=== PATIENT | male | born 1950 | race Caucasian/White ===

== ENCOUNTER 2020-07-06 12:55 | Inpatient (IN) | payer OTHER, MEDICARE, SELFPAY ==
[2020-07-06 14:41] VITALS: BP 112/80; PULSE 87; RESP 16; TEMP 36.7; O2SAT 99; BMI 25.4
--- NOTE | 2020-07-06 15:20 | ECG_ITS ---
Test Reason : RECHECK Blood Pressure : / mmHG Vent. Rate : 077 BPM Atrial Rate : 077 BPM P-R Int : 226 ms QRS Dur : 080 ms QT Int : 396 ms P-R-T Axes : 051 -35 031 degrees QTc Int : 448 ms Sinus rhythm with 1st degree A-V block Left axis deviation Low voltage QRS Abnormal ECG No previous ECGs available Referred By: Reena Azul Electronically Signed By:LEANDRO GUTHRIE
--- NOTE | 2020-07-06 15:20 | ED.RECABL ---
HPI - Recheck/Abnormal Lab/Rx General Chief Complaint: Recheck/Abnormal Lab/Rx Stated Complaint: abnormal labs Time Seen by Provider: 07/06/20 14:38 Source: patient History of Present Illness HPI narrative: 70-year-old male with a past medical history of CKD, hyperlipidemia, hypertension sent in by PCP for abnormal renal function noted on outpatient routine labs today. Per outpatient labs BUN creatinine was 120/4.06 today, last checked on February 02, 2020 BUN 54 / creatinine 2.22. Patient reports mild nausea and nonbloody diarrhea the past couple days. Denies fever, chills, vomiting, dysuria/hematuria, flank pain Related Data Allergies Allergy/AdvReac Type Severity Reaction Status Date / Time cat dander Allergy Watery Eye Verified 07/06/20 14:48 house dust Allergy Watery Eye Verified 07/06/20 14:48 Review of Systems Review of Systems: Constitutional: No Weight loss, No Fever, No Chills Cardiovascular: No Chest Pain, No SOB, No Palpitations Respiratory: No Cough, No Sputum, No Dyspnea Gastrointestinal: + Nausea, No Vomiting, + Diarrhea, No Constipation, No Abdominal pain, No Hematochezia, No Melena Genitourinary: No irregular bleeding, No Dysuria, No Urinary Frequency, No Hematuria, No Flank Pain, No Urinary Flow Changes Musculoskeletal: No joint pain, No Myalgias, No Joint Swelling Skin: No Skin Lesions, No rash Neuro: No Weakness, No Headache Yes all other systems are reviewed and are negative [facility] Past Medical History Attestation statement: The following information was validated with the patient. Medical History (Updated 07/06/20 @ 17:08 by GERARDO Gtz) H/O chronic kidney disease Hypercholesteremia Hypertension Social History Social History Advance Directives: No Advance Directives Information Provided: Yes Physical Exam Vital Signs: Vital Signs: Last Vital Signs Temp 98.7 F 07/06/20 16:00 Pulse 77 07/06/20 16:00 Resp 16 07/06/20 16:00 BP 101/64 07/06/20 16:00 Pulse Ox 99 07/06/20 16:00 Body Mass Index 25.4 Const: General: cooperative, healthy appearing and comfortable Orientation/consciousness: patient oriented x3 Limitations: no limitations HENMT: Head: Yes normal to inspection Ears: hearing grossly normal bilaterally General nose exam: Normal external nose present Face and sinus: Yes normal facial exam Eyes: General: appearance normal, both eyes and all related structures EOM: EOMs intact bilaterally Neck: Neck: Yes normal visual inspection Resp: Effort & Inspection: normal respiratory effort Auscultation: clear to auscultation bilaterally, no rales, no rhonchi and no wheezes Cardio: Rate: regular rate Heart sounds: S1 normal heart sound present and S2 normal heart sound present GI: Inspection: Yes normal to inspection Palpation (GI): Soft to palpation, nontender, no guarding and not rigid : General: Yes no CVA tenderness Back/Spine/Pelvis: Back: no CVA tenderness Skin: Rashes: no rashes Wounds: no wounds Neuro: General: patient oriented x3 Gait exam (Neuro): Normal gait present Extrem: General: Yes normal to inspection and Yes no pedal edema Course Course Course Narrative: -1700-- labs notable for elevated potassium to 6.8 > no EKG changes, sodium, insulin, and D50 ordered expected from renal dysfunction. Low concern for severe sepsis. Renal function BUN 131/creatinine 4.13. -lipase also noted to be elevated at 311 > will obtain dry CT AP to rule out acute pancreatitis MDM - Recheck/Abnormal Lab/Rx MDM Narrative Medical decision making narrative: 70-year-old male with a past medical history of CKD, hyperlipidemia, hypertension sent in by PCP for abnormal renal function noted on outpatient routine labs today. On exam VSS, NAD/well-appearing, physical exam as above. Concern for acute on chronic worsening CKD due to dehydration vs ?obstruction. Lower concern for infectious etiology. Plan: Labs, UA, re-evaluate Medical Records Attestation: I reviewed the patient's medical records. Lab Data Attestation: I reviewed the patient's lab results. Result diagrams: 07/06/20 15:27 07/06/20 15:27 Labs: Lab Results 07/06/20 07/06/20 07/06/20 Range/Units 15:27 15:27 15:27 WBC 9.2 (4.8-10.8) X10*3/uL RBC 3.77 L (4.60-5.80) X10*6/uL Hgb 13.1 L (14.0-18.0) g/dl Hct 37.6 L (42-52) % MCV 99.7 H (80-98) fL MCH 34.7 H (27.0-33.0) pg MCHC 34.8 (31.0-36.0) g/dl RDW 12.8 (11.0-16.0) % Plt Count 173 (160-400) X10*3/uL MPV 10.8 (9.4-12.4) fL Immature Gran % (Auto) 0.3 (0.0-0.4) % Neut % (Auto) 64.3 (45-73) % Lymph % (Auto) 20.1 (20-40) % [place] % (Auto) 13.7 H (2-11) % Eos % (Auto) 1.1 (0-4) % Baso % (Auto) 0.5 (0-2) % Lymph # (Auto) 1.8 (1.2-4.9) X10*3/uL [place] # (Auto) 1.3 H (0.1-1.2) X10*3/uL Eos # (Auto) 0.1 (0.0-0.4) X10*3/uL Baso # (Auto) 0.1 (0.0-0.2) X10*3/uL Abs Immat Gran (auto) 0.03 (0.00-0.03) X10*3/uL Absolute Neuts (auto) 5.9 (2.0-8.3) X10*3/uL Absolute Nucleated RBC 0.000 (0.0-0.012) X10*3/uL Nucleated RBC % (auto) 0.0 (0.0-0.2) /100WBC Hold Blue Top SEE NOTE Sodium 133 L (135-145) mmol/L Potassium 6.8 H* (3.3-5.1) mmol/L Chloride 105 (96-108) mmol/L Carbon Dioxide 11 L (22-29) mmol/L Anion Gap 24 H (12-20) BUN 131 H* (9-16) mg/dL Creatinine 4.13 H* (0.5-1.4) mg/dL Estim Creat Clear Calc 16.4 Estimated GFR 14 Random Glucose 93 (60-115) mg/dL Calcium 9.6 (8.4-10.2) mg/dL Magnesium 1.9 (1.6-2.6) mg/dL Total Bilirubin 0.8 (0.0-1.0) mg/dL Direct Bilirubin 0.4 (0.0-0.5) mg/dL AST 28 (5-37) U/L ALT 18 (0-40) U/L Alkaline Phosphatase 64 (39-117) U/L Total Protein 7.4 (6.5-8.0) g/dL Albumin 4.4 (3.5-5.0) g/dL Lipase 311 H (8-78) U/L Discharge Plan Discharge Clinical Impression: Acute kidney injury superimposed on chronic kidney disease, Acute hyperkalemia Patient Disposition: Admitted As Inpatient
[2020-07-06 15:35] LABS: MANUAL DIFF FLAG NO
[2020-07-06] MEDS: 0.9 % Sodium Chloride 1,000 ML 999 ML IVCONT ×2 (15:35→17:33)
[2020-07-06 15:37] LABS: Basophils Absolute Auto 0.1 X10*3/uL (0.0-0.2); Basophils Percent Auto 0.5 % (0-2); Eosinophils Absolute Auto 0.1 X10*3/uL (0.0-0.4); Eosinophils Percent Auto 1.1 % (0-4); Hematocrit 37.6 % (42-52); Hemoglobin 13.1 g/dl (14.0-18.0); Imm Gran Abs Auto 0.03 X10*3/uL (0.00-0.03); Imm Gran Pct Auto 0.3 % (0.0-0.4); Lymphocytes Absolute Auto 1.8 X10*3/uL (1.2-4.9); Lymphocytes Percent Auto 20.1 % (20-40); Mean Corpuscular HGB Conc 34.8 g/dl (31.0-36.0); Mean Corpuscular Hemoglobin 34.7 pg (27.0-33.0); Mean Corpuscular Volume 99.7 fL (80-98); Mean Platelet Volume 10.8 fL (9.4-12.4); Monocytes Absolute Auto 1.3 X10*3/uL (0.1-1.2); Monocytes Percent Auto 13.7 % (2-11); Neutrophils Absolute Auto 5.9 X10*3/uL (2.0-8.3); Neutrophils Percent Auto 64.3 % (45-73); Platelet Count 173 X10*3/uL (160-400); Red Blood Count 3.77 X10*6/uL (4.60-5.80); Red Cell Distribution Width 12.8 % (11.0-16.0); White Blood Count 9.2 X10*3/uL (4.8-10.8)
[2020-07-06 16:00] VITALS: BP 101/64; PULSE 77; RESP 16; TEMP 37.1; O2SAT 99
[2020-07-06 16:42] LABS: Alanine Aminotransferase 18 U/L (0-40); Albumin Level 4.4 g/dL (3.5-5.0); Alkaline Phosphatase 64 U/L (39-117); Anion Gap 24 (12-20); Aspartate Amino Transferase 28 U/L (5-37); Bilirubin Direct 0.4 mg/dL (0.0-0.5); Bilirubin Total 0.8 mg/dL (0.0-1.0); Blood Urea Nitrogen 131 mg/dL (9-16); Calcium 9.6 mg/dL (8.4-10.2); Carbon Dioxide 11 mmol/L (22-29); Chloride 105 mmol/L (96-108); Creatinine Clr Calc Pharmacy 16.4; Estimated Glomerular Filt Rate 14; Glucose Random 93 mg/dL (60-115); Lipase 311 U/L (8-78); Magnesium 1.9 mg/dL (1.6-2.6); Potassium 6.8 mmol/L (3.3-5.1); Sodium 133 mmol/L (135-145); Total Protein 7.4 g/dL (6.5-8.0)
--- NOTE | 2020-07-06 17:06 | CT_ITS ---
EXAMINATION: CT ABDOMEN AND PELVIS WITHOUT CONTRAST CLINICAL INFORMATION: Acute on chronic kidney disease. Elevated lipase COMPARISON: None TECHNIQUE: Multidetector volumetric imaging was performed from the superior aspect of the liver through the pubic symphysis. Sagittal and coronal reformatted images were obtained on the technologist's workstation. This CT examination was performed using dose optimization techniques as appropriate, variously including the following: *Automated exposure control *Adjustment of mA and/or kV according to patient size (this includes techniques or standardized protocols for targeted exams where dose is matched to indication/reason for exam; i.e. extremities or head) *Use of iterative reconstruction technique DLP: 501 mGy-cm FINDINGS: The lack of intravenous contrast limits evaluation of the solid visceral organs including the liver, spleen, pancreas, and kidneys. LUNG BASES: The visualized lung bases are unremarkable. LIVER, GALLBLADDER, AND BILIARY TREE: Limited non-contrast evaluation is normal. No gross focal hepatic lesion. Normal liver size and contour. No gross biliary ductal dilation. The gallbladder is unremarkable with no evidence of radiopaque gallstones, gallbladder wall thickening, or obvious pericholecystic inflammatory changes. PANCREAS: Limited non-contrast evaluation is normal. No gail-pancreatic fluid. SPLEEN: Limited non-contrast evaluation is normal. ADRENAL GLANDS: Normal; no adrenal mass. KIDNEYS AND URETERS: Likely cyst of the anterior cortex of lower pole the right kidney. No calculi or hydronephrosis. GASTROINTESTINAL TRACT: Small hiatal hernia. Stomach collapsed. Small bowel nondilated. The appendix is not seen but there are no right lower quadrant inflammatory changes to suggest appendicitis. ABDOMINAL WALL: There is fat in the left inguinal canal. LYMPH NODES: No lymphadenopathy. VASCULAR: Circumferential calcified atherosclerotic disease. Tortuous aorta. No aneurysm or dissection. BLADDER: Unremarkable. PELVIC VISCERA: Mild prostatomegaly. Seminal vesicles symmetric. OSSEOUS STRUCTURES: Multilevel degenerative changes of the thoracolumbar spine. There is severe loss of disc height with endplate sclerosis and anterior as well as posterior osteophytosis L1-L2, L4-L5, and L5-S1. CT/CT abdomen pelvis wo con IMPRESSION: Normal appearance of the pancreas. Note that the pancreas can have a normal CT appearance in cases of mild pancreatitis by serum enzymes.
[2020-07-06] MEDS: Insulin Regular, Human 100 UNIT/ML 3 ML VIAL IVPUSH (17:33)
[2020-07-06] MEDS: Sodium Polystyrene Sulfon/Sorb 15 GM/60 ML ORAL.SUSP 30 GM PO (17:33)
[2020-07-06] MEDS: Sodium Bicarbonate 8.4% 50 MEQ/50 ML VIAL IVPUSH (17:55)
[2020-07-06 18:00] VITALS: BP 137/99; PULSE 94; RESP 21; TEMP 37.1; O2SAT 100
[2020-07-06 19:35] LABS: COVID-19 Test Negative (Negative)
--- NOTE | 2020-07-06 19:58 | P.HPHOSP_ITS ---
History of Present Illness Date of Service: 07/06/20 Chief Complaint: Diarrhea 70 year old man presenting with diarrhea for 2 days. He reported loose watery stool several times in one day with no blood. He denied recent travel, improperly cooked foods, new medications or antibiotics. he has had no fever, chills, cough. He had some mild abdominal cramping. Abd CT showed no acute abnormality. His creatinine was noted to be elevated at 4.13, potassium 6.8, sodium 133. Lipase is elevated at [address] is not definitive for pancreatitis. In the ED, he received sodium bicarb, insulin and D50, kayexalate and IV fluids. Review of Systems Review of Systems: Denies any recent fever chills or decrease in appetite respiratory denies any shortness of breath coverage production cardiovascular is adjustment of any PND or edema gastrointestinal See HPI genitourinary denies any dysuria frequency or hematuria musculoskeletal denies any joint pain or swelling neuropsych denies any weakness or seizures all other systems reviewed are negative [facility] Medical History (Updated 07/06/20 @ 17:08 by GERARDO Gtz) H/O chronic kidney disease Hypercholesteremia Hypertension Pertinent family history: No cardiac disease Social History (Updated 07/06/20 @ 20:03 by Megan Rosales NP) Alcohol intake: never Smoking Status: Never smoker Advance Directives: No Advance Directives Information Provided: Yes Meds Allergies Allergy/AdvReac Type Severity Reaction Status Date / Time cat dander Allergy Watery Eye Verified 07/06/20 14:48 house dust Allergy Watery Eye Verified 07/06/20 14:48 Home Medications Medication Instructions Recorded Confirmed Type allopurinol 300 mg PO DAILY 07/06/20 07/06/20 History carvedilol 25 mg PO BID 07/06/20 07/06/20 History cetirizine 10 mg PO DAILY 07/06/20 07/06/20 History cyclobenzaprine [Flexeril] 5 mg PO TID PRN 07/06/20 07/06/20 History lidocaine 1 patch TOPICAL DAILY 07/06/20 07/06/20 History lisinopril-hydrochlorothiazide 1 tab PO DAILY 07/06/20 07/06/20 History psyllium husk 1 tbsp PO DAILY 07/06/20 07/06/20 History simvastatin 40 mg PO BEDTIME 07/06/20 07/06/20 History Physical Exam Vital Signs and Narrative: Vital Signs: Last Vital Signs Temp 98.8 F 07/06/20 18:00 Pulse 94 07/06/20 18:00 Resp 21 H 07/06/20 18:00 BP 137/99 H 07/06/20 18:00 Pulse Ox 100 07/06/20 18:00 Body Mass Index 25.4 Appearing in no acute distress head is normocephalic atraumatic eyes pupils are PERRLA sclera is anicteric mouth throat mucous membranes are intact and moist neck is supple no lymphadenopathy, no JVD noted lung sounds are clear to auscultation heart regular rate rhythm, clear S1, S2 positive bowel sounds, abdomen is soft, nontender neuro patient is alert x3, no focal deficits Results Labs CBC and Chem 7: 07/06/20 15:27 07/06/20 15:27 Labs: Laboratory Results - last 24 hr 07/06/20 07/06/20 07/06/20 15:27 15:27 15:27 MCV 99.7 H MCH 34.7 H MCHC 34.8 RDW 12.8 Plt Count 173 MPV 10.8 Immature Gran % (Auto) 0.3 Neut % (Auto) 64.3 Lymph % (Auto) 20.1 [place] % (Auto) 13.7 H Eos % (Auto) 1.1 Baso % (Auto) 0.5 Lymph # (Auto) 1.8 [place] # (Auto) 1.3 H Eos # (Auto) 0.1 Baso # (Auto) 0.1 Abs Immat Gran (auto) 0.03 Absolute Neuts (auto) 5.9 Absolute Nucleated RBC 0.000 Nucleated RBC % (auto) 0.0 Hold Blue Top SEE NOTE Anion Gap 24 H Estim Creat Clear Calc 16.4 Estimated GFR 14 Random Glucose 93 Calcium 9.6 Magnesium 1.9 Total Bilirubin 0.8 Direct Bilirubin 0.4 AST 28 ALT 18 Alkaline Phosphatase 64 Total Protein 7.4 Albumin 4.4 Lipase 311 H COVID-19 ([facility]) COVID-19 Clin Com 07/06/20 18:47 MCV MCH MCHC RDW Plt Count MPV Immature Gran % (Auto) Neut % (Auto) Lymph % (Auto) [place] % (Auto) Eos % (Auto) Baso % (Auto) Lymph # (Auto) [place] # (Auto) Eos # (Auto) Baso # (Auto) Abs Immat Gran (auto) Absolute Neuts (auto) Absolute Nucleated RBC Nucleated RBC % (auto) Hold Blue Top Anion Gap Estim Creat Clear Calc Estimated GFR Random Glucose Calcium Magnesium Total Bilirubin Direct Bilirubin AST ALT Alkaline Phosphatase Total Protein Albumin Lipase COVID-19 ([facility]) Negative COVID-19 Clin Com See Note Imaging Radiologist's Impressions: Impressions Abdomen/Pelvis CT 07/06/20 17:06 IMPRESSION: Normal appearance of the pancreas. Note that the pancreas can have a normal CT appearance in cases of mild pancreatitis by serum enzymes. Assessment and Plan (1) Acute kidney injury superimposed on chronic kidney disease: Status: Acute 70 year old man admitted with LOWELL and hyperkalemia likely related to diarrhea LOWELL, hyperkalemia. Likely from dehydration/volume loss secondary to diarrea. IV fluids, Nephrology consult, BMP this evening. Kayexalate if needed. Diarrhea. Check Stool studies and cdiff HTN. Stable blood pressure. Hold Lisinopril/HCTZ due to LOWELL. Continue BB. HLD. Statin. DVT prophylaxis with Heparin Dioscussed with Dr. De La Rosa Full code
[2020-07-06] MEDS: 0.9 % Sodium Chloride 1,000 ML 100 ML IVCONT (21:56)
[2020-07-06] MEDS: Heparin Sodium,Porcine 5,000 UNIT/ML VIAL 5000 UNIT SUBCUT (21:58)
--- NOTE | 2020-07-06 22:01 | PC.NURSE ---
pt medicated as per emar. Pt denies any complaints at this time. Pt alert, respirations easy, n/l. skin w/d/p. Will continue to monitor pt.
--- NOTE | 2020-07-06 22:25 | PC.NURSE ---
NS UP AND RUNNING ON PUMP AT 100ML/HR. WILL CONTINUE TO MONITOR PT.
--- NOTE | 2020-07-06 23:10 | MHC.CM.PN ---
CM met with pt. A&Ox3. Very pleasant and talkative. IMM completed per protocol. Copy to pt and in chart. States HCP is and copy is at home. Pt is an [employer] vet and is [facility]. D/C plan is home. to provide transportation home. CM to follow for d/c needs
[2020-07-07] VITALS (8 sets, daily range): BP systolic 120–146; BP diastolic 76–91; PULSE 72–80; RESP 16–18; TEMP 36.2–36.7; O2SAT 99–100
[2020-07-07] MEDS: 0.9 % Sodium Chloride Flush 3 ML SYRINGE IVFLUSH ×2 (01:18→08:33)
--- NOTE | 2020-07-07 02:00 | PC.NURSE ---
PT AWAKE AND STATES I HAVEN'T SLEPT ALL NIGHT. PT DENIES ANY COMPLAINTS. 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 PT IN NAD AND WILL CONTINUE TO MONITOR PT.
[2020-07-07 04:17] LABS: Appearance Urine CLEAR; Color Urine YELLOW; Glucose Urine UA NEG (NEG); Leukocyte Esterase Urine NEG (NEG); Nitrite Urine NEG (NEG); Specific Gravity - Urine 1.015 (1.005-1.025); UACC Culture Trigger NO; Urine Blood NEG (NEG); Urine Ketones NEG (NEG); Urine Protein NEG (NEG-TRACE)
--- NOTE | 2020-07-07 05:33 | PC.NURSE ---
PT RESTING IN STRETCHER, WAKES TO VERBAL STIMULI AND FALLS BACK TO SLEEP. VS OBTAINED WNL. PT IN NAD. AWAITING FOR DISPO.
[2020-07-07 06:46] LABS: Basophils Percent Auto 0.5 % (0-2); Eosinophils Absolute Auto 0.1 X10*3/uL (0.0-0.4); Eosinophils Percent Auto 1.4 % (0-4); Hematocrit 34.3 % (42-52); Hemoglobin 11.8 g/dl (14.0-18.0); Imm Gran Abs Auto 0.02 X10*3/uL (0.00-0.03); Imm Gran Pct Auto 0.3 % (0.0-0.4); Lymphocytes Absolute Auto 1.5 X10*3/uL (1.2-4.9); Lymphocytes Percent Auto 22.6 % (20-40); MANUAL DIFF FLAG NO; Mean Corpuscular HGB Conc 34.4 g/dl (31.0-36.0); Mean Corpuscular Hemoglobin 34.9 pg (27.0-33.0); Mean Corpuscular Volume 101.5 fL (80-98); Mean Platelet Volume 10.9 fL (9.4-12.4); Monocytes Absolute Auto 0.8 X10*3/uL (0.1-1.2); Monocytes Percent Auto 12.8 % (2-11); Neutrophils Absolute Auto 4.1 X10*3/uL (2.0-8.3); Neutrophils Percent Auto 62.4 % (45-73); Platelet Count 148 X10*3/uL (160-400); Red Blood Count 3.38 X10*6/uL (4.60-5.80); Red Cell Distribution Width 12.9 % (11.0-16.0); White Blood Count 6.6 X10*3/uL (4.8-10.8)
[2020-07-07 07:31] LABS: Anion Gap 19 (12-20); Blood Urea Nitrogen 119 mg/dL (9-16); Carbon Dioxide 15 mmol/L (22-29); Chloride 111 mmol/L (96-108); Creatinine Clr Calc Pharmacy 23.5; Estimated Glomerular Filt Rate 22; Glucose Random 105 mg/dL (60-115); Potassium 5.5 mmol/L (3.3-5.1); Sodium 139 mmol/L (135-145)
[2020-07-07] MEDS: 0.9 % Sodium Chloride 1,000 ML 100 ML IVCONT ×2 (08:32→18:33)
[2020-07-07] MEDS: Heparin Sodium,Porcine 5,000 UNIT/ML VIAL 5000 UNIT SUBCUT ×2 (08:40→20:54)
--- NOTE | 2020-07-07 11:42 | PC.NURSE ---
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
--- NOTE | 2020-07-07 12:47 | HO.PM.IMPN ---
Subjective Subjective Date of Service: 07/07/20 Interval History: Patient feeling better had 4 bowel movement yesterday and only 1 today it is more formed complaining of mild lower abdominal discomfort otherwise no fever no chills no lightheadedness or dizziness no other acute issues since admit. ROS General no headache, no dizziness, no fever chills. CVS no chest pain, no palpitation. Respiratory no cough, no sputum production ,no respiratory distress. Gastrointestinal no nausea,no vomiting, mild abdominal pain,diarrhea. Physical Exam Vital Signs: Vital Signs: Last Vital Signs Temp 98.0 F 07/07/20 11:41 Pulse 75 07/07/20 11:41 Resp 18 07/07/20 11:41 BP 121/81 07/07/20 11:41 Pulse Ox 100 07/07/20 11:41 Body Mass Index 25.4 General patient resting comfortably in no acute distress. Neck is supple no JVD. CVS regular rate rhythm, Respiratory lungs clear to auscultation, no respiratory distress Gastrointestinal abdomen soft, nontender, bowel sounds audible, no guarding , no rigidity. Extremities no edema. Neuro nonfocal , speech clear. Skin no rash Objective Data Current Medications Generic Name Dose Route Start Last Admin Trade Name Freq PRN Reason Stop Dose Admin Acetaminophen 650 mg 07/06/20 19:52 Acetaminophen 325 Mg Tablet PO Q6H PRN Pain, Mild (Pain Scale 1-3) Heparin Sodium (Porcine) 5,000 unit 07/06/20 20:15 07/07/20 08:40 Heparin Sodium,Porcine 5,000 Unit/Ml Vial SUBCUT 5,000 unit Q12H PATIENCE Administration Sodium Chloride 1,000 mls @ 100 mls/hr 07/06/20 20:00 07/07/20 08:32 Ns IVCONT 100 mls/hr .Q10H PATIENCE Administration Ondansetron HCl 4 mg 07/06/20 19:52 Ondansetron Hcl 4 Mg/2 Ml Vial IVPUSH Q8H PRN Nausea and Vomiting Pharmacy Consult 1 each 07/06/20 18:02 Consult Rx Perform Med Rec MISCELLANE ONCE PRN Consult order Sodium Chloride 3 ml 07/07/20 00:00 07/07/20 08:33 0.9 % Sodium Chloride Flush 3 Ml Syringe IVFLUSH 3 ml QSHIFT PATIENCE Administration Labs CBC & Chem 7: 07/07/20 06:22 02/04/21 06:22 Assessment and Plan (1) Acute kidney injury superimposed on chronic kidney disease: Status: Acute (2) Acute hyperkalemia: Status: Acute (3) Diarrhea: Status: Acute Assessment and Plan: 70 year old man admitted with LOWELL and hyperkalemia likely related to diarrhea LOWELL on chronic kidney disease, no prior creatinine available likely due to dehydration related to diarrhea and decreased by mouth intake, creatinine is trending down from 4.1 to 2.8 Continue IV hydration hold diuretics, follow BMP diarrhea is improving, no hydronephrosis patient is voiding with no issues is close to 3 L positive. Follow Nephro input. Hyperkalemia. Due to worsening renal failure potassium improved from 6.8-5.5, will repeat Kayexalate continue IV hydration follow BMP EKG showed no abnormality Diarrhea. Stool culture pending, diarrhea slowing down , normal WBC no history of recent antibiotic use Elevated lipase no abdominal pain, drinks alcohol 2-3 beers 3 times per week, normal LFTs will follow lipase, likely related to gastroenteritis. HTN. Stable blood pressure. Continue to Hold Lisinopril/HCTZ due to LOWELL. Continue BB. HLD. Continue Statin, give Lipitor 20 mg takes Zocor 40 at bedtime. DVT prophylaxis with Heparin Full code
[2020-07-07] MEDS: Sodium Polystyrene Sulfon/Sorb 15 GM/60 ML ORAL.SUSP PO (13:12)
--- NOTE | 2020-07-07 13:13 | PC.NURSE ---
patient medicated per order
--- NOTE | 2020-07-07 13:57 | PC.NURSE ---
called floor, office secretary stated they will have rn call us back as she is discharging a patient and getting another admit as well.
--- NOTE | 2020-07-07 17:44 | PM.CNNEP ---
History of Present Illness Reason for Consult Consult date: 07/07/20 Chief Complaint Chief complaint: LOWELL, HYPERKALEMIA History of Present Illness Narrative: 70 year old man presenting with loose watery stool several times in one day with no blood. He denied recent travel, improperly cooked foods, new medications or antibiotics. he has had no fever, chills, cough. He had some mild abdominal cramping. Abd CT showed no acute abnormality. His creatinine was noted to be elevated at 4.13, potassium 6.8, Nephrology was consulted to assist in his clinical care during his current hospital stay Review of Systems Review of Systems Yes all other systems are reviewed and are negative [facility] Past Medical History Medical History (Updated 07/07/20 @ 17:50 by John Wright MD) H/O chronic kidney disease Hypercholesteremia Hypertension Social History Social History (Updated 07/06/20 @ 20:03 by Megan Rosales NP) Alcohol intake: never Smoking Status: Never smoker Use of substances other than those prescribed or required for medical reasons: No Advance Directives: No Advance Directives Information Provided: Yes service: Yes Current occupational status: retired [employer] Allergies Allergy/AdvReac Type Severity Reaction Status Date / Time cat dander Allergy Watery Eye Verified 07/06/20 14:48 house dust Allergy Watery Eye Verified 07/06/20 14:48 Home Medications Medication Instructions Recorded Confirmed Type allopurinol 300 mg PO DAILY 07/06/20 07/06/20 History carvedilol 25 mg PO BID 07/06/20 07/06/20 History cetirizine 10 mg PO DAILY 07/06/20 07/06/20 History cyclobenzaprine [Flexeril] 5 mg PO TID PRN 07/06/20 07/06/20 History lidocaine 1 patch TOPICAL DAILY 07/06/20 07/06/20 History lisinopril-hydrochlorothiazide 1 tab PO DAILY 07/06/20 07/06/20 History psyllium husk 1 tbsp PO DAILY 07/06/20 07/06/20 History simvastatin 40 mg PO BEDTIME 07/06/20 07/06/20 History Physical Exam Vital Signs: Last Vital Signs Temp 97.1 F 07/07/20 15:30 Pulse 74 07/07/20 15:30 Resp 18 07/07/20 15:30 BP 133/80 07/07/20 15:30 Pulse Ox 100 07/07/20 15:30 Body Mass Index 25.4 Const General: cooperative Neck Neck: Yes supple Resp Auscultation: diminished lung sounds Cardio Rate: regular rate GI Palpation (GI): Soft to palpation Neuro General: moves all extremities Results Lab Results Result Diagrams: 07/07/20 06:22 07/07/20 06:22 Lab results: Chemistry 07/06/20 07/07/20 15:27 06:22 Sodium 133 L 139 Potassium 6.8 H* 5.5 H Carbon Dioxide 11 L 15 L BUN 131 H* 119 H* Creatinine 4.13 H* 2.88 H Calcium 9.6 9.0 D Hematology 07/06/20 07/07/20 15:27 06:22 WBC 9.2 6.6 Hgb 13.1 L 11.8 L Plt Count 173 148 L Urinalysis 07/07/20 04:11 Urine Color YELLOW Urine Appearance CLEAR Urine pH 5.0 Ur Specific [place] 1.015 Urine Protein NEG Urine Glucose (UA) NEG Urine Ketones NEG Urine Blood NEG Urine Nitrite NEG Ur Leukocyte Esterase NEG Assessment and Plan (1) Acute kidney injury superimposed on chronic kidney disease: Problem details: Acute Kidney Injury due to compromised renal perfusion Has been taking ACEI which is currently on hold Hyperkalemia resolved but remains metabolically acidotic Needs to switch NaCl to Ringer lactate or Start IV NaHCO3 instead of NaCl No obstruction by imaging. Renal functions improving Shall repeat labs AM. Further management is pending evolving data Status: Acute
[2020-07-07] MEDS: Atorvastatin Calcium 20 MG TABLET PO (20:54)
[2020-07-08] MEDS: 0.9 % Sodium Chloride 1,000 ML 100 ML IVCONT (03:47)
[2020-07-08 03:53] VITALS: BP 160/94; PULSE 74; RESP 16; TEMP 36.3; O2SAT 100
[2020-07-08 06:53] LABS: Anion Gap 13 (12-20); Blood Urea Nitrogen 82 mg/dL (9-16); Calcium 8.9 mg/dL (8.4-10.2); Carbon Dioxide 18 mmol/L (22-29); Chloride 113 mmol/L (96-108); Creatinine Clr Calc Pharmacy 38.4; Estimated Glomerular Filt Rate 38; Glucose Random 99 mg/dL (60-115); Lipase 214 U/L (8-78); Potassium 4.9 mmol/L (3.3-5.1); Sodium 139 mmol/L (135-145)
[2020-07-08 07:33] VITALS: BP 145/90; PULSE 84; RESP 17; TEMP 36.4; O2SAT 100
[2020-07-08 09:16] LABS: Folate 8.2 ng/mL (> or = 4.0); Vitamin B12 384 pg/mL (200-900)
[2020-07-08] MEDS: Heparin Sodium,Porcine 5,000 UNIT/ML VIAL 5000 UNIT SUBCUT ×2 (09:31→23:11)
--- NOTE | 2020-07-08 11:07 | PM.PNNEP ---
Subjective Subjective Date of Service: 07/08/20 Interval history: Seen AM. Feels better. Renal functions improved Physical Exam Vital Signs: Vital Signs: Last Vital Signs Temp 97.6 F 07/08/20 07:33 Pulse 84 07/08/20 07:33 Resp 17 07/08/20 07:33 BP 145/90 H 07/08/20 07:33 Pulse Ox 100 07/08/20 07:33 Body Mass Index 25.4 Const: General: comfortable Orientation/consciousness: patient oriented x3 Neck: Neck: Yes supple Resp: Auscultation: diminished lung sounds Cardio: Rate: regular rate GI: Palpation (GI): Soft to palpation Neuro: General: patient oriented x3 and moves all extremities Objective Data Labs CBC & Chem 7: 07/07/20 06:22 07/08/20 05:48 Labs: Laboratory Results - last 24 hr 07/08/20 07/08/20 05:48 05:48 Sodium 139 Potassium 4.9 Chloride 113 H Carbon Dioxide 18 L Anion Gap 13 BUN 82 H* D Creatinine 1.76 H Estim Creat Clear Calc 38.4 Estimated GFR 38 Random Glucose 99 Calcium 8.9 Lipase 214 H Vitamin B12 384 Folate 8.2 Assessment & Plan Assessment and plan (1) Acute kidney injury superimposed on chronic kidney disease: Problem details: Acute Kidney Injury due to compromised renal perfusion Has been taking ACEI which is currently on hold Hyperkalemia resolved but remains metabolically acidotic Needs to switch NaCl to Ringer lactate today @ 100mls/hr No obstruction by imaging. Renal functions improving Shall repeat labs AM. Further management is pending evolving data Status: Acute Time Spent With Patient Time: Total time spent is greater than 50% in coordination of care (as documented) at patient's floor/unit and/or counseling patient:
[2020-07-08] MEDS: Lactated Ringers 1,000 ML 100 ML IVCONT ×2 (12:56→23:16)
--- NOTE | 2020-07-08 15:03 | P.PNIM_ITS ---
Subjective Subjective Date of Service: 07/08/20 Interval History: Patient sitting comfortably offers no acute complaints denies nausea vomiting no diarrhea had a regular bowel movement this morning. General no headache no dizziness no fever chills. CVS no chest pain, no palpitation. Respiratory no cough, no shortness of breath Gastrointestinal no nausea, no vomiting, no abdominal pain, no diarrhea Physical Exam Vital Signs: Vital Signs: Last Vital Signs Temp 97.6 F 07/08/20 07:33 Pulse 84 07/08/20 07:33 Resp 17 07/08/20 07:33 BP 145/90 H 07/08/20 07:33 Pulse Ox 100 07/08/20 07:33 Body Mass Index 25.4 General patient resting comfortably in no acute distress. Neck is supple no JVD. CVS regular rate rhythm, Respiratory lungs clear to auscultation, no respiratory distress Gastrointestinal abdomen soft, nontender, bowel sounds audible, no guarding , no rigidity. Extremities no edema. Neuro nonfocal , speech clear. Skin no rash Objective Data Current Medications Generic Name Dose Route Start Last Admin Trade Name Freq PRN Reason Stop Dose Admin Acetaminophen 650 mg 07/06/20 19:52 Acetaminophen 325 Mg Tablet PO Q6H PRN Pain, Mild (Pain Scale 1-3) Atorvastatin Calcium 20 mg 07/07/20 21:00 07/07/20 20:54 Atorvastatin Calcium 20 Mg Tablet PO 20 mg BEDTIME PATIENCE Administration Heparin Sodium (Porcine) 5,000 unit 07/06/20 20:15 07/08/20 09:31 Heparin Sodium,Porcine 5,000 Unit/Ml Vial SUBCUT 5,000 unit Q12H PATIENCE Administration Lactated Ringer's 1,000 mls @ 100 mls/hr 07/08/20 12:45 07/08/20 12:56 Lr IVCONT 100 mls/hr .Q10H PATIENCE Administration Ondansetron HCl 4 mg 07/06/20 19:52 Ondansetron Hcl 4 Mg/2 Ml Vial IVPUSH Q8H PRN Nausea and Vomiting Pharmacy Consult 1 each 07/06/20 18:02 Consult Rx Perform Med Rec MISCELLANE ONCE PRN Consult order Sodium Chloride 3 ml 07/07/20 00:00 07/08/20 09:32 0.9 % Sodium Chloride Flush 3 Ml Syringe IVFLUSH Not Given QSHIFT FOR[facility]LY [facility], 1928–1983 Labs CBC & Chem 7: 07/07/20 06:22 07/08/20 05:48 Assessment and Plan (1) Diarrhea: Status: Acute (2) Acute kidney injury superimposed on chronic kidney disease: Problem details: Acute Kidney Injury due to compromised renal perfusion Has been taking ACEI which is currently on hold Hyperkalemia resolved but remains metabolically acidotic Needs to switch NaCl to Ringer lactate today @ 100mls/hr No obstruction by imaging. Renal functions improving Shall repeat labs AM. Further management is pending evolving data Status: Acute (3) Acute hyperkalemia: Status: Acute Assessment and Plan: 70 year old man admitted with LOWELL and hyperkalemia likely related to diarrhea LOWELL on chronic kidney disease, no baseline available, likely due to dehydration related to diarrhea and decreased by mouth intake, creatinine is trending down from 4.1 to 1.76 Case discussed with Nephrology he recommend to change IV fluids to Ringer lactate 100 mL per hour, hold diuretics, follow BMP diarrhea resolved, no hydronephrosis patient is voiding with no issues Hyperkalemia. Due to worsening renal failure potassium improved from 6.8-4.9, status post Kayexalate continue IV hydration follow BMP EKG showed no abnormality Diarrhea. diarrhea resolved , normal WBC no history of recent antibiotic use Elevated lipase no abdominal pain, drinks alcohol 2-3 beers 3 times per week, normal LFTs,lipase improved, was likely related to gastroenteritis. HTN. Elevated blood pressure since Lisinopril/HCTZ were held due to LOWELL. Continue BB. HLD. Continue Statin, give Lipitor 20 mg takes Zocor 40 at bedtime. DVT prophylaxis with Heparin Full code
[2020-07-08 15:46] VITALS: BP 140/90; PULSE 78; RESP 14; TEMP 36.2; O2SAT 100
[2020-07-08 19:52] VITALS: BP 139/93; PULSE 81; RESP 14; TEMP 36.6; O2SAT 100
[2020-07-08 23:09] VITALS: BP 147/89; PULSE 84; RESP 18; TEMP 37.1; O2SAT 95
[2020-07-08 23:11] VITALS: BP 147/89; PULSE 84
[2020-07-08] MEDS: Atorvastatin Calcium 20 MG TABLET PO (23:11)
[2020-07-08] MEDS: carvediloL 12.5 MG TABLET PO (23:11)
[2020-07-08] MEDS: 0.9 % Sodium Chloride Flush 3 ML SYRINGE IVFLUSH (23:18)
[2020-07-09 04:00] VITALS: BP 144/86; PULSE 78; RESP 18; TEMP 36.5; O2SAT 98
[2020-07-09 06:52] LABS: Anion Gap 12 (12-20); Blood Urea Nitrogen 52 mg/dL (9-16); Calcium 8.4 mg/dL (8.4-10.2); Carbon Dioxide 18 mmol/L (22-29); Chloride 111 mmol/L (96-108); Estimated Glomerular Filt Rate 51; Glucose Random 92 mg/dL (60-115); Potassium 5.1 mmol/L (3.3-5.1); Sodium 136 mmol/L (135-145)
[2020-07-09 07:47] VITALS: BP 142/88; PULSE 75; RESP 18; TEMP 37.6; O2SAT 98
[2020-07-09] MEDS: 0.9 % Sodium Chloride Flush 3 ML SYRINGE IVFLUSH (09:08)
[2020-07-09] MEDS: Heparin Sodium,Porcine 5,000 UNIT/ML VIAL 5000 UNIT SUBCUT (09:09)
[2020-07-09] MEDS: Lactated Ringers 1,000 ML 100 ML IVCONT (09:09)
[2020-07-09 09:10] VITALS: BP 142/88; PULSE 75
[2020-07-09] MEDS: carvediloL 12.5 MG TABLET PO (09:10)
--- NOTE | 2020-07-09 09:13 | P.PNNP_ITS ---
Subjective Subjective Date of Service: 07/09/20 Interval history: Events noted Feeling better Physical Exam Vital Signs: Vital Signs: Last Vital Signs Temp 99.7 F 07/09/20 07:47 Pulse 75 07/09/20 07:47 Resp 18 07/09/20 07:47 BP 142/88 H 07/09/20 07:47 Pulse Ox 98 07/09/20 07:47 Body Mass Index 25.4 Const: General: comfortable Neck: Neck: Yes supple Resp: Auscultation: clear to auscultation bilaterally GI: Palpation (GI): Soft to palpation Auscultation: normal bowel sounds Neuro: Motor exam (neuro): no asterixis Objective Data Labs CBC & Chem 7: 07/07/20 06:22 07/09/20 06:07 Labs: Laboratory Results - last 24 hr 07/08/20 07/09/20 05:48 06:07 Sodium 136 Potassium 5.1 Chloride 111 H Carbon Dioxide 18 L Anion Gap 12 BUN 52 H Creatinine 1.38 Estim Creat Clear Calc 49.0 Estimated GFR 51 Random Glucose 92 Calcium 8.4 Vitamin B12 384 Folate 8.2 Assessment & Plan Assessment and plan (1) Acute kidney injury superimposed on chronic kidney disease: Problem details: Acute Kidney Injury due to compromised renal perfusion Has been taking ACEI which is currently on hold Hyperkalemia resolved but remains metabolically acidotic Can taper and DC IVF No obstruction by imaging. Renal functions improving . Further management is pending evolving data Status: Acute (2) Acute hyperkalemia: Status: Acute Time Spent With Patient Time: Total time spent is greater than 50% in coordination of care (as alysia vargas) at patient's floor/unit and/or counseling patient:
--- NOTE | 2020-07-09 12:00 | PM.DS ---
DS: Providers Provider Date of Service: 07/09/20 Date of admission: 07/06/20 19:52 Primary care physician: Jagjit Lord MD Consults: 07/06/20 19:52 Consult to Nephrology Routine Consulting Provider: John Wright Reason for consultation: maya Has provider been notified: No DS: Diagnosis Discharge Diagnosis (1) Acute kidney injury superimposed on chronic kidney disease: Status: Acute Problem details: Acute Kidney Injury due to compromised renal perfusion Has been taking ACEI which is currently on hold Hyperkalemia resolved but remains metabolically acidotic Can taper and DC IVF No obstruction by imaging. Renal functions improving . Further management is pending evolving data (2) Acute hyperkalemia: Status: Acute DS: Medications Discharge Medications Home Medications: Home Medications Medication Instructions Recorded Confirmed allopurinol 300 mg PO DAILY 07/06/20 07/06/20 carvedilol 25 mg PO BID 07/06/20 07/06/20 cetirizine 10 mg PO DAILY 07/06/20 07/06/20 cyclobenzaprine 5 mg PO TID PRN 07/06/20 07/06/20 lidocaine 1 patch TOPICAL DAILY 07/06/20 07/06/20 psyllium husk 1 tbsp PO DAILY 07/06/20 07/06/20 simvastatin 40 mg PO BEDTIME 07/06/20 07/06/20 DS: Summary Hospital Course Hospital Course: History of presenting illness Chief Complaint: Diarrhea 70 year old man presenting with diarrhea for 2 days. He reported loose watery stool several times in one day with no blood. He denied recent travel, improperly cooked foods, new medications or antibiotics. he has had no fever, chills, cough. He had some mild abdominal cramping. Abd CT showed no acute abnormality. His creatinine was noted to be elevated at 4.13, potassium 6.8, sodium 133. Lipase is elevated at [address] is not definitive for pancreatitis. In the ED, he received sodium bicarb, insulin and D50, kayexalate and IV fluids. Past medical history H/O chronic kidney disease unknown baseline creatinine Hypercholesteremia Hypertension Hospital course Acute on chronic Kidney disease no baseline creatinine was available it was felt that patient renal failure is prerenal due to poor by mouth intake and diarrhea patient was treated with IV fluid her creatinine improved to 1.3 patient was followed closely by Nephrology they agreed with IV hydration, CT abdomen showed no hydronephrosis, patient diarrhea resolved currently he is tolerating a regular diet he is asymptomatic therefore being discharged home his lisinopril and hydrochlorothiazide has been discontinued and he has been recommended to follow-up with Nephrology and PCP as outpatient. Hyperkalemia related to acute kidney injury and use of lisinopril has resolved with the use of Kayexalate his potassium is within normal range Hypertension patient has been continued on Coreg his BP stable , lisinopril and hydrochlorothiazide have been discontinued Hyperlipidemia recommended to continue Zocor Elevated lipase has trended down, it was likely due to gastroenteritis. CT abdomen showed no evidence of pancreatitis. Time Spent with Patient Time attestation: Total time spent providing and/or coordinating discharge services: Discharge coordination time: Greater than 30 minutes Physical Exam Vital Signs: Vital Signs: Last Vital Signs Temp 99.7 F 07/09/20 07:47 Pulse 75 07/09/20 09:10 Resp 18 07/09/20 07:47 BP 142/88 H 07/09/20 09:10 Pulse Ox 98 07/09/20 07:47 Body Mass Index 25.4 General no acute distress. Neck is supple no JVD. CVS regular rate rhythm, Respiratory lungs clear to auscultation, no respiratory distress Gastrointestinal abdomen soft, nontender, bowel sounds audible, no guarding , no rigidity. Extremities no edema. Neuro nonfocal , speech clear. Skin no rash DS: Data Data Completed and Pending Labs on day of discharge: Laboratory Tests 07/06/20 07/06/20 07/06/20 15:27 15:27 15:27 WBC 9.2 RBC 3.77 L Hgb 13.1 L Hct 37.6 L MCV 99.7 H MCH 34.7 H MCHC 34.8 RDW 12.8 Plt Count 173 MPV 10.8 Immature Gran % (Auto) 0.3 Neut % (Auto) 64.3 Lymph % (Auto) 20.1 Nelson % (Auto) 13.7 H Eos % (Auto) 1.1 Baso % (Auto) 0.5 Lymph # (Auto) 1.8 Nelson # (Auto) 1.3 H Eos # (Auto) 0.1 Baso # (Auto) 0.1 Abs Immat Gran (auto) 0.03 Absolute Neuts (auto) 5.9 Absolute Nucleated RBC 0.000 Nucleated RBC % (auto) 0.0 Hold Blue Top SEE NOTE Sodium 133 L Potassium 6.8 H* Chloride 105 Carbon Dioxide 11 L Anion Gap 24 H BUN 131 H* Creatinine 4.13 H* Estim Creat Clear Calc 16.4 Estimated GFR 14 Random Glucose 93 Calcium 9.6 Magnesium 1.9 Total Bilirubin 0.8 Direct Bilirubin 0.4 AST 28 ALT 18 Alkaline Phosphatase 64 Total Protein 7.4 Albumin 4.4 Lipase 311 H Vitamin B12 Folate Urine Color Urine Appearance Urine pH Ur Specific [place] Urine Protein Urine Glucose (UA) Urine Ketones Urine Blood Urine Nitrite Ur Leukocyte Esterase COVID-19 (MARY) COVID-Choister 07/06/20 07/07/20 07/07/20 18:47 04:11 06:22 WBC 6.6 RBC 3.38 L Hgb 11.8 L Hct 34.3 L MCV 101.5 H MCH 34.9 H MCHC 34.4 RDW 12.9 Plt Count 148 L MPV 10.9 Immature Gran % (Auto) 0.3 Neut % (Auto) 62.4 Lymph % (Auto) 22.6 Nelson % (Auto) 12.8 H Eos % (Auto) 1.4 Baso % (Auto) 0.5 Lymph # (Auto) 1.5 Nelson # (Auto) 0.8 Eos # (Auto) 0.1 Baso # (Auto) 0.0 Abs Immat Gran (auto) 0.02 Absolute Neuts (auto) 4.1 Absolute Nucleated RBC 0.000 Nucleated RBC % (auto) 0.0 Hold Blue Top Sodium Potassium Chloride Carbon Dioxide Anion Gap BUN Creatinine Estim Creat Clear Calc Estimated GFR Random Glucose Calcium Magnesium Total Bilirubin Direct Bilirubin AST ALT Alkaline Phosphatase Total Protein Albumin Lipase Vitamin B12 Folate Urine Color YELLOW Urine Appearance CLEAR Urine pH 5.0 Ur Specific [place] 1.015 Urine Protein NEG Urine Glucose (UA) NEG Urine Ketones NEG Urine Blood NEG Urine Nitrite NEG Ur Leukocyte Esterase NEG COVID-19 (MARY) Negative COVID-19 [facility] See Note 07/07/20 07/08/20 07/08/20 06:22 05:48 05:48 WBC RBC Hgb Hct MCV MCH MCHC RDW Plt Count MPV Immature Gran % (Auto) Neut % (Auto) Lymph % (Auto) Nelson % (Auto) Eos % (Auto) Baso % (Auto) Lymph # (Auto) Nelson # (Auto) Eos # (Auto) Baso # (Auto) Abs Immat Gran (auto) Absolute Neuts (auto) Absolute Nucleated RBC Nucleated RBC % (auto) Hold Blue Top Sodium 139 139 Potassium 5.5 H 4.9 Chloride 111 H 113 H Carbon Dioxide 15 L 18 L Anion Gap 19 13 BUN 119 H* 82 H* D Creatinine 2.88 H 1.76 H Estim Creat Clear Calc 23.5 38.4 Estimated GFR 22 38 Random Glucose 105 99 Calcium 9.0 D 8.9 Magnesium Total Bilirubin Direct Bilirubin AST ALT Alkaline Phosphatase Total Protein Albumin Lipase 214 H Vitamin B12 384 Folate 8.2 Urine Color Urine Appearance Urine pH Ur Specific [place] Urine Protein Urine Glucose (UA) Urine Ketones Urine Blood Urine Nitrite Ur Leukocyte Esterase COVID-19 (MARY) COVID-Choister 07/09/20 06:07 WBC RBC Hgb Hct MCV MCH MCHC RDW Plt Count MPV Immature Gran % (Auto) Neut % (Auto) Lymph % (Auto) Nelson % (Auto) Eos % (Auto) Baso % (Auto) Lymph # (Auto) Nelson # (Auto) Eos # (Auto) Baso # (Auto) Abs Immat Gran (auto) Absolute Neuts (auto) Absolute Nucleated RBC Nucleated RBC % (auto) Hold Blue Top Sodium 136 Potassium 5.1 Chloride 111 H Carbon Dioxide 18 L Anion Gap 12 BUN 52 H Creatinine 1.38 Estim Creat Clear Calc 49.0 Estimated GFR 51 Random Glucose 92 Calcium 8.4 Magnesium Total Bilirubin Direct Bilirubin AST ALT Alkaline Phosphatase Total Protein Albumin Lipase Vitamin B12 Folate Urine Color Urine Appearance Urine pH Ur Specific [place] Urine Protein Urine Glucose (UA) Urine Ketones Urine Blood Urine Nitrite Ur Leukocyte Esterase COVID-19 (MARY) COVID-19 [facility] Discharge Plan Discharge Patient Disposition: Home, Self-Care Referrals: Jagjit Lord MD [Primary Care Provider] - Discharge Medications: Continued carvedilol 25 mg Tablet 25 mg PO BID RF: 0 cetirizine 10 mg Tablet 10 mg PO DAILY RF: 0 simvastatin 40 mg Tablet 40 mg PO BEDTIME RF: 0 lidocaine 5 % Adhesive Patch,Medicated 1 patch TOPICAL DAILY RF: 0 cyclobenzaprine 5 mg Tablet 5 mg PO TID PRN (Reason: Muscle Pain) RF: 0 psyllium husk 3.4 gram/5.4 gram Powder 1 tbsp PO DAILY RF: 0 allopurinol 300 mg Tablet 300 mg PO DAILY RF: 0 Discontinued lisinopril-hydrochlorothiazide 20-12.5 mg Tablet 1 tab PO DAILY RF: 0 Discharge Orders: Discharge Order (Routine); Ordered 07/09/20 Ordered By: Deborah Hayes Diet: low fat, low cholesterol Activity on Discharge: As tolerated Stand Alone Forms: Patient Portal Discharge page Visit Report Forms: Patient Portal Discharge page Care Plan Goals: stop lisinopril/hydrochlorothiazide, follow blood pressure Take all other medications as prescribed, drink 6-8 glasses of water daily Health Concerns: Acute on chronic kidney disease Plan of Treatment: Follow-up with kidney doctor and primary care physician.
--- NOTE | 2020-07-09 13:16 | MHC.CM.PN ---
ELECTRON IC MEDICAL RECORD REVIEWED ALONG WITH CASE DISCUSSED WITH STAFF NURSE WILL BE DISCHARGED HOME O SERVICES DISCHARGE PLAN HOME NO SERVICES TRANSPORTATION FAMILY PCP DR NGUYỄN CAGE PATIENT INSTRUCTED TO CALL FOR [facility] DISCHARGE FOLLOW UP SECOND IMM EXPLAINED
== END 2020-07-09 13:13 | disposition home or self-care (01) | DRG 684 ==
LOC: HO.ED 19:59 → HO.EDOVER 20:02 → HO.S3 07-07 13:52
PROVIDERS: Nurse Practitioner Acute Care; Physician Assistant; Admitting Provider Hospitalist; Emergency Provider Emergency Medicine Emergency Medical Services; PCP Internal Medicine; Visit Provider Hospitalist
DX: N17.9 Acute kidney failure, unspecified (principal); I12.9 Hypertensive chronic kidney disease with stage 1 through stage 4 chronic kidney disease, or unspecified chronic kidney disease; N18.9 Chronic kidney disease, unspecified; E78.5 Hyperlipidemia, unspecified; E86.0 Dehydration; E87.5 Hyperkalemia; Z20.822 Contact with and (suspected) exposure to COVID-19; Z79.899 Other long term (current) drug therapy
CPT/HCPCS: 36415; 74176; 80048; 80076; 81003; 82607; 82746; 83690; 83735; 85025; 87635; 93005; 96361; 96374; 96375; 96376; 99285

== ENCOUNTER 2021-10-19 17:02 | Inpatient (IN) | payer OTHER, MEDICARE, SELFPAY ==
--- NOTE | ~2021-10-19 | CT_ITS ---
EXAMINATION: CT ABDOMEN AND PELVIS WITHOUT CONTRAST CLINICAL INFORMATION: acute renal failure, diarrhea . COMPARISON: 07/06/2020. TECHNIQUE: Multidetector volumetric imaging was performed from the superior aspect of the liver through the pubic symphysis without contrast per request. Sagittal and coronal reformatted images were obtained on the technologist workstation. This CT examination was performed using dose optimization techniques as appropriate, variously including the following: *Automated exposure control *Adjustment of mA and/or kV according to patient size (this includes techniques or standardized protocols for targeted exams where dose is matched to indication/reason for exam; i.e. extremities or head) *Use of iterative reconstruction technique DLP: 604 mGy-cm. FINDINGS: LUNG BASES: Minimal dependent atelectatic change. Prominent coronary artery calcification. LIVER, GALLBLADDER, BILIARY TREE: The non-contrast liver is normal in size, shape, and attenuation. No focal hepatic lesion or biliary ductal dilatation is present. The gallbladder is contracted but otherwise unremarkable with no evidence of radiopaque gallstones, gallbladder wall thickening, or obvious pericholecystic inflammatory changes. PANCREAS: Unremarkable. SPLEEN: Unremarkable. ADRENAL GLANDS: Unremarkable. KIDNEYS AND URETERS: The kidneys are normal in size, shape, and attenuation. No hydronephrosis, hydroureter, or calculi seen. No perinephric stranding. BLADDER: Decompressed by Mcelroy catheter GASTROINTESTINAL TRACT: Scattered colonic diverticulosis but no evidence for diverticulitis. No obstructive changes seen. Visualized small bowel grossly unremarkable ABDOMINAL WALL: No significant hernia is appreciated. LYMPHOVASCULAR STRUCTURES: Vascular calcification within the aorta iliac system. No bulky adenopathy. PELVIC VISCERA: Unremarkable. OSSEUS STRUCTURES: Multilevel degenerative changes in the spine CT/CT abdomen pelvis wo con IMPRESSION: Scattered diverticulosis but no evidence for diverticulitis. Mcelroy catheter balloon in bladder. No acute process otherwise.
--- NOTE | ~2021-10-19 | US_ITS ---
EXAMINATION: US RETROPERITONEAL LIMITED (RENAL ONLY) CLINICAL INFORMATION: Renal failure. COMPARISON: CT abdomen and pelvis 10/19/2021. TECHNIQUE: Real-time imaging of the kidneys. FINDINGS: RIGHT KIDNEY: 10.9 x 3.7 x 4.4 cm (SAG x AP x TRV). The kidney is normal in size. There is renal cortical thinning and increased echogenicity. There is a 1.2 x 1 x 1.1 cm cyst in the lower pole. No renal calculi or hydronephrosis. LEFT KIDNEY: 10.0 x 4.5 x 3.8 cm (SAG x AP x TRV). The kidney is normal in size. There is renal cortical thinning and increased echogenicity.. No calculi or focal parenchymal lesions. No hydronephrosis. US/US renal BI IMPRESSION: Bilateral renal cortical thinning and increased echogenicity suggestive of medical renal disease. Small right renal cyst..
[2021-10-19 18:02] VITALS: BP 128/75; PULSE 66; RESP 16; TEMP 36.6; O2SAT 99; BMI 27.6
[2021-10-19 18:16] LABS: MANUAL DIFF FLAG NO
[2021-10-19 18:25] LABS: Basophils Percent Auto 0.6 % (0-2); Eosinophils Absolute Auto 0.1 X10*3/uL (0.0-0.4); Eosinophils Percent Auto 1.3 % (0-4); Hematocrit 41.1 % (42.0-52.0); Hemoglobin 14.3 g/dl (14.0-18.0); Imm Gran Abs Auto 0.02 X10*3/uL (0.00-0.03); Imm Gran Pct Auto 0.3 % (0.0-0.4); Lymphocytes Absolute Auto 1.6 X10*3/uL (1.2-4.9); Lymphocytes Percent Auto 22.1 % (20-40); Mean Corpuscular HGB Conc 34.8 g/dl (31.0-36.0); Mean Corpuscular Hemoglobin 34.3 pg (27.0-33.0); Mean Corpuscular Volume 98.6 fL (80.0-98.0); Mean Platelet Volume 10.5 fL (9.4-12.4); Monocytes Absolute Auto 0.9 X10*3/uL (0.1-1.2); Monocytes Percent Auto 12.4 % (2-11); Neutrophils Absolute Auto 4.5 x10*3/uL (2.0-8.3); Neutrophils Percent Auto 63.3 % (45-73); Platelet Count 211 X10*3/uL (160-400); Red Blood Count 4.17 X10*6/uL (4.60-5.80); Red Cell Distribution Width 12.5 % (11.0-16.0); White Blood Count 7.1 X10*3/uL (4.8-10.8)
--- NOTE | 2021-10-19 18:37 | ECG_ITS ---
Test Reason : HYPERKALEMIA Blood Pressure : / mmHG Vent. Rate : 063 BPM Atrial Rate : 063 BPM P-R Int : 236 ms QRS Dur : 080 ms QT Int : 446 ms P-R-T Axes : 063 -29 027 degrees QTc Int : 456 ms Sinus rhythm with marked sinus arrhythmia with 1st degree A-V block Premature atrial complexes Low voltage QRS Borderline ECG When compared with ECG of 06-JUL-2020 15:57, No significant changes seen Referred By: Carla Diaz Electronically Signed By:LEANDRO GUTHRIE
[2021-10-19 18:38] LABS: Anion Gap 21 (12-20); Calcium 9.9 mg/dL (8.4-10.2); Carbon Dioxide 15 mmol/L (22-29); Chloride 104 mmol/L (96-108); Creatinine Clr Calc Pharmacy 10.1; Estimated Glomerular Filt Rate 8; Glucose Random 112 mg/dL (60-115); Magnesium 2.3 mg/dL (1.6-2.6); Potassium 7.5 mmol/L (3.3-5.1); Sodium 132 mmol/L (135-145)
[2021-10-19 18:47] LABS: Blood Urea Nitrogen 123 mg/dL (9-16)
--- NOTE | 2021-10-19 19:01 | ED.NAVMDI ---
HPI - Nausea/Vomiting/Diarrhea General Chief complaint: Nausea/Vomiting/Diarrhea Stated complaint: diarrhea x 3 days Time Seen by Provider: 10/19/21 18:37 Source: patient Mode of arrival: ambulatory Limitations: no limitations History of Present Illness HPI Narrative: 71 y/o male with history of CKD, HLD, HTN who presents to the ER with diarrhea for the last 3 days. He reports he was having loose stools about 3 times per day for the last 2 days. Today he started having watery BM's, nonbloody. Last BM around noon. No abdominal pain but no appetite with significant decrease in his PO intake. He denies fever, chills or vomiting. No urinary symptoms. No known sick contacts. No chest pain or SOB. He denies any blood in his stool. He has not been on antibiotics recently. He had a similar presentation in Jul 2020 - SCr 4 and K 6.8 at the time. He was on lisinopril that has been stopped. He was discharged with a creatinine 1.38. MD elicited complaint: diarrhea Onset (ago): day(s) (3) Description of diarrhea: watery Associated nausea: No Associated abdominal pain: No Location of pain: none Severity: moderate Exacerbating factors: none Relieving factors: none Associated symptoms: loss of appetite, malaise and weakness Related Data Home Medications Medication Instructions Recorded Confirmed cetirizine 10 mg tablet 10 mg PO DAILY 07/06/20 10/19/21 lidocaine 5 % topical patch 1 patch TOPICAL DAILY 07/06/20 10/19/21 psyllium husk 3.4 gram/5.4 gram 1 tbsp PO DAILY 07/06/20 10/19/21 oral powder allopurinol 100 mg tablet 1 tab PO DAILY 10/19/21 10/19/21 aspirin 81 mg tablet,delayed 81 mg PO DAILY 10/19/21 10/19/21 release carvedilol 12.5 mg tablet 37.5 mg PO BID 10/19/21 10/19/21 lisinopril 20 1 tab PO DAILY 10/19/21 10/19/21 mg-hydrochlorothiazide 12.5 mg tablet simvastatin 40 mg tablet 1 tab PO DAILY 10/19/21 10/19/21 Allergies Allergy/AdvReac Type Severity Reaction Status Date / Time cat dander Allergy Watery Eye Verified 07/06/20 14:48 house dust Allergy Watery Eye Verified 07/06/20 14:48 Review of Systems Review of Systems: Constitutional: No Fever, No Chills ENT/Mouth: No sore throat, No Rhinorrhea, No Swallowing Difficulty Cardiovascular: No Chest Pain, No SOB, No Orthopnea, No Edema Respiratory: No Cough, No Sputum, No Wheezing, No dyspnea Gastrointestinal: No Nausea, No Vomiting, + Diarrhea, No abdominal Pain, No Hematochezia, No Melena Genitourinary: No Dysuria, No Urinary Frequency, No Hematuria Musculoskeletal: No joint pain, No Myalgias Skin: No Skin Lesions, No rash Neuro: + Weakness, No Numbness, No Dizziness, No Headache Psych: No Anxiety/Panic, No Depression Heme/Lymph: No Bruising, No Lymphadenopathy Endocrine: No Polyuria, No Polydipsia Gastrointestinal: Gastrointestinal: Denies nausea PMFSH Past Medical History Medical History (Updated 10/19/21 @ 20:20 by GERARDO Taylor) H/O chronic kidney disease Hypercholesteremia Hypertension Social History Social History (Updated 07/06/20 @ 20:03 by Megan Rosales NP) Household Members: Spouse Housing: House Do you presently have visiting nurse or other home services: No Alcohol intake: current Alcohol intake frequency: 3 or more drinks per day Alcohol type: beer Patient Tobacco Use Status: Never used Tobacco Smoked in Last 30 Days: No Use of substances other than those prescribed or required for medical reasons: No Advance Directives: No Advance Directives Information Provided: No service: Yes Current occupational status: retired Physical Exam Vital Signs: Vital Signs: Last Vital Signs Temp 98.5 F 10/19/21 20:32 Pulse 79 10/19/21 20:32 Resp 16 10/19/21 20:32 BP 124/93 H 10/19/21 20:32 Pulse Ox 100 10/19/21 20:32 BMI result Body Mass Index 27.6 Appearance: Alert elderly male laying in bed, Oriented X3. No acute distress. Eyes: Pupils equal, round and reactive to light. ENT: Pharynx normal. Neck: Normal inspection. Neck supple. CVS: Normal heart rate and rhythm. Pulses normal. Respiratory: No respiratory distress. Breath sounds normal. Abdomen: Soft and nontender. +BS x4 Skin: Skin warm and dry. Normal skin color. Poor skin turgor. No rashes. Extremities: No lower extremity edema. Neuro: Oriented X 3. No motor deficit. No sensory deficit. Course Course Course Narrative: 71-year-old male with history of CKD, baseline creatinine appears to be around 1.38 from 1 year ago, history of hypertension, hyperlipidemia, gout who presents to the ER with diarrhea for the last 3 days. He has had significant decreased p.o. intake. No known sick contacts, vomiting or abdominal pain. On arrival to the ED his vital signs are normal. He is afebrile. His physical exam is unremarkable. His lab work done in the waiting room is significant for acute renal failure, BUN/SCr 123/6.65. His potassium is 7.5 without hemolysis. EKG without peaked T waves. His renal failure is presumably due to hypovolemia and prerenal etiology. Will get urinalysis, urine sodium, urine osmolality, serum osmolality. Will get CT scan to rule out obstructive causes. Mcelroy catheter has been place with clear yellow urine draining. Med rec is pending, he denies being on lisinopril any longer and this was discontinued. He has a similar presentation last July of 2020. 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 Clara solomon who is in agreement with treatment plan - insulin, D50, IV fluid resuscitation, calcium, Lokelma. Will check VBG and urine electrolytes. Repeat chem in 4 hours. Patient will be seen by Nephrology in house tomorrow. Time: 19:40 Reevaluation #2: FeNa 1.78, ?ATN vs prerenal state. Reevaluation #3: Critical result a venous pH of 7.18. Will give 1 amp bicarb & start on sodium bicarb at 150cc/hr. He is AAO x3. Will recheck chemistry and VBG - his acidosis may have improved with NaCl administration. Will plan to admit after his repeat labs are performed, improved will be stable for [facility] admission, if no improvement may need ICU level of care. Signed out to night provider who will determine disposition. Consultations Consultation #1: Nephrology - Dr. Elizabeth MDM - Nausea/Vomiting/Diarrhea Medical Records Attestation: I reviewed the patient's medical records. Lab Data Attestation: I reviewed the patient's lab results. Result diagrams: 10/19/21 18:08 10/19/21 18:08 Labs: Lab Results 10/19/21 10/19/21 10/19/21 Range/Units 18:08 18:08 18:08 WBC 7.1 (4.8-10.8) X10*3/uL RBC 4.17 L (4.60-5.80) X10*6/uL Hgb 14.3 (14.0-18.0) g/dl Hct 41.1 L (42.0-52.0) % MCV 98.6 H (80.0-98.0) fL MCH 34.3 H (27.0-33.0) pg MCHC 34.8 (31.0-36.0) g/dl RDW 12.5 (11.0-16.0) % Plt Count 211 (160-400) X10*3/uL MPV 10.5 (9.4-12.4) fL Immature Gran % (Auto) 0.3 (0.0-0.4) % Neut % (Auto) 63.3 (45-73) % Lymph % (Auto) 22.1 (20-40) % [place] % (Auto) 12.4 H (2-11) % Eos % (Auto) 1.3 (0-4) % Baso % (Auto) 0.6 (0-2) % Lymph # (Auto) 1.6 (1.2-4.9) X10*3/uL [place] # (Auto) 0.9 (0.1-1.2) X10*3/uL Eos # (Auto) 0.1 (0.0-0.4) X10*3/uL Baso # (Auto) 0.0 (0.0-0.2) X10*3/uL Abs Immat Gran (auto) 0.02 (0.00-0.03) X10*3/uL Absolute Neuts (auto) 4.5 (2.0-8.3) x10*3/uL Absolute Nucleated RBC 0.000 (0.0-0.012) X10*3/uL Nucleated RBC % (auto) 0.0 (0.0-0.2) /100WBC VBG pH (7.32-7.43) VBG pCO2 mmHg VBG pO2 mmHg VBG HCO3 (22-26) mmol/L VBG O2 Saturation % VBG Base Excess mmol/L Sodium 132 L (135-145) mmol/L Potassium 7.5 H* D (3.3-5.1) mmol/L Chloride 104 (96-108) mmol/L Carbon Dioxide 15 L (22-29) mmol/L Anion Gap 21 H (12-20) BUN 123 H (9-16) mg/dL Creatinine 6.65 H* (0.5-1.4) mg/dL Estim Creat Clear Calc 10.1 Estimated GFR 8 POC Glucose (60-115) mg/dL Random Glucose 112 (60-115) mg/dL Osmolality 335 H (281-305) mosm/kg Lactic Acid (0.5-2.0) mmol/L Calcium 9.9 D (8.4-10.2) mg/dL Magnesium 2.3 (1.6-2.6) mg/dL Urine Osmolality (373-1093) mosm/kg Ur Random Sodium mmol/L Urine Creatinine mg/dL COVID-19 (MARY) (Negative) COVID-19 Clin Com 10/19/21 10/19/21 10/19/21 Range/Units 19:20 19:20 19:41 WBC (4.8-10.8) X10*3/uL RBC (4.60-5.80) X10*6/uL Hgb (14.0-18.0) g/dl Hct (42.0-52.0) % MCV (80.0-98.0) fL MCH (27.0-33.0) pg MCHC (31.0-36.0) g/dl RDW (11.0-16.0) % Plt Count (160-400) X10*3/uL MPV (9.4-12.4) fL Immature Gran % (Auto) (0.0-0.4) % Neut % (Auto) (45-73) % Lymph % (Auto) (20-40) % [place] % (Auto) (2-11) % Eos % (Auto) (0-4) % Baso % (Auto) (0-2) % Lymph # (Auto) (1.2-4.9) X10*3/uL [place] # (Auto) (0.1-1.2) X10*3/uL Eos # (Auto) (0.0-0.4) X10*3/uL Baso # (Auto) (0.0-0.2) X10*3/uL Abs Immat Gran (auto) (0.00-0.03) X10*3/uL Absolute Neuts (auto) (2.0-8.3) x10*3/uL Absolute Nucleated RBC (0.0-0.012) X10*3/uL Nucleated RBC % (auto) (0.0-0.2) /100WBC VBG pH (7.32-7.43) VBG pCO2 mmHg VBG pO2 mmHg VBG HCO3 (22-26) mmol/L VBG O2 Saturation % VBG Base Excess mmol/L Sodium (135-145) mmol/L Potassium (3.3-5.1) mmol/L Chloride (96-108) mmol/L Carbon Dioxide (22-29) mmol/L Anion Gap (12-20) BUN (9-16) mg/dL Creatinine (0.5-1.4) mg/dL Estim Creat Clear Calc Estimated GFR POC Glucose 101 (60-115) mg/dL Random Glucose (60-115) mg/dL Osmolality (281-305) mosm/kg Lactic Acid (0.5-2.0) mmol/L Calcium (8.4-10.2) mg/dL Magnesium (1.6-2.6) mg/dL Urine Osmolality (373-1093) mosm/kg Ur Random Sodium 58.0 mmol/L Urine Creatinine 164.10 mg/dL COVID-19 (MARY) Negative (Negative) COVID-19 Clin Com See Note 10/19/21 10/19/21 10/19/21 Range/Units 19:41 19:56 20:10 WBC (4.8-10.8) X10*3/uL RBC (4.60-5.80) X10*6/uL Hgb (14.0-18.0) g/dl Hct (42.0-52.0) % MCV (80.0-98.0) fL MCH (27.0-33.0) pg MCHC (31.0-36.0) g/dl RDW (11.0-16.0) % Plt Count (160-400) X10*3/uL MPV (9.4-12.4) fL Immature Gran % (Auto) (0.0-0.4) % Neut % (Auto) (45-73) % Lymph % (Auto) (20-40) % [place] % (Auto) (2-11) % Eos % (Auto) (0-4) % Baso % (Auto) (0-2) % Lymph # (Auto) (1.2-4.9) X10*3/uL [place] # (Auto) (0.1-1.2) X10*3/uL Eos # (Auto) (0.0-0.4) X10*3/uL Baso # (Auto) (0.0-0.2) X10*3/uL Abs Immat Gran (auto) (0.00-0.03) X10*3/uL Absolute Neuts (auto) (2.0-8.3) x10*3/uL Absolute Nucleated RBC (0.0-0.012) X10*3/uL Nucleated RBC % (auto) (0.0-0.2) /100WBC VBG pH (7.32-7.43) VBG pCO2 mmHg VBG pO2 mmHg VBG HCO3 (22-26) mmol/L VBG O2 Saturation % VBG Base Excess mmol/L Sodium (135-145) mmol/L Potassium (3.3-5.1) mmol/L Chloride (96-108) mmol/L Carbon Dioxide (22-29) mmol/L Anion Gap (12-20) BUN (9-16) mg/dL Creatinine (0.5-1.4) mg/dL Estim Creat Clear Calc Estimated GFR POC Glucose 167 H (60-115) mg/dL Random Glucose (60-115) mg/dL Osmolality (281-305) mosm/kg Lactic Acid 2.1 H* (0.5-2.0) mmol/L Calcium (8.4-10.2) mg/dL Magnesium (1.6-2.6) mg/dL Urine Osmolality 460 (373-1093) mosm/kg Ur Random Sodium mmol/L Urine Creatinine mg/dL COVID-19 (MARY) (Negative) COVID-19 Clin Com 10/19/21 10/19/21 Range/Units 20:14 21:00 WBC (4.8-10.8) X10*3/uL RBC (4.60-5.80) X10*6/uL Hgb (14.0-18.0) g/dl Hct (42.0-52.0) % MCV (80.0-98.0) fL MCH (27.0-33.0) pg MCHC (31.0-36.0) g/dl RDW (11.0-16.0) % Plt Count (160-400) X10*3/uL MPV (9.4-12.4) fL Immature Gran % (Auto) (0.0-0.4) % Neut % (Auto) (45-73) % Lymph % (Auto) (20-40) % [place] % (Auto) (2-11) % Eos % (Auto) (0-4) % Baso % (Auto) (0-2) % Lymph # (Auto) (1.2-4.9) X10*3/uL [place] # (Auto) (0.1-1.2) X10*3/uL Eos # (Auto) (0.0-0.4) X10*3/uL Baso # (Auto) (0.0-0.2) X10*3/uL Abs Immat Gran (auto) (0.00-0.03) X10*3/uL Absolute Neuts (auto) (2.0-8.3) x10*3/uL Absolute Nucleated RBC (0.0-0.012) X10*3/uL Nucleated RBC % (auto) (0.0-0.2) /100WBC VBG pH 7.18 L* (7.32-7.43) VBG pCO2 39 mmHg VBG pO2 37 mmHg VBG HCO3 15 L (22-26) mmol/L VBG O2 Saturation 48.0 % VBG Base Excess -12.3 mmol/L Sodium (135-145) mmol/L Potassium (3.3-5.1) mmol/L Chloride (96-108) mmol/L Carbon Dioxide (22-29) mmol/L Anion Gap (12-20) BUN (9-16) mg/dL Creatinine (0.5-1.4) mg/dL Estim Creat Clear Calc Estimated GFR POC Glucose 120 H (60-115) mg/dL Random Glucose (60-115) mg/dL Osmolality (281-305) mosm/kg Lactic Acid (0.5-2.0) mmol/L Calcium (8.4-10.2) mg/dL Magnesium (1.6-2.6) mg/dL Urine Osmolality (373-1093) mosm/kg Ur Random Sodium mmol/L Urine Creatinine mg/dL COVID-19 (MARY) (Negative) COVID-19 Clin Com ECG Data Attestation: I personally reviewed and interpreted this ECG as follows: ECG interpretation date: 10/19/21 ECG interpretation time: 20:02 Prior ECG tracings: available for review Interpretation: Sinus rhythm with sinus arrhythmia, first-degree AV block, OK interval 236, normal QTC, no ST segment elevations or depressions, no peaked T-waves. Critical Care Time Critical Care Time Critical Care Time: Yes Total Critical Care Time: 48 Attestation: I have personally provided critical care time exclusive of time spent on separately billable procedures. Time includes review of lab data, radiology results, discussion with consultants, and monitoring for potential decompensation. Intervention performed as documented. Discharge Plan Discharge Clinical Impression: Acute kidney injury superimposed on chronic kidney disease, Diarrhea, Acute hyperkalemia, Metabolic acidosis Patient Disposition: Admitted As Inpatient
[2021-10-19 19:04] LABS: Osmolality, Serum 335 mosm/kg (281-305)
[2021-10-19] MEDS: 0.9 % Sodium Chloride 1,000 ML 999 ML IVCONT ×2 (19:04→19:05)
[2021-10-19] MEDS: Calcium Gluconate/NaCl,Iso-Osm 1 GM/50 ML PLAST..BAG IV (19:29)
[2021-10-19] MEDS: Insulin Regular, Human 100 UNIT/ML 3 ML VIAL IVPUSH (19:32)
[2021-10-19] MEDS: Dextrose 50 % 25 GM/50 ML SYRINGE IVPUSH (19:34)
[2021-10-19 19:45] LABS: COVID-19 Test Negative (Negative)
--- NOTE | 2021-10-19 19:48 | PC.NURSE ---
baltazar Jackson from pharmacy, [place] to administer for potassium shift.
[2021-10-19] MEDS: Sodium Zirconium Cyclosilicate 10 GM POWD.PACK PO (19:53)
[2021-10-19 19:59] LABS: Glucose, Whole Blood 167 mg/dL (60-115)
[2021-10-19 19:59] LABS: Glucose, Whole Blood 101 mg/dL (60-115)
[2021-10-19 20:00] VITALS: BP 114/62; PULSE 79; RESP 18; O2SAT 100
[2021-10-19 20:06] LABS: Osmolality Urine 460 mosm/kg (373-1093)
[2021-10-19 20:20] LABS: Venous Blood Gas Refer to POC result
[2021-10-19 20:23] LABS: VBG Base Excess -12.3 mmol/L; VBG HCO3 15 mmol/L (22-26); VBG pCO2 39 mmHg; VBG pH 7.18 (7.32-7.43); VBG pO2 37 mmHg
--- NOTE | 2021-10-19 20:26 | PC.NURSE ---
Contact made to pharmacy for Bicarb gtt
[2021-10-19 20:32] VITALS: BP 124/93; PULSE 79; RESP 16; TEMP 36.9; O2SAT 100
[2021-10-19 20:32] LABS: Lactic Acid 2.1 mmol/L (0.5-2.0)
[2021-10-19] MEDS: Sodium Bicarbonate 8.4% 50 MEQ/50 ML SYRINGE IVPUSH (20:35)
--- NOTE | 2021-10-19 20:35 | PHA.MEDREC ---
Pharmacy Consult ? Medication Reconciliation Pharmacy has completed the medication reconciliation.Spoke with patient in the ED. Patient took all meds today. [facility]. Carvedilol was increased from 25 mg bid to 37.5 bid.
[2021-10-19 21:02] LABS: Glucose, Whole Blood 120 mg/dL (60-115)
--- NOTE | 2021-10-19 21:07 | PM.IMHP ---
History of Present Illness Date of Service: 10/19/21 Chief Complaint: Diarrhea 71 year old male with history of CKD 2, HLD, HTN manageed with HCTZ and Lisinopril, prior history of [place] with peaked Creatine of 4.06 Jul 2020 but at discharged at time was 1.3. He presents with diarrhea since Saturday (4 days ago) . He reports nonbloody, losse stool of about 4 episodes a day with no no assocated abdomial pain, no fever, no mucus, no recent sick contact, no recent travel, no recent use of antibiotics. As result he feels weak and apetite has been singificantly decreased. Lab work show Bun/Creatine 123/6.6, potassium of 7.5, no ECG changes. Given inslin, calcium gluconate and Lokelma and lab being repeated. Review of Systems Review of Systems: Gen: no fever Resp: no sob, no cough CV: no chest, no CONNOR, no leg edema GI: No n/v, no abd pain, +diarrhea Neuro: No confusion [facility] Medical History (Updated 10/19/21 @ 20:20 by GERARDO Taylor) H/O chronic kidney disease Hypercholesteremia Hypertension Social History (Updated 07/06/20 @ 20:03 by Megan Rosales NP) Household Members: Spouse Housing: House Do you presently have visiting nurse or other home services: No Alcohol intake: current Alcohol intake frequency: 3 or more drinks per day Alcohol type: beer Patient Tobacco Use Status: Never used Tobacco Smoked in Last 30 Days: No Use of substances other than those prescribed or required for medical reasons: No Advance Directives: No Advance Directives Information Provided: No service: Yes Current occupational status: retired Meds Allergies Allergy/AdvReac Type Severity Reaction Status Date / Time cat dander Allergy Watery Eye Verified 07/06/20 14:48 house dust Allergy Watery Eye Verified 07/06/20 14:48 Active Medications: Current Medications Sodium Bicarbonate 150 meq/ (Dextrose) 1,000 mls @ 50 mls/hr IV .Q20H COUNTS INCLUDE 234 BEDS AT THE [facility] Pharmacy Consult (Consult Rx Perform Med Rec) 1 each MISCELLANE ONCE PRN PRN Reason: Consult order Home Medications Medication Instructions Recorded Confirmed Last Taken Type cetirizine 10 mg tablet 10 mg PO DAILY 07/06/20 10/19/21 10/19/21 History lidocaine 5 % topical patch 1 patch TOPICAL DAILY 07/06/20 10/19/21 10/19/21 History psyllium husk 3.4 gram/5.4 gram 1 tbsp PO DAILY 07/06/20 10/19/21 10/19/21 History oral powder allopurinol 100 mg tablet 1 tab PO DAILY 10/19/21 10/19/21 10/19/21 History aspirin 81 mg tablet,delayed 81 mg PO DAILY 10/19/21 10/19/21 10/19/21 History release carvedilol 12.5 mg tablet 37.5 mg PO BID 10/19/21 10/19/21 10/19/21 History lisinopril 20 1 tab PO DAILY 10/19/21 10/19/21 10/19/21 History mg-hydrochlorothiazide 12.5 mg tablet simvastatin 40 mg tablet 1 tab PO DAILY 10/19/21 10/19/21 10/19/21 History Physical Exam Vital Signs and Narrative: Vital Signs: Last Vital Signs Temp 98.5 F 10/19/21 20:32 Pulse 79 10/19/21 20:32 Resp 16 10/19/21 20:32 BP 124/93 H 10/19/21 20:32 Pulse Ox 100 10/19/21 20:32 BMI result Body Mass Index 27.6 Const: Other: Constitutional: Alert, in no distress, Mental Status: Oriented to person, place and time. Eyes: Pupils are equal, round and reactive to light. Ear, Nose and Throat: Oropharynx clear, mucous membranes moist. Ears and nose without eformities. Respiratory: Clear to auscultation. No wheezing, rales or rhonchi. Cardiovascular: S1 S2 regular. No murmurs, rubs or gallops. Gastrointestinal: Abdomen soft, non-tender, non-distended. Normal bowel sounds.? Neurologic: Cranial nerves II-XII grossly intact. No focal neurological deficits. Moves all extremities spontaneously.? Skin: No rashes or lesions.? Musculoskeletal: No cyanosis or clubbing. Psychiatric: Normal mood and affect? Results Labs CBC and Chem 7: 10/19/21 18:08 10/19/21 18:08 Labs: Laboratory Results - last 24 hr 10/19/21 10/19/21 10/19/21 18:08 18:08 18:08 MCV 98.6 H MCH 34.3 H MCHC 34.8 RDW 12.5 Plt Count 211 MPV 10.5 Immature Gran % (Auto) 0.3 Neut % (Auto) 63.3 Lymph % (Auto) 22.1 [place] % (Auto) 12.4 H Eos % (Auto) 1.3 Baso % (Auto) 0.6 Lymph # (Auto) 1.6 [place] # (Auto) 0.9 Eos # (Auto) 0.1 Baso # (Auto) 0.0 Abs Immat Gran (auto) 0.02 Absolute Neuts (auto) 4.5 Absolute Nucleated RBC 0.000 Nucleated RBC % (auto) 0.0 VBG pH VBG pCO2 VBG pO2 VBG HCO3 VBG O2 Saturation VBG Base Excess Potassium 7.5 H* D Anion Gap 21 H Creatinine 6.65 H* Estim Creat Clear Calc 10.1 Estimated GFR 8 POC Glucose Random Glucose 112 Osmolality 335 H Lactic Acid Calcium 9.9 D Magnesium 2.3 Urine Osmolality Ur Random Sodium Urine Creatinine COVID-19 (MARY) COVID-DemystData 10/19/21 10/19/21 10/19/21 19:20 19:20 19:41 MCV MCH MCHC RDW Plt Count MPV Immature Gran % (Auto) Neut % (Auto) Lymph % (Auto) [place] % (Auto) Eos % (Auto) Baso % (Auto) Lymph # (Auto) [place] # (Auto) Eos # (Auto) Baso # (Auto) Abs Immat Gran (auto) Absolute Neuts (auto) Absolute Nucleated RBC Nucleated RBC % (auto) VBG pH VBG pCO2 VBG pO2 VBG HCO3 VBG O2 Saturation VBG Base Excess Potassium Anion Gap Creatinine Estim Creat Clear Calc Estimated GFR POC Glucose 101 Random Glucose Osmolality Lactic Acid Calcium Magnesium Urine Osmolality Ur Random Sodium 58.0 Urine Creatinine 164.10 COVID-19 (MARY) Negative COVID-DemystData See Note 10/19/21 10/19/21 10/19/21 19:41 19:56 20:10 MCV MCH MCHC RDW Plt Count MPV Immature Gran % (Auto) Neut % (Auto) Lymph % (Auto) [place] % (Auto) Eos % (Auto) Baso % (Auto) Lymph # (Auto) [place] # (Auto) Eos # (Auto) Baso # (Auto) Abs Immat Gran (auto) Absolute Neuts (auto) Absolute Nucleated RBC Nucleated RBC % (auto) VBG pH VBG pCO2 VBG pO2 VBG HCO3 VBG O2 Saturation VBG Base Excess Potassium Anion Gap Creatinine Estim Creat Clear Calc Estimated GFR POC Glucose 167 H Random Glucose Osmolality Lactic Acid 2.1 H* Calcium Magnesium Urine Osmolality 460 Ur Random Sodium Urine Creatinine COVID-19 (MARY) COVID-19 Beat.no Com 10/19/21 10/19/21 20:14 21:00 MCV MCH MCHC RDW Plt Count MPV Immature Gran % (Auto) Neut % (Auto) Lymph % (Auto) [place] % (Auto) Eos % (Auto) Baso % (Auto) Lymph # (Auto) [place] # (Auto) Eos # (Auto) Baso # (Auto) Abs Immat Gran (auto) Absolute Neuts (auto) Absolute Nucleated RBC Nucleated RBC % (auto) VBG pH 7.18 L* VBG pCO2 39 VBG pO2 37 VBG HCO3 15 L VBG O2 Saturation 48.0 VBG Base Excess -12.3 Potassium Anion Gap Creatinine Estim Creat Clear Calc Estimated GFR POC Glucose 120 H Random Glucose Osmolality Lactic Acid Calcium Magnesium Urine Osmolality Ur Random Sodium Urine Creatinine COVID-19 (MARY) COVID-19 Clin Com Imaging Radiologist's Impressions: Impressions Abdomen/Pelvis CT 10/19/21 19:55 IMPRESSION: Scattered diverticulosis but no evidence for diverticulitis. Mcelroy catheter balloon in bladder. No acute process otherwise. Assessment and Plan (1) Acute hyperkalemia: Status: Acute (2) Metabolic acidosis: Status: Acute (3) Diarrhea: Status: Acute (4) Acute kidney injury superimposed on chronic kidney disease: Status: Acute Plan 71 year old male with with CDK 2-3, HTN on EJ/HCTZ here with diarrhea and found to have profound [place] (B/Cr 123/6.60, Base Cr about 1.3 as of a year ago #LOWELL on CKD--CT showing no obstruction, likely pre renal azotemia worsening by HCTZ and Lisinpril -Mcelroy -IV fluid -repeat labs -Hold Lisinopril and HCTZ -Nephrology consult -repeat BMP in the morning - #Hyperkalemia--d/t renal failure given insulin, Lokelma, Calcium gluconate--frequent level check, cardiac monitoring #Mild HypOnatremia--d/t volume depeletion and should resolve with hydration #Diarrhea--check C dif, Stool WBC and if negative give immodium, hydrate #Metablic acidosis/Lactic acidosis--d/t renal failure and should resolved with treatment of undelying renal failure, bicab #HTN--Hold lisinopril and HCTZ in ligngt of renal failure and high K if needed add Norvasc for BP control #HLD--Statin #h/o gout--hold Alopurinol d/t renal failure Admission will span at lest 2 midnight for treatmenth for Acute, severe renal failure with life threatening hyperkalemia that needs cardiac monitoring and frequent level check Full code DVTP: Heparin Quality Stroke Does the patient have a stroke diagnosis?: No VTE Prior VTE?: No VTE Risk Level:: Medical - moderate - high VTE Device Contraindication: Treatment Not Indicated VTE Drug Contraindication: N/A - Med Ordered
[2021-10-19 21:23] LABS: Venous Blood Gas Refer to POC result
[2021-10-19] MEDS: Sodium Bicarbonate 8.4% 150 MEQ in Dextrose 5 % 850 ML 50 MEQ IV (21:30)
[2021-10-19 21:37] LABS: Anion Gap 15 (12-20); Calcium 9.1 mg/dL (8.4-10.2); Carbon Dioxide 18 mmol/L (22-29); Chloride 107 mmol/L (96-108); Creatinine Clr Calc Pharmacy 11.8; Estimated Glomerular Filt Rate 10; Glucose Random 126 mg/dL (60-115); Potassium 5.4 mmol/L (3.3-5.1); Sodium 135 mmol/L (135-145)
[2021-10-19 21:39] LABS: VBG Base Excess -8.7 mmol/L; VBG HCO3 15 mmol/L (22-26); VBG pCO2 29 mmHg; VBG pH 7.33 (7.32-7.43); VBG pO2 55 mmHg
[2021-10-19 21:43] VITALS: BP 122/80; PULSE 86; RESP 16; TEMP 36.6; O2SAT 100
[2021-10-19 21:51] LABS: Blood Urea Nitrogen 114 mg/dL (9-16)
[2021-10-19] MEDS: Heparin Sodium,Porcine 5,000 UNIT/ML VIAL 5000 UNIT SUBCUT (22:03)
[2021-10-19 22:14] LABS: Reflex Lactate? Lactic Acid Added
[2021-10-19 22:17] VITALS: BP 124/84; PULSE 86; RESP 14; TEMP 37.1; O2SAT 100
--- NOTE | 2021-10-19 22:18 | PC.NURSE ---
Per dr. pulido: hold NS gtt until am.
[2021-10-19 22:56] LABS: ~Lactic Acid-LAB USE ONLY 0.8 mmol/L (0.5-2.0)
--- NOTE | 2021-10-19 23:00 | PC.NURSE ---
Took report from Julee to assume care of PT, Pt resting, at bedside, call light in reach.
[2021-10-20] VITALS (10 sets, daily range): BP systolic 96–136; BP diastolic 59–77; PULSE 61–69; RESP 10–20; TEMP 36.4–36.9; O2SAT 98–100
[2021-10-20 06:23] LABS: Anion Gap 17 (12-20); Blood Urea Nitrogen 121 mg/dL (9-16); Carbon Dioxide 19 mmol/L (22-29); Chloride 106 mmol/L (96-108); Creatinine Clr Calc Pharmacy 13.2; Estimated Glomerular Filt Rate 11; Glucose Random 94 mg/dL (60-115); Potassium 5.5 mmol/L (3.3-5.1); Sodium 136 mmol/L (135-145)
--- NOTE | 2021-10-20 09:23 | MHC.CM.PN ---
PT REPORTS HE LIVES WITH HIS AND IS INDEPENDENT WITH CARE PT REPORTS HE USES A CANE AND NO OTHER DME PT DENIES HAVING HOME OR COMMUNITY SERVICES PT REPORTS HE HAS A HCP AT HOME, COPY REQUESTED PCP: NGUYỄN CAGE PT IS COVID-19 VACCINATED WITH PFIZER X 3 IMM AND [facility] RIGHTS DELIVERED, COPY SENT TO [facility] CURRENT DC PLAN IS HOME WITH NO SERVICES TO TRANSPORT
[2021-10-20] MEDS: Heparin Sodium,Porcine 5,000 UNIT/ML VIAL 5000 UNIT SUBCUT ×2 (09:38→20:11)
[2021-10-20] MEDS: carvediloL 12.5 MG TABLET 37.5 MG PO ×2 (09:38→20:11)
[2021-10-20] MEDS: Sodium Zirconium Cyclosilicate 10 GM POWD.PACK PO (09:38)
[2021-10-20] MEDS: Lidocaine 4 % Patch ADH..PATCH 1 PATCH TRANSDERMA (09:38)
[2021-10-20] MEDS: Loratadine 10 MG TABLET PO (09:39)
[2021-10-20] MEDS: Aspirin Enteric Coated 81 MG TABLET.DR PO (09:39)
[2021-10-20] MEDS: Atorvastatin Calcium 20 MG TABLET PO (09:39)
--- NOTE | 2021-10-20 11:35 | P.PNIM_ITS ---
Subjective Subjective Date of Service: 10/20/21 Interval History: seen and examined this morning follow up for LOWELL, hyperkalemia presented with diarrhea, no further diarrhea since admission no abdominal pain, nausea or vomiting Review of Systems Review of Systems: Yes all other systems are reviewed and are negative Constitutional Constitutional: Denies chills and Denies fever(s) Cardiovascular Cardiovascular: Denies chest pain, Denies palpitations and Denies dyspnea Respiratory Respiratory: Denies cough and Denies dyspnea Gastrointestinal Gastrointestinal: Denies abdominal pain, Denies diarrhea, Denies nausea and Denies vomiting Endocrine Endocrine: Denies palpitations Physical Exam Vital Signs: Vital Signs: Last Vital Signs Temp 98.0 F 10/20/21 10:14 Pulse 69 10/20/21 10:14 Resp 10 L 10/20/21 10:14 BP 96/59 L 10/20/21 10:14 Pulse Ox 100 10/20/21 10:14 BMI result Body Mass Index 27.6 Const: General: cooperative, comfortable and alert Nutritional Appearance: well nourished Orientation/consciousness: patient oriented x3 Eyes: Pupils: Equal, round and reactive pupils present EOM: EOMs intact bilaterally Resp: Effort & Inspection: normal respiratory effort and able to speak in complete sentences Auscultation: clear to auscultation bilaterally Cardio: Rate: regular rate Heart sounds: S1 normal heart sound present and S2 normal heart sound present Neuro: General: patient oriented x3 Cranial nerves: Yes Equal, round and reactive pupils present Objective Data Active Medications Acetaminophen (Acetaminophen 325 Mg Tablet) 650 mg PO Q6H PRN PRN Reason: Pain, Mild (Pain Scale 1-3) Aspirin (Aspirin Enteric Coated 81 Mg Tablet.) 81 mg PO DAILY [facility] Last Admin: 10/20/21 09:39 Dose: 81 mg Documented by: JOSE Atorvastatin Calcium (Atorvastatin Calcium 20 Mg Tablet) 20 mg PO DAILY [facility] Last Admin: 10/20/21 09:39 Dose: 20 mg Documented by: JOSE Carvedilol (Carvedilol 12.5 Mg Tablet) 37.5 mg PO BID [facility]; Protocol Last Admin: 10/20/21 09:38 Dose: 37.5 mg Documented by: JOSE Heparin Sodium (Porcine) (Heparin Sodium,Porcine 5,000 Unit/Ml Vial) 5,000 unit SUBCUT Q12H [facility] Last Admin: 10/20/21 09:38 Dose: 5,000 unit Documented by: JOSE Sodium Chloride (Ns) 1,000 mls @ 100 mls/hr IVCONT .Q10H [facility] Last Admin: 10/19/21 22:19 Dose: Not Given Documented by: KILEY Non-Admin Reason: Physician Held Med Lidocaine (Lidocaine 4 % Patch Adh..Patch) 1 patch TRANSDERMA DAILY [facility] Last Admin: 10/20/21 09:38 Dose: 1 patch Documented by: JOSE Loratadine (Loratadine 10 Mg Tablet) 10 mg PO DAILY [facility] Last Admin: 10/20/21 09:39 Dose: 10 mg Documented by: JOSE Melatonin (Melatonin 3 Mg Tablet) 6 mg PO BEDTIME PRN PRN Reason: Insomnia Ondansetron HCl (Ondansetron Hcl 4 Mg/2 Ml Vial) 4 mg IVPUSH Q8H PRN PRN Reason: Nausea and Vomiting Pharmacy Consult (Consult Rx Perform Med Rec) 1 each MISCELLANE ONCE PRN PRN Reason: Consult order Psyllium Hydrophilic Mucilloid (Psyllium Seed 3.4 Gm Powd.Pack) 3.4 gm PO DAILY [facility] Sodium Chloride (0.9 % Sodium Chloride Flush 3 Ml Syringe) 3 ml IVFLUSH QSHIFT [facility] Last Admin: 10/20/21 10:16 Dose: Not Given Documented by: JOSE Non-Admin Reason: IV Running Labs CBC & Chem 7: 10/19/21 18:08 10/20/21 05:52 Labs: Laboratory Results - last 24 hr 10/19/21 10/19/21 10/19/21 18:08 18:08 18:08 MCV 98.6 H MCH 34.3 H MCHC 34.8 RDW 12.5 Plt Count 211 MPV 10.5 Immature Gran % (Auto) 0.3 Neut % (Auto) 63.3 Lymph % (Auto) 22.1 [place] % (Auto) 12.4 H Eos % (Auto) 1.3 Baso % (Auto) 0.6 Lymph # (Auto) 1.6 [place] # (Auto) 0.9 Eos # (Auto) 0.1 Baso # (Auto) 0.0 Abs Immat Gran (auto) 0.02 Absolute Neuts (auto) 4.5 Absolute Nucleated RBC 0.000 Nucleated RBC % (auto) 0.0 VBG pH VBG pCO2 VBG pO2 VBG HCO3 VBG O2 Saturation VBG Base Excess Anion Gap 21 H Estim Creat Clear Calc 10.1 Estimated GFR 8 POC Glucose Random Glucose 112 Osmolality 335 H Lactic Acid Lactic Acid F/U @ 2Hr Calcium 9.9 D Magnesium 2.3 Urine Osmolality Ur Random Sodium Urine Creatinine COVID-19 (MARY) COVID-19 AorTx 10/19/21 10/19/21 10/19/21 19:20 19:20 19:41 MCV MCH MCHC RDW Plt Count MPV Immature Gran % (Auto) Neut % (Auto) Lymph % (Auto) [place] % (Auto) Eos % (Auto) Baso % (Auto) Lymph # (Auto) [place] # (Auto) Eos # (Auto) Baso # (Auto) Abs Immat Gran (auto) Absolute Neuts (auto) Absolute Nucleated RBC Nucleated RBC % (auto) VBG pH VBG pCO2 VBG pO2 VBG HCO3 VBG O2 Saturation VBG Base Excess Anion Gap Estim Creat Clear Calc Estimated GFR POC Glucose 101 Random Glucose Osmolality Lactic Acid Lactic Acid F/U @ 2Hr Calcium Magnesium Urine Osmolality Ur Random Sodium 58.0 Urine Creatinine 164.10 COVID-19 (MARY) Negative COVID-19 AorTx See Note 10/19/21 10/19/21 10/19/21 19:41 19:56 20:10 MCV MCH MCHC RDW Plt Count MPV Immature Gran % (Auto) Neut % (Auto) Lymph % (Auto) [place] % (Auto) Eos % (Auto) Baso % (Auto) Lymph # (Auto) [place] # (Auto) Eos # (Auto) Baso # (Auto) Abs Immat Gran (auto) Absolute Neuts (auto) Absolute Nucleated RBC Nucleated RBC % (auto) VBG pH VBG pCO2 VBG pO2 VBG HCO3 VBG O2 Saturation VBG Base Excess Anion Gap Estim Creat Clear Calc Estimated GFR POC Glucose 167 H Random Glucose Osmolality Lactic Acid 2.1 H* Lactic Acid F/U @ 2Hr Calcium Magnesium Urine Osmolality 460 Ur Random Sodium Urine Creatinine COVID-19 (MARY) COVID-19 AorTx 10/19/21 10/19/21 10/19/21 20:14 21:00 21:14 MCV MCH MCHC RDW Plt Count MPV Immature Gran % (Auto) Neut % (Auto) Lymph % (Auto) [place] % (Auto) Eos % (Auto) Baso % (Auto) Lymph # (Auto) [place] # (Auto) Eos # (Auto) Baso # (Auto) Abs Immat Gran (auto) Absolute Neuts (auto) Absolute Nucleated RBC Nucleated RBC % (auto) VBG pH 7.18 L* VBG pCO2 39 VBG pO2 37 VBG HCO3 15 L VBG O2 Saturation 48.0 VBG Base Excess -12.3 Anion Gap 15 Estim Creat Clear Calc 11.8 Estimated GFR 10 POC Glucose 120 H Random Glucose 126 H Osmolality Lactic Acid Lactic Acid F/U @ 2Hr Calcium 9.1 D Magnesium Urine Osmolality Ur Random Sodium Urine Creatinine COVID-19 ([facility]) [facility] 10/19/21 10/19/21 10/20/21 21:18 22:27 05:52 MCV MCH MCHC RDW Plt Count MPV Immature Gran % (Auto) Neut % (Auto) Lymph % (Auto) [place] % (Auto) Eos % (Auto) Baso % (Auto) Lymph # (Auto) [place] # (Auto) Eos # (Auto) Baso # (Auto) Abs Immat Gran (auto) Absolute Neuts (auto) Absolute Nucleated RBC Nucleated RBC % (auto) VBG pH 7.33 VBG pCO2 29 VBG pO2 55 VBG HCO3 15 L VBG O2 Saturation 82.0 VBG Base Excess -8.7 Anion Gap 17 Estim Creat Clear Calc 13.2 Estimated GFR 11 POC Glucose Random Glucose 94 Osmolality Lactic Acid Lactic Acid F/U @ 2Hr 0.8 Calcium 9.0 Magnesium Urine Osmolality Ur Random Sodium Urine Creatinine COVID-19 ([facility]) COVID-[facility] Assessment and Plan (1) Acute hyperkalemia: Status: Acute (2) Metabolic acidosis: Status: Acute (3) Diarrhea: Status: Acute (4) Acute kidney injury superimposed on chronic kidney disease: Status: Acute Plan 71 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 no hydronephrosis or obstruction likely pre renal azotemia worsened by HCTZ and Lisinpril Mcelroy placed for fluid management -continue IV fluid -repeat labs this afternoon -Hold Lisinopril and HCTZ -Nephrology consult pending -repeat BMP daily Hyperkalemia d/t renal failure given insulin, Lokelma, Calcium gluconate k down to 5.5 from 7.5 Will give additional dose of lokelma frequent level check, cardiac monitoring Diarrhea check C dif, Stool WBC and if negative give immodium, hydrate Metablic acidosis/Lactic acidosis d/t renal failure and should resolved with treatment of underlying renal failure, bicarb Mild HypOnatremia d/t volume depletion resolved HTN Hold lisinopril and HCTZ due to renal failure and high K if needed add Norvasc for BP control continue coreg HLD Statin h/o gout hold Allopurinol d/t renal failure Admission will span at lest 2 midnight for treatment for Acute, severe renal failure with life threatening hyperkalemia that needs cardiac monitoring and frequent level check Full code DVTP: Heparin Attending: dr. canela Quality Stroke Does the patient have a stroke diagnosis?: No VTE Prior VTE?: No VTE Risk Level:: Medical - moderate - high VTE Device Contraindication: Treatment Not Indicated VTE Drug Contraindication: N/A - Med Ordered
--- NOTE | 2021-10-20 14:02 | PC.NURSE ---
patient updated on bed status upstairs. patient in no distress at this time, alert and oriented. denies any needs
--- NOTE | 2021-10-20 15:27 | PM.EVENT ---
Event Note Date of Service: 10/20/21 Event Note: Pt seen and examined D/w Medical team Continue IVF Low K diet Lokelma as needed
[2021-10-20] MEDS: 0.9 % Sodium Chloride Flush 3 ML SYRINGE IVFLUSH ×2 (16:26→20:11)
[2021-10-20] MEDS: 0.9 % Sodium Chloride 1,000 ML 125 ML IVCONT (16:27)
[2021-10-20 16:37] LABS: Anion Gap 15 (12-20); Blood Urea Nitrogen 114 mg/dL (9-16); Calcium 8.9 mg/dL (8.4-10.2); Carbon Dioxide 23 mmol/L (22-29); Chloride 103 mmol/L (96-108); Creatinine Clr Calc Pharmacy 16.2; Estimated Glomerular Filt Rate 14; Glucose Random 115 mg/dL (60-115); Potassium 4.8 mmol/L (3.3-5.1); Sodium 136 mmol/L (135-145)
[2021-10-21] MEDS: 0.9 % Sodium Chloride 1,000 ML 125 ML IVCONT (00:35)
[2021-10-21 03:18] VITALS: BP 149/85; PULSE 74; RESP 16; TEMP 36.8; O2SAT 100
[2021-10-21 06:57] LABS: Anion Gap 12 (12-20); Blood Urea Nitrogen 93 mg/dL (9-16); Calcium 8.5 mg/dL (8.4-10.2); Carbon Dioxide 21 mmol/L (22-29); Chloride 106 mmol/L (96-108); Creatinine Clr Calc Pharmacy 21.1; Estimated Glomerular Filt Rate 19; Glucose Random 92 mg/dL (60-115); Sodium 134 mmol/L (135-145)
[2021-10-21 08:00] VITALS: BP 149/73; PULSE 69; RESP 20; TEMP 36.6; O2SAT 100
[2021-10-21] MEDS: Heparin Sodium,Porcine 5,000 UNIT/ML VIAL 5000 UNIT SUBCUT ×2 (10:06→21:07)
[2021-10-21] MEDS: carvediloL 12.5 MG TABLET 37.5 MG PO ×2 (10:06→21:07)
[2021-10-21] MEDS: Loratadine 10 MG TABLET PO (10:06)
[2021-10-21] MEDS: 0.9 % Sodium Chloride Flush 3 ML SYRINGE IVFLUSH ×2 (10:07→16:48)
[2021-10-21] MEDS: Atorvastatin Calcium 20 MG TABLET PO (10:07)
[2021-10-21] MEDS: Aspirin Enteric Coated 81 MG TABLET.DR PO (10:07)
[2021-10-21] MEDS: 0.9 % Sodium Chloride 1,000 ML 100 ML IVCONT ×2 (10:24→19:57)
[2021-10-21 12:00] VITALS: BP 138/75; PULSE 70; RESP 20; TEMP 36.7; O2SAT 98
--- NOTE | 2021-10-21 12:15 | P.PNIM_ITS ---
Subjective Subjective Date of Service: 10/21/21 Interval History: seen and examined this morning follow up for LOWELL no further diarrhea since admission no abdominal pain no overnight events Review of Systems Review of Systems: Yes all other systems are reviewed and are negative Constitutional Constitutional: Denies chills and Denies fever(s) Cardiovascular Cardiovascular: Denies chest pain, Denies palpitations and Denies dyspnea Respiratory Respiratory: Denies cough and Denies dyspnea Gastrointestinal Gastrointestinal: Denies abdominal pain, Denies diarrhea, Denies nausea and Denies vomiting Endocrine Endocrine: Denies palpitations Physical Exam Vital Signs: Vital Signs: Last Vital Signs Temp 97.9 F 10/21/21 08:00 Pulse 69 10/21/21 08:00 Resp 20 10/21/21 08:00 BP 149/73 H 10/21/21 08:00 Pulse Ox 100 10/21/21 08:00 BMI result Body Mass Index 27.6 Const: General: cooperative, comfortable and alert Nutritional Appearance: well nourished Orientation/consciousness: patient oriented x3 Eyes: Pupils: Equal, round and reactive pupils present EOM: EOMs intact bilaterally Resp: Effort & Inspection: normal respiratory effort and able to speak in complete sentences Auscultation: clear to auscultation bilaterally Cardio: Rate: regular rate Heart sounds: S1 normal heart sound present and S2 normal heart sound present Neuro: General: patient oriented x3 Cranial nerves: Yes Equal, round and reactive pupils present Objective Data Active Medications Acetaminophen (Acetaminophen 325 Mg Tablet) 650 mg PO Q6H PRN PRN Reason: Pain, Mild (Pain Scale 1-3) Aspirin (Aspirin Enteric Coated 81 Mg Tablet.) 81 mg PO DAILY [facility] Last Admin: 10/21/21 10:07 Dose: 81 mg Documented by: NAHUN Atorvastatin Calcium (Atorvastatin Calcium 20 Mg Tablet) 20 mg PO DAILY [facility] Last Admin: 10/21/21 10:07 Dose: 20 mg Documented by: NAHUN Carvedilol (Carvedilol 12.5 Mg Tablet) 37.5 mg PO BID [facility]; Protocol Last Admin: 10/21/21 10:06 Dose: 37.5 mg Documented by: NAHUN Heparin Sodium (Porcine) (Heparin Sodium,Porcine 5,000 Unit/Ml Vial) 5,000 unit SUBCUT Q12H [facility] Last Admin: 10/21/21 10:06 Dose: 5,000 unit Documented by: NAHUN Sodium Chloride (Ns) 1,000 mls @ 100 mls/hr IVCONT .Q10H [facility] Last Admin: 10/21/21 10:24 Dose: 100 mls/hr Documented by: NAHUN Lidocaine (Lidocaine 4 % Patch Adh..Patch) 1 patch TRANSDERMA DAILY [facility] Last Admin: 10/21/21 10:22 Dose: Not Given Documented by: NAHUN Non-Admin Reason: Patient Refused Loratadine (Loratadine 10 Mg Tablet) 10 mg PO DAILY [facility] Last Admin: 10/21/21 10:06 Dose: 10 mg Documented by: NAHUN Melatonin (Melatonin 3 Mg Tablet) 6 mg PO BEDTIME PRN PRN Reason: Insomnia Ondansetron HCl (Ondansetron Hcl 4 Mg/2 Ml Vial) 4 mg IVPUSH Q8H PRN PRN Reason: Nausea and Vomiting Pharmacy Consult (Consult Rx Perform Med Rec) 1 each MISCELLANE ONCE PRN PRN Reason: Consult order Psyllium Hydrophilic Mucilloid (Psyllium Seed 3.4 Gm Powd.Pack) 3.4 gm PO DAILY [facility] Last Admin: 10/21/21 10:22 Dose: Not Given Documented by: NAHUN Non-Admin Reason: Patient Refused Sodium Chloride (0.9 % Sodium Chloride Flush 3 Ml Syringe) 3 ml IVFLUSH QSHIFT [facility] Last Admin: 10/21/21 10:07 Dose: 3 ml Documented by: NAHUN Labs CBC & Chem 7: 10/19/21 18:08 10/21/21 06:15 Labs: Laboratory Results - last 24 hr 10/20/21 10/21/21 16:11 06:15 Anion Gap 15 12 Estim Creat Clear Calc 16.2 21.1 Estimated GFR 14 19 Random Glucose 115 92 Calcium 8.9 8.5 Microbiology Microbiology Results: Microbiology 10/19/21 20:10 Blood Culture - Preliminary Blood - Venous No growth after 24 hours. 10/19/21 20:10 Blood Culture - Preliminary Blood - Venous No growth after 24 hours. 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 Creatinine down from 6.[address] showing no obstruction US showing renal cortical thinning and increased echogenicity suggestive of medical renal disease. no hydronephrosis or obstruction likely r/t pre renal azotemia worsened by HCTZ and Lisinpril Mcelroy placed for fluid management -continue IV fluid -Hold Lisinopril and HCTZ -Nephrology following -repeat BMP daily Hyperkalemia d/t renal failure given insulin, Lokelma, Calcium gluconate k 7.5 on presentation, now within normal range Diarrhea check C dif, Stool WBC not obtained since diarrhea has resolved. Metablic acidosis/Lactic acidosis improving d/t renal failure and should resolved with treatment of underlying renal failu re, bicarb Mild HypOnatremia d/t volume depletion resolved HTN Hold lisinopril and HCTZ due to renal failure and high K if needed add Norvasc for BP control continue coreg HLD Statin h/o gout hold Allopurinol d/t renal failure Full code DVTP: Heparin Attending: dr. abarca Requires ongoing hospitalization for close monitoring of kidney function and electrolytes Quality Stroke Does the patient have a stroke diagnosis?: No VTE Prior VTE?: No VTE Risk Level:: Medical - moderate - high VTE Device Contraindication: Treatment Not Indicated VTE Drug Contraindication: N/A - Med Ordered
--- NOTE | 2021-10-21 13:24 | PM.PNNEP ---
Subjective Subjective Date of Service: 10/21/21 Interval history: seen and examined this morning follow up for LOWELL no further diarrhea since admission no abdominal pain no overnight events Physical Exam Vital Signs: Vital Signs: Last Vital Signs Temp 98.0 F 10/21/21 12:00 Pulse 70 10/21/21 12:00 Resp 20 10/21/21 12:00 BP 138/75 10/21/21 12:00 Pulse Ox 98 10/21/21 12:00 BMI result Body Mass Index 27.6 Const General:?cooperative, comfortable and alert Nutritional Appearance:?well nourished Orientation/consciousness:?patient oriented x3 Eyes Pupils:?Equal, round and reactive pupils present EOM:?EOMs intact bilaterally Resp Effort & Inspection:?normal respiratory effort and able to speak in complete sentences Auscultation:?clear to auscultation bilaterally Cardio Rate:?regular rate Heart sounds:?S1 normal heart sound present and S2 normal heart sound present Neuro General:?patient oriented x3 Cranial nerves:?Yes Equal, round and reactive pupils present Objective Data Labs CBC & Chem 7: 10/19/21 18:08 10/21/21 06:15 Labs: Laboratory Results - last 24 hr 10/20/21 10/21/21 16:11 06:15 Sodium 136 134 L Potassium 4.8 5.0 Chloride 103 106 Carbon Dioxide 23 21 L Anion Gap 15 12 BUN 114 H 93 H Creatinine 4.17 H* 3.19 H Estim Creat Clear Calc 16.2 21.1 Estimated GFR 14 19 Random Glucose 115 92 Calcium 8.9 8.5 Microbiology Microbiology Results: Microbiology 10/19/21 20:10 Blood - Venous Blood Culture - Preliminary No growth after 24 hours. 10/19/21 20:10 Blood - Venous Blood Culture - Preliminary No growth after 24 hours. 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 here with diarrhea and LOWELL LOWELL on CKD3 Improving. Creatinine down to 3.[address] _ No obstruction Continue to hold HCTZ and Lisinpril continue IV fluid Hold Lisinopril and HCTZ Suggest using Amlodipine 5 mg daily Hyperkalemia- Resolved Metablic acidosis/Lactic acidosis improving- should resolved with treatment of underlying renal failure, bicarb Mild Hyponatremia d/t volume depletion resolved Time Spent With Patient Time: Total time spent is greater than 50% in coordination of care (as documented) at patient's floor/unit and/or counseling patient: Progress Note: Quality Stroke Does the patient have a stroke diagnosis?: No
[2021-10-21 15:03] VITALS: BP 138/81; PULSE 71; RESP 18; TEMP 36.8; O2SAT 97
[2021-10-21 19:19] VITALS: BP 131/78; PULSE 73; RESP 20; TEMP 37.2; O2SAT 98
[2021-10-21 23:49] VITALS: BP 129/83; PULSE 68; RESP 18; TEMP 36.9; O2SAT 98
[2021-10-22 04:00] VITALS: BP 119/84; PULSE 68; RESP 20; TEMP 36.9; O2SAT 98
[2021-10-22] MEDS: 0.9 % Sodium Chloride 1,000 ML 100 ML IVCONT ×3 (04:43→23:11)
[2021-10-22 07:38] VITALS: BP 120/68; PULSE 67; RESP 19; TEMP 36.4; O2SAT 98
[2021-10-22] MEDS: Heparin Sodium,Porcine 5,000 UNIT/ML VIAL 5000 UNIT SUBCUT ×2 (09:08→21:27)
[2021-10-22] MEDS: carvediloL 12.5 MG TABLET 37.5 MG PO ×2 (09:08→21:27)
[2021-10-22] MEDS: Loratadine 10 MG TABLET PO (09:08)
[2021-10-22] MEDS: Atorvastatin Calcium 20 MG TABLET PO (09:08)
[2021-10-22] MEDS: Aspirin Enteric Coated 81 MG TABLET.DR PO (09:08)
[2021-10-22 09:29] LABS: Anion Gap 9 (12-20); Blood Urea Nitrogen 65 mg/dL (9-16); Calcium 8.5 mg/dL (8.4-10.2); Carbon Dioxide 23 mmol/L (22-29); Chloride 110 mmol/L (96-108); Creatinine Clr Calc Pharmacy 29.6; Estimated Glomerular Filt Rate 28; Glucose Random 93 mg/dL (60-115); Potassium 5.4 mmol/L (3.3-5.1); Sodium 137 mmol/L (135-145)
[2021-10-22] MEDS: Sodium Zirconium Cyclosilicate 10 GM POWD.PACK PO (10:18)
--- NOTE | 2021-10-22 10:49 | P.PNIM_ITS ---
Subjective Subjective Date of Service: 10/22/21 Interval History: seen and examined this morning follow up for LOWELL, diarrhea no overnight events no episodes of diarrhea since admission Review of Systems Review of Systems: Yes all other systems are reviewed and are negative Constitutional Constitutional: Denies chills and Denies fever(s) Cardiovascular Cardiovascular: Denies chest pain, Denies palpitations and Denies dyspnea Respiratory Respiratory: Denies cough and Denies dyspnea Gastrointestinal Gastrointestinal: Denies abdominal pain, Denies diarrhea, Denies nausea and Denies vomiting Endocrine Endocrine: Denies palpitations Physical Exam Vital Signs: Vital Signs: Last Vital Signs Temp 97.6 F 10/22/21 07:38 Pulse 67 10/22/21 07:38 Resp 19 10/22/21 07:38 BP 120/68 10/22/21 07:38 Pulse Ox 98 10/22/21 07:38 BMI result Body Mass Index 27.6 Const: General: cooperative, comfortable and alert Nutritional Appearance: well nourished Orientation/consciousness: patient oriented x3 Eyes: Pupils: Equal, round and reactive pupils present EOM: EOMs intact bi laterally Resp: Effort & Inspection: normal respiratory effort and able to speak in complete sentences Auscultation: clear to auscultation bilaterally Cardio: Rate: regular rate Heart sounds: S1 normal heart sound present and S2 normal heart sound present : Other: chan present draining yellow urine Neuro: General: patient oriented x3 Cranial nerves: Yes Equal, round and reactive pupils present Objective Data Active Medications Acetaminophen (Acetaminophen 325 Mg Tablet) 650 mg PO Q6H PRN PRN Reason: Pain, Mild (Pain Scale 1-3) Aspirin (Aspirin Enteric Coated 81 Mg Tablet.) 81 mg PO DAILY [facility] Last Admin: 10/22/21 09:08 Dose: 81 mg Documented by: TONJA Atorvastatin Calcium (Atorvastatin Calcium 20 Mg Tablet) 20 mg PO DAILY [facility] Last Admin: 10/22/21 09:08 Dose: 20 mg Documented by: TONJA Carvedilol (Carvedilol 12.5 Mg Tablet) 37.5 mg PO BID [facility]; Protocol Last Admin: 10/22/21 09:08 Dose: 37.5 mg Documented by: TONJA Heparin Sodium (Porcine) (Heparin Sodium,Porcine 5,000 Unit/Ml Vial) 5,000 unit SUBCUT Q12H [facility] Last Admin: 10/22/21 09:08 Dose: 5,000 unit Documented by: TONJA Sodium Chloride (Ns) 1,000 mls @ 100 mls/hr IVCONT .Q10H [facility] Last Admin: 10/22/21 04:43 Dose: 100 mls/hr Documented by: ALEXANDRE Lidocaine (Lidocaine 4 % Patch Adh..Patch) 1 patch TRANSDERMA DAILY [facility] Last Admin: 10/22/21 09:07 Dose: Not Given Documented by: TONJA Non-Admin Reason: Patient Refused Loratadine (Loratadine 10 Mg Tablet) 10 mg PO DAILY [facility] Last Admin: 10/22/21 09:08 Dose: 10 mg Documented by: TONJA Melatonin (Melatonin 3 Mg Tablet) 6 mg PO BEDTIME PRN PRN Reason: Insomnia Ondansetron HCl (Ondansetron Hcl 4 Mg/2 Ml Vial) 4 mg IVPUSH Q8H PRN PRN Reason: Nausea and Vomiting Pharmacy Consult (Consult Rx Perform Med Rec) 1 each MISCELLANE ONCE PRN PRN Reason: Consult order Psyllium Hydrophilic Mucilloid (Psyllium Seed 3.4 Gm Powd.Pack) 3.4 gm PO DAILY [facility] Last Admin: 10/22/21 09:08 Dose: Not Given Documented by: TONJA Non-Admin Reason: Patient Refused Sodium Chloride (0.9 % Sodium Chloride Flush 3 Ml Syringe) 3 ml IVFLUSH QSHIFT [facility] Last Admin: 10/22/21 09:08 Dose: Not Given Documented by: TONJA Non-Admin Reason: IV Running Labs CBC & Chem 7: 10/19/21 18:08 10/22/21 08:33 Labs: Laboratory Results - last 24 hr 10/22/21 08:33 Anion Gap 9 L Estim Creat Clear Calc 29.6 Estimated GFR 28 Random Glucose 93 Calcium 8.5 Microbiology Microbiology Results: Microbiology 10/19/21 20:10 Blood Culture - Preliminary Blood - Venous No growth after 48 hours. 10/19/21 20:10 Blood Culture - Preliminary Blood - Venous No growth after 48 hours. 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 Creatinine down from 6.65 to 2.28. Baseline 1.3 CT showing no obstruction US showing renal cortical thinning and increased echogenicity suggestive of medical renal disease. no hydronephrosis or obstruction likely r/t pre renal azotemia worsened by HCTZ and Lisinpril Chan placed for fluid management - will remove -continue IV fluid -Hold Lisinopril and HCTZ -Nephrology following -repeat BMP daily Hyperkalemia d/t renal failure given insulin, Lokelma, Calcium gluconate k 7.5 on presentation 5.4 today lokelma follow BMP daily Diarrhea check C dif, Stool WBC - not obtained since diarrhea has resolved. Metablic acidosis/Lactic acidosis resolved d/t renal failure and should resolved with treatment of underlying renal failure bicarb 23 Mild HypOnatremia d/t volume depletion resolved HTN BP controlled Hold lisinopril and HCTZ due to renal failure and high K if needed add Norvasc for BP control continue coreg HLD Statin h/o gout hold Allopurinol d/t renal failure Full code DVTP: Heparin Attending: dr. abarca Requires ongoing hospitalization for close monitoring of kidney function and electrolytes Quality Stroke Does the patient have a stroke diagnosis?: No VTE Prior VTE?: No VTE Risk Level:: Medical - moderate - high VTE Device Contraindication: Treatment Not Indicated VTE Drug Contraindication: N/A - Med Ordered
[2021-10-22 12:00] VITALS: BP 102/55; PULSE 80; RESP 14; TEMP 36.7; O2SAT 98
--- NOTE | 2021-10-22 13:14 | PM.PNNEP ---
Subjective Subjective Date of Service: 10/22/21 Interval history: seen and examined this morning follow up for LOWELL, diarrhea no overnight events no episodes of diarrhea since admission Physical Exam Vital Signs: Vital Signs: Last Vital Signs Temp 98.1 F 10/22/21 12:00 Pulse 80 10/22/21 12:00 Resp 14 10/22/21 12:00 BP 102/55 L 10/22/21 12:00 Pulse Ox 98 10/22/21 12:00 BMI result Body Mass Index 27.6 Const General:?cooperative, comfortable and alert Nutritional Appearance:?well nourished Orientation/consciousness:?patient oriented x3 Eyes Pupils:?Equal, round and reactive pupils present EOM:?EOMs intact bilaterally Resp Effort & Inspection:?normal respiratory effort and able to speak in complete sentences Auscultation:?clear to auscultation bilaterally Cardio Rate:?regular rate Heart sounds:?S1 normal heart sound present and S2 normal heart sound present Other: chan present draining yellow urine Neuro General:?patient oriented x3 Cranial nerves:?Yes Equal, round and reactive pupils present Objective Data Labs CBC & Chem 7: 10/19/21 18:08 10/22/21 08:33 Labs: Laboratory Results - last 24 hr 10/22/21 08:33 Sodium 137 Potassium 5.4 H Chloride 110 H Carbon Dioxide 23 Anion Gap 9 L BUN 65 H Creatinine 2.28 H Estim Creat Clear Calc 29.6 Estimated GFR 28 Random Glucose 93 Calcium 8.5 Microbiology Microbiology Results: Microbiology 10/19/21 20:10 Blood - Venous Blood Culture - Preliminary No growth after 48 hours. 10/19/21 20:10 Blood - Venous Blood Culture - Preliminary No growth after 48 hours. 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 here with diarrhea and LOWELL LOWELL on CKD3 Improving. Creatinine is better BAseline 1.3 CT _ No obstruction Continue to hold HCTZ and Lisinpril continue IV fluid Hold Lisinopril and HCTZ Suggest using Amlodipine low dose as needed Hyperkalemia- Resolved Metablic acidosis/Lactic acidosis improving- should resolved with treatment of underlying renal failure, bicarb Mild Hyponatremia d/t volume depletion resolved Time Spent With Patient Time: Total time spent is greater than 50% in coordination of care (as documented) at patient's floor/unit and/or counseling patient: Progress Note: Quality Stroke Does the patient have a stroke diagnosis?: No
--- NOTE | 2021-10-22 14:58 | PC.NURSE ---
1030 F/C removed at 1030
[2021-10-22 15:12] VITALS: BP 117/78; PULSE 65; RESP 18; TEMP 37.1; O2SAT 99
[2021-10-22 19:22] VITALS: BP 143/83; PULSE 68; RESP 19; TEMP 37.2; O2SAT 100
[2021-10-22 22:54] VITALS: BP 153/95; PULSE 69; RESP 18; TEMP 37.1; O2SAT 100
[2021-10-23 03:30] VITALS: BP 155/91; PULSE 66; RESP 20; TEMP 36.7; O2SAT 100
[2021-10-23 06:12] LABS: Anion Gap 10 (12-20); Blood Urea Nitrogen 51 mg/dL (9-16); Calcium 8.2 mg/dL (8.4-10.2); Carbon Dioxide 21 mmol/L (22-29); Chloride 110 mmol/L (96-108); Estimated Glomerular Filt Rate 34; Glucose Random 91 mg/dL (60-115); Potassium 5.2 mmol/L (3.3-5.1); Sodium 136 mmol/L (135-145)
[2021-10-23 08:00] VITALS: BP 167/92; PULSE 67; RESP 20; TEMP 36.8; O2SAT 98
[2021-10-23] MEDS: 0.9 % Sodium Chloride Flush 3 ML SYRINGE IVFLUSH ×2 (09:49→16:43)
[2021-10-23] MEDS: Heparin Sodium,Porcine 5,000 UNIT/ML VIAL 5000 UNIT SUBCUT (09:49)
[2021-10-23] MEDS: carvediloL 12.5 MG TABLET 37.5 MG PO ×2 (09:50→20:20)
[2021-10-23] MEDS: Loratadine 10 MG TABLET PO (09:50)
[2021-10-23] MEDS: Aspirin Enteric Coated 81 MG TABLET.DR PO (09:50)
[2021-10-23] MEDS: Atorvastatin Calcium 20 MG TABLET PO (09:50)
[2021-10-23 11:48] VITALS: BP 147/87; PULSE 69; RESP 20; TEMP 36.8; O2SAT 97
--- NOTE | 2021-10-23 13:00 | MHC.CM.PN ---
per rounds pt may be dcd today plan remains home no servceis
[2021-10-23 14:57] VITALS: BP 152/81; PULSE 67; RESP 18; TEMP 36.6; O2SAT 99
--- NOTE | 2021-10-23 15:05 | CONS_ITS ---
DATE OF SERVICE: 10/20/2021 REASON FOR CONSULTATION: Consult requested by the medical team to evaluate and help in management of patient with acute kidney injury. HISTORY OF PRESENT ILLNESS: Patient is a 71-year-old male with past medical history of hypertension, hyperlipidemia, CKD stage 2, who presented to the hospital with complaints of diarrhea for 4 days' duration. He was in the hospital in July 2020 with creatinine of 4.3 and discharged home with a creatinine of around 1.2 to 1.3. He did not have any blood in his stools. There was no abdominal pain, fever. There was no antibiotic use. He was feeling weak and his appetite was significantly low. Lab work showed his BUN and creatinine were elevated to 123/6.6 with a potassium of 7.5 without any EKG changes. He was given insulin, dextrose, calcium gluconate, Lokelma and labs were repeated. His renal function has improved with a creatinine down to 5.09 and his potassium level has improved to 5.5. He did have a renal ultrasound, which showed bilateral cortical thinning without any hydronephrosis. He also had abdominal and pelvis CAT scan without any contrast and again there was no hydronephrosis. He stated his p.o. intake was on the low side. He was on lisinopril/hydrochlorothiazide as an outpatient and denies using any NSAIDs. PAST MEDICAL HISTORY: History of CKD stage 2/3 at baseline, hypertension, hyperlipidemia, history of acute kidney injury recently. PERSONAL AND SOCIAL HISTORY: Patient is a current alcohol user, takes about 3 drinks per day. Does not smoke. Does not use any drugs. ALLERGIES: NO KNOWN DRUG ALLERGIES. MEDICATIONS: Include cetirizine, lidocaine, Psyllium, allopurinol, aspirin, carvedilol, lisinopril/hydrochlorothiazide, and simvastatin. REVIEW OF SYSTEMS: As noted above. Other systems are reviewed and negative. PHYSICAL EXAMINATION: GENERAL: Patient is resting in the bed. Awake, alert, oriented x3. VITAL SIGNS: Blood pressure was 96/59, pulse 69, afebrile. HEENT: Pupils equal bilaterally to light. No jugular venous distention is noted. There is no scleral icterus or conjunctival congestion. NECK: Supple. No thyromegaly is noted. Mucosa was dry. CARDIOVASCULAR SYSTEM: S1, S2 without rub or murmur. RESPIRATORY SYSTEM: Air entry decreased in the bases. ABDOMEN: Soft, nontender. No guarding. No rigidity. Bowel sounds normal. EXTREMITIES: No edema. There is no peripheral cyanosis or clubbing. NEURO: Essentially nonfocal. LABORATORY DATA: Labs done today; WBC is 9.3, hemoglobin 13.1, hematocrit 37.6, platelets were 173. Sodium 136, potassium 5.5, chloride 106, CO2 of 19, BUN 121, creatinine 5.09. Estimated GFR was 11. Glucose 94. Lactic acid 2.1, calcium 9.0. Urinalysis shows yellow urine clear, specific gravity 1.015. Urine sodium was 58, urine creatinine 164. IMPRESSION: 1. 71-year-old male with acute kidney injury. Acute kidney injury in this patient is likely secondary to severe prerenal azotemia. He has had diarrhea and is not taking adequate p.o. intake. He was on EJ inhibitor with hydrochlorothiazide, which could have worsened his renal insufficiency. Obstruction has been ruled out based on the CAT scan and ultrasound. I doubt patient has acute GN/interstitial disease based on a bland urinary sediment. 2. 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 3. Hyperkalemia due to acute kidney injury, chronic kidney disease and use of EJ inhibitor. 4. Diarrhea. Workup in process. 5. Metabolic acidosis in the setting of severe renal insufficiency and diarrhea, which has improved. Initially, it was non-anion gap type and presently is anion gap type and there is also mild lactic acidosis. 6. Mild hyponatremia, which has resolved. 7. Hypertension. RECOMMENDATIONS: At this juncture, patient's renal function is improving with hydration. I will continue with IV fluids and normal saline at 125 cc an hour. I would have recommend continuing Lokelma for hyperkalemia to keep the potassium level less than 5.0. Diarrhea has resolved. I suspect his renal function to further improve. I recommend holding off on lisinopril/hydrochlorothiazide for now. Long-term, I suggest using another antihypertensive agent as he has had multiple episodes of AKIs, like amlodipine. He needs to be on low-potassium diet. Thank you for allowing me to participate in medical management of the patient. MD TAYLER Garcia/KAELYN / [phone]
--- NOTE | 2021-10-23 15:15 | HO.PM.IMPN ---
Subjective Subjective Date of Service: 10/23/21 Review of Systems follow up for LOWELL, diarrhea no overnight events no episodes of diarrhea since admission Physical Exam Vital Signs: Vital Signs: Last Vital Signs Temp 98 F 10/23/21 14:57 Pulse 67 10/23/21 14:57 Resp 18 10/23/21 14:57 BP 152/81 H 10/23/21 14:57 Pulse Ox 99 10/23/21 14:57 BMI result Body Mass Index 27.6 Appearing in no acute distress lung sounds are clear to auscultation heart regular rate rhythm, clear S1, S2 positive bowel sounds, abdomen is soft, nontender neuro patient is alert x3, no focal deficits Objective Data Active Medications Acetaminophen (Acetaminophen 325 Mg Tablet) 650 mg PO Q6H PRN PRN Reason: Pain, Mild (Pain Scale 1-3) Aspirin (Aspirin Enteric Coated 81 Mg Tablet.Dr) 81 mg PO DAILY [facility] Last Admin: 10/23/21 09:50 Dose: 81 mg Documented by: ARGENTINA Atorvastatin Calcium (Atorvastatin Calcium 20 Mg Tablet) 20 mg PO DAILY [facility] Last Admin: 10/23/21 09:50 Dose: 20 mg Documented by: ARGENTINA Carvedilol (Carvedilol 12.5 Mg Tablet) 37.5 mg PO BID [facility]; Protocol Last Admin: 10/23/21 09:50 Dose: 37.5 mg Documented by: ARGENTINA Heparin Sodium (Porcine) (Heparin Sodium,Porcine 5,000 Unit/Ml Vial) 5,000 unit SUBCUT Q12H [facility] Last Admin: 10/23/21 09:49 Dose: 5,000 unit Documented by: ARGENTNIA Lidocaine (Lidocaine 4 % Patch Adh..Patch) 1 patch TRANSDERMA DAILY [facility] Last Admin: 10/23/21 09:50 Dose: Not Given Documented by: ARGENTINA Non-Admin Reason: Patient Refused Loratadine (Loratadine 10 Mg Tablet) 10 mg PO DAILY [facility] Last Admin: 10/23/21 09:50 Dose: 10 mg Documented by: ARGENTINA Melatonin (Melatonin 3 Mg Tablet) 6 mg PO BEDTIME PRN PRN Reason: Insomnia Ondansetron HCl (Ondansetron Hcl 4 Mg/2 Ml Vial) 4 mg IVPUSH Q8H PRN PRN Reason: Nausea and Vomiting Pharmacy Consult (Consult Rx Perform Med Rec) 1 each MISCELLANE ONCE PRN PRN Reason: Consult order Psyllium Hydrophilic Mucilloid (Psyllium Seed 3.4 Gm Powd.Pack) 3.4 gm PO DAILY [facility] Last Admin: 10/23/21 09:50 Dose: Not Given Documented by: ARGENTINA Non-Admin Reason: Patient Refused Sodium Chloride (0.9 % Sodium Chloride Flush 3 Ml Syringe) 3 ml IVFLUSH QSHIFT [facility] Last Admin: 10/23/21 09:49 Dose: 3 ml Documented by: ARGENTINA Labs CBC & Chem 7: 10/19/21 18:08 10/23/21 05:25 Labs: Laboratory Results - last 24 hr 10/23/21 05:25 Anion Gap 10 L Estim Creat Clear Calc 35.0 Estimated GFR 34 Random Glucose 91 Calcium 8.2 L Assessment and Plan (1) Acute kidney injury superimposed on chronic kidney disease: Status: Acute Plan 71 year old male with with 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 Improving, secondary to pre renal azotemia worsened by HCTZ and lisinopril diarrhea has stopped CT showing no obstruction Mcelroy placed for fluid management continue IV fluid ns @125 as per nephro Hyperkalemia secondary to renal failure given lokelma, keep K around 5 follow BMP daily Diarrhea resolved Metabolic acidosis/Lactic acidosis secondary to renal failure resolved Mild Hyponatremia d/t volume depletion resolved HTN BP controlled Hold lisinopril and HCTZ due to renal failure and high K if needed add Norvasc for BP control continue coreg HLD Statin h/o gout hold Allopurinol d/t renal failure Full code DVTP: Heparin Attending Dr. Connell Requires ongoing hospitalization for close monitoring of kidney function and electrolytes, continues to need IV fluids Quality Stroke Does the patient have a stroke diagnosis?: No VTE Prior VTE?: No VTE Risk Level:: Medical - moderate - high VTE Device Contraindication: Treatment Not Indicated VTE Drug Contraindication: N/A - Med Ordered
--- NOTE | 2021-10-23 15:31 | PM.PNNEP ---
Subjective Subjective Date of Service: 10/24/21 Interval history: Chart Reviewed. Events noted. Physical Exam Vital Signs: Vital Signs: Last Vital Signs Temp 98 F 10/23/21 14:57 Pulse 67 10/23/21 14:57 Resp 18 10/23/21 14:57 BP 152/81 H 10/23/21 14:57 Pulse Ox 99 10/23/21 14:57 BMI result Body Mass Index 27.6 Const: General: no acute distress Orientation/consciousness: patient oriented x3 HEENT: Head: Yes normocephalic and Yes atraumatic Neck: Neck: Yes no JVD Resp: Auscultation: clear to auscultation bilaterally Cardio: Jugular venous distension: no JVD Rate: regular rate Rhythm: regular rhythm Heart sounds: S1 normal heart sound present and S2 normal heart sound present GI: Auscultation: normal bowel sounds Skin: Rashes: no rashes Neuro: General: patient oriented x3 Extrem: General: Yes no clubbing, cyanosis or edema Objective Data Labs CBC & Chem 7: 10/19/21 18:08 10/24/21 07:05 Labs: Laboratory Results - last 24 hr 10/23/21 05:25 Sodium 136 Potassium 5.2 H Chloride 110 H Carbon Dioxide 21 L Anion Gap 10 L BUN 51 H Creatinine 1.93 H Estim Creat Clear Calc 35.0 Estimated GFR 34 Random Glucose 91 Calcium 8.2 L Microbiology Microbiology Results: Microbiology 10/19/21 20:10 Blood - Venous Blood Culture - Preliminary No growth after 48 hours. 10/19/21 20:10 Blood - Venous Blood Culture - Preliminary No growth after 48 hours. 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 Creatinine is better BL S-Cr =1.3 mg/dL Continue to hold HCTZ and Lisinpril continue IV fluid Amlodipine for htn. #Hyperkalemia- Resolved Lokelma 10 G prn K> 5.0 #Metabolic acidosis/Lactic acidosis improving- should resolved with treatment of underlying renal failure, bicarb #Mild Hyponatremia d/t volume depletion resolved Time Spent With Patient Time: Total time spent is greater than 50% in coordination of care (as documented) at patient's floor/unit and/or counseling patient: Progress Note: Quality Stroke Does the patient have a stroke diagnosis?: No
[2021-10-23] MEDS: 0.9 % Sodium Chloride 1,000 ML 125 ML IVCONT (16:50)
[2021-10-23] MEDS: Sodium Zirconium Cyclosilicate 10 GM POWD.PACK PO (17:12)
[2021-10-23 20:00] VITALS: BP 171/87; PULSE 65; RESP 18; TEMP 36.7; O2SAT 99
[2021-10-23 23:12] VITALS: BP 170/80; PULSE 64; RESP 18; TEMP 36.5; O2SAT 100
[2021-10-24] MEDS: Heparin Sodium,Porcine 5,000 UNIT/ML VIAL 5000 UNIT SUBCUT ×2 (00:23→09:17)
[2021-10-24] MEDS: 0.9 % Sodium Chloride 1,000 ML 125 ML IVCONT ×2 (00:26→09:21)
[2021-10-24 03:08] VITALS: BP 167/97; PULSE 63; RESP 18; TEMP 36.7; O2SAT 99
[2021-10-24 07:48] LABS: Anion Gap 11 (12-20); Blood Urea Nitrogen 36 mg/dL (9-16); Calcium 8.3 mg/dL (8.4-10.2); Carbon Dioxide 20 mmol/L (22-29); Chloride 113 mmol/L (96-108); Creatinine Clr Calc Pharmacy 40.4; Estimated Glomerular Filt Rate 41; Glucose Random 86 mg/dL (60-115); Potassium 4.9 mmol/L (3.3-5.1); Sodium 139 mmol/L (135-145)
[2021-10-24 08:00] VITALS: BP 159/90; PULSE 61; RESP 20; TEMP 36.9; O2SAT 98
[2021-10-24] MEDS: Loratadine 10 MG TABLET PO (09:15)
[2021-10-24] MEDS: carvediloL 12.5 MG TABLET 37.5 MG PO (09:15)
[2021-10-24] MEDS: Atorvastatin Calcium 20 MG TABLET PO (09:15)
[2021-10-24] MEDS: Aspirin Enteric Coated 81 MG TABLET.DR PO (09:15)
--- NOTE | 2021-10-24 09:49 | PM.DS ---
DS: Providers Provider Date of Service: 10/24/21 Date of admission: 10/19/21 21:43 Primary care physician: Jagjit Lord MD Consults: 10/19/21 19:37 Consult to Nephrology Stat Consulting Provider: Kirill Elizabeth Reason for consultation: Acute renal failure with hyperkalemia Has provider been notified: Yes Attending physician on discharge: Raul [facility] Discharging clinician: Megan Rosales DS: Diagnosis Discharge Diagnosis (1) Acute kidney injury superimposed on chronic kidney disease: Status: Acute (2) Metabolic acidosis: Status: Acute (3) Acute hyperkalemia: Status: Acute DS: Summary Hospital Course Hospital Course: HP as per admitting provider 71 year old male with history of CKD 2, HLD, HTN manageed with HCTZ and Lisinopril, prior history of [place] with peaked Creatine of 4.06 Jul 2020 but at discharged at time was 1.3. He presents with diarrhea since Saturday (4 days ago) . He reports nonbloody, losse stool of about 4 episodes a day with no no assocated abdomial pain, no fever,? no mucus, no recent sick contact, no recent travel, no recent use of antibiotics. As result he feels weak and apetite has been singificantly decreased.? Lab work show Bun/Creatine 123/6.6, potassium of 7.5, no ECG changes. Given inslin, calcium gluconate and Lokelma and lab being repeated . LOWELL on CKD3. Improving, secondary to pre renal azotemia worsened by HCTZ and lisinopril? diarrhea has stopped CT showing no obstruction Mcelroy placed for fluid management Treated with IV fluids as per nephrology Check BMP in 2 days Hyperkalemia secondary to renal failure treated with lokelma and resolved Diarrhea resolved Metabolic acidosis/Lactic acidosis secondary to renal failure resolved Mild Hyponatremia d/t volume depletion resolved HTN BP controlled Held lisinopril and HCTZ due to renal failure and high K continue coreg Amlodipine started HLD Statin h/o gout Allopurinol on hold until renal failure resolved Time Spent with Patient Time attestation: Total time spent providing and/or coordinating discharge services: Discharge coordination time: Greater than 30 minutes Quality: Safe Use of Opioids Does Pt have an Active Cancer Diagnosis on the Problem List?: No Quality: Stroke Does the patient have a stroke diagnosis?: No Physical Exam Vital Signs: Vital Signs: Last Vital Signs Temp 98.5 F 10/24/21 08:00 Pulse 61 10/24/21 08:00 Resp 20 10/24/21 08:00 BP 159/90 H 10/24/21 08:00 Pulse Ox 98 10/24/21 08:00 BMI result Body Mass Index 27.6 Appearing in no acute distress head is normocephalic atraumatic eyes pupils are PERRLA sclera is anicteric mouth throat mucous membranes are intact and moist neck is supple no lymphadenopathy, no JVD noted lung sounds are clear to auscultation heart regular rate rhythm, clear S1, S2 positive bowel sounds, abdomen is soft, nontender neuro patient is alert x3, no focal deficits DS: Data Data Completed and Pending Labs on day of discharge: Laboratory Results - last 24 hr 10/24/21 07:05 Sodium 139 Potassium 4.9 Chloride 113 H Carbon Dioxide 20 L Anion Gap 11 L BUN 36 H Creatinine 1.67 H Estim Creat Clear Calc 40.4 Estimated GFR 41 Random Glucose 86 Calcium 8.3 L Preliminary micro results at discharge 10/19/21 20:10 Blood Culture - Preliminary Blood - Venous No growth after 48 hours. 10/19/21 20:10 Blood Culture - Preliminary Blood - Venous No growth after 48 hours. Discharge Plan Discharge Anticipated Discharge Date/Time: 10/24/21 09:35 Patient Disposition: Home, Self-Care Discharge Diagnosis: LOWELL Hyperkalemia Diarrhea Metabolic acidosis/Lactic acidosis secondary to renal failure Referrals: Jagjit Lord MD [Primary Care Provider] - 1 Week Discharge Medications: New amlodipine 5 mg tablet 5 mg PO DAILY Qty: 30 0RF Continued cetirizine 10 mg Tablet 10 mg PO DAILY 0RF lidocaine 5 % Adhesive Patch,Medicated 1 patch TOPICAL DAILY 0RF psyllium husk 3.4 gram/5.4 gram Powder 1 tbsp PO DAILY 0RF carvedilol 12.5 mg Tablet 37.5 mg PO BID 0RF Rx Instructions: must administer with a meal/food allopurinol 100 mg tablet 1 tab PO DAILY 0RF aspirin 81 mg Tablet,Delayed Release (Dr/Ec) 81 mg PO DAILY 0RF simvastatin 40 mg tablet 1 tab PO DAILY 0RF Discontinued lisinopril-hydrochlorothiazide 20-12.5 mg tablet 1 tab PO DAILY 0RF Discharge Orders: Discharge Order (Routine); Ordered 10/24/21 Ordered By: Megan Rosales Diet: advance to usual diet Activity on Discharge: As tolerated Stand Alone Forms: Patient Portal Discharge page Other Ambulatory Orders: Basic Metabolic Panel (Routine) Timeframe: 2 Days Facility: [facility] - Location: Laboratory Ordered By: Megan Rosales Care Plan Goals: Check labs in 2 days Health Concerns: LOWELL Hyperkalemia Diarrhea Metabolic acidosis/Lactic acidosis secondary to renal failure Plan of Treatment: Follow up with your primary care provider as needed you have been started on Amlodipine for your blood pressure and your lisinopril and Hydrochlorothiazide was stopped Assessment: See discharge summary
--- NOTE | 2021-10-24 09:52 | MHC.CM.PN ---
pt dcd home no skilled servceis ordered by
[2021-10-24 11:30] VITALS: BP 112/73; PULSE 67; RESP 20; TEMP 36.8; O2SAT 98
== END 2021-10-24 16:00 | disposition home or self-care (01) | DRG 683 ==
LOC: HO.ED 20:00 → HO.EDOVER 22:04 → HO.IMC 10-20 13:11
PROVIDERS: Physician Assistant; Physician Assistant Medical; Admitting Provider Internal Medicine; Emergency Provider Internal Medicine; PCP Internal Medicine; Visit Provider Nurse Practitioner Acute Care
DX: N17.9 Acute kidney failure, unspecified (principal); E87.1 Hypo-osmolality and hyponatremia; E87.2 Acidosis; E87.5 Hyperkalemia; M10.9 Gout, unspecified; N18.30 Chronic kidney disease, stage 3 unspecified; I12.9 Hypertensive chronic kidney disease with stage 1 through stage 4 chronic kidney disease, or unspecified chronic kidney disease; E78.5 Hyperlipidemia, unspecified; Z20.822 Contact with and (suspected) exposure to COVID-19; Z79.82 Long term (current) use of aspirin; Z79.899 Other long term (current) drug therapy
CPT/HCPCS: 36415; 74176; 76775; 80048; 82803; 82947; 83605; 83735; 83930; 83935; 84300; 85025; 87040; 87635; 93005; 96361; 96374; 96375; 99285; 99291; C1758; J0610

== ENCOUNTER 2022-04-05 14:40 | Outpatient (REF) | payer MEDICARE, SELFPAY ==
[2022-04-05 15:23] LABS: Hematocrit 35.1 % (42.0-52.0); Mean Corpuscular HGB Conc 34.2 g/dl (31.0-36.0); Mean Corpuscular Hemoglobin 34.3 pg (27.0-33.0); Mean Corpuscular Volume 100.3 fL (80.0-98.0); Platelet Count 217 X10*3/uL (160-400); Red Cell Distribution Width 12.9 % (11.0-16.0); White Blood Count 8.1 X10*3/uL (4.8-10.8)
[2022-04-05 16:18] LABS: Anion Gap 18 (12-20); Blood Urea Nitrogen 50 mg/dL (9-16); Calcium 9.8 mg/dL (8.4-10.2); Carbon Dioxide 24 mmol/L (22-29); Chloride 101 mmol/L (96-108); Estimated Glomerular Filt Rate 37; Glucose Random 124 mg/dL (60-115); Potassium 5.2 mmol/L (3.3-5.1); Sodium 138 mmol/L (135-145)
== END 2022-04-05 14:41 | disposition home or self-care (01) ==
LOC: HO.LAB 14:40
PROVIDERS: Absent Provider Nurse Practitioner Family; PCP Internal Medicine; Visit Provider Internal Medicine Hypertension Specialist
DX: I12.9 Hypertensive chronic kidney disease with stage 1 through stage 4 chronic kidney disease, or unspecified chronic kidney disease (principal); N18.31 Chronic kidney disease, stage 3a
CPT/HCPCS: 36415; 80048; 85027

== ENCOUNTER 2022-12-31 13:03 | Emergency (ER) | payer OTHER, SELFPAY ==
[2022-12-31 13:17] VITALS: BP 187/99; PULSE 76; RESP 16; TEMP 36.4; O2SAT 100; BMI 26.9
--- NOTE | 2022-12-31 13:20 | ED_ITS ---
HPI - General Adult General Chief complaint: Nausea/Vomiting/Diarrhea Stated complaint: vomiting Time Seen by Provider: 12/31/22 13:59 Source: patient Mode of arrival: ambulatory Limitations: no limitations History of Present Illness HPI narrative: 72 y/o M PMHx of HTN presents with one episode of vomiting that started 2 hours ago. He states that he was eating meat for lunch and started to vomit after taking one bite. He was not feeling ill or nauseous prior to eating today. He vomited continuously for one hour and his nausea has since resolved. He reports having his appendix removed years and years ago. No other surgeries. He reports no abdominal pain, fevers, chills, constipation, diarrhea, SOB or chest pain. MD complaint: N/V Onset (ago): hour(s) Relieving factors: none Exacerbating factors: none Associated symptoms: denies other symptoms Treatments prior to arrival: none Related Data Home Medications Medication Instructions Recorded Confirmed cetirizine 10 mg tablet 10 mg PO DAILY 07/06/20 10/19/21 lidocaine 5 % topical patch 1 patch topical DAILY 07/06/20 10/19/21 psyllium husk 3.4 gram/5.4 gram 1 tbsp PO DAILY 07/06/20 10/19/21 oral powder allopurinol 100 mg tablet 1 tab PO DAILY 10/19/21 10/19/21 aspirin 81 mg tablet,delayed 81 mg PO DAILY 10/19/21 10/19/21 release carvedilol 12.5 mg tablet 37.5 mg PO BID 10/19/21 10/19/21 simvastatin 40 mg tablet 1 tab PO DAILY 10/19/21 10/19/21 Previous Rx's Medication Instructions Recorded amlodipine 5 mg tablet 5 mg PO DAILY #30 tabs 10/24/21 Allergies Allergy/AdvReac Type Severity Reaction Status Date / Time cat dander Allergy Watery Eye Verified 07/06/20 14:48 house dust Allergy Watery Eye Verified 07/06/20 14:48 Review of Systems Review of Systems: Yes all other systems are reviewed and are negative [facility] Past Medical History Medical History (Updated 12/31/22 @ 15:01 by GERARDO Taylor) H/O chronic kidney disease Hypercholesteremia Hypertension Social History Social History (Updated 07/06/20 @ 20:03 by Megan Rosales NP) Household Members: Spouse Housing: House Do you presently have visiting nurse or other home services: No Alcohol intake: current Alcohol intake frequency: 3 or more drinks per day Alcohol type: beer Patient Tobacco Use Status: Never used Tobacco Advance Directives: Yes Advance Directives Information Provided: No Advance Directives on File: No service: Yes Current occupational status: retired Physical Exam ED Vital Signs: Vital Signs - 24 hr 12/31/22 13:17 Temperature 97.6 F Pulse Rate 76 Respiratory Rate 16 Blood Pressure 187/99 H Pulse Oximetry 100 Oxygen Delivery Method Room Air BMI result Body Mass Index 26.9 Appearance: Alert. Oriented X3. No acute distress. Head: normocephalic, atraumatic. Eyes: Pupils equal, round and reactive to light. ENT: Pharynx normal. No tonsillar swelling or exudate. Neck: Normal inspection. Neck supple. CVS: Irregularly irregular, rate in the 80s. Pulses normal. Respiratory: No respiratory distress. Breath sounds normal. Abdomen: Soft and nontender. No rebound or guarding. +BS x4 Skin: Skin warm and dry. Normal skin color. Normal skin turgor. No rashes. Extremities: No lower extremity edema. No joint swelling. Neuro/psych: Oriented X 3. No motor deficit. No sensory deficit. CN II-XII intact. Normal speech and cognition. Course Course Course Narrative: This is an RME: Additional HPI, ROS, PE not included below will be deferred to primary provider. 72-year-old male presents with nausea, vomiting that started this morning, patient reports he is vomiting for straight 30 minutes. Patient reports associated fatigue malaise. Today denies fevers, chills, hematemesis, diarrhea, hematochezia, abdominal pain. Plan labs, imaging, Zofran Medications Administered Discontinued Medications Generic Name Dose Route Start Last Admin Trade Name Freq PRN Reason Stop Dose Admin Ondansetron HCl 4 mg 12/31/22 13:18 12/31/22 14:07 Ondansetron Odt 4 Mg Tab.Nahid TRANSLINGU 12/31/22 13:19 4 mg ONCE ONE Administration Medical Decision Making Medical Decision Making MDM Narrative: 72 y/o M PMHx of HTN presents with one episode of vomiting that started 2 hours ago. Patient reports one episode of vomiting immediately after eating so adverse reaction to food is likely. He denies fevers, chills and abdominal pain making infectious gastritis unlikely. Patient is at risk for SBO from prior appendectomy, however he has no abdominal pain, constipation or diarrhea, in addition to a reassuring abd exam which is soft and with active bowel sounds. PO trial with gingerale and saltines. His labs show stable CKD. He feels well, tolerating PO. No chest pain or abdom inal pain. His EKG was reviewed showing afib. Upon further questioning patient has history of paroxysmal afib and follows w/ cards at the [facility]. He was previously on aspirin but took himself off. He would prefer to not be on anticoagulation. We discussed CHADVASC score and stroke risk. 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 Comfortable w/ d/c home. Differential Diagnosis Differential Diagnoses: The differential diagnosis associated with the presentation includes Most likely adverse reaction to food or start of viral gastritis. Less likely to be SBO. Admission/Observation Consideration of admission/observation: Escalation of care including admission/observation considered new onset afib in elderly male, considered observation Lab Data MDM Lab Attestation statement: I reviewed the patient's lab results. 12/31/22 14:11 12/31/22 14:11 Labs: Lab Results 12/31/22 12/31/22 12/31/22 Range/Units 14:11 14:11 14:11 WBC 4.5 L (4.8-10.8) X10*3/uL RBC 3.61 L (4.60-5.80) X10*6/uL Hgb 12.7 L (14.0-18.0) g/dl Hct 36.6 L (42.0-52.0) % MCV 101.4 H (80.0-98.0) fL MCH 35.2 H (27.0-33.0) pg MCHC 34.7 (31.0-36.0) g/dl RDW 12.8 (11.0-16.0) % Plt Count 139 L D (160-400) X10*3/uL MPV 9.3 L (9.4-12.4) fL Immature Gran % (Auto) 0.4 (0.0-0.4) % Neut % (Auto) 67.4 (45-73) % Lymph % (Auto) 17.4 L (20-40) % [place] % (Auto) 11.9 H (2-11) % Eos % (Auto) 2.2 (0-4) % Baso % (Auto) 0.7 (0-2) % Lymph # (Auto) 0.8 L (1.2-4.9) X10*3/uL [place] # (Auto) 0.5 (0.1-1.2) X10*3/uL Eos # (Auto) 0.1 (0.0-0.4) X10*3/uL Baso # (Auto) 0.0 (0.0-0.2) X10*3/uL Abs Immat Gran (auto) 0.02 (0.00-0.03) X10*3/uL Absolute Neuts (auto) 3.1 (2.0-8.3) x10*3/uL Absolute Nucleated RBC 0.000 (0.0-0.012) X10*3/uL Nucleated RBC % (auto) 0.0 (0.0-0.2) /100WBC Sodium 141 (135-145) mmol/L Potassium 4.7 (3.3-5.1) mmol/L Chloride 108 (96-108) mmol/L Carbon Dioxide 19 L (22-29) mmol/L Anion Gap 19 (12-20) BUN 38 H (9-16) mg/dL Creatinine 1.43 H (0.5-1.4) mg/dL Estim Creat Clear Calc 46.0 Estimated GFR 48 Random Glucose 105 (60-115) mg/dL Calcium 9.6 (8.4-10.2) mg/dL Magnesium 2.0 (1.6-2.6) mg/dL Total Bilirubin 0.5 (0.0-1.0) mg/dL AST 45 H (5-37) U/L ALT 25 (0-40) U/L Alkaline Phosphatase 53 (39-117) U/L Total Protein 7.2 (6.5-8.0) g/dL Albumin 4.0 (3.5-5.0) g/dL Lipase 94 H (8-78) U/L COVID-19 (MARY) Negative (Negative) COVID-19 Clin Com See Note Independent Interpretation I performed an independent interpretation of an: EKG Interpretation: atrial fibrillation, HR 79, no st segment elevations or depressions Independent Historian Clinical information obtained from an independent historian. History obtained from or confirmed by: Spouse External Record Review External record reviewed: Office record, Outpatient record, Prior outpatient labs and Prior outpatient radiology Prescription Management I considered prescription management with: Other (anticoagulation) Chronic Conditions Patient?s care impacted by: Hypertension Critical Care Time Critical Care Time Critical Care Time: No Discharge Plan Discharge Clinical Impression: Paroxysmal A-fib, Acute nausea with nonbilious vomiting Patient Disposition: Home, Self-Care Instructions: A-fib (Atrial Fibrillation) (DC), Acute Nausea and Vomiting (ED) Additional Instructions: your EKG today showed you are back in afib recommend you start your baby aspirin back up again recommend you follow up with your Optical Worker as soon as possible for re- evaluation and to re-discuss anticoagulation If you develop new or worsening symptoms call 911 or come back to the ER for further evaluation. Prescriptions: No Action cetirizine 10 mg Tablet 10 mg PO DAILY lidocaine 5 % Adhesive Patch,Medicated 1 patch TOPICAL DAILY psyllium husk 3.4 gram/5.4 gram Powder 1 tbsp PO DAILY carvedilol 12.5 mg Tablet 37.5 mg PO BID Rx Instructions: must administer with a meal/food allopurinol 100 mg tablet 1 tab PO DAILY Hold Instructions: Resume on 10/31/21. Held due to renal dysfunction. You may opt to discuss with your primary care provider prior to restarting aspirin 81 mg Tablet,Delayed Release (Dr/Ec) 81 mg PO DAILY simvastatin 40 mg tablet 1 tab PO DAILY amlodipine 5 mg tablet 5 mg PO DAILY Qty: 30 0RF
--- NOTE | 2022-12-31 13:23 | ECG_ITS ---
Test Reason : WEAKNESS Blood Pressure : / mmHG Vent. Rate : 079 BPM Atrial Rate : 000 BPM P-R Int : 000 ms QRS Dur : 082 ms QT Int : 402 ms P-R-T Axes : 000 -28 006 degrees QTc Int : 460 ms Atrial fibrillation Abnormal ECG When compared with ECG of 19-OCT-2021 19:09, Atrial fibrillation has replaced Sinus rhythm Referred By: Ananth Chester Electronically Signed By:LEANDRO GUTHRIE
[2022-12-31] MEDS: Ondansetron ODT 4 MG TAB.RAPDIS TRANSLINGU (14:07)
[2022-12-31 14:18] LABS: MANUAL DIFF FLAG NO
[2022-12-31 14:19] LABS: Basophils Percent Auto 0.7 % (0-2); Eosinophils Absolute Auto 0.1 X10*3/uL (0.0-0.4); Eosinophils Percent Auto 2.2 % (0-4); Hematocrit 36.6 % (42.0-52.0); Hemoglobin 12.7 g/dl (14.0-18.0); Imm Gran Abs Auto 0.02 X10*3/uL (0.00-0.03); Imm Gran Pct Auto 0.4 % (0.0-0.4); Lymphocytes Absolute Auto 0.8 X10*3/uL (1.2-4.9); Lymphocytes Percent Auto 17.4 % (20-40); Mean Corpuscular HGB Conc 34.7 g/dl (31.0-36.0); Mean Corpuscular Hemoglobin 35.2 pg (27.0-33.0); Mean Corpuscular Volume 101.4 fL (80.0-98.0); Mean Platelet Volume 9.3 fL (9.4-12.4); Monocytes Absolute Auto 0.5 X10*3/uL (0.1-1.2); Monocytes Percent Auto 11.9 % (2-11); Neutrophils Absolute Auto 3.1 x10*3/uL (2.0-8.3); Neutrophils Percent Auto 67.4 % (45-73); Platelet Count 139 X10*3/uL (160-400); Red Blood Count 3.61 X10*6/uL (4.60-5.80); Red Cell Distribution Width 12.8 % (11.0-16.0); White Blood Count 4.5 X10*3/uL (4.8-10.8)
[2022-12-31 14:40] LABS: COVID-19 Test Negative (Negative); IDNOW Serial# BCCEAD1C
[2022-12-31 14:41] LABS: Alanine Aminotransferase 25 U/L (0-40); Alkaline Phosphatase 53 U/L (39-117); Anion Gap 19 (12-20); Aspartate Amino Transferase 45 U/L (5-37); Bilirubin Total 0.5 mg/dL (0.0-1.0); Blood Urea Nitrogen 38 mg/dL (9-16); Calcium 9.6 mg/dL (8.4-10.2); Carbon Dioxide 19 mmol/L (22-29); Chloride 108 mmol/L (96-108); Estimated Glomerular Filt Rate 48; Glucose Random 105 mg/dL (60-115); Lipase 94 U/L (8-78); Potassium 4.7 mmol/L (3.3-5.1); Sodium 141 mmol/L (135-145); Total Protein 7.2 g/dL (6.5-8.0)
== END 2022-12-31 15:43 | disposition home or self-care (01) ==
PROVIDERS: Physician Assistant; Emergency Provider Emergency Medicine; PCP Internal Medicine
DX: I48.0 Paroxysmal atrial fibrillation (principal); R11.2 Nausea with vomiting, unspecified; Z20.822 Contact with and (suspected) exposure to COVID-19; I10 Essential (primary) hypertension; E78.00 Pure hypercholesterolemia, unspecified; Z79.82 Long term (current) use of aspirin; Z79.899 Other long term (current) drug therapy
CPT/HCPCS: 36415; 80053; 83690; 83735; 85025; 87635; 93005; 99283; 99284

== ENCOUNTER → 2022-12-31 13:23 | Outpatient (BNV) | payer MEDICARE, SELFPAY | PROVIDERS: Emergency Provider Emergency Medicine; PCP Internal Medicine; Visit Provider Internal Medicine | DX: I48.91 Unspecified atrial fibrillation (principal); R94.31 Abnormal electrocardiogram [ECG] [EKG] | CPT/HCPCS: 93010 ==

== ENCOUNTER 2023-01-09 16:41 | Emergency (ER) | payer OTHER, SELFPAY ==
--- NOTE | ~2023-01-09 | CT_ITS ---
EXAMINATION: CT ABDOMEN AND PELVIS WITHOUT CONTRAST CLINICAL INFORMATION: Persistent vomiting. COMPARISON: None available. TECHNIQUE: Multidetector volumetric imaging was performed from the superior aspect of the liver through the pubic symphysis. Sagittal and coronal reformatted images were obtained on the technologist's workstation. This CT examination was performed using dose optimization techniques as appropriate, variously including the following: *Automated exposure control *Adjustment of mA and/or kV according to patient size (this includes techniques or standardized protocols for targeted exams where dose is matched to indication/reason for exam; i.e. extremities or head) *Use of iterative reconstruction technique DLP: 609 mGy-cm FINDINGS: LUNG BASES: Minimal left basilar atelectasis. Coronary artery calcifications. LIVER, GALLBLADDER, AND BILIARY TREE: The liver is normal in size, shape, and attenuation. No focal hepatic lesion or biliary ductal dilatation is present. The gallbladder is unremarkable with no evidence of radiopaque gallstones, gallbladder wall thickening, or obvious pericholecystic inflammatory changes. PANCREAS: Unremarkable. SPLEEN: Unremarkable. ADRENAL GLANDS: Unremarkable. KIDNEYS AND URETERS: Mild atrophy. Normal shape and attenuation. No hydronephrosis, hydroureter, or calculi seen. No perinephric stranding. BLADDER: Unremarkable. GASTROINTESTINAL TRACT: Fluid-filled appearance of the lower esophagus. Normal appearance of the stomach. The small bowel is normal in caliber. No obstruction. Scattered colonic diverticulosis without diverticulitis. No colonic wall thickening or inflammation. No free air or free fluid. ABDOMINAL WALL: No significant hernia is appreciated. LYMPH NODES: Normal. VASCULAR: Normal caliber aorta with moderate atherosclerotic calcification. PELVIC VISCERA: The prostate and seminal vesicles are unremarkable. OSSEOUS STRUCTURES: No acute or suspicious osseous abnormality. Advanced degenerative change throughout the spine. Mild degenerative change in both hips. CT/CT abdomen pelvis wo IV con IMPRESSION: 1. No acute findings in the abdomen or pelvis. No inflammatory changes. 2. Fluid-filled appearance of the lower esophagus. Fleischner guidelines were followed.
[2023-01-09 17:15] VITALS: BP 214/113; PULSE 92; RESP 18; TEMP 37.2; O2SAT 97; BMI 25.8
--- NOTE | 2023-01-09 17:15 | ED.NAVMDI ---
HPI - Nausea/Vomiting/Diarrhea General Chief complaint: Nausea/Vomiting/Diarrhea Stated complaint: Vomiting/sent by Dr Time Seen by Provider: 01/09/23 18:49 Source: patient Mode of arrival: ambulatory Limitations: no limitations History of Present Illness HPI Narrative: Patient's history of CKD, hypertension, LOWELL , history of AFib, came here for increased vomiting whenever he eats anything since 12:30 unable to hold down any liquids or solids no fever no chills has not taken his evening medication patient did have history of paroxysmal atrial fibrillation , patient refused any anticoagulation and aspirin or any specific medication today when he arrived his blood pressure was 240/113 heart rate of 92 irregularly irregular patient denies any chest pain or syncope Related Data Home Medications Medication Instructions Recorded Confirmed cetirizine 10 mg tablet 10 mg PO BEDTIME 07/06/20 01/09/23 lidocaine 5 % topical patch 1 patch topical BEDTIME 07/06/20 01/09/23 psyllium husk 3.4 gram/5.4 gram 1 tbsp PO BEDTIME 07/06/20 01/09/23 oral powder allopurinol 100 mg tablet 1 tab PO BEDTIME 10/19/21 01/09/23 aspirin 81 mg tablet,delayed 81 mg PO BEDTIME 10/19/21 01/09/23 release carvedilol 12.5 mg tablet 12.5 mg PO BEDTIME 10/19/21 01/09/23 simvastatin 40 mg tablet 1 tab PO DAILY 10/19/21 01/09/23 acetaminophen 325 mg tablet 650 mg PO Q6H PRN Pain 01/09/23 01/09/23 amlodipine 5 mg tablet 5 mg PO BEDTIME 01/09/23 01/09/23 carvedilol 25 mg tablet 25 mg PO BEDTIME 01/09/23 01/09/23 Allergies Allergy/AdvReac Type Severity Reaction Status Date / Time cat dander Allergy Watery Eye Verified 07/06/20 14:48 house dust Allergy Watery Eye Verified 07/06/20 14:48 Review of Systems Review of Systems: Yes all other systems are reviewed and are negative [facility] Past Medical History Medical History H/O chronic kidney disease Hypercholesteremia Hypertension Social History Social History Household Members: Spouse Housing: House Do you presently have visiting nurse or other home services: No Alcohol intake: current Alcohol intake frequency: holidays/special occasions only Alcohol type: beer Patient Tobacco Use Status: Never used Tobacco Smoked in Last 30 Days: No Use of substances other than those prescribed or required for medical reasons: No Advance Directives: No Advance Directives Information Provided: No service: Yes Current occupational status: retired Physical Exam Vital Signs: Vital Signs: Last Vital Signs Temp 98.6 F 01/09/23 18:39 Pulse 83 01/09/23 22:15 Resp 16 01/09/23 22:15 BP 168/96 H 01/09/23 22:15 Pulse Ox 98 01/09/23 22:15 O2 Del Method Room Air 01/09/23 22:15 BMI result Body Mass Index 25.8 Appearance: Alert. Oriented X3. No acute distress. Eyes: PERRLA, ENT: Pharynx normal. Oral Mucosa dry Neck: Normal inspection. Neck supple. CVS: Irregularly irregular heart with ventricular rate 89 bpm. Pulses normal. Respiratory: No respiratory distress. Equal air entry bilateral, no wheezing/rales/rhonchi Abdomen: Soft and nontender. Bowel sounds are present, no mass palpable, no CVA tenderness Skin: Skin warm and dry. Normal skin color. Normal skin turgor. Extremities: No lower extremity edema. No calf tenderness Neuro: Oriented X 3. No motor deficit. No sensory deficit. Course Course Course Narrative: RME - 72 y/o male with history of HTN, paroxysmal afib on ASA who presents to the ER for evaluation of several episodes of vomiting that started 2 hours ago. He has had 5 episodes of watery, non-bilious vomit without associated abdominal pain, chest pain, SOB. Here for similar episode on 12/31 which was transient and resolved quickly. BP 214/113 - did not take BP meds yet today. No chest pain, headache or vision changes. Plan: EKG, labs, antiemetics Medications Administered Discontinued Medications Generic Name Dose Route Start Last Admin Trade Name Freq PRN Reason Stop Dose Admin Amlodipine Besylate 5 mg 01/09/23 22:02 01/09/23 22:29 Amlodipine Besylate 5 Mg Tablet PO 01/09/23 22:03 5 mg ONCE ONE Administration Protocol Famotidine 20 mg 01/09/23 19:05 01/09/23 19:11 Famotidine/Pf 20 Mg/2 Ml Vial IVPUSH 01/09/23 19:06 20 mg ONCE ONE Administration Sodium Chloride 1,000 mls @ 999 mls/hr 01/09/23 19:03 01/09/23 20:23 Ns IV 01/09/23 20:03 Infused .Q1H1M ONE Infusion Labetalol HCl 20 mg 01/09/23 19:04 01/09/23 19:12 Labetalol Hcl 100 Mg/20 Ml Vial IVPUSH 01/09/23 19:05 20 mg ONCE ONE Administration Ondansetron HCl 4 mg 01/09/23 17:18 01/09/23 17:21 Ondansetron Odt 4 Mg Tab.Rapdis TRANSLINGU 01/09/23 17:19 4 mg ONCE ONE Administration Medical Decision Making Medical Decision Making [facility] Narrative: Patient's history of paroxysmal flutter/fibrillation refused anticoagulation in the past comes here for nausea vomiting likely patient has Achlasia. In the ER patient is able to drink liquids blood pressure improved after medication CT scan negative for acute pathology except for fluid in the esophageal patient has not seen any exceptional needs teacher in the past able take p.o. fluids will discharge patient home Differential Diagnosis Differential Diagnoses: The differential diagnosis associated with the presentation includes Acute gastroenteritis/small bowel obstruction/accelerated hypertension/atrial fibrillation Lab Data [facility] Lab Attestation statement: I reviewed the patient's lab results. 01/09/23 17:35 01/09/23 17:35 Labs: Lab Results 01/09/23 01/09/23 Range/Units 17:35 17:35 WBC 7.2 (4.8-10.8) X10*3/uL RBC 3.93 L (4.60-5.80) X10*6/uL Hgb 13.9 L (14.0-18.0) g/dl Hct 40.3 L (42.0-52.0) % MCV 102.5 H (80.0-98.0) fL MCH 35.4 H (27.0-33.0) pg MCHC 34.5 (31.0-36.0) g/dl RDW 12.8 (11.0-16.0) % Plt Count 201 D (160-400) X10*3/uL MPV 9.3 L (9.4-12.4) fL Immature Gran % (Auto) 0.4 (0.0-0.4) % Neut % (Auto) 80.4 H (45-73) % Lymph % (Auto) 11.3 L (20-40) % [place] % (Auto) 6.8 (2-11) % Eos % (Auto) 0.4 (0-4) % Baso % (Auto) 0.7 (0-2) % Lymph # (Auto) 0.8 L (1.2-4.9) X10*3/uL [place] # (Auto) 0.5 (0.1-1.2) X10*3/uL Eos # (Auto) 0.0 (0.0-0.4) X10*3/uL Baso # (Auto) 0.1 (0.0-0.2) X10*3/uL Abs Immat Gran (auto) 0.03 (0.00-0.03) X10*3/uL Absolute Neuts (auto) 5.8 (2.0-8.3) x10*3/uL Absolute Nucleated RBC 0.000 (0.0-0.012) X10*3/uL Nucleated RBC % (auto) 0.0 (0.0-0.2) /100WBC Sodium 146 H (135-145) mmol/L Potassium 4.5 (3.3-5.1) mmol/L Chloride 110 H (96-108) mmol/L Carbon Dioxide 18 L (22-29) mmol/L Anion Gap 23 H (12-20) BUN 38 H (9-16) mg/dL Creatinine 1.58 H (0.5-1.4) mg/dL Estim Creat Clear Calc 41.6 Estimated GFR 43 Random Glucose 105 (60-115) mg/dL Calcium 10.2 D (8.4-10.2) mg/dL Magnesium 2.0 (1.6-2.6) mg/dL Total Bilirubin 0.8 (0.0-1.0) mg/dL Direct Bilirubin 0.3 (0.0-0.5) mg/dL AST 42 H (5-37) U/L ALT 24 (0-40) U/L Alkaline Phosphatase 61 (39-117) U/L Total Protein 8.0 (6.5-8.0) g/dL Albumin 4.5 (3.5-5.0) g/dL Discharge Plan Discharge Clinical Impression: Vomiting, Hypertensive emergency, Atrial fibrillation Patient Disposition: Home, Self-Care Instructions: A-fib (Atrial Fibrillation) (ED), Acute Nausea and Vomiting (ED), Hypertensive Crisis (ED) Additional Instructions: Take medication as prescribed Check blood pressure daily if it is higher than 140/90 increase the dose of amlodipine to 10 mg daily and follow-up with your PCP Follow with PCP/cardiology Prescriptions: No Action cetirizine 10 mg Tablet 10 mg PO BEDTIME lidocaine 5 % Adhesive Patch,Medicated 1 patch TOPICAL BEDTIME psyllium husk 3.4 gram/5.4 gram Powder 1 tbsp PO BEDTIME carvedilol 12.5 mg Tablet 12.5 mg PO BEDTIME Rx Instructions: must administer with a meal/food allopurinol 100 mg tablet 1 tab PO BEDTIME Hold Instructions: Resume on 10/31/21. Held due to renal dysfunction. You may opt to discuss with your primary care provider prior to restarting aspirin 81 mg Tablet,Delayed Release (Dr/Ec) 81 mg PO BEDTIME simvastatin 40 mg tablet 1 tab PO DAILY carvedilol 25 mg Tablet 25 mg PO BEDTIME Rx Instructions: must administer with a meal/food acetaminophen 325 mg Tablet 650 mg PO Q6H PRN (Reason: Pain) amlodipine 5 mg tablet 5 mg PO BEDTIME Interventions: ED Discharge Assessment Last Done: 01/09/23 22:51 Discharge Date/Time: 01/09/23 23:00
--- NOTE | 2023-01-09 17:18 | ECG_ITS ---
Test Reason : VOMITING Blood Pressure : / mmHG Vent. Rate : 089 BPM Atrial Rate : 394 BPM P-R Int : 000 ms QRS Dur : 082 ms QT Int : 378 ms P-R-T Axes : 000 -26 035 degrees QTc Int : 459 ms Atrial fibrillation Abnormal ECG When compared with ECG of 31-DEC-2022 13:26, No significant changes seen Referred By: Carla Diaz Electronically Signed By:Yonas Velez
[2023-01-09] MEDS: Ondansetron ODT 4 MG TAB.RAPDIS TRANSLINGU (17:21)
[2023-01-09 17:44] LABS: MANUAL DIFF FLAG NO
[2023-01-09 17:47] LABS: Basophils Absolute Auto 0.1 X10*3/uL (0.0-0.2); Basophils Percent Auto 0.7 % (0-2); Eosinophils Percent Auto 0.4 % (0-4); Hematocrit 40.3 % (42.0-52.0); Hemoglobin 13.9 g/dl (14.0-18.0); Imm Gran Abs Auto 0.03 X10*3/uL (0.00-0.03); Imm Gran Pct Auto 0.4 % (0.0-0.4); Lymphocytes Absolute Auto 0.8 X10*3/uL (1.2-4.9); Lymphocytes Percent Auto 11.3 % (20-40); Mean Corpuscular HGB Conc 34.5 g/dl (31.0-36.0); Mean Corpuscular Hemoglobin 35.4 pg (27.0-33.0); Mean Corpuscular Volume 102.5 fL (80.0-98.0); Mean Platelet Volume 9.3 fL (9.4-12.4); Monocytes Absolute Auto 0.5 X10*3/uL (0.1-1.2); Monocytes Percent Auto 6.8 % (2-11); Neutrophils Absolute Auto 5.8 x10*3/uL (2.0-8.3); Neutrophils Percent Auto 80.4 % (45-73); Platelet Count 201 X10*3/uL (160-400); Red Blood Count 3.93 X10*6/uL (4.60-5.80); Red Cell Distribution Width 12.8 % (11.0-16.0); White Blood Count 7.2 X10*3/uL (4.8-10.8)
[2023-01-09 18:07] LABS: Alanine Aminotransferase 24 U/L (0-40); Albumin Level 4.5 g/dL (3.5-5.0); Alkaline Phosphatase 61 U/L (39-117); Anion Gap 23 (12-20); Aspartate Amino Transferase 42 U/L (5-37); Bilirubin Direct 0.3 mg/dL (0.0-0.5); Bilirubin Total 0.8 mg/dL (0.0-1.0); Blood Urea Nitrogen 38 mg/dL (9-16); Calcium 10.2 mg/dL (8.4-10.2); Carbon Dioxide 18 mmol/L (22-29); Chloride 110 mmol/L (96-108); Creatinine Clr Calc Pharmacy 41.6; Estimated Glomerular Filt Rate 43; Glucose Random 105 mg/dL (60-115); Potassium 4.5 mmol/L (3.3-5.1); Sodium 146 mmol/L (135-145)
[2023-01-09 18:39] VITALS: BP 203/112; PULSE 93; RESP 18; TEMP 37; O2SAT 99
--- NOTE | 2023-01-09 18:53 | PC.NURSE ---
Patient in afib on monitor, provider notified of elevated BP and afib. Iv placed in right forearm. Patient stating has high BP and takes meds as tnight- did not takes meds today. bp 205/107
[2023-01-09] MEDS: Famotidine/PF 20 MG/2 ML VIAL IVPUSH (19:11)
[2023-01-09] MEDS: Labetalol HCL 100 MG/20 ML VIAL 20 MG IVPUSH (19:12)
[2023-01-09] MEDS: 0.9 % Sodium Chloride 1,000 ML 999 ML IV (19:16)
--- NOTE | 2023-01-09 19:20 | PC.NURSE ---
Pt a&ox4, no signs of distress. Pt medicated per mar. Fluids started. Pts at bedside. Plan of care ongoing.
--- NOTE | 2023-01-09 19:45 | PC.NURSE ---
B/P 196/133 after medication admin. Provider Elda poole. plan of care ongoing.
--- NOTE | 2023-01-09 21:37 | PHA.MEDREC ---
Pharmacy Consult ? Medication Reconciliation Pharmacy has completed the medication reconciliation. Patient's had list of medication of her phone. Libby Hutchinson, WojciechD
[2023-01-09 22:15] VITALS: BP 168/96; PULSE 83; RESP 16; O2SAT 98
[2023-01-09] MEDS: amLODIPine Besylate 5 MG TABLET PO (22:29)
== END 2023-01-09 23:00 | disposition home or self-care (01) ==
PROVIDERS: Physician Assistant; Emergency Provider Internal Medicine; PCP Internal Medicine
DX: R11.2 Nausea with vomiting, unspecified (principal); R19.7 Diarrhea, unspecified; I16.0 Hypertensive urgency; I48.91 Unspecified atrial fibrillation; R10.2 Pelvic and perineal pain; Z79.899 Other long term (current) drug therapy
CPT/HCPCS: 36415; 74176; 80048; 80076; 83735; 85025; 93005; 96361; 96374; 96375; 99284; 99285

== ENCOUNTER → 2023-01-09 17:18 | Outpatient (BNV) | payer OTHER, SELFPAY | PROVIDERS: Emergency Provider Internal Medicine; PCP Internal Medicine; Visit Provider Internal Medicine Cardiovascular Disease | DX: I48.91 Unspecified atrial fibrillation (principal); R94.31 Abnormal electrocardiogram [ECG] [EKG] | CPT/HCPCS: 93010 ==

== ENCOUNTER 2024-03-19 15:31 | Outpatient (REF) | payer MEDICARE, SELFPAY ==
[2024-03-19 17:18] LABS: Appearance Urine Clear; Color Urine Yellow; Glucose Urine UA Negative (Negative); Leukocyte Esterase Urine Negative (Negative); Nitrite Urine Negative (Negative); PH 5.5 (5.0-9.0); Specific Gravity - Urine 1.015 (1.005-1.025); UMIC TRIGGER UA YES; Urine Blood Negative (Negative); Urine Ketones Negative (Negative); Urine Protein 300 (3+) mg/dL (Neg-Trace)
[2024-03-19 17:28] LABS: Bacteria Urine None Seen (None Seen); Granular Casts Urine Present; RBC Urine 0-2 /HPF (0-2); Squamous Epithelial Cell Urine 0-2 /HPF (0-2); WBC Urine 0-5 /HPF (0-5)
[2024-03-19 17:43] LABS: Albumin Level 3.9 g/dL (3.5-5.0); Anion Gap 13 (12-20); Blood Urea Nitrogen 35 mg/dL (9-16); Calcium 9.8 mg/dL (8.4-10.2); Carbon Dioxide 23 mmol/L (22-29); Chloride 109 mmol/L (96-108); Estimated Glomerular Filt Rate 36; Magnesium 1.6 mg/dL (1.6-2.6); Phosphorus 3.4 mg/dL (2.7-4.5); Potassium 4.8 mmol/L (3.3-5.1); Sodium 140 mmol/L (135-145)
[2024-03-19 17:46] LABS: Parathyroid Hormone Intact 104.5 pg/mL (8.7-77.1)
[2024-03-19 18:00] LABS: Vitamin D 25-OH Total 16.5 ng/mL (>30)
[2024-03-19 18:16] LABS: Total Protein Urine Random 229 mg/dL (<12)
[2024-03-20 08:03] LABS: HBS Num1 0.36 mIU/mL (0-7.99); HBc Num1 0.08 S/CO (0.00-0.79); HBsAGNum1 0.34 S/CO (0.00-0.99); Hepatitis B Core Antibody Nonreactive (Nonreactive); Hepatitis B Surface Antigen Negative (Negative); ~HepC Num1 0.08 S/CO (0.00-0.79); ~Hepatitis B Surface Antibody NONREACTIVE (Nonreactive); ~Hepatitis C Antibody Nonreactive (Nonreactive)
[2024-03-20 10:38] LABS: Complement C3 141 mg/dL (82-185)
[2024-03-23 16:29] LABS: Kappa Light Chain, Free Serum 67.3 mg/L (3.3-19.4); Kappa/Lambda Lt Ch Free Ratio 1.29 (0.26-1.65); Lambda Light Chain, Free Serum 52.3 mg/L (5.7-26.3)
[2024-03-23 22:12] LABS: Prot Elec - Albumin 3.5 g/dL (3.8-4.8); Prot Elec - Alpha1 0.3 g/dL (0.2-0.3); Prot Elec - Alpha2 0.9 g/dL (0.5-0.9); Prot Elec - Beta 1 0.4 g/dL (0.4-0.6); Prot Elec - Beta 2 0.4 g/dL (0.2-0.5); Prot Elec - Gamma 1.1 g/dL (0.8-1.7); Prot Elec - Total Protein 6.7 g/dL (6.1-8.1)
[2024-03-24 12:13] LABS: Anti Nuclear Antibody Pattern Nuclear, Homogeneous; Anti Nuclear Antibody Screen POSITIVE (NEGATIVE)
== END 2024-03-19 15:32 | disposition home or self-care (01) ==
LOC: HO.LAB 15:31
PROVIDERS: Absent Provider Internal Medicine Cardiovascular Disease; PCP Internal Medicine; Visit Provider Internal Medicine Nephrology
DX: N18.32 Chronic kidney disease, stage 3b (principal)
CPT/HCPCS: 36415; 80051; 81001; 82040; 82043; 82306; 82310; 82565; 82570; 83521; 83735; 83970; 84100; 84156; 84165; 84520; 86038; 86039; 86160; 86704; 86706; 86803; 87340

== ENCOUNTER 2024-06-20 09:32 | Emergency (ER) | payer OTHER, SELFPAY ==
--- NOTE | ~2024-06-20 | XR_ITS ---
CLINICAL HISTORY: fall 9 days ago 3 view left hand Comparison: None Findings: Questionable subtle irregularity of the base of the left 4th metacarpal. Mild dorsal soft tissue edema. Moderate degenerative change of the base of the 1st metacarpal with postsurgical appearance. Degenerative changes of the distal interphalangeal joints. No erosions. No radiopaque foreign body. IMPRESSION: Questionable/subtle irregularity of the base of the left 4th metacarpal. This may be artifactual. Nondisplaced fracture not entirely excluded. This document has been electronically signed by: Surendra Trinidad MD on 06/20/2024 10:53:55
[2024-06-20 09:34] VITALS: BP 135/77; PULSE 69; RESP 19; TEMP 36.6; O2SAT 98; BMI 26.3
--- NOTE | 2024-06-20 10:46 | ED.EXTPRO ---
HPI - Extremity Problem General Chief complaint: Extremity Injury, Upper Stated complaint: l hand inj Time Seen by Provider: 06/20/24 10:10 Source: patient Mode of arrival: ambulatory Limitations: no limitations History of Present Illness ED Provider: Michelle Velazquez NP HPI Narrative: Patient is a 74-year-old male presents emergency department for evaluation. He reports mechanical trip and fall 9 days ago with impact to his left hand on the volar aspect. He reports that he presented to an [facility] urgent care yesterday as he sustained a skin tear to the top of the hand and it was becoming red and warm to touch. He was called back from the urgent care today and was advised that there was a dislocation of his thumb and advised to come to the emergency department for further evaluation and possible IV antibiotics. Denies numbness or tingling to the hand. He is able to move the thumb. He denies pain particularly at the base of the thumb. He does admit to pain just distal to the dorsal wrist with flexion or extension at the wrist. Denies associated fevers or chills Related Data Home Medications ?Medication ?Instructions ?Recorded ?Confirmed cetirizine 10 mg tablet 10 mg PO BEDTIME 07/06/20 01/09/23 lidocaine 5 % topical patch 1 patch topical BEDTIME 07/06/20 01/09/23 psyllium husk 3.4 gram/5.4 gram 1 tbsp PO BEDTIME 07/06/20 01/09/23 oral powder allopurinol 100 mg tablet 1 tab PO BEDTIME 10/19/21 01/09/23 aspirin 81 mg tablet,delayed 81 mg PO BEDTIME 10/19/21 01/09/23 release carvedilol 12.5 mg tablet 12.5 mg PO BEDTIME 10/19/21 01/09/23 simvastatin 40 mg tablet 1 tab PO DAILY 10/19/21 01/09/23 acetaminophen 325 mg tablet 650 mg PO Q6H PRN Pain 01/09/23 01/09/23 amlodipine 5 mg tablet 5 mg PO BEDTIME 01/09/23 01/09/23 carvedilol 25 mg tablet 25 mg PO BEDTIME 01/09/23 01/09/23 Previous Rx's ?Medication ?Instructions ?Recorded cephalexin 500 mg capsule 500 mg PO QID #28 caps 06/20/24 doxycycline hyclate 100 mg capsule 100 mg PO BID #14 caps 06/20/24 Allergies Allergy/AdvReac Type Severity Reaction Status Date / Time cat dander Allergy Watery Eye Verified 06/20/24 09:38 house dust Allergy Watery Eye Verified 06/20/24 09:38 Review of Systems Review of Systems: Yes all other systems are reviewed and are negative [facility] Past Medical History Attestation statement: The following information was validated with the patient. Source: old records reviewed Medical History Hypercholesteremia Hypertension H/O chronic kidney disease Social History Social History Household Members: Spouse Housing: House Do you presently have visiting nurse or other home services: No Alcohol intake: current Alcohol intake frequency: holidays/special occasions only Alcohol type: beer Patient Tobacco Use Status: Never used Tobacco Advance Directives: No Advance Directives Information Provided: No Do you have a plan to hurt others: No Plan service: Yes Current occupational status: retired Physical Exam Vital Signs: Vital Signs: Last Vital Signs Temp 98 F 06/20/24 09:34 Pulse 69 06/20/24 09:34 Resp 19 06/20/24 09:34 BP 135/77 06/20/24 09:34 Pulse Ox 98 06/20/24 09:34 O2 Del Method Room Air 06/20/24 09:34 BMI result Body Mass Index 26.3 Appearance: Alert.?Oriented to person, place and time. No acute distress.?Normal affect.? CVS: Heart sounds normal. Normal heart rate and rhythm.? Pulses normal.?? Respiratory: No respiratory distress.? Lung sounds clear to auscultation bilaterally?? Abdomen: Soft and non-tender. Normoactive bowel sounds. Skin: Skin warm and dry.? Normal skin color.? Here dorsal surface of left hand with skin tears, erythematous wound edges, granulation tissue at the wound base, surrounding swelling erythema and warmth to the hand extending up the distal forearm ?? Extremities: No lower extremity edema.? No calf ttp? Neuro: Moves all extremities spontaneously. Sensation intact bilaterally. CN II-XII intact. No focal neuro deficits. Ambulates with normal steady gait. Medications Administered Discontinued Medications Generic Name Dose Route Start Last Admin Trade Name Freq PRN Reason Stop Dose Admin Cefazolin Sodium/Dextrose 2 gm in 50 mls @ 100 mls/hr 06/20/24 11:03 06/20/24 11:35 Ancef IV 06/20/24 11:32 100 mls/hr ONCE ONE Administration Medical Decision Making Medical Decision Making [facility] Narrative: Patient is a 74-year-old male with past medical history of CKD, hypertension, atrial fibrillation, hyperlipidemia presents emergency department for evaluation of a wound to the dorsum of the left hand with surrounding erythema and warmth extending up the distal forearm. He had an outpatient x-ray obtained yesterday which he provides me a report indicating a radial and volar dislocation at the 1st carpometacarpal joint, without focal soft tissue swelling at this level indicating it may be a chronic finding due to degenerative changes, but states he was advised by the urgent Care to come to the emergency department for further evaluation and IV antibiotics. He does have range of motion to the left thumb and denies any pain to this area, I have a lower suspicion that this is an acute dislocation. Repeat XR imaging obtained in the emergency department for visualization, has radiologist impression of degenerative changes at the 1st MCP, and given the mechanism of the injury I have a lower suspicion that this is an acute dislocation. Furthermore given duration since the initial injury, would not attempt manual reduction at this time. I do have concern for the surrounding cellulitis particularly extending of the distal forearm, patient will be provided with cefazolin IV Will obtain serum labs including lactic acid and blood culture . CBC is without leukocytosis, has a mild microcytic anemia not meeting transfusion criteria. No significant electrolyte derangement. CKD but No LOWELL. No lactic acidosis. CRP 1.1. At this time he is yet to start course of oral antibiotics he does admit that 1 was prescribed from the urgent care yesterday but does not recall the name. Skin was outlined with skin marker for edges of erythema. We discussed strict return precautions, will trial outpatient oral antibiotics. Should his symptoms worsen he should present back to emergency department for re-evaluation. Differential Diagnosis Differential Diagnoses: The differential diagnosis associated with the presentation includes (See narrative above) Admission/Observation Consideration of admission/observation: Escalation of care including admission/observation considered (See narrative above) Lab Data [facility] Lab Attestation statement: I reviewed the patient's lab results. 06/20/24 11:24 06/20/24 11:23 Labs: Lab Results 06/20/24 06/20/24 Range/Units 11:23 11:24 WBC 7.4 (4.8-10.8) X10*3/uL RBC 3.49 L (4.60-5.80) X10*6/uL Hgb 12.0 L (14.0-18.0) g/dl Hct 33.1 L (42.0-52.0) % MCV 94.8 (80.0-98.0) fL MCH 34.4 H (27.0-33.0) pg MCHC 36.3 H (31.0-36.0) g/dl RDW 13.6 (11.0-16.0) % Plt Count 219 (160-400) X10*3/uL MPV 10.0 (9.4-12.4) fL Immature Gran % (Auto) 0.4 (0.0-0.4) % Neut % (Auto) 69.4 (45-73) % Lymph % (Auto) 17.0 L (20-40) % [place] % (Auto) 12.0 H (2-11) % Eos % (Auto) 0.9 (0-4) % Baso % (Auto) 0.3 (0-2) % Lymph # (Auto) 1.3 (1.2-4.9) X10*3/uL [place] # (Auto) 0.9 (0.1-1.2) X10*3/uL Eos # (Auto) 0.1 (0.0-0.4) X10*3/uL Baso # (Auto) 0.0 (0.0-0.2) X10*3/uL Abs Immat Gran (auto) 0.03 (0.00-0.03) X10*3/uL Absolute Neuts (auto) 5.2 (2.0-8.3) x10*3/uL Absolute Nucleated RBC 0.000 (0.0-0.012) X10*3/uL Nucleated RBC % (auto) 0.0 (0.0-0.2) /100WBC Sodium 136 (135-145) mmol/L Potassium 5.0 (3.3-5.1) mmol/L Chloride 110 H (96-108) mmol/L Carbon Dioxide 19 L (22-29) mmol/L Anion Gap 12 (12-20) BUN 39 H (9-16) mg/dL Creatinine 1.54 H (0.5-1.4) mg/dL Estim Creat Clear Calc 41.4 Estimated GFR 44 Random Glucose 96 (60-115) mg/dL Lactic Acid 0.8 (0.5-2.0) mmol/L Calcium 8.6 D (8.4-10.2) mg/dL Total Bilirubin 0.6 (0.0-1.0) mg/dL AST 26 (5-37) U/L ALT 8 (0-40) U/L Alkaline Phosphatase 57 (39-117) U/L C-Reactive Protein 1.16 H (< or = 0.50) mg/dL Total Protein 6.9 (6.5-8.0) g/dL Albumin 3.4 L (3.5-5.0) g/dL Radiology Impression Discussion of test interpretation with radiology: I have reviewed the radiologist's reading. Radiologist Impression: 3 view left hand Comparison: None Findings: Questionable subtle irregularity of the base of the left 4th metacarpal. Mild dorsal soft tissue edema. Moderate degenerative change of the base of the 1st metacarpal with postsurgical appearance. Degenerative changes of the distal interphalangeal joints. No erosions. No radiopaque foreign body. IMPRESSION: Questionable/subtle irregularity of the base of the left 4th metacarpal. This may be artifactual. Nondisplaced fracture not entirely excluded. Independent Historian Clinical information obtained from an independent historian. History obtained from or confirmed by: Spouse External Record Review External record reviewed: Outpatient record and Prior outpatient radiology (See narrative above) Chronic Conditions Patient?s care impacted by: Other (See narrative above) Discharge Plan Discharge Clinical Impression: Cellulitis of hand Patient Disposition: Home, Self-Care Instructions: Cellulitis (ED) Additional Instructions: As discussed, closely monitor the hand/arm for signs of progression/increase in redness and swelling. Complete the entire course of antibiotics as prescribed. If you notice worsening or redness extending past the lines that were marked on the skin over the course of treatment you should seek re-evaluation. Prescriptions: New doxycycline hyclate 100 mg capsule 100 mg PO BID Qty: 14 0RF cephalexin 500 mg capsule 500 mg PO QID Qty: 28 0RF No Action cetirizine 10 mg Tablet 10 mg PO BEDTIME lidocaine 5 % Adhesive Patch,Medicated 1 patch TOPICAL BEDTIME psyllium husk 3.4 gram/5.4 gram Powder 1 tbsp PO BEDTIME carvedilol 12.5 mg Tablet 12.5 mg PO BEDTIME Rx Instructions: must administer with a meal/food allopurinol 100 mg tablet 1 tab PO BEDTIME aspirin 81 mg Tablet,Delayed Release (Dr/Ec) 81 mg PO BEDTIME simvastatin 40 mg tablet 1 tab PO DAILY carvedilol 25 mg Tablet 25 mg PO BEDTIME Rx Instructions: must administer with a meal/food acetaminophen 325 mg Tablet 650 mg PO Q6H PRN (Reason: Pain) amlodipine 5 mg tablet 5 mg PO BEDTIME Referrals: Jagjit Lord MD [Primary Care Provider] - Print Language: Wolof
[2024-06-20 11:35] LABS: MANUAL DIFF FLAG NO
[2024-06-20] MEDS: ceFAZolin Sodium/Dextrose,Iso 2 GM/50 ML PIGGYBACK IV (11:35)
[2024-06-20 11:37] LABS: Basophils Percent Auto 0.3 % (0-2); Eosinophils Absolute Auto 0.1 X10*3/uL (0.0-0.4); Eosinophils Percent Auto 0.9 % (0-4); Hematocrit 33.1 % (42.0-52.0); Imm Gran Abs Auto 0.03 X10*3/uL (0.00-0.03); Imm Gran Pct Auto 0.4 % (0.0-0.4); Lymphocytes Absolute Auto 1.3 X10*3/uL (1.2-4.9); Mean Corpuscular HGB Conc 36.3 g/dl (31.0-36.0); Mean Corpuscular Hemoglobin 34.4 pg (27.0-33.0); Mean Corpuscular Volume 94.8 fL (80.0-98.0); Monocytes Absolute Auto 0.9 X10*3/uL (0.1-1.2); Neutrophils Absolute Auto 5.2 x10*3/uL (2.0-8.3); Neutrophils Percent Auto 69.4 % (45-73); Platelet Count 219 X10*3/uL (160-400); Red Blood Count 3.49 X10*6/uL (4.60-5.80); Red Cell Distribution Width 13.6 % (11.0-16.0); White Blood Count 7.4 X10*3/uL (4.8-10.8)
[2024-06-20 11:52] LABS: Alanine Aminotransferase 8 U/L (0-40); Albumin Level 3.4 g/dL (3.5-5.0); Alkaline Phosphatase 57 U/L (39-117); Anion Gap 12 (12-20); Aspartate Amino Transferase 26 U/L (5-37); Bilirubin Total 0.6 mg/dL (0.0-1.0); Blood Urea Nitrogen 39 mg/dL (9-16); C Reactive Protein 1.16 mg/dL (< or = 0.50); Calcium 8.6 mg/dL (8.4-10.2); Carbon Dioxide 19 mmol/L (22-29); Chloride 110 mmol/L (96-108); Creatinine Clr Calc Pharmacy 41.4; Estimated Glomerular Filt Rate 44; Glucose Random 96 mg/dL (60-115); Sodium 136 mmol/L (135-145); Total Protein 6.9 g/dL (6.5-8.0)
[2024-06-20 11:53] LABS: Lactic Acid 0.8 mmol/L (0.5-2.0)
[2024-06-20 12:29] LABS: Erythrocyte Sedimentation Rate 79 MM/HR (0-15)
[2024-06-20 12:33] VITALS: BP 137/81; PULSE 54; RESP 18; O2SAT 95
[2024-06-20 12:39] VITALS: BP 137/81; PULSE 54; RESP 18; TEMP 37.2; O2SAT 95
== END 2024-06-20 12:39 | disposition home or self-care (01) ==
PROVIDERS: Nurse Practitioner Family; Emergency Provider Emergency Medicine; PCP Internal Medicine
DX: A02.9 Salmonella infection, unspecified (principal); L03.114 Cellulitis of left upper limb; M79.642 Pain in left hand; Z91.81 History of falling; I10 Essential (primary) hypertension; E78.00 Pure hypercholesterolemia, unspecified; I48.91 Unspecified atrial fibrillation; Z79.02 Long term (current) use of antithrombotics/antiplatelets; Z79.82 Long term (current) use of aspirin; Z79.899 Other long term (current) drug therapy
CPT/HCPCS: 36415; 73130; 80053; 83605; 85025; 85652; 86140; 87040; 87077; 87186; 87205; 96365; 99283; 99284; J0690

== ENCOUNTER → 2024-06-20 09:55 | Outpatient (BNV) | payer MEDICARE, SELFPAY | PROVIDERS: Emergency Provider Emergency Medicine; PCP Internal Medicine; Visit Provider Radiology Vascular & Interventional Radiology | DX: S62.305A Unspecified fracture of fourth metacarpal bone, left hand, initial encounter for closed fracture (principal) | CPT/HCPCS: 73130 ==

== ENCOUNTER 2024-07-11 10:29 | Emergency (ER) | payer OTHER, SELFPAY ==
[2024-07-11 10:34] VITALS: BP 134/80; PULSE 63; RESP 16; TEMP 36.6; O2SAT 98; BMI 27.0
--- NOTE | 2024-07-11 11:08 | ED.GENADULT ---
HPI - General Adult General Chief complaint: Recheck/Abnormal Lab/Rx Stated complaint: retest Time Seen by Provider: 07/11/24 11:08 History of Present Illness ED Provider: Kvng GREGG narrative: The patient is a 74-year-old male who was in the emergency room 3 weeks ago on June 20 for an infection on the back of his left hand. He had injured the hand the week before when he was on vacation in [place]. He had fallen and scraped the back of his left hand on concrete. Wound subsequently got infected and he came here on June 20. In the emergency room he received an IV dose of cefazolin and was discharged on doxycycline and cephalexin. The patient's left hand wound has done well since he was in the emergency room. He is followed up with his primary care doctor's office. He finished the antibiotics that were prescribed. Blood cultures have been drawn at the time of his ER visit and 1 of these bottles came back positive for salmonella. Efforts were made at the time of the results to contact the patient by phone but these efforts were unsuccessful. A certified letter was sent to the patient. The the patient received the certified letter today with instructions to return to the emergency room and so he came back. He has not been sick recently. He has had no fevers, sweats, chills. He has had no cough or sputum. He has had no abdominal pain, nausea, vomiting, or diarrhea. Related Data Home Medications ?Medication ?Instructions ?Recorded ?Confirmed cetirizine 10 mg tablet 10 mg PO BEDTIME 07/06/20 01/09/23 lidocaine 5 % topical patch 1 patch topical BEDTIME 07/06/20 01/09/23 psyllium husk 3.4 gram/5.4 gram 1 tbsp PO BEDTIME 07/06/20 01/09/23 oral powder allopurinol 100 mg tablet 1 tab PO BEDTIME 10/19/21 01/09/23 aspirin 81 mg tablet,delayed 81 mg PO BEDTIME 10/19/21 01/09/23 release carvedilol 12.5 mg tablet 12.5 mg PO BEDTIME 10/19/21 01/09/23 simvastatin 40 mg tablet 1 tab PO DAILY 10/19/21 01/09/23 acetaminophen 325 mg tablet 650 mg PO Q6H PRN Pain 01/09/23 01/09/23 amlodipine 5 mg tablet 5 mg PO BEDTIME 01/09/23 01/09/23 carvedilol 25 mg tablet 25 mg PO BEDTIME 01/09/23 01/09/23 Previous Rx's ?Medication ?Instructions ?Recorded cephalexin 500 mg capsule 500 mg PO QID #28 caps 06/20/24 doxycycline hyclate 100 mg capsule 100 mg PO BID #14 caps 06/20/24 Allergies Allergy/AdvReac Type Severity Reaction Status Date / Time cat dander Allergy Watery Eye Verified 07/11/24 10:38 house dust Allergy Watery Eye Verified 07/11/24 10:38 Review of Systems Review of Systems: Yes all other systems are reviewed and are negative [facility] Past Medical History Medical History Hypercholesteremia Hypertension H/O chronic kidney disease Social History Social History Household Members: Spouse Housing: House Do you presently have visiting nurse or other home services: No Alcohol intake: current Alcohol intake frequency: holidays/special occasions only Alcohol type: beer Patient Tobacco Use Status: Never used Tobacco Smoked in Last 30 Days: No Use of substances other than those prescribed or required for medical reasons: No Advance Directives: No Advance Directives Information Provided: No service: Yes Current occupational status: retired Physical Exam ED Vital Signs: Vital Signs - 24 hr 07/11/24 10:34 07/11/24 11:33 07/11/24 12:00 Temperature 97.9 F 98.0 F 98.0 F Pulse Rate 63 48 L 48 L Respiratory Rate 16 11 L 11 L Blood Pressure 134/80 105/61 105/61 Pulse Oximetry 98 95 95 Oxygen Delivery Method Room Air Room Air Room Air BMI result Body Mass Index 27.0 Const Other: The patient is awake, alert, pleasant, cooperative. He does not appear in any distress HENMT Other: Face is symmetrical. Mucous membranes moist. Eyes General: appearance normal, both eyes and all related structures Neck Neck: Yes full ROM, Yes no lymphadenopathy and Yes no JVD Resp Effort & Inspection: normal respiratory effort Auscultation: clear to auscultation bilaterally Cardio Rate: regular rate Rhythm: regular rhythm Heart sounds: S1 normal heart sound present, S2 normal heart sound present and Murmur heart sound present (No murmur) GI Other: Abdomen is soft and nontender Skin General skin exam: no rashes or lesions noted Neuro Other: The patient is awake and alert with a normal mental status. Cranial nerves are intact. He moves his extremities normally and appropriately. He seems neurologically intact and nontoxic. Medical Decision Making Medical Decision Making [facility] Narrative: The patient is a 74-year-old male who comes to the emergency room after receiving a certified letter indicating that he had had a positive blood culture (1/2 bottles) for salmonella 3 weeks ago when he came to the emergency room because of a left hand infection. The patient was not hospitalized at that time. He was placed on doxycycline and cephalexin. He has finished the antibiotics. His left hand wound has been doing well. He has no symptoms to suggest any ongoing significant bacterial infection. He is here only because that letter instructed him to return to the emergency room. He has a normal white count and differential and an undetectable C-reactive protein. My suspicion for any ongoing bacteremia in his patient is extremely low and I think he may simply be discharged. Lab Data 07/11/24 11:51 07/11/24 11:51 Labs: Lab Results 07/11/24 Range/Units 11:51 WBC 6.6 (4.8-10.8) X10*3/uL RBC 3.65 L (4.60-5.80) X10*6/uL Hgb 12.3 L (14.0-18.0) g/dl Hct 35.0 L (42.0-52.0) % MCV 95.9 (80.0-98.0) fL MCH 33.7 H (27.0-33.0) pg MCHC 35.1 (31.0-36.0) g/dl RDW 13.0 (11.0-16.0) % Plt Count 185 (160-400) X10*3/uL MPV 10.5 (9.4-12.4) fL Immature Gran % (Auto) 0.2 (0.0-0.4) % Neut % (Auto) 53.8 (45-73) % Lymph % (Auto) 28.8 (20-40) % [place] % (Auto) 14.8 H (2-11) % Eos % (Auto) 1.8 (0-4) % Baso % (Auto) 0.6 (0-2) % Lymph # (Auto) 1.9 (1.2-4.9) X10*3/uL [place] # (Auto) 1.0 (0.1-1.2) X10*3/uL Eos # (Auto) 0.1 (0.0-0.4) X10*3/uL Baso # (Auto) 0.0 (0.0-0.2) X10*3/uL Abs Immat Gran (auto) 0.01 (0.00-0.03) X10*3/uL Absolute Neuts (auto) 3.6 (2.0-8.3) x10*3/uL Absolute Nucleated RBC 0.000 (0.0-0.012) X10*3/uL Nucleated RBC % (auto) 0.0 (0.0-0.2) /100WBC Sodium 140 (135-145) mmol/L Potassium 4.8 (3.3-5.1) mmol/L Chloride 112 H (96-108) mmol/L Carbon Dioxide 19 L (22-29) mmol/L Anion Gap 14 (12-20) BUN 35 H (9-16) mg/dL Creatinine 1.72 H (0.5-1.4) mg/dL Estim Creat Clear Calc 37.1 Estimated GFR 39 Random Glucose 99 (60-115) mg/dL Calcium 9.2 D (8.4-10.2) mg/dL Total Bilirubin 0.6 (0.0-1.0) mg/dL Direct Bilirubin 0.2 (0.0-0.5) mg/dL AST 24 (5-37) U/L ALT 9 (0-40) U/L C-Reactive Protein < 0.10 (< or = 0.50) mg/dL Total Protein 7.0 (6.5-8.0) g/dL Albumin 3.5 (3.5-5.0) g/dL Discharge Plan Discharge Clinical Impression: Positive blood culture Patient Disposition: Home, Self-Care Additional Instructions: At this point there is no suggestion in your blood testing that you have a systemic bacterial infection. I cannot explain why you had 1 blood culture bottle positive for salmonella 3 weeks ago. However at this point I think it is very unlikely that you were harboring any salmonella in your system and I do not think any specific treatment is required. Please stay in touch with your regular doctor's office if you have any other questions about this. Return to the emergency room if you feel worse. Prescriptions: No Action cetirizine 10 mg Tablet 10 mg PO BEDTIME lidocaine 5 % Adhesive Patch,Medicated 1 patch TOPICAL BEDTIME psyllium husk 3.4 gram/5.4 gram Powder 1 tbsp PO BEDTIME carvedilol 12.5 mg Tablet 12.5 mg PO BEDTIME Rx Instructions: must administer with a meal/food allopurinol 100 mg tablet 1 tab PO BEDTIME aspirin 81 mg Tablet,Delayed Release (Dr/Ec) 81 mg PO BEDTIME simvastatin 40 mg tablet 1 tab PO DAILY carvedilol 25 mg Tablet 25 mg PO BEDTIME Rx Instructions: must administer with a meal/food acetaminophen 325 mg Tablet 650 mg PO Q6H PRN (Reason: Pain) amlodipine 5 mg tablet 5 mg PO BEDTIME doxycycline hyclate 100 mg capsule 100 mg PO BID Qty: 14 0RF cephalexin 500 mg capsule 500 mg PO QID Qty: 28 0RF Referrals: Jagjit Lord MD [Physician] - (Seen for follow up for positive blood culture 3 weeks ago) Sathish Lopez NP [Primary Care Provider] - (Seen for follow up a positive blood culture 3 weeks ago) Print Language: Latvian
--- OUTSIDE RECORDS SUMMARY | 2024-07-11 11:09 | XMS_ITS ---
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 This section includes the names of all active insurance providers for the patient. Insurance Provider Type of Coverage Plan Name Start of Policy Coverage End of Policy Coverage Group Number Member ID Insurance Provider's Telephone Number Policy Andrew's Name Patient's Relationship to Policy Andrew AARP MEDICARE SUPPLEMEN BREANNA PLAN MY Jun 03, 2022 PLANMY [id number] Bella KIM PATIENT AARP MED SUPP MEDICARE SUPPLEMEN BREANNA Jun 03, 2016 PLANMY [id number] Bella KMI PATIENT AARP MED SUPP MEDICARE SUPPLEMEN BREANNA Jun 03, 2016 PLANMY [id number] [phone] Bella KIM PATIENT AARP MED SUPP MEDICARE SUPPLEMEN BREANNA PLAN MY Jun 03, 2016 PLANMY [id number] Bella KIM PATIENT CIGNA DENTAL DENTAL INSURANCE DENTA L PPO Jun 03, 2021 [id number] [phone] Bella KIM PATIENT MEDICARE (WNR) MEDICARE (M) PART A Apr 03, 2014 PART A [id number] Bella KMI PATIENT MEDICARE (WNR) MEDICARE (M) PART B Apr 03, 2014 PART B [id number] [phone] Bella KIM PATIENT MEDICARE (WNR) MEDICARE (M) PART A Apr 03, 2014 PART A [id number] [phone] Bella KIM PATIENT MEDICARE (WNR) MEDICARE (M) PART B Apr 03, 2014 PART B [id number] [phone] [id number] Bella KIM PATIENT MEDICARE (WNR) MEDICARE (M) PART A Apr 03, 2014 PART A [id number] Bella KIM PATIENT MEDICARE (WNR) MEDICARE (M) PART B Apr 03, 2014 PART B [id number] [phone] Bella KIM PATIENT MEDICARE PART D (WNR) MEDICARE (M) PART D Jun 03, 2020 PART D [id number] [phone] Bella KIM PATIENT Selected Encounter This section includes the information on record at [place] for the Encounter. Date/Time Encounter Type Encounter Description Reason Provider Source May 22, 2024 11:30 AM OFFICE O/P EST HI 40 MIN PRIMARY CARE/MEDICINE ICD-10-CM I48.91 Unspecified atrial fibrillation NICK,WILBERT Colmenares [facility] Encounter Template Text not used by [place] Assessments - Encounter Diagnoses This section includes the primary and secondary diagnoses documented for the Encounter. Date/Time Primary/Secondary Diagnosis Diagnosis Name Provider Source Jun 16, 2024 03:39 PM PRIMARY Unspecified atrial fibrillation LOPEZ,WILL JOSE ALBERTO Colmenares [place] [facility] [place] [facility] Jun 16, 2024 03:39 PM SECONDARY Hyperlipidemia, unspecified LOPEZ,WILL JOSE ALBERTO Colmenares [place] [facility] [place] [facility] Jun 16, 2024 03:39 PM SECONDARY Hypertensive heart disease without heart failure LOPEZ,WILL JOSE ALBERTO Colmenares [place] [facility] [place] [facility] Jun 16, 2024 03:39 PM SECONDARY intermission coordinator (current) use of anticoagulants LOPEZ,WILL JOSE ALBERTO Colmenares [place] [facility] [place] [facility] Jun 16, 2024 03:39 PM SECONDARY Other specified hearing loss, bilateral LOPEZ,WILL JOSE ALBERTO Colmenares [place] [facility] [place] [facility] Jun 16, 2024 03:39 PM SECONDARY Spinal stenosis, site unspecified LOPEZ,WILL JOSE ALBERTO Colmenares [place] [facility] [place] [facility] Jun 16, 2024 03:39 PM SECONDARY Type 2 diabetes mellitus without complications LOPEZ,WILL JOSE ALBERTO Colmenares [facility] Plan of Treatment: Future Appointments (+ 6 months) and Future Tests (+/- 45 days) The Plan of Treatment section includes future care activities for the patient from all [place] [facility]. This section includes future appointments and future orders which are active, pending or scheduled. Future Appointments This section includes appointments that were scheduled to occur 6 months from the date of the Encounter, up to a maximum of 20 appointments. The data comes from all [facility] facilities. Appointment Date/Time Appointment Type Appointme nt Facility Name May 25, 2024 09:30 AM AMBULATORY - REHAB MEDICIN E [place] [facility] [place] [facility] Jun 24, 2024 10:30 AM AMBULATORY - REHAB MEDICIN E [place] [facility] [place] [facility] Jul 01, 2024 10:00 AM AMBULATORY - REHAB MEDICIN E IN [facility] [place] [facility] Aug 17, 2024 08:00 AM AMBULATORY - MEDICINE IN C [facility] [place] [facility] Nov 20, 2024 09:30 AM AMBULATORY - [facility] Vital Signs: All taken on the encounter date This section contains inpatient and outpatient Vital Signs collected on the date of the Encounter. Date/Time Temperature Pulse Blood Pressure Respiratory Rate SP02 Pain Height Weight Body Mass Index Source May 22, 2024 11:29 AM 98.4 77 163/96 20 98 2 67 186 29 [place] [facility] [facility] May 22, 2024 11:05 AM 138/78 [place] [facility] [facility] Social History: Smoking Status (Most current) and Tobacco Use (All prior to encounter date) This section includes the most current, and the historical, smoking and tobacco- related health factors from the [place] facility where the Encounter took place. Current Smoking Status This section includes the most current smoking, or tobacco-related health factor, from the [place] facility where the Encounter took place. Date/Time Current Smoking Status Comment [place] [facility] Feb 14, 2024 03:30 PM VA-TOBACCO QUIT 15 YRS OR MORE IN [facility] [place] [facility] Tobacco Use History This section includes a history of the smoking, or tobacco-related health factors, that were collected on or before the date of the Encounter. The data comes from the [place] facility where the Encounter took place. Date/Time Smoking Status/Tobacco Use Comment F acbarney Feb 14, 2024 03:30 PM VA-TOBACCO QUIT 15 YRS OR MORE IN [facility] [place] [facility] Aug 06, 2022 09:30 AM VA-TOBACCO NEVER USED IN [facility] [place] [facility] Mar 24, 2021 03:00 PM VA-TOBACCO NEVER USED IN [facility] [place] [facility] Mar 08, 2020 02:30 PM VA-TOBACCO NEVER USED IN [facility] [place] [facility] Jan 27, 2018 08:05 AM VA-TOBACCO NEVER USED IN [facility] [place] [facility] Mar 19, 2017 12:58 PM LIFETIME NON-TOBACCO USER IN [facility] [place] [facility] Encounter Notes: All associated encounter notes This section contains the clinical notes associated to the Encounter. Date/Time Encounter Note(s) Provider Source May 22, 2024 12:36 PM PRIMARY CARE NURSE PRACTITIONER OUTPATIENT NOTE: LOCAL TITLE: NURSE PRACTITIONER OUTPATIENT NOTE STANDARD TITLE: PRIMARY CARE NURSE PRACTITIONER OUTPATIENT NOTE DATE OF NOTE: MAY 22, 2024@12:36 ENTRY DATE: MAY 22, 2024@12:37:01 AUTHOR: SATHISH LOPEZ COSIGNER: URGENCY: STATUS: COMPLETED Chief complaint: Patient is a 74 year old . HPI: Pleasant male here with his . Feeling well. They are getting ready to go to [place]. Allergies: Patient has answered NKA The following VA and Non-VA meds were reconciled with patient. The patient was educated on the use of the medications including indication and side effects. Active and Recently Outpatient Medications (excluding Supplies): Active Outpatient Medications Status 1) APIXABAN 5MG TAB TAKE ONE TABLET BY MOUTH EVERY 12 HOURS ACTIVE Indication: FOR PREVENTION OF BLOOD CLOTS 2) CARVEDILOL 12.5MG TAB TAKE THREE TABLETS BY MOUTH ONCE DAILY ACTIVE NOTE DOSE Indication: FOR HIGH BLOOD PRESSURE 3) CLOTRIMAZOLE 1% TOP SOLN APPLY 1 DROP TOPICALLY ONCE DAILY ACTIVE FOR FUNGAL INFECTION APPLY ONE DROP TO EACH AFFECTED TOE NAIL ONCE DAILY. APPLY WHEN NAIL IS DRY NOT AFTER SHOWER OR BATH. USE FOR AT LEAST 9-12 MONTHS. FOR BEST CLINICAL RESULT. REGULAR NAIL CARE IS ALSO RECOMMMENDED. Indication: TOE NAIL FUNGUS 4) FUROSEMIDE 20MG TAB TAKE ONE TABLET BY MOUTH ONCE DAILY TO ACTIVE REMOVE FLUID/CONTROL BLOOD PRESSURE Indication: FOR HIGH BLOOD PRESSURE 5) SIMVASTATIN 80MG TAB TAKE ONE-HALF TABLET BY MOUTH AT ACTIVE BEDTIME FOR CHOLESTEROL 6) TRAZODONE HCL 100MG TAB TAKE ONE-HALF TABLET BY MOUTH AT ACTIVE BEDTIME Indication: FOR INSOMNIA ASSOCIATED WITH DEPRESSION Pending Outpatient Medications Status 1) OMEPRAZOLE 20MG EC CAP TAKE ONE CAPSULE BY MOUTH EVERY PENDING MORNING 30 MINUTES BEFORE BREAKFAST Indication: FOR GASTROESOPHAGEAL REFLUX DISEASE Inactive Outpatient Medications Status 1) FAMOTIDINE 40MG TAB TAKE ONE TABLET BY MOUTH AT BEDTIME FOR STOMACH ACID Active Non-VA Medications Status 1) Non-VA CHOLECALCIF 25MCG (D3-1,000UNIT) TAB 25MCG BY MOUTH ACTIVE ONCE DAILY Indication: FOR VITAMIN D DEFICIENCY 9 Total Medications Review of Systems: Constitutional: (-)for Fevers, chills, weakness, nights sweats On examination: 98.4 F [36.9 C] (05/22/2024 11:29)163/96 (05/22/2024 11:29)77 (05/22/2024 11:29)20 (05/22/2024 11:29)2 (05/22/2024 11:29)BMI: 29.2186 lb [84.37 kg] (05/22/2024 11:29) [place] is alert and oriented X3 Cardiovasc: 2plus carotids without bruits, no JVD Heart Reguler rate and rhythm NL S1S2 no S3 or murmur Respiration: Normal respiratory effort, lungs clear ABD: Benign normal active bowel sounds no HSM no rebound or referred pain EXT: no clubbing, edema, or cyanosis All diagnostics from past month were reviewed with patient. Assessment/plan: Active problems - Computerized Problem List is the source for the followin. Long-term current use of anticoagulant - tolerating it fine 2. Atrial fibrillation - rate controlled on bb, continue A/C, follows [facility] 3. Spinal stenosis - stays active 4. Chronic kidney disease due to type 2 diabetes mellitus - will get updated labs, no uremic sx, follows with Dr. Lord in [place]. 5. Hearing disorder - stable 6. Essential hypertension - repeat 138/78 7. Hypercholesterolemia - labs today, continue statin. 8. Gerd - Controlled with PPI. Today I spent 40 minutes on some or all of the following: chart review, history, physical examination, treatment planning, education and counseling of the patient/family/wound care center consultant, placing orders, communicating with other health care providers, completing health and wellness screenings (see below) and documentation in the electronic health record. Follow up visit in 6 mos. Assess Statin Use - Lipids (CVD/DM): The patient is currently on a moderate or high dose statin. Medication Reconciliation: Outpatient: Has the patient been taking medications as documented in the EMLR? YES: The patient has been taking medications as documented in the EMLR. Essential Medication List for Review used to complete this medication reconciliation. INCLUDED IN THIS LIST: Alphabetical list of active outpatient prescriptions dispensed from this VA (local) and dispensed from another VA or DoD facility (remote) as well as inpatient orders (local, pending and active), local clinic medications, locally documented non-VA medications, and local prescriptions that have or been discontinued in the past 90 days. - All changes in medications, including all non-VA/Herbal/OTC medications were entered into CPRS. - If there were any medications the patient should no longer take, they were discontinued. - The patient/caregiver was instructed to update this list, discard old lists, and take this list to the next appointment, whether with a VA or non-VA provider. /nadiya/ Sathish Lopez DNP, LAB MANAGER-BC, CNL Primary Care Nurse Practitioner Signed: 05/22/2024 12:41 SATHISH LOPEZ [place] [facility] [place] [facility] May 22, 2024 11:35 AM PREVENTIVE MEDICINE NURSING NOTE: LOCAL TITLE: CLINICAL REMINDERS/NURSING STANDARD TITLE: PREVENTIVE MEDICINE NURSING NOTE DATE OF NOTE: MAY 22, 2024@11:35 ENTRY DATE: MAY 22, 2024@11:35:06 AUTHOR: MAYKEL SLADE COSIGNER: URGENCY: STATUS: COMPLETED Advance Directive Screen MH AD: Patient does not have an Advance Directive completed and is requesting more information. A consult was sent to Social Work Services at this visit so that an appointment can be made with the patient to review the advance directive. The patient received education about Advance Directives and written notification of his/her rights. Homelessness/Food Insecurity Screen: In the past 2 months, have you been living in stable housing that you own, rent, or stay in as part of a household? Yes - Living in stable housing. Are you worried or concerned that in the next 2 months you may NOT have stable housing that you own, rent, or stay in as part of a household? No - Not worried about housing near future The reports the following: Within the past 12 months, you worried whether your food would run out before you got money to buy more. Never true Within the past 12 months, the food you bought just didn't last and you didn't have money to get more. Never true Falls & Incontinence Screen: Falls Screen: During the past 12 months, did the patient report any falls? 4. No falls within the past year. Incontinence Screen: During the past 12 months, has the patient has any characteristics of incontinence (ability, voiding, leakage, etc.)? No incontinence. Falls & Incontinence Screen: Falls Screen: 4. No falls within the past year. Incontinence Screen No incontinence. RHS Screen: RHS Screen Session Format: Face to Face Environmental Check Screening was not completed at this time due to: Another adult present /es/ Maykel Slade [facility] Online Marketing Analyst ANIMAL SHELTER MANAGER,PRIMARY CARE Signed: 05/22/2024 11:37 MAYKEL SLADE [facility]
--- OUTSIDE RECORDS SUMMARY | 2024-07-11 11:09 | XMS_ITS ---
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 Name Role Phone ARLENE ROMERO Primary Care Provider Unavailkathleen ble Insurance Providers: All historical and current [...] SUPPLEMEN BREANNA PLAN MY Jun 03, 2022 PLAN [id number] Bella KIM PATIENT AARP MED SUPP MEDICARE SUPPLEMEN BREANNA Jun 03, 2016 PLANMY [id number] Bella KIM PATIENT AARP MED SUPP MEDICARE SUPPLEMEN BREANNA Jun 03, 2016 PLANMY [id number] Bella KIM PATIENT AARP MED SUPP MEDICARE SUPPLEMEN BREANNA PLAN MY Jun 03, 2016 PLANMY [id number] [phone] Bella KIM PATIENT CIGNA DENTAL DENTAL INSURANCE DENTA L PPO Jun 03, 2021 [id number] [phone] Bella KIM PATIENT MEDICARE (WNR) MEDICARE (M) PART A Apr 03, 2014 PART A [id number] Bella KIM PATIENT MEDICARE (WNR) MEDICARE (M) PART B Apr 03, 2014 PART B [id number] Bella KIM PATIENT MEDICARE (WNR) MEDICARE (M) PART A Apr 03, 2014 PART A [id number] Bella KIM PATIENT MEDICARE (WNR) MEDICARE (M) PART B Apr 03, 2014 PART B [id number] [phone] Bella KIM PATIENT MEDICARE (WNR) MEDICARE (M) PART A Apr 03, 2014 PART A [id number] Bella KIM PATIENT MEDICARE (WNR) MEDICARE (M) PART B Apr 03, 2014 PART B [id number] Bella KIM PATIENT MEDICARE PART D (WNR) MEDICARE (M) PART D Jun 03, 2020 PART D [id number] [phone] Bella KIM PATIENT Selected Encounter This section includes the information on record at [place] for the Encounter. Date/Time Encounter Type Encounter Description Reason Provider Source Jul 01, 2024 10:00 AM SELF CARE MNGMENT TRAINING PHYSICAL THERAPY ICD-10-CM R26.89 Other abnormalities of gait and mobility STANLEY FELIPE E Encounter Template Text not used by [place] Assessments - Encounter Diagnoses This section includes the primary and secondary diagnoses documented for the Encounter. Date/Time Primary/Secondary Diagnosis Diagnosis Name Provider Source Jul 01, 2024 03:10 PM PRIMARY Other abnormalities of gait and mobility STANLEY FELIPE [place] [facility] [place] [facility] Plan of Treatment: Future Appointments (+ 6 months) and Future Tests (+/- 45 days) The Plan of Treatment section includes future care activities for the patient from all [place] treatmentfacilities. This section includes future appointments and future orders which are active, pending or scheduled. Future Appointments This section includes appointments that were scheduled to occur 6 months from the date of the Encounter, up to a maximum of 20 appointments. The data comes from all [place] treatment facilities. Appointment Date/Time Appointment Type Appointme nt Facility Name Aug 17, 2024 08:00 AM AMBULATORY - MEDICINE [facility] [place] [place] [facility] Nov 20, 2024 09:30 AM [facility] Social History: Smoking Status (Most current) and Tobacco Use (All prior to encounter date) This section includes the most current, and the historical, smoking and tobacco- related health factors from the [place] facility where the Encounter took place. Current Smoking Status This section includes the most current smoking, or tobacco-related health factor, from the [place] facility where the Encounter took place. Date/Time Current Smoking Status Comment Facil ity Feb 14, 2024 03:30 PM [facility] Tobacco Use History This section includes a history of the smoking, or tobacco-related health factors, that were collected on or before the date of the Encounter. The data comes from the [place] facility where the Encounter took place. Date/Time Smoking Status/Tobacco Use Comment F acility Feb 14, 2024 03:30 PM VA-TOBACCO QUIT 15 YRS OR MORE [place] [facility] [place] [facility] Aug 06, 2022 09:30 AM VA-TOBACCO NEVER USED [place] [facility] [place] [facility] Mar 24, 2021 03:00 PM VA-TOBACCO NEVER USED [place] [facility] [place] [facility] Mar 08, 2020 02:30 PM VA-TOBACCO NEVER USED [place] [facility] [place] [facility] Jan 27, 2018 08:05 AM VA-TOBACCO NEVER USED [place] [facility] [place] [facility] Mar 19, 2017 12:58 PM LIFETIME NON-TOBACCO [facility] Encounter Notes: All associated encounter notes This section contains the clinical notes associated to the Encounter. Date/Time Encounter Note(s) Provider Source Jul 01, 2024 02:42 PM PHYSICAL THERAPY DISCHARGE NOTE: LOCAL TITLE: PHYSICAL THERAPY DISCHARGE NOTE STANDARD TITLE: PHYSICAL THERAPY DISCHARGE NOTE DATE OF NOTE: JUL 01, 2024@14:42 ENTRY DATE: JUL 01, 2024@14:42:43 AUTHOR: DENA FELIPE COSIGNER: URGENCY: STATUS: COMPLETED Initial Evaluation date: 03/26/24 Progress Note Date: n/a Treatment #: 8 Treatment time: 32 mins Diagnosis: other abnormalities of gait and mobility Provider: John PT Treatment Precautions: hx of a-fib, on anticoag SUBJECTIVE: I feel like things have pretty much stayed the same OBJECTIVE: Pt came into PT today with his present, his is reporting difficulty getting patient to agree to relay technician more than once/week PROGRESS CHECK: Strength: LE Hip flex ext and abd 4/5 Remaining LE 5/5 B LE Functional Mobility: Timed Up & Go: 18sec (was 18.8sec last prog check) seconds with SPC (was over 19sec at [facility]) (time required to perform sit to stand, walk 3 meters, turn, walk 3 meters, & stand to sit) Norms: <10 seconds = fairly independent in mobility 10-20 seconds = independent in mobility with some limitations >30 = require assistance for many mobility tasks 30sec sit to stand: 6 reps and fatigue limiting factor, was 7 reps last prog check, was 5 reps at eval at [facility]) 5X sit <> stand = 17.5sec was 23.5sec at last prog check (was 26.5 sec) at [facility] Mean all ages: 7.6 +/- 2.7 Mean ages 19-49yo: 6.2 + 1.3 Estimate values for normal performance in community dwelling older adults 60-69 years: 11.4 sec (mean time) 70-79 years: 12.6 sec 80-89 years: 14.8 sec To identify balance dysfunction Entire sample: 13 sec Younger (< 60 years): 10 sec Older (> 60 years): 14.2 sec (Kiki, 2008; n = 2,735 consecutive voluntary subjects aged 65 and older in apparently good state of health consulting for a medical examination, Vestibular Disorders in the Elderly) *Cutoff score of 15 sec was predictive of fallers in elderly Unilateral stance SAME AT [facility] (R) (L) Trial 1: 0-1 sec 0-1 sec Trial 2: 1 sec 1 sec Trial 3: 1 sec 1 sec Average: 2 (was 0) sec Norms: <69 years old = 22-30 sec >70 years old = 14 sec Functional Reach: 6 inches SAME AT [facility] (distance Pt is able to reach forward out of base of support in standing) Norms: >10 = unlikely to fall 6-10 = 2x more likely to fall 1-6 = 4x more likely to fall 0 = 28x more likely to fall Goals 4 weeks 1) Decrease Timed Up & Go Test results to 17 seconds with SPC- NOT MET 2) 30 sec chair rise test 9 reps- NOT MET 3) B LE strength 4+/5 to aid in step negotiation- NOT MET SELF CARE/EDUCATION: MINUTES:10 - Discussion with patient and regarding limiting factors to him showering more than once/week. Pt reports motivational as well as slight fear of falling as he has to step up/over tub to get in. The don't have any adaptive equipment int he shower stating a chair won't fit it's too narrow one grab bar inside the shower? They are interested with discussing options for adaptive equipment for shower safety with OT will have nikki appointment set up for this. After further discussion states it was easier when he was working because it was in his routine to do once/day, encouraged he have a chart or set alarm on his phone to get it into his routine more often throughout the week. - Discussion with vet and about plateau in progress with PT, he currently is safe with ambulation with rollator in community and 2ww was issued for indoors in combination with SPC indoors. Encouraged continued HEP performance, however, unclear if pt motivated enough to continue on his own per he doesn't do much at home. Educated in the open gym portion of gerofit program and they are both interested in this, will place GEROFIT consult and notified them of process for the program. HEP: Access Code: [email or web address] URL: [email or web address] Date: 03/26/2024 Prepared by: [facility] Patient education was provided for all aspects of care during this clinical encounter. ASSESSMENT/PLAN: Pt with plateau in progress with PT, he reports consistency with HEP however, min gains have been made over this last 6-8 weeks from last progress check. appears safe with community ambulation with rollator walker and indoor ambulation with cane and/or 2ww issued last session. is interested in bringing him to open gym portion of gerofit program and ?also exercise class however, given balance impairments would encourage seated program and/or limited standing activities with UE support on chair. would benefit from OT appt for adaptive equipment for the shower given this is a limitation he has d/t lack of motivation but also ?possible mild fear of falls as well. [place] has solid HEP at this time and given plateau in progress he is now discharged from skilled therapy with recommendations as above /nadiya/ DENA FELIPE PT PHYSICAL THERAPIST Signed: 07/01/2024 15:10 DENA FELIPE [facility]
--- OUTSIDE RECORDS SUMMARY | 2024-07-11 11:09 | XMS_ITS | Encounter Summary ---
Author Name [facility] [place] Organization [facility] [place] Address [address] [place] [id number] Care Team Providers Care House Sitter Name Role Phone ARLENE ROMERO Primary Care Provider Unavaila ble Insurance Providers: [...] BREANNA PLAN MY Jun 03, 2022 PLANMY [id number] [phone] Bella KIM PATIENT AARP MED SUPP MEDICARE SUPPLEMEN BREANNA Jun 03, 2016 PLANMY [id number] Bella KIMIN PATIENT AARP MED SUPP MEDICARE SUPPLEMEN BREANNA Jun 03, 2016 PLANMY [id number] Bella KIM PATIENT AARP MED SUPP MEDICARE SUPPLEMEN BREANNA PLAN MY Jun 03, 2016 PLANMY [id number] Bella KIM PATIENT CIG[employer] DENTAL DENTAL INSURANCE DENTA L PPO Jun 03, 2021 [id number] [phone] Bella KIM PATIENT MEDICARE (WNR) MEDICARE (M) PART A Apr 03, 2014 PART A [id number] [facility] Bella KIM PATIENT MEDICARE (WNR) MEDICARE (M) PART B Apr 03, 2014 PART B [id number] [phone] [id number] Bella KIM PATIENT MEDICARE (WNR) MEDICARE (M) PART A Apr 03, 2014 PART A [id number] Bella KIM PATIENT MEDICARE (WNR) MEDICARE (M) PART B Apr 03, 2014 PART B [id number] Bella KIM PATIENT MEDICARE (WNR) MEDICARE (M) PART A Apr 03, 2014 PART A [id number] [facility] Bella KIM PATIENT MEDICARE (WNR) MEDICARE (M) PART B Apr 03, 2014 PART B [id number] [facility] Bella KIM PATIENT MEDICARE PART D (WNR) MEDICARE (M) PART D Jun 03, 2020 PART D [id number] [facility] [phone] Blela KIM PATIENT Selected Encounter This section includes the information on record at [place] for the Encounter. Date/Time Encounter Type Encounter Description Reason Pro vider Source IHE Encounter Template Text not used by [place]
--- OUTSIDE RECORDS SUMMARY | 2024-07-11 11:09 | XMS_ITS | Encounter Summary ---
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 Role Phone ARLENE ROMERO Primary Care Provider Unavail ble Insurance Providers: All historical and current [...] BREANNA PLAN MY Jun 03, 2022 PLANMY [id number] [phone] Bella KIM PATIENT AARP MED SUPP MEDICARE SUPPLEMEN BREANNA Jun 03, 2016 PLANMY [id number] Bella KIM PATIENT AARP MED SUPP MEDICARE SUPPLEMEN BREANNA Jun 03, 2016 PLANMY [id number] Bella KIM PATIENT AARP MED SUPP MEDICARE SUPPLEMEN BREANNA PLAN MY Jun 03, 2016 PLANMY [id number] Bella KIM PATIENT [employer]IG[employer] DENTAL DENTAL INSURANCE DENTA L PPO Jun 03, 2021 [id number] Bella KIM PATIENT MEDICARE (WNR) MEDICARE (M) PART A Apr 03, 2014 PART A [id number] [phone] [id number] Bella KIM PATIENT MEDICARE (WNR) MEDICARE (M) PART B Apr 03, 2014 PART B [id number] Bella KIM PATIENT MEDICARE (WNR) MEDICARE (M) PART A Apr 03, 2014 PART A [id number] Bella KIM PATIENT MEDICARE (WNR) MEDICARE (M) PART B Apr 03, 2014 PART B [id number] Bella KIM PATIENT MEDICARE (WNR) MEDICARE (M) PART A Apr 03, 2014 PART A [id number] Bella KIM PATIENT MEDICARE (WNR) MEDICARE (M) PART B Apr 03, 2014 PART B [id number] Bella KIM PATIENT MEDICARE PART D (WNR) MEDICARE (M) PART D Jun 03, 2020 PART D [id number] Bella KIM PATIENT Selected Encounter This section includes the information on record at [place] for the Encounter. Date/Time Encounter Type Encounter Description Reason Provider Source May 18, 2024 10:00 AM TRIM NAIL(S) PODIATRY ICD-10-CM M48.00 Spinal stenosis, site unspecified NICOLE HARTMANN Cristino Encounter Template Text not used by [place] Assessments - Encounter Diagnoses This section includes the primary and secondary diagnoses documented for the Encounter. Date/Time Primary/Secondary Diagnosis Diagnosis Name Provider Source Jun 23, 2024 12:42 PM PRIMARY Spinal stenosis, site unspecified NICOLE HARTMANN [facility] [place] [facility] Jun 23, 2024 12:42 PM SECONDARY Nail dystrophy NICOLE HARTMANN [facility] [place] [facility] Plan of Treatment: Future Appointments (+ 6 months) and Future Tests (+/- 45 days) The Plan of Treatment section includes future care activities for the patient from all [facility] treatment[facility]ilities. This section includes future appointments and future orders which are active, pending or scheduled. Future Appointments This section includes appointments that were scheduled to occur 6 months from the date of the Encounter, up to a maximum of 20 appointments. The data comes from all [place] treatment facilities. Appointment Date/Time Appointment Type Appointme nt Facility Name May 21, 2024 01:30 PM [facility]BULAT[facility] [place] [facility] May 22, 2024 11:30 AM AM[facility]ULAT[facility] MEDICINE [facility] [place] [facility] May 25, 2024 09:30 AM AMBULAT[facility] [place] [facility] Jun 24, 2024 10:30 AM [facility]BULAT[facility] [place] [facility] Jul 01, 2024 10:00 AM [facility]UL[facility] [place] [facility] Aug 17, 2024 08:00 AM [facility] [place] [facility] Social History: Smoking Status (Most current) and Tobacco Use (All prior to encounter date) This section includes the most current, and the historical, smoking and tobacco- related health factors from the [place] facility where the Encounter took place. Current Smoking Status This section includes the most current smoking, or tobacco-related health factor, from the [place] facility where the Encounter took place. Date/Time Current Smoking Status Comment Facil ity Feb 14, 2024 03:30 PM VA-TOBACCO FOR[facility] USER [place] [facility] Tobacco Use History This section includes a history of the smoking, or tobacco-related health factors, that were collected on or before the date of the Encounter. The data comes from the [place] facility where the Encounter took place. Date/Time Smoking Status/Tobacco Use Comment F acility Feb 14, 2024 03:30 PM VA-TOBACCO QUIT 15 YRS OR MORE [facility] [place] [facility] Aug 06, 2022 09:30 AM VA-TOBACCO NEVER USED [facility] [place] [facility] Mar 24, 2021 03:00 PM VA-TOBACCO NEVER USED [facility] [place] [facility] Mar 08, 2020 02:30 PM VA-TOBACCO NEVER USED [facility] [place] [facility] Jan 27, 2018 08:05 AM VA-TOBACCO NEVER USED [place] [facility] [place] [facility] Mar 19, 2017 12:58 PM LIF[facility] Encounter Notes: All associated encounter notes This section contains the clinical notes associated to the Encounter. Date/Time Encounter Note(s) Provider Source May 18, 2024 10:30 AM PREVENTIVE MEDICIN E NURSING NOTE: LOCAL TITLE: CLINICAL REMINDERS/NURSING STANDARD TITLE: PREVENTIVE MEDICINE NURSING NOTE DATE OF NOTE: MAY 18, 2024@10:30 ENTRY DATE: MAY 18, 2024@10:30:24 AUTHOR: NICOLE HARTMANN COSIGNER: URGENCY: STATUS: COMPLETED PAVE Foot Check: A complete foot check was completed at this encounter. VISUAL INSPECTION: Includes inspection for skin breaks, deformity, erythema, trauma, pallor on elevation, dependent rubor, nail deformities, extensive callus and pitting edema. Visual exam results: Normal Comment: Eccymotic right hallux, no pain or swelling PEDAL PULSES: Includes palpation of dorsalis and posterior tibial pulses and signs/symptoms of vascular compromise like pain, pallor, parasthesia or paralysis. Present (even if diminished) SENSORY CHECK: Includes 10 gram Monofilament ([place]) test of sensation. Intact (Greater than or equal to 80% of sites checked) Abnormal (Less than 80% of sites checked): Intact LOW-RISK: LOW RISK INFORMATION PROVIDED: 1. Advised patient not to walk barefoot. 2. Explained the importance of daily foot checks for changes. 3. Stressed the importance of daily foot hygiene, including bathing and complete drying. The patient verbalized understanding and was offered a detailed handout on diabetic foot care. /nadiya/ NICOLE HARTMANN LPN LICENSED PRACTICAL NURSE Signed: 05/18/2024 10:32 NICOLE HARTMANN [place] [facility] May 18, 2024 10:22 AM NURSING OUTPATIENT NOTE: LOCAL TITLE: NURSING/SPECIALTY CLINIC NOTE STANDARD TITLE: NURSING OUTPATIENT NOTE DATE OF NOTE: MAY 18, 2024@10:22 ENTRY DATE: MAY 18, 2024@10:22:55 AUTHOR: NICOLE HARTMANNIGNER: URGENCY: STATUS: COMPLETED [place] seen [facility] for continued foot care. [place] has a history of Spinal stenosis and is unable to trim his/her own nails. Ambulates: [X]self [ ]wheelchair can transfer [ ]wheelchair cannot transfer [ ]without assistance [x ]with assistance of a cane Bilateral: Pedal pulses: Right Foot: Dorsalis Pedis - palpable [x ] non-palpable[ ] Posterior Tibial - palpable[x ] non-palpable[ ] Left Foot: Dorsalis Pedis - palpable [x ] non-palpable [ ] Posterior Tibial - palpable [x ] non-palpable[ ] Pedal sensation: Right Foot: [x ] Intact [ ] Absent out of 10 sites Left Foot: [x ] Intact [ ] Absent out of 10 sites Skin Temperature: [ ] Warm to warm, proximal to distal [x ] Warm to cool/cold, proximal to distal Pedal skin: [x ] Intact [ ] Dry [ ] Cracked [ ] Discolored Webspaces: [x ] Intact [x ] Clean [ ] Soiled [ ] Macerated [ ] Dry Nails: [x ] Thickened [x ] Elongated [x ] Dystrophic [ ] Discolored [ ] Fungal [ ] Incurvated [ ] Subungual debri Hyperkeratosis [ ] Yes, Locations: [x ] No Open lesions/wounds: [ ] Yes, Locations: [x ] No Amputations: [ ] Yes, Locations: [x ] No Edema present: ( ) Yes ( x ) NO Podiatric Problem List: [ ] Diabetes mellitus [ ] Peripheral vascular disease [ ] Neuropathy [ ] Onychomycosis [x ] Dystrophic toenails [ ] Hyperkeratosis/calluses [ ] Xerosis/dry skin [x ] Other: Eccymotic area Right dorsumand posterior Hallux, no pain with movement or at rest, zero swelling, redness or drainage. Treatment: [x ] Nails x 10 debrided in length and thickness without incident [ ] Hyperkeratotic lesions were grinded down with eletric fiberglass grinder and debrided without incidence. [x ]Patient education educated about proper foot care and encouraged to check feet daily for injuries and wounds [x ] Instructed to moisturize feet daily but not in-between toe Patient is to RTC in 3 months. /nadiya/ NICOLE HARTMANN LPN LICENSED PRACTICAL NURSE Signed: 05/18/2024 10:28 Receipt Acknowledged By: 05/19/2024 09:55 /nadiya/ CORNELIO SWEENEYM PODIATRY ATTENDING NICOLE HARTMANN [facility]
--- OUTSIDE RECORDS SUMMARY | 2024-07-11 11:09 | XMS_ITS | Data Portability ---
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 Manager Corporate Communications [facility] Directional Drill Operator [facility] Dermatologis t Assessment Encounter Date Assessment Date Assessment LastModified by Organization Details LastModified Time 02/28/2024 02/28/2024 We completed your Medicare Wellness exam today. This was an opportunity to assess your overall well being including your ability to care for yourself, your mobility, memory, mental health, as well as your safety. With advancing age, it is important to assign someone in your life as your Health Care Proxy (HCP). This person should know what is important to you and what your wishes are for medical procedures if you cannot communicate your wishes yourself (severe illness, unconsciousness) . We discussed having a completed Health Care Proxy form today. In addition, today we started a conversation about your End of Life wishes. These conversations will continue over the years. Please consider reading the book, Being Mortal by John Ordoñez to help frame future conversations. We discussed the purpose of a MOLST form (Medical Orders for Life Sustaining Treatment) and completed this form if appropriate per your wishes. Vision and Hearing are senses that are critically important as we age. When impaired, they can contribute to memory loss, falls, and make it harder to drive, talk to family and friends, and engage in the world. Please get your vision checked yearly and your hearing checked when you start to notice hearing loss. We discussed approaches to lowering your risk of heart disease and stroke . Your blood pressure . Your cholesterol . We discussed cancer screening you may need as well as vaccines to prevent infections. Colon Cancer : Your risk of colon cancer is . Due for colorectal screening:. If you are not planning to have a colonoscopy please screen with stool cards yearly. Breast Cancer : Breast Cancer Screening (mammography). Next mammogram due: . Cervical Cancer Screening (pap test). Next pap due: . Prostate Cancer : PSA testing for ages 55-69 risks and benefits discussed . Influenza Vaccine : Flu shot yearly. Tetanus Vaccine : Every 10 years. Due: . The following vaccines are available from your pharmacy: Pneumonia Vaccine : PCV20: once after age 65. Shingles Vaccine : 2 shots after age 50. Covid Vaccine : Make sure you have received the most up to date covid vaccine. Your personal health goal for the year is: [email or web address] Not available 02/27/2024 16:42:19 07/09/2024 07/09/2024 We reviewed your chronic medical conditions and updated your plan for management. Please review instructions below. We have discussed your personal goals and discussed how to reach your goals. Please reach out to us via the Portal or phone if you have questions about your chronic conditions or if you or your caregivers require assistance in meeting your goals. Please visit our website [employer] for more patient resources. As part of your care plan, we will help coordinate your ongoing medical needs, arrange for durable medical equipment, renew prescriptions and necessary prior authorizations, facilitate getting referrals and collaborating with specialist, referrals for VNA services. [email or web address] Not available 07/08/2024 16:08:01 Plan of Treatment Reminders Order Date Submit Date Provider Last Modified By Organization Details Last Modified Time Details Appointments Wellnes s Visit 30 2024 04:00P Bella Cage MD Not available Not available Not available Lab CMP, serum or plasma 2023 024 [facility], [address] [place] [address], [id number], 07/01/2024 11:24:25 CBC 2023 024 [facility], [address] [place] [address], [id number], 06/29/2024 10:34:57 Referral None recorde d. Procedures None recorde d. Surgeries None recorde d. Imaging None recorde d. Medication Orders trazodo ne 50 mg tablet 2023 024 [facility], [address] [place], [address], 05/28/2024 16:29:57 amlodip ine 5 mg tablet 2023 024 ATHENAFAX [facility], [address] [place], [address], 05/28/2024 16:50:39 Patient Targets Encounter Date Encounter Id Patient Goals Patient Target Last Modified By Organization Details Last Modified Time He will return i n 3m for follow upHe [place] , given trazodone HS for sleep if neededwill discuss alcohol rehab if he is interested at next follow uphe is now on meds for AFIB, will call with name Janie set up a follow up with cardiologywiervin call to review chol Rx , LDL 150and discuss microalb Rx Not available 03/01/2024 08:45:20 Follow up in 1m , labs priorEncourage to dec alcohol intake, not interested at this time Not available 05/30/2024 17:18:57 He is slowly getting better, he is off ABs at this timeWill return in 1 week for follow up with Elver that a 3m follow up with or Mariam will give a trial of stopping drinking for the next week , not sure how that will goPHA 02/25 Not available 07/05/2024 20:45:25 Patient Instructions Encounter Date Encounter Id Patient Instructions Last Modified By Organization Details Last Modified Time 02/28/2024 [id number] retinal eye exam* [email or web address] Not availab le 05/06/2024 12:11:06 Reason for Referral None Reported. Results Created Date Observation Date Name Description Value Unit Range Abnormal Flag Note LastModifiedBy Organization Detail LastModifiedTime 02/20/20 24 02/20/2024 LIPID PANEL cholesterol 236 mg/dL <200 mg/dl Karissa able 200-2 39 mg/dl Borde rline High >240 mg/dl High Not Available [address], [address], 02/20/2024 09:28:43 02/20/20 24 02/20/2024 LIPID PANEL triglyceride s 93 mg/dL <150 mg/dL Marianna l 150-1 99 mg/dL Borde rline High 200-4 99 mg/dL High >500 mg/dL Very High Not Available [address], [address], 02/20/2024 09:28:43 02/20/20 24 02/20/2024 LIPID PANEL direct HDL 67 mg/dL <40 mg/dl - Major Risk for CHD >60 mg/dl - Negat gregory Risk for CHD Not Available [address], [address], 02/20/2024 09:28:43 02/20/20 24 02/20/2024 RENAL PANEL glucose 109 mg/dL 70-100 high Not Available [address], [address], 02/20/2024 09:28:43 02/20/20 24 02/20/2024 RENAL PANEL BUN 35 mg/dL 7-18 high Not Available [address], [address], 02/20/2024 09:28:43 02/20/20 24 02/20/2024 RENAL PANEL creatinine 1.7 mg/dL 0.8-1. 3 high Not Available [address], [address], 02/20/2024 09:28:43 02/20/20 24 02/20/2024 RENAL PANEL B/C 20.6 ratio Not Available [address], [address], 02/20/2024 09:28:43 02/20/2002/20/2024 RENAL PANEL GFR 41.8 mL/mi n abnormal >=60m L/min - Marianna l or midly reduc ed <60mL /min- Decre ased kidne y funct ion <15mL /min - Kidne y failu re [facility] calcu lates estim ated Glome rular Filtr ation Rate (eGFR ) using the Chron ic Kidne y Disea se Epide miolo gy Colla borat ion (CKD- EPI) Equat ion (Akin r et. al 2020) as recom magda d by the Natio nal Kidne y Found ation . eGFR is based on age, serum creat inine , and sex. CKD-E PI does not calcu late eGFR by race, does not apply to child lionel (age <18 years ), and shoul d not be used in pregn sharath. Not Available [address], [address], 02/20/2024 09:28:43 02/20/2002/20/2024 RENAL PANEL sodium 137 mmol/ L 136-14 5 Not Available [address], [address], 02/20/2024 09:28:43 02/20/20 24 02/20/2024 RENAL PANEL potassium 4.4 mmol/ L 3.5-5. 1 Not Available [address], [address], 02/20/2024 09:28:43 02/20/20 24 02/20/2024 RENAL PANEL chloride 101 mmol/ L 96-107 Not Available [address], [address], 02/20/2024 09:28:43 02/20/20 24 02/20/2024 RENAL PANEL anion gap 9.8 5.0-15 .0 Not Available [address], [address], 02/20/2024 09:28:43 02/20/20 24 02/20/2024 RENAL PANEL CO2 26 mmol/ L 21-32 Not Available [address], [address], 02/20/2024 09:28:43 02/20/20 24 02/20/2024 RENAL PANEL calcium 8.5 mg/dL 8.5-10 .3 Not Available [address], [address], 02/20/2024 09:28:43 02/20/20 24 02/20/2024 RENAL PANEL albumin 3.0 g/dL 3.4-5. 0 low Not Available [address], [address], 02/20/2024 09:28:43 02/20/20 24 02/20/2024 RENAL PANEL phosphorous 2.80 mg/dL 2.50-4 .90 Not Available [address], [address], 02/20/2024 09:28:43 02/20/20 24 02/20/2024 URIC ACID uric acid 10.0 mg/dL 3.5-7. 2 high Not Available [address], [address], 02/20/2024 09:28:44 02/20/2002/20/2024 LDL - CALCU LATED LDL - calculated 150 RISK CATEG ORY LDL GOAL _ CHD or CHD Risk Equiv alent s <100 mg/dl (10-y ear risk >20%) 2+ Risk Facto rs <130 mg/dl (10-y ear risk <= 20%) 0-1 Risk Facto r? <160 mg/dl ? Almos t all peopl e with 0-1 risk facto r have a 10 year risk <10%, thus 10 year risk asses ment in peopl e with 0-1 risk facto r is not neces teddy. Not Available [address], [address], 02/20/2024 09:28:44 02/20/20 24 02/20/2024 HGB A1C hemoglobin A1C 5.4 % 4.8-6. 0 Goal: <7% in Patie nts with Diabe gloria An A1c betwe en 5.7-6 .4% is ident ified as pre-d iabet es and sugge sts risk for progr essio n to diabe gloria Two a1c value s of 6.5% or highe r is consi stent with a diagn osis of diabe gloria but may need furth er confi rmati on Not Available [address], [address], 02/20/2024 11:15:17 02/20/20 24 02/20/2024 HGB A1C estimated average glucose 108.3 mg/dL Not Available [address], [address], 02/20/2024 11:15:17 02/20/20 24 02/21/2024 MICRO ALBUM IN/CR EATIN INE RATIO PANEL , URINE microalbumin 2575.0 mg/L 1.3-20 .0 high VERD= Verif ied by Dilut ion. Not Available [address], [address], 02/21/2024 15:15:55 02/20/20 24 02/21/2024 MICRO ALBUM IN/CR EATIN INE RATIO PANEL , URINE creatinine urine 235.5 mg/dL 30.0-1 25.0 high Not Available [address], [address], 02/21/2024 15:15:55 02/20/20 24 02/21/2024 MICRO ALBUM IN/CR EATIN INE RATIO PANEL , URINE microalb/cre at ratio 1093.4 mg/g_ creat 0.0-29 .0 high Not Available [address], [address], 02/21/2024 15:15:55 05/22/20 24 05/22/2024 BASIC METAB OLIC PANEL glucose 88 mg/dL 70-100 Not Available [address], [address], 05/22/2024 11:17:05 05/22/20 24 05/22/2024 BASIC METAB OLIC PANEL BUN 49 mg/dL 7-18 high Not Available [address], [address], 05/22/2024 11:17:05 05/22/20 24 05/22/2024 BASIC METAB OLIC PANEL creatinine 2.3 mg/dL 0.8-1. 3 high Not Available [address], [address], 05/22/2024 11:17:05 05/22/20 24 05/22/2024 BASIC METAB OLIC PANEL B/C 21.3 ratio Not Available [address], [address], 05/22/2024 11:17:05 05/22/20 24 05/22/2024 BASIC METAB OLIC PANEL GFR 28.9 mL/mi n abnormal >=60m L/min - Marianna l or midly reduc ed <60mL /min- Decre ased kidne y funct ion <15mL /min - Kidne y failu re [facility] calcu lates estim ated Glome rular Filtr ation Rate (eGFR ) using the Chron ic Kidne y Disea se Epide miolo gy Colla borat ion (CKD- EPI) Equat ion (Akin r et. al 2020) as recom magda d by the Natio nal Kidne y Found ation . eGFR is based on age, serum creat inine , and sex. CKD-E PI does not calcu late eGFR by race, does not apply to child lionel (age <18 years ), and shoul d not be used in pregn sharath. Not Available [address], [address], 05/22/2024 11:17:05 05/22/20 24 05/22/2024 BASIC METAB OLIC PANEL sodium 141 mmol/ L 136-14 5 Not Available [address], [address], 05/22/2024 11:17:05 05/22/20 24 05/22/2024 BASIC METAB OLIC PANEL potassium 4.7 mmol/ L 3.5-5. 1 Not Available [address], [address], 05/22/2024 11:17:05 05/22/20 24 05/22/2024 BASIC METAB OLIC PANEL chloride 104 mmol/ L 96-107 Not Available [address], [address], 05/22/2024 11:17:05 05/22/20 24 05/22/2024 BASIC METAB OLIC PANEL anion gap 9.7 5.0-15 .0 Not Available [address], [address], 05/22/2024 11:17:05 05/22/20 24 05/22/2024 BASIC METAB OLIC PANEL CO2 27 mmol/ L 21-32 Not Available [address], [address], 05/22/2024 11:17:05 05/22/20 24 05/22/2024 BASIC METAB OLIC PANEL calcium 8.6 mg/dL 8.5-10 .3 Not Available [address], [address], 05/22/2024 11:17:05 05/22/20 24 05/22/2024 HGB A1C hemoglobin A1C 5.5 % 4.8-6. 0 Goal: <7% in Patie nts with Diabe gloria An A1c betwe en 5.7-6 .4% is ident ified as pre-d iabet es and sugge sts risk for progr essio n to diabe gloria Two a1c value s of 6.5% or highe r is consi stent with a diagn osis of diabe gloria but may need furth er confi rmati on Not Available [address], [address], 05/22/2024 12:16:20 05/22/20 24 05/22/2024 HGB A1C estimated average glucose 111.2 mg/dL Not Available [address], [address], 05/22/2024 12:16:20 06/29/19 25 06/29/2024 CBC WBC 6.46 K/? ? ?L 4.23-9 .07 Not Available [address], [address], 06/29/2024 10:34:57 06/29/19 25 06/29/2024 CBC RBC 3.75 M/? ? ?L 4.63-6 .08 low Not Available [address], [address], 06/29/2024 10:34:57 06/29/19 25 06/29/2024 CBC HGB 12.7 g/dL 13.7-1 7.5 low Not Available [address], [address], 06/29/2024 10:34:57 06/29/19 25 06/29/2024 CBC HCT 37.3 % 40.1-5 1.0 low Not Available [address], [address], 06/29/2024 10:34:57 06/29/19 25 06/29/2024 CBC MCV 99.5 fL 79.0-9 2.2 high Not Available [address], [address], 06/29/2024 10:34:57 06/29/19 25 06/29/2024 CBC MCH 33.9 pg 25.7-3 2.2 high Not Available [address], [address], 06/29/2024 10:34:57 06/29/19 25 06/29/2024 CBC MCHC 34.0 g/dL 32.3-3 6.5 Not Available [address], [address], 06/29/2024 10:34:57 06/29/19 25 06/29/2024 CBC plt 308 K/? ? ?L 163-33 7 Not Available [address], [address], 06/29/2024 10:34:57 06/29/19 25 06/29/2024 CBC MPV 9.9 fL 9.4-12 .4 Not Available [address], [address], 06/29/2024 10:34:57 06/29/19 25 06/29/2024 CBC neut% 60.2 % 34.0-6 7.9 Not Available [address], [address], 06/29/2024 10:34:57 06/29/19 25 06/29/2024 CBC neut# 3.89 1.78-5 .38 Not Available [address], [address], 06/29/2024 10:34:57 06/29/1906/29/2024 CBC lymph % 26.8 % 21.8-5 3.1 Not Available [address], [address], 06/29/2024 10:34:57 06/29/19 25 06/29/2024 CBC lymph # 1.73 K/? ? ?L 1.32-3 .57 Not Available [address], [address], 06/29/2024 10:34:57 06/29/19 25 06/29/2024 CBC mono% 9.3 % 5.3-12 .2 Not Available [address], [address], 06/29/2024 10:34:57 06/29/1906/29/2024 CBC mono# 0.60 0.30-0 .82 Not Available [address], [address], 06/29/2024 10:34:57 06/29/1906/29/2024 CBC eo% 2.3 % 0.8-7. 0 Not Available [address], [address], 06/29/2024 10:34:57 06/29/1906/29/2024 CBC eo# 0.15 0.04-0 .54 Not Available [address], [address], 06/29/2024 10:34:57 06/29/19 25 06/29/2024 CBC baso% 1.1 % 0.2-1. 2 Not Available [address], [address], 06/29/2024 10:34:57 06/29/19 25 06/29/2024 CBC baso# 0.07 0.00-0 .08 Not Available [address], [address], 06/29/2024 10:34:57 06/29/19 25 06/29/2024 CBC RDW-CV 13.2 % 11.6-1 4.4 Not Available [address], [address], 06/29/2024 10:34:57 06/29/19 25 06/29/2024 CBC Ig% 0.300 % 0.000- 1.500 Ig % >0.5 Indic ates possi ble Left Shift Not Available [address], [address], 06/29/2024 10:34:57 06/29/19 25 06/29/2024 CBC Ig# 0.020 0.000- 0.093 Not Available [address], [address], 06/29/2024 10:34:57 06/29/19 25 06/29/2024 CBC NRBC% 0.0 % 0.0-0. 2 Not Available [address], [address], 06/29/2024 10:34:57 06/29/19 25 06/29/2024 CBC NRBC# 0.000 0.000- 0.012 Not Available [address], [address], 06/29/2024 10:34:57 06/29/19 25 07/01/2024 COMP. METAB OLIC PANEL glucose 86 mg/dL 70-100 Not Available [address], [address], 07/01/2024 11:24:25 06/29/19 25 07/01/2024 COMP. METAB OLIC PANEL BUN 34 mg/dL 7-18 high Not Available [address], [address], 07/01/2024 11:24:25 06/29/19 25 07/01/2024 COMP. METAB OLIC PANEL creatinine 2.1 mg/dL 0.8-1. 3 high Not Available [address], [address], 07/01/2024 11:24:25 06/29/19 25 07/01/2024 COMP. METAB OLIC PANEL B/C 16.2 ratio Not Available [address], [address], 07/01/2024 11:24:25 06/29/19 25 07/01/2024 COMP. METAB OLIC PANEL GFR 32.2 mL/mi n abnormal >=60m L/min - Marianna l or midly reduc ed <60mL /min- Decre ased kidne y funct ion <15mL /min - Kidne y failu re [facility] calcu lates estim ated Glome rular Filtr ation Rate (eGFR ) using the Chron ic Kidne y Disea se Epide miolo gy Colla borat ion (CKD- EPI) Equat ion (Akin r et. al 2020) as recom magda d by the Natio nal Kidne y Found ation . eGFR is based on age, serum creat inine , and sex. CKD-E PI does not calcu late eGFR by race, does not apply to child lionel (age <18 years ), and shoul d not be used in pregn sharath. Not Available [address], [address], 07/01/2024 11:24:25 06/29/19 25 07/01/2024 COMP. METAB OLIC PANEL sodium 143 mmol/ L 136-14 5 Not Available [address], [address], 07/01/2024 11:24:25 06/29/19 25 07/01/2024 COMP. METAB OLIC PANEL potassium 4.6 mmol/ L 3.5-5. 1 Not Available [address], [address], 07/01/2024 11:24:25 06/29/19 25 07/01/2024 COMP. METAB OLIC PANEL chloride 106 mmol/ L 96-107 Not Available [address], [address], 07/01/2024 11:24:25 06/29/19 25 07/01/2024 COMP. METAB OLIC PANEL anion gap 14.0 5.0-15 .0 Not Available [address], [address], 07/01/2024 11:24:25 06/29/19 25 07/01/2024 COMP. METAB OLIC PANEL CO2 23 mmol/ L 21-32 Not Available [address], [address], 07/01/2024 11:24:25 06/29/19 25 07/01/2024 COMP. METAB OLIC PANEL calcium 8.9 mg/dL 8.5-10 .3 Not Available [address], [address], 07/01/2024 11:24:25 06/29/19 25 07/01/2024 COMP. METAB OLIC PANEL total protein 6.7 g/dL 6.4-8. 2 Not Available [address], [address], 07/01/2024 11:24:25 06/29/19 25 07/01/2024 COMP. METAB OLIC PANEL albumin 3.1 g/dL 3.4-5. 0 low Not Available [address], [address], 07/01/2024 11:24:25 06/29/19 25 07/01/2024 COMP. METAB OLIC PANEL globulin 3.6 g/dL Not Available [address], [address], 07/01/2024 11:24:25 06/29/19 25 07/01/2024 COMP. METAB OLIC PANEL A/G 0.9 ratio 0.8-2. 0 Not Available [address], [address], 07/01/2024 11:24:25 06/29/19 25 07/01/2024 COMP. METAB OLIC PANEL total bilirubin 0.30 mg/dL 0.00-1 .00 Not Available [address], [address], 07/01/2024 11:24:25 06/29/19 25 07/01/2024 COMP. METAB OLIC PANEL AST 24 U/L 0-37 Not Available [address], [address], 07/01/2024 11:24:25 06/29/19 25 07/01/2024 COMP. METAB OLIC PANEL ALT 16 U/L 6-63 Not Available [address], [address], 07/01/2024 11:24:25 06/29/19 25 07/01/2024 COMP. METAB OLIC PANEL alk. phos. 70 U/L 50-136 Not Available [address], [address], 07/01/2024 11:24:25 06/20/19 25 06/20/2024 XR, hand No observ ation record ed. [address], [address], 06/20/2024 14:39:24 Result Notes None recorded. Problems Name Problem SNOMED Code Status Onset Date Resolution Date Notes Provider Name and Address Organization Details Recorded Time Hyperlip idemia 08579756 Active Not Available [facility] 2 11:15:55 Chronic kidney disease stage 3 120236455 Completed 09/17/2016 Nguyễn Cage MD [address] [place] [address], [phone] , [facility] 0 12:54:02 [facility] hyperten isaac 34163548 Completed 03/31/2019 carvedil ol And lisinopr il 03/21/18 , keep lip at q 6 mos for now (DS aware LDL >100) per DS. 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 03/21/18 , keep lip at q 6 mos for now (DS aware LDL >100) per DS. Not Available [facility] 2 11:15:55 Diabetes mellitus 82914834 Active 201703/21/18 , keep lip at q 6 mos for now (DS aware LDL >100) per DS. Not Available [facility] 2 11:15:55 Chronic back pain 722852210 Active 2017 L4-5 herniati on , rec fusion , neurosur g, does not want surgery at this time Not Available [facility] 2 11:15:55 Chronic kidney disease stage 3 695793977 Active 2017 GFR 41 Not Available [facility] 2 11:15:55 Diabetic peripher al neuropat hy 309756961 Active 2018 Not Available [facility] 2 11:15:55 Anemia 370668216 Completed 201811/10/2020 Nl colo 2017, pos stool test 2016, not interest ed in ENDO at this time Nguyễn Cage MD [address] [place] [address], [phone] , [facility] 1 14:59:49 [facility] hyperten isaac 78521964 Active 2020 Not Available [facility] 2 11:15:55 Atrial fibrilla tion 99563305 Active 2021 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 recorder , 2021 , wants to hold off Nguyễn Cage MD [address] [place] [address], [phone] , [facility] 4 13:33:00 Alcohol intake above recommen ded sensible limits 307351128 Active 2021 Nguyễn Cage MD [address] [place] [address], [phone] , [facility] 19:51:53 Proteinu isidro 05623653 Active 2023 discuss FARXIGA / dapaglif lozin SGLT2 Nguyễn Cage MD [address] [place] [address], [phone] , [facility] 20:50:18 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 Procedures Surgical History Date Name Laterality Status Provider Name and Address Organization Details Recorded Time 06/26/19 Wound Care completed Lucy Raya LPN [facility] 06/26/2024 12:12:16 02/28/20 24 Medicare Wellness Visit completed DIMITRIOS Flores [facility] 02/27/2024 16:42:20 02/28/20 24 Alcohol overuse counseling completed Nguyễn Cage MD [address] [place] [address], [phone], [facility] 03/01/2024 08:47:25 02/28/20 24 Cardiovascular disease risk reduction counseling completed Nguyễn Cage MD [address] [place] [address], [phone], [facility] 03/01/2024 08:47:11 02/28/20 24 Advanced Care Planning completed DIMITRIOS Flores [facility] 02/27/2024 16:44:58 08/27/19 24 G2211 completed Nguyễn Cage MD [address] [place] [address], [phone], [facility] 08/28/2023 17:33:15 02/22/20 23 Medicare Wellness Visit completed DIMITRIOS Flores [facility] 02/20/2023 15:07:50 02/22/20 23 Advanced Care Planning completed Liliya Bettgenhause r, [facility] 02/20/2023 15:08:47 02/14/20 22 Medicare Wellness Visit completed Liliya De Lunaenhteresa r, [facility] 02/13/2022 15:48:52 02/14/20 22 Alcohol use screening completed Liliya Perez r, [facility] 02/13/2022 15:48:52 02/14/20 22 Cardiovascular disease risk reduction counseling completed Liliya Preez r, [facility] 02/13/2022 15:48:52 11/11/19 21 Medicare Wellness Visit completed Liliya Perez r, [facility] 11/09/2020 12:01:37 11/11/19 21 prevention-cardiov ascular risk reduction counseling completed Liliya sinclair, [facility] 11/09/2020 12:01:37 11/11/19 21 prevention-annual alcohol misuse screening completed Liliya sinclair, [facility] 11/09/2020 12:01:37 02/10/20 20 [id number]: Therapeutic Exercise completed Taylor Benitez, PT [address] [place], [phone], [facility] 02/10/2020 11:56:46 02/10/20 Treatment and Advice completed Taylor Benitez, PT [address] [place], [phone], [facility] 02/10/2020 11:52:01 02/03/20 20 [address]3582: Therapeutic Exercise completed Taylor Benitez, PT [address] [place], [phone], [facility] 02/03/2020 18:46:42 02/03/20 20 Treatment and Advice completed Taylor Benitez, PT [address] [place], [address], [facility] 02/03/2020 18:46:53 01/27/20 20 03687: PT Eval Low Complexity completed Taylor Benitez, PT [address] [place], [address], [facility] 01/27/2020 11:22:16 01/27/20 20 Treatment and Advice completed Taylor Benitez, PT [address] [place], [address], [facility] 01/27/2020 14:36:24 10/02/19 20 Medicare Wellness Visit completed Melinda Jean-Baptiste MA [facility] 10/02/2019 09:16:03 10/02/19 20 prevention-cardiov ascular risk reduction counseling completed Melinda Jean-Baptiste MA [facility] 10/02/2019 09:16:03 10/02/19 20 prevention-annual alcohol misuse screening completed Melinda Jean-Baptiste [facility] 10/02/2019 09:16:03 09/24/19 19 Medicare Wellness Visit completed Liliya sinclair [facility] 09/23/2018 11:03:44 09/20/19 18 Medicare Wellness Visit completed Autumn Mike CMA [facility] 09/19/2017 11:40:05 09/18/19 17 Medicare Wellness Visit completed Joelle Barros [facility] 09/17/2016 14:33:19 09/13/19 16 Medicare Wellness Visit completed Valerie Wheatley [facility] 09/13/2015 14:39:45 Appendectomy completed Nguyễn Cage MD [address] [place], [address], [facility] 08/19/2012 12:03:47 Imaging Results Imaging Date Name Status LastModified by Organiz ation Details LastModified Time 06/20/2024 XR, hand completed [address], [address], 06/20/2024 14:39:24 Procedure Notes None recorded. Medical Equipment None Reported. Allergies Allergen ID Allergen Name Allergen Category Reaction Reaction Severity Criticality Documentation Date Start Date Code Code System Note Provider Name and Address Organization Details Recorded Time 879651 cat dander environme nt Not available Not available Not available 01/11/2023 72219 [facility] 08:[facility]:06 368619 Canis lupus familiari s extract environme nt Not available Not available Not available 01/11/2023 99007 4 RxNorm [facility] 08:29:14 442456 house dust allergeni c extract environme nt,medica tion Not available Not available Not available 01/11/2023 47299 9 RxNorm [facility] 08:29:19 Medications Name Sig Start Date Stop Date Status Note LastModified by Organization Details LastModified Time amoxicill in 500 mg capsule TAKE 1 CAPSULE BY MOUTH THREE TIMES DAILY 02/27 completed Not Available Not Available Not Available carvedilo l 25 mg tablet Take 1 tablet every day by oral route. 2022 active along with 12.5 Not Available Not Available Not Available doxycycli ne hyclate 100 mg capsule TAKE 1 CAPSULE BY MOUTH TWICE DAILY 07/02 completed finished course 07/02/24 KRB Not Available Not Available Not Available carvedilo l 12.5 mg tablet Take 1 tablet every day by oral route. 2023 active along with 25 mg Not Available Not Available Not Available trazodone 50 mg tablet Take 1 tablet every day by oral route. 05/28 completed Not Available Not Available Not Available cetirizin e 10 mg tablet Take 1 tablet every day by oral route. 02/01 completed per 10/27 [facility] med dc list- PRN 10/10/22 SM Not Available Not Available Not Available lisinopri l 20 mg-hydroc hlorothia zide 12.5 mg tablet TAKE 1 TABLET BY MOUTH ONCE DAILY 10/23 completed Not Available Not Available Not Available ibuprofen 800 mg tablet TAKE 1 TABLET BY MOUTH THREE TIMES DAILY FOR SWELLING 02/27 completed Not Available Not Available Not Available hydrocodo ne 5 mg-acetam inophen 325 mg tablet TAKE 1 TABLET BY MOUTH EVERY 6 HOURS NEEDED FOR PAIN 02/27 completed Not Available Not Available Not Available metronida zole 250 mg tablet TAKE 1 TABLET BY MOUTH THREE TIMES DAILY 10/10 completed not taking 10/10/22 SM Not Available Not Available Not Available amlodipin e 5 mg tablet TAKE 1 TABLET BY MOUTH EVERY DAY 2023 active Not Available Not Available Not Avai lable allopurin ol 100 mg tablet Take 1 tablet every day by oral route. 01/01 completed 01/02/20 23- Not taking, per pt TR/RMA Not Available Not Available Not Available aspirin 81 mg tablet,de layed release Take 1 tablet every day by oral route. 02/13 completed Does not take 02/13/22 KRB Not Available Not Available Not Available tramadol 50 mg tablet Take 1 tablet every 6 hours by oral route. 02/11 completed Not Available Not Available Not Available triamcino lone acetonide 0.1 % topical cream APPLY A THIN LAYER TO THE AFFECTED AREA(S) BY TOPICAL ROUTE 2 TIMES PER DAY 03/31 completed Not Available Not Available Not Available simvastat in 40 mg tablet TAKE 1 TABLET BY MOUTH ONCE DAILY active does not take 07/09/24 KRB Not Available Not Available Not Available cephalexi n 500 mg capsule TAKE 1 CAPSULE BY MOUTH 4 TIMES DAILY 07/02 completed finished course 07/02/24 K[facility] Not Available Not Available Not Available lidocaine 5 % topical patch 10/01 completed has not been using 03/31/19 KRB Not Available Not Available Not Available allopurin ol 300 mg tablet TAKE 1 TABLET BY MOUTH ONCE DAILY 12/06 completed takes 100 mg 06/14/20 KRB Not Available Not Available Not Available Viagra 100 mg tablet Take 1 tablet every day by oral route. 2014 active Not Available Not Available Not Avai lable oxycodone 5 mg tablet 12/19 completed Not Available Not Available Not Available cholecalc iferol (vitamin D3) 25 mcg (1,000 unit) capsule Take 1 capsule every day by oral route. 2023 active has not been taking 05/28/24 KRB, 07/09/24 KRB Not Available Not Available Not Available Cialis 20 mg tablet Take 1 tablet every day by oral route. 05/28 completed pt states not effectiv e 03-19-17 cs Not Available Not Available Not Available chlorhexi dine gluconate 0.12 % mouthwash GENTLY RINSE 15ML OF SOLUTION IN MOUTH TWICE DAILY. DO NOT SWALLOW 02/27 completed Not Available Not Available Not Available lidocaine 5% patch. qd 02/13 completed per 10/24 [facility] med dc list Not Available Not Available Not Available Metamucil 10/10 completed not taking 10/10/22 SM Not Available Not Available Not Available Baby Aspirin 81 mg one daily 08/26 completed [facility] D/C, per pt, does not take 08/27/23 KRB Not Available Not Available Not Available GaviLyte- G 236 gram-22.7 4 gram-6.74 gram-5.86 gram oral solution 03/21 completed Not Available Not Available Not Available Zyrtec 10 mg capsule Take 1 capsule every day by oral route. 02/11 completed Not Available Not Available Not Available Eliquis 5 mg tablet Take 1 tablet twice a day by oral route. active Not Available Not Available No t Available acetamino phen 325 mg capsule Take by oral route. 01/01 completed 01/02/20- Not taking per pt TR/RMA Not Available Not Available Not Available Vitals Date Recorded Body height Body mass index (BMI) Body weight Heart rate Systolic blood pressure Diastolic blood pressure Provider Name and Address Organization Details Last Updated DateTime 4 166.37 cm 30.2 kg/m2 00051 g 76 /min 126 mm[Hg] 84 mm[Hg] Liliya [place] user, [facility] 4 09:29:59 Date Recorded Body height Body mass index (BMI) Body weight Heart rate Systolic blood pressure Diastolic blood pressure Systolic blood pressure Diastolic blood pressure Provider Name and Address Organization Details Last Updated DateTime 4 166.37 cm 30.1 kg/m2 34997.5 g 74 /min 190 mm[Hg] 100 mm[Hg] 197 mm[Hg] 106 mm[Hg] Liliya De Lunaenha user, [facility] 4 16:22:05 Date Recorded Systolic blood pressure Diastolic blood pressure Provider Name and Address Organization Details Last Updated DateTime 05/28/2024 170 mm[Hg] 100 mm[Hg] Nguyễn Cage MD [address] [place] [address], [address], [facility] 05/28/2024 16:41:54 Date Recorded Heart rate Systolic blood pressure Diastolic blood pressure Provider Name and Address Organization Details Last Updated DateTime 06/23/2024 69 /min 135 mm[Hg] 77 mm[Hg] Amina Kennedy RN [facility] 06/23/2024 10:12:19 Date Recorded Body height Body mass index (BMI) Body weight Heart rate Systolic blood pressure Diastolic blood pressure Provider Name and Address Organization Details Last Updated DateTime 166.37 cm 30 kg/m2 34231.4 g 77 /min 137 mm[Hg] 75 mm[Hg] Viktoria Ibrahimluisa [facility] 11:21:53 Date Recorded Body height Body mass index (BMI) Body weight Heart rate Systolic blood pressure Diastolic blood pressure Provider Name and Address Organization Details Last Updated DateTime 166.37 cm 30 kg/m2 83351.4 g 64 /min 126 mm[Hg] 76 mm[Hg] Liliya akbar, [facility] 16:01:23 Date Recorded Body height Body mass index (BMI) Body weight Heart rate Systolic blood pressure Diastolic blood pressure Provider Name and Address Organization Details Last Updated DateTime 166.37 cm 29.8 kg/m2 12434.8 1 g 68 /min 140 mm[Hg] 90 mm[Hg] Liliya Washington user, [facility] 08:11:18 Date Recorded Systolic blood pressure Diastolic blood pressure Provider Name and Address Organization Details Last Updated DateTime 07/09/2024 136 mm[Hg] 90 mm[Hg] ZOILA MEJIA, [facility], [address], [facility] 07/09/2024 08:15:25 Date Recorded Systolic blood pressure Diastolic blood pressure Provider Name and Address Organization Details Last Updated DateTime 06/05/2024 120 mm[Hg] 75 mm[Hg] Liliya Saravia , [facility] 06/05/2024 15:23:20 Social History Question Answer Notes LastModified by Organizat ion Details LastModified Time Tobacco Smoking Status Never Smoker Meli Niquette, [place] null, DONOVAN [facility] 06/18/2011 15:42:23 What Is Your Level Of Alcohol Consumption? Occasional 7 Days A Week, - Vodka - In The Evening 3 -4 Shots On The Nights He Drinks For The Past 50 Yrs Information not available 01/01/2023 What Is Your Level Of Caffeine Consumption? Moderate Diet Coke Information not available 02/21/2023 How Much Tobacco Do You Chew? None Information not available 09/13/2015 Are You Currently Employed? No Information not available 02/13/2022 What Type Of Diet Are You Following? 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 0 Information not available 08/19/2012 Are There Any Guns Present In Your Home? No Information not available 09/13/2015 Do You Use Insect Repellent Routinely? Yes Information not available 02/13/2022 Live Alone Or With Others? With Others Information not available 08/19/2012 Does The Patient Have Difficulty Speaking Djiboutian? No Information not available 09/13/2015 Does The Patient Have Difficulty Reading Djiboutian? No Information not available 09/13/2015 Patient Has Health Care Proxy Signed And In Chart Yes [facility] Information not available 09/13/2015 MOLST Form Signed And In Chart 02/28/2024 [email or web address] Information not available 03/03/2024 CCM Consent Discussion 10/10/2022 [email or web address] Information not available 10/12/2022 Marital Status Deanne Blanco 2001- She Has 2 Kids, 3 Grkids Information not available 01/01/2023 Mosquito Repellent Used Routinely Yes Information not available 09/13/2015 What Was The Date Of Your Most Recent Tobacco Screening? 07/09/2024 Information not available 07/09/2024 How Many Children Do You Have? 2 Meli - 5 Kids , Pito- 3 Kids Information not available 02/13/2022 What Is Your Relationship Status? Information not available 11/06/2021 Do You Use Your Seat Belt Or Car Seat Routinely? Yes Information not available 02/13/2022 Seat Belts Used Routinely Yes Information not available 09/23/2018 Smoke Alarm In Home Yes Information not available 09/23/2018 Do You Have Smoke And Carbon Monoxide Detectors In Your Home? Yes Information not available 02/13/2022 Are You Passively Exposed To Smoke? No Information not available 02/13/2022 General Stress Level Medium Information not available 08/19/2012 Do You Use Sunscreen Routinely? Yes Information not available 09/13/2015 Do You Or Have You Ever Used Any Other Forms Of Tobacco Or Nicotine? No Information not available 01/01/2023 Sex: Male Functional Status Question Answer Note LastModified by Organizat ion Details LastModified Time What is your exercise level? Occasional Information not available 02/13/2022 Mental Status None recorded. Family History Relationship Description Onset Age of this Age Resolved Age Notes LastModified by Organization Details LastModified Time Mother Problem 66 pulmon carley emboli Not available 09/13/2015 15:03:09 Brother Problem Ha k, - 4 yrs, [facility] Not available 09/13/2015 15:03:09 Father Problem 92 CVA, prosta te [place], did not from prosta te [place] Not available 09/17/2016 15:13:21 Medical History Condition Response Diabetes Type II Y RENAL / GENITOURINARY Y Hyperlipidemia Y Hypertension Y Immunizations Vaccine Type Date Status Note Provider Nam e and Address Organization Details Recorded Time influenza, seasonal, intradermal, preservative free 2 completed Not Available [facility] 06/20/2019 02:18:38 zoster live 3 completed Not Available [facility] 06/20/2019 02:16:34 Tdap 3 completed Not Available [facility] 06/20/2019 02:30:29 pneumococcal polysaccharide PPV23 3 completed Not Available [facility] 06/20/2019 02:14:36 Influenza, split virus, trivalent, PF 3 completed Not Available [facility] 06/20/2019 02:27:40 Influenza, split virus, trivalent, preservative 4 completed Not Available [facility] 06/20/2019 02:19:21 Hep A, unspecified formulation 9 completed Not Available [facility] 02/02/2022 12:06:54 influenza, unspecified formulation 1 completed Not Available [facility] 02/02/2022 12:06:53 Influenza, split virus, quadrivalent, PF 5 completed Not Available [facility] 06/20/2019 02:39:34 Pneumococcal conjugate PCV 13 5 completed Not Available [facility] 06/20/2019 02:36:27 Influenza, high-dose, trivalent, PF 6 completed Not Available [facility] 06/20/2019 02:27:12 Influenza, high-dose, trivalent, PF 7 completed Not Available [facility] 06/20/2019 02:22:04 pneumococcal polysaccharide PPV23 8 completed Not Available [facility] 06/20/2019 02:23:04 Influenza, high-dose, quadrivalent, PF 0 completed Daniela Roth RN [facility], [facility] 03/28/2020 14:52:26 Influenza, split virus, quadrivalent, preservative 9 completed Not Available [facility] 02/02/2022 12:06:54 Influenza, high-dose, quadrivalent, PF 1 completed Liliya Saravia Garrett [facility], [facility] 03/07/2021 16:45:09 Influenza, high-dose, quadrivalent, PF 2 completed Nguyễn Cage MD [address] [place] [address], [phone], [facility] 02/14/2022 20:12:21 Td (adult), 2 Lf tetanus toxoid, preservative free, adsorbed 3 completed Migdalia Moura NP [address] [place] [address], [address], [facility] 10/10/2022 13:36:33 COVID-19, mRNA, LNP-S, PF, 30 mcg/0.3 mL dose 1 completed Not Available [facility] 02/02/2022 12:06:54 COVID-19, mRNA, LNP-S, PF, 30 mcg/0.3 mL dose 1 completed DIMITRIOS Marinelli, [facility] 02/28/2024 09:27:07 Influenza, high-dose, quadrivalent, PF 3 completed Nguyễn Cage MD [address] [place], [address], [facility] 02/23/2023 17:05:14 zoster recombinant 9 completed Not Available [facility] 02/02/2022 12:06:54 zoster recombinant 9 completed Not Available [facility] 02/02/2022 12:06:54 Pneumococcal conjugate PCV20, polysaccharide PNM781 conjugate, adjuvant, PF 4 completed Liliya Saravia RMA saadia, [facility] 02/28/2024 09:27:07 COVID-19, mRNA, LNP-S, PF, 30 mcg/0.3 mL dose, júnior-sucrose 2 completed Liliya Saravia RMA saadia, [facility] 02/28/2024 09:27:07 RSV, recombinant, protein subunit RSVpreF, adjuvant reconstituted, 0.5 mL, PF 4 completed Liliya Saravia RMGarrett zee, [facility] 02/28/2024 09:27:07 COVID-19, mRNA, LNP-S, PF, 50 mcg/0.5 mL 4 completed Liliya Saravia RMA saadia, [facility] 02/28/2024 09:27:07 pneumococcal polysaccharide PPV23 9 completed Liliya Saravia DIMITRIOS saadia, [facility] 02/28/2024 09:27:07 Influenza, high-dose, trivalent, PF 4 completed Liliya Saravia DIMITRIOS zee, [facility] 02/28/2024 09:27:07 Influenza, split virus, trivalent, PF 8 completed Liliya Saravia DIMITRIOS saadia, [facility] 02/28/2024 09:27:07 Past Encounters Encounter ID Performer Location Encounter Start Date Encounter Closed Date Diagnosis/Indication Diagnosis SNOMED-CT Code Diagnosis ICD10 Code Diagnosis Note [id number] [facility], OFFICE [address] [place] [phone] 06/18/2011 15:16:20 06/18/2011 16:23:18 [id number] Isabelle Ballard [facility], OFFICE [address] [place] [phone] 6 02/11/2012 11:58:47 02/11/2012 12:41:[id number] [facility], OFFICE [address] [place] [phone] 6 08/19/2012 10:40:08 08/19/2012 12:24:40 [id number] Nguyễn Cage MD , [facility], OFFICE [address] [place] [phone] 6 02/24/2013 09:25:12 02/24/2013 11:00:27 Benign essential hypertension 6591739 continue to work on diet ,exercisea nd lowering salt intake as discussed Mixed hyperlipidemia 090306620 continue to work on diet and exercise as discussed Administra tion of pneumococcal vaccine 35972811 Influenza vaccine needed 6153815460 106 Chronic ki dney disease stage 3 183055415 will follow closely , his risk factors are DM and HTN Diabetes mellitus 16542567 AT GOAL diet controlled at this time [id number] [facility], OFFICE [address] [place] [phone] 09/08/2013 13:44:05 09/08/2013 15:00:06 Benign essential hypertension 9061818 NOT AT GOAL continue to work on diet ,exercisea nd lowering salt intake as discussed Mixed hyperlipidemia 295341827 AT GOAL continue to work on diet and exercise as discussed Diabetes mellitus 55093512 not on meds, his A1c HAS been consistent ly low and will remove Dx at this time Chronic ki dney disease stage 3 251827675 will follow closely , HTN [id number] , [facility], OFFICE [address] [place] [phone] 11/27/2013 09:55:16 11/27/2013 10:48:37 Achilles tendinitis 26498008 [id number] , [facility], OFFICE [address] [place] [address] 03/11/2014 10:27:40 03/11/2014 11:42:20 Benign essential hypertension 8010762 AT GOAL continue to work on diet ,exercisea nd lowering salt intake as discussed Mixed hyperlipidemia 770208658 AT GOAL , doing well on meds continue to work on diet and exercise as discussed Influenza vaccine needed 7879314792 106 Chronic ki dney disease stage 3 151279772 will follow closely , HTN Gout 70851334 will inc allopurino l to 300mg a day and rechk labs in 6m when he is back in town Hyperglycemia 96671218 [id number] Daniela Sherlyn , [facility], OFFICE [address] [place] [address] 09/09/2014 11:24:55 09/09/2014 12:49:00 Adult health examination 894371456 see Risk Assessment and Lifestyle Change Counseling section above Counseling [id number] Benign ess ential hypertension 0313085 continue to work on diet, exercise, and lowering salt intake as discussed Mixed hyperlipidemia 303958110 continue to work on diet and exercise as discussed Impotence 038790087 Chronic ki dney disease stage 3 044837569 will follow closely , HTN Screening for malignant neoplasm of colon 492841120 [id number] , [facility], OFFICE [address] [place] [phone] 03/11/2015 09:22:21 03/11/2015 10:57:15 Mixed hyperlipidemia 771709303 E78.2 Cholestero l is at goal Continue to work on diet and exercise as discussed Influenza vaccine needed 6579098908 106 Z28.3 Impotence 566740160 N52. 9 Chronic ki dney disease stage 3 554752767 N18.3 will follow closely , HTN Anemia 164085342 D64.9 Active or passive immunization 327553905 Z23 [id number] Lavern Cannon NP , [facility], OFFICE [address] [place] [phone] 6 09/13/2015 14:32:36 09/13/2015 15:32:27 Adult health examination 814839932 Z00.00 see Risk Assessment and Lifestyle Change Counseling section above Counseling 554967468 Z71 .9 Screening for malignant neoplasm of colon 187902637 Z12.11 [id number] Nguyễn Cage MD , [facility], OFFICE [address] [place] [phone] 03/13/2016 10:54:32 03/13/2016 11:33:36 Benign essential hypertension 4169143 I10 Blood pressure at goal Mixed hyperlipidemia 267 816183 E78.2 continue to work on diet and exercise as discussed Active or passive immunization 243938633 Z23 Anemia 473290728 D64.9 Gout 87440977 M10.9 Impotence 705249319 N52. 9 [id number] Nguyễn Cage MD , [facility], OFFICE [address] [place] [address] [phone] 6 09/10/2016 14:51:46 09/10/2016 15:54:29 Syncope 338445131 R55 [id number] Nguyễn Cage MD , [facility], OFFICE [address] [place] [address] [phone] 6 09/17/2016 14:31:29 09/17/2016 15:36:27 Adult health examination 652721866 Z00.00 see Risk Assessment and Lifestyle Change Counseling section above Hyperlipidemia 66982509 E78.5 at goal Essential hypertension 82189364 I10 not at goal , will inc EJ and rechk when he returns in 03/19 Gout 47411861 M10.9 no issues at this time [id number] Nguyễn Cage MD , [facility], OFFICE [address] [place] [phone] 6 03/19/2017 11:06:58 03/19/2017 12:20:01 Benign essential hypertension 2569361 I10 Blood pressure NOT at goal. Mixed hyperlipidemia 267 523863 E78.2 continue to work on diet and exercise as discussed Active or passive immunization 583331196 Z23 Screening for malignant neoplasm of colon 795419488 Z12.11 Referral for a DIRECT booked colonoscop y. This patient is a healthy ASA Class 1 or 2 patient (only mild systemic disease), or a STABLE, well controlled insulin dependent diabetic. They do not have serious cardiac disease ie TX/angiopl asty within 1 year, symptomati c CHF; renal failure with CKD 4 or 5; take Coumadin, Plavix, Aggrenox, etc. [id number] Lavern Cannon NP FP, [facility], OFFICE [address] [place] [address] [phone] 6 05/28/2017 09:51:26 05/28/2017 10:26:30 Benign essential hypertension 4842616 I10 Blood pressure at goal [id number] MD MARLNIE Sampson, [facility], OFFICE [address] [place] [id number] 6 09/19/2017 11:34:35 09/19/2017 12:32:12 Adult health examination 397478048 Z00.00 see Risk Assessment and Lifestyle Change Counseling section above Depression screening 171 531504 Z13.89 depression screening tool administer ed, entered into emr, scored and discussed, time greater than 7.5 minutes Benign ess ential hypertension 6125790 I10 Blood pressure at goal Mixed hyperlipidemia 267 977309 E78.2 continue to work on diet and exercise as discussed Painless r ectal bleeding 025396736 K62.5 Steatosis of liver 48567 1007 K76.0 Hyperlipidemia 59883563 E78.5 at goal Essential hypertension 00790826 I10 At goal Gout 89865828 M10.9 uric acid 2.8. 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 We will continue to follow with eye exams [id number] Joshua Montgomery NP FP, [facility], OFFICE [address] [place] [phone] 6 12/19/2017 14:29:13 12/19/2017 15:14:01 Chronic back pain 785152253 M54.10 xrays of lower back to be done, P.T. strongly recommende d. tylenol only seem to be helping pain so he should cont to use prn. lumbar support when sitting at home or car. Unsteady gait 920431958 R26.81 forward bend and wide stance gait. recommend use of cane and elevating eyes when walking. Pt to eval and assist. Uncontroll ed type 2 diabetes mellitus 501721844 E11.65 needs eye exam previous 2 years ago, also no A1c x 2 years. his renal functions are abnormal as well [facility] [id number] Nguyễn Cage MD , [facility], OFFICE [address] [place] [address] 03/21/2018 10:18:25 03/21/2018 11:06:21 Benign essential hypertension 9855268 I10 Blood pressure at goalwill stop amlodepine Mixed hyperlipidemia 267 955902 E78.2 continue to work on diet and exercise as discussed Active or passive immunization 769171140 Z23 Eruption 823610947 R21 Diabetes mellitus 198797 09 E11.9 not on meds, his A1c HAS been consistent ly low [id number] Nguyễn Cage MD , [facility], OFFICE [address] [place] [address] 09/23/2018 11:01:48 09/23/2018 14:49:51 Adult health examination 543541571 Z00.00 see Risk Assessment and Lifestyle Change Counseling section above Depression screening 171 359065 Z13.89 depression screening tool administer ed, entered into emr, scored and discussed, time greater than 7.5 minutes Mixed hyperlipidemia 267 931988 E78.2 continue to work on diet and exercise as discussed Impotence 961293275 N52. 9 Low back pain 257859028 M54.5 Diabetes mellitus 200788 09 E11.9 not on meds, his A1c HAS been consistent ly low Gout 31887863 M10.9 uric acid 2.8. Hyperlipidemia 93790870 E78.5 at goal Steatosis of liver 71178 1007 K76.0 Retinopath y due to diabetes mellitus 1533499 E11.3293 No longer qualifies for the diagnosis of diabetes. We will continue to follow with eye exams Chronic ki dney disease stage 3 443974063 N18.3 will follow closely , HTN Diabetic p eripheral neuropathy 047442033 E11.40 Chronic back pain 356169 002 M54.10 will see [place] [id number] MD MARLINE Sampson, [facility], OFFICE [address] [place] [address] 03/31/2019 09:38:37 03/31/2019 10:22:16 Mixed hyperlipidemia 826839051 E78.2 Cholestero l is at goal Continue to work on diet and exercise as discussed Gout 80433580 M10.9 Uric acid low, will dec allopurino l to 100mg and rechk UA in 2 m Anemia 205377903 D64.9 Gradual dropping of H/H over the years -06/14, - 10/19, - 03/21 [id number] Nguyễn Cage MD , [facility], OFFICE [address] [place] [address] 10/02/2019 14:23:42 10/05/2019 15:41:48 Adult health examination 286204582 Z00.00 see Risk Assessment and Lifestyle Change Counseling section above Depression screening 171 941397 Z13.89 depression screening tool administer ed, entered into emr, scored and discussed, time greater than 7.5 minutes Screening for alcohol abuse 296421138 Z13.39 min alcohol Chronic ki dney disease stage 3 807166959 N18.3 will follow closely , HTN Anemia 566599682 D64.9 Gradual dropping of H/H over the years -06/14, - 10/19, - 03/21 Diabetes mellitus 766002 09 E11.9 not on meds, his A1c HAS been consistent ly low Gout 72859219 M10.9 cont on allopurino l Hyperlipidemia 36644065 E78.5 at goal 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, OFFICE [address] [place] [address] 01/12/2020 09:08:44 01/13/2020 14:14:10 Backache 287742802 M54.9 Chronic ki dney disease stage 3 929891756 N18.3 will follow closely , HTN Anemia 798749731 D64.9 Gradual dropping of H/H over the years -06/14, - 10/19, 11.2/33.5- 03/21 [id number] Taylor Benitez, PT Physical Therapy, [address] [address] 01/27/2020 13:56:01 01/27/2020 15:17:29 Backache 221116340 M54.9 [id number] Taylor Benitez, PT Physical Therapy, [address] [address] 02/03/2020 13:36:41 02/04/2020 07:55:43 Backache 994276957 M54.9 [id number] Taylor Benitez, PT Physical Therapy, [address] [address] 02/10/2020 11:32:24 02/10/2020 12:07:20 Backache 957203573 M54.9 [id number] Nguyễn Cage MD , [facility], OFFICE [address] [place] [address] 02/12/2020 12:11:55 02/19/2020 10:46:56 Low back pain 379530168 M54.5 [id number] Daniela Roth RN FP, [facility], OFFICE [address] [place] [address] 6 03/28/2020 08:22:49 03/28/2020 16:18:42 Active or passive immunization 141067201 Z23 [id number] Nguyễn Cage MD , [facility], OFFICE [address] [place] [address] 6 06/14/2020 11:33:13 06/14/2020 14:04:07 Mixed hyperlipidemia 621534333 E78.2 Cholestero l is at goal Continue to work on diet and exercise as discussed Diabetes mellitus 568275 09 E11.9 not on meds, his A1c HAS been consistent ly low Chronic ki dney disease stage 3 729894686 N18.30 will follow closely , HTN [id number] Nguyễn Cage MD , [facility], OFFICE [address] [place] [address] 6 11/10/2020 13:55:22 11/15/2020 09:07:27 Adult health examination 417656755 Z00.00 see Risk Assessment and Lifestyle Change Counseling section above Depression screening 171 806348 Z13.31 depression screening tool administer ed, entered into emr, scored and discussed, time greater than 7.5 minutes Screening for alcohol abuse 819961555 Z13.39 min alcohol Mixed hyperlipidemia 267 130866 E78.2 Cholestero l is at goal Continue to work on diet and exercise as discussed Diabetes mellitus 144079 09 E11.9 well controlled Hyperlipidemia 12071518 E78.5 at goal Eruption 794697385 R21 Diabetic p eripheral neuropathy 990236492 E11.40 dec vib sense 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 will try and dec BP meds [id number] Nguyễn Cage MD , [facility], OFFICE [address] [place] [address] 6 12/06/2020 14:56:11 12/06/2020 16:28:28 Chronic kidney disease stage 3 646435030 N18.30 will follow closely , HTN Essential hypertension 73052601 I10 BP is high again after dec meds, he will meet with neph tomorrow Diabetes mellitus 135055 09 E11.9 well controlled [id number] Nguyễn Cage MD , 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, OFFICE [address] [place] [address] 6 05/05/2021 14:28:02 05/05/2021 15:24:42 Diarrhea 87708569 R19.7 -new concern, ongoing x 12 hours-stoo l consistenc y and color normalizin g-advised bland diet and fluid repletion Chronic ki dney disease stage 3 829354862 N18.30 -assess kidney function for evidence of LOWELL [id number] Erin Belcher , [facility], OFFICE [address] [place] [address] 05/06/2021 09:36:33 05/06/2021 10:00:43 Diarrhea 60132491 R19.7 Likely gastroente ritis. Plan as below. [id number] Nguyễn Cage MD , [facility], OFFICE [address] [place] [address] 10/12/2021 14:31:44 10/31/2021 13:41:22 Disorder of kidney due to diabetes mellitus 851053077 E13.29 CKD 3 Essential hypertension 45762867 I10 controlled Mixed hyperlipidemia 267 225650 E78.2 Cholestero l is not at goalContin ue to work on diet and exercise as discussed Atrial fibrillation 4943 6004 I48.91 [id number] Nguyễn Cage MD , [facility], OFFICE [address] [place] [address] 11/06/2021 10:40:26 11/06/2021 11:54:20 Essential hypertension 12931102 I10 controlled Alcohol in take above recommended sensible limits 701939300 F10.10 Chronic ki dney disease stage 3 605097430 N18.30 will follow closely , HTN Hyperlipidemia 42100665 E78.5 not at goal, will review at next apt [id number] Nguyễn Cage MD , [facility], OFFICE [address] [place] [address] 02/13/2022 15:40:07 02/13/2022 17:08:18 Adult health examination 530429895 Z00.00 see Risk Assessment and Lifestyle Change Counseling section above Depression screening 171 116215 Z13.31 depression screening tool administer ed, entered into emr, scored and discussed, time greater than 7.5 minutes Screening for alcohol abuse 737965873 Z13.39 min alcohol Essential hypertension 71930035 I10 too low , will stop amlodipine Mixed hyperlipidemia 267 128361 E78.2 Cholestero l is at goalContin ue to work on diet and exercise as discussed Active or passive immunization 920737233 Z23 Flu Hypercoagu lability state 51759681 D68.59 Atrial fibrillati on Chronic ki dney disease stage 3 005290104 N18.30 will follow closely , HTN Diabetes mellitus 629738 09 E11.9 well controlled Diabetic p eripheral neuropathy 752494645 E11.40 dec vib sense [id number] Migdalia Moura NP , [facility], OFFICE [address] [place] [address] 10/10/2022 08:11:13 10/10/2022 09:08:08 Essential hypertension 46721633 I10 BP at goal of <130/80 with carvedilol . tolerating well, will continue. labs today to update kidney function. Work on regular physical activity! Mixed hyperlipidemia 267 549331 E78.2 Cholestero l is at goal of <100 2Cont inue to work on diet and exercise as discussedC ontinue statin, tolerating well Atrial fibrillation 4943 6004 I48.91 On Carvedilol with Cardiology at the [place]. No anticoagul ation at this time. He will follow up as planned Chronic ki dney disease stage 3 548427853 N18.30 Avoid NSAIDs. Maintain fluid intake. recheck labs today Diabetic p eripheral neuropathy 228000791 E11.40 A1c very well controlled for a long time with lifestyle changes and weight loss. Not currently on Medication . A1c <8. Foot exam today w/o signs of infection. Discussed foot care. always wear shoes when up and about. Report any foot concerns. 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, OFFICE [address] [place] [address] 01/11/2023 08:23:13 01/11/2023 08:55:25 Essential hypertension 60601558 I10 -BP at goal today-has been taking his carvedilol 37.5 mg once daily, advised to continue Stricture of esophagus 39423248 K22.2 -noted on CT in ER, records pending-GI referral placed for consult [id number] Nguyễn Cage MD , [facility], OFFICE [address] [place] [address] 6 02/01/2023 15:16:59 02/01/2023 16:00:50 Atrial fibrillation 18278607 I48.91 Diabetes mellitus 040240 09 E11.9 well controlled Essential hypertension 73693400 I10 well controlled Hyperlipidemia 83558132 E78.5 LDL. 91 [id number] Nguyễn Cage MD , [facility], OFFICE [address] [place] [address] 6 02/21/2023 08:22:30 02/21/2023 10:04:06 Adult health examination 667476722 Z00.00 see Risk Assessment and Lifestyle Change Counseling section above Depression screening 171 550232 Z13.31 depression screening tool administer ed Screening for alcohol abuse 244669257 Z13.39 Alcohol use screening tool administer ed Screening for malignant neoplasm of prostate 418221933 Z12.5 PSA testing for ages 55-69 risks and benefits discussed {{patient declines testing te st ordered}}. Alcohol in take above recommended sensible limits 637129388 F10.10 Advance di rective discussed with patient 738027240 Z71.89 Advanced Care Planning1. Advanced care planning was discussed for {{less than more than}} 15 minutes. 2. Participan ts included {{patient patient and family pat ient's family pat ient's surrogate} } and they were given an opportunit y to decline discussion . 3. Health Care Proxy {{was was not}} discussed. 4. Patient {{has has not}} completed Health Care Proxy form. {{It was It was not}} given to take home. 5. Names(s) relationsh ip(s) of Health Care Proxy: 6. MOLST {{was was not}} discussed. 7. Patient {{has has not}} completed MOLST form. 8. Details of discussion : 9. Follow up needed: Active or passive immunization 047651950 Z23 Flu: Type 2 reg betes mellitus without complication 891787968 E11.9 Atrial fibrillation 4943 6004 I48.91 Essential hypertension 33104052 I10 -BP below goal today, 78/44.-Car vedilol decreased to 25mg twice daily.-Enc ouraged to get BP cuff and monitor readings at home and call with any consistent ly low readings.- F/u in 1 wk to re-evaluat e BP. [id number] Miya Duggan RN BSN , [facility], OFFICE [address] [place] [address] 6 07/22/2023 08:39:48 07/23/2023 10:10:00 [id number] Nguyễn Cage MD , [facility], OFFICE [address] [place] [address] 6 08/27/2023 09:02:14 08/29/2023 12:15:48 Alcohol intake above recommended sensible limits 831813896 F10.10 has been cutting back , some nights 0-2 drinks , some 4+ Atrial fibrillation 4943 6004 I48.91 not on anticoag , unclear Dx, will review with pt Chronic ki dney disease stage 3 501298229 N18.30 will follow closely , HTN, time to refer to neph , will review with pt Diabetes mellitus 984060 09 E11.9 well controlled Diabetic p eripheral neuropathy 651824594 E11.40 dec vib sense Essential hypertension 40697172 I10 -well controlled Gout 71778764 M10.9 does not want allopurino l Hyperlipidemia 62633645 E78.5 LDL. 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, OFFICE [address] [place] [address] 6 02/28/2024 09:06:15 02/28/2024 10:07:48 Adult health examination 091720964 Z00.00 see Risk Assessment and Lifestyle Change Counseling section above Depression screening 171 782324 Z13.31 depression screening tool administer ed Screening for alcohol abuse 583281690 Z13.39 Alcohol use screening tool administer ed Advance di rective discussed with patient 905373441 Z71.89 Advanced Care Planning 1. Advanced care planning was discussed for {{less than more than*}} 15 minutes. 2. Participan ts included {{patient patient and family* pa tient's family pat ient's surrogate} } and they were given an opportunit y to decline discussion . 3. Health Care Proxy {{was* was not}} discussed. 4. Patient {{has* has not}} completed Health Care Proxy form. {{It was It was not}} given to take home. 5. Names(s) relationsh ip(s) of Health Care Proxy: 6. MOLST {{was* was not}} discussed. 7. Patient {{has* has not}} completed MOLST form. 8. Details of discussion :full code 9. 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 Things that decrease risk for cardiovasc ular events include eating a diet high in fiber (fruits and vegetables ) and low in simple carbohydra gloria (bread, rice, pasta, alcohol, potatoes), decreasing processed foods, limiting juice and alcohol, limiting saturated fats (butter, ice cream, and cheeses), and adding regular daily activity. Having blood pressure that is <130/80. Having well controlled cholestero l (LDL and triglyceri rosalio) by eating a healthy diet and taking medication s when necessary. Managing daily stress with meditation or yoga. Depending on your other cardiovasc ular risks your practition er may recommend taking daily aspirin. [id number] Nguyễn Cage MD , [facility], OFFICE [address] [place] [address] 05/28/2024 15:58:10 05/28/2024 16:53:43 Essential hypertension 68701927 I10 not well controlled , will add amlodipine , start 5mg, can inc to 10 mg Hypertensive disorder 38 118323 I10 Alcohol in take above recommended sensible limits 954912793 F10.10 still drinking to excess Atrial fibrillation 4943 6004 I48.91 On ELiquis Diabetes mellitus 540771 09 E11.9 well controlled , A1C. 5.5 Hyperlipidemia 13579364 E78.5 LDL. 97 , not on chol meds [id number] Juliana Latif, DNP, [employer]ARY [employer]W [employer]PERATOR[employer] , [facility], OFFICE [address] [place] [address] 06/26/2024 11:09:29 06/26/2024 12:16:38 Organism isolated in blood by culture 8315860809 863910 R78.81 + salmonella - ER was unable to reachSalmo ladi bacteremia Positive blood cultures for Salmonella . Initial treatment with IV cefazolin, followed by oral Keflex and doxycyclin e. Further management plan requires consultati on.- Consult with Dr. Cage regarding management .- No symptoms-I f new or worsening return for follow up Abrasion o f skin of left hand 9816438400 0866319 S60.512A Left hand injury with skin tear Skin tear on dorsum of left hand with sensitivit y and erythema. Managed with dry dressings, showing some improvemen t. - Continue dry dressing changes. - Monitor for infection or worsening. - Consult with Dr. Cage for further evaluation who saw patient and evaluated, assisted with cristopher lama the plan of care Wound carecontin ue antibiotic sImproving D/ Risa to see patientF/U in 1 week Abrasion o f skin of right forearm 5990725079 7999741 S50.811A Right forearm abrasion Abrasion healing well without complicati ons. - Monitor for infection. [id number] Nguyễn Cage MD , [facility], OFFICE [address] [place] [address] 07/02/2024 15:42:52 07/02/2024 16:24:28 Open wound of hand 788635744 S61.401D Renal diso rder due to type 2 diabetes mellitus 709656208 E11.29 GFR 32 Atrial fibrillation 4943 6004 I48.91 On ELiquis Chronic ki dney disease stage 3 352205106 N18.30 Alcohol in take above recommended sensible limits 989017162 F10.10 reports 07/02/24 he wants to trial stopping drinking Diabetes mellitus 520105 09 E11.9 well controlled , A1C. 5.5 [id number] Juliana Latif, RENNY, ROTARY SAW OPERATOR-BC , [facility], OFFICE [address] [place] [address] 07/09/2024 07:35:38 07/10/2024 10:23:13 Wound of skin 026233532 T14.8XXD -Clinical exam consistent with wound that is healing previously complicate d by a salmonella infection- The wound has evidence of granulatio n tissue, which is a sign of healing, but still shows some redness and and minor swelling-M onitor for signs of infection such as fever, drainage, or increased redness and swelling.- Keep the wound dry and clean, and use an occlusive dressing if the skin breaks.-Av oid soaking the wound in water.-Ashlie sing to follow up with you in 1-2 weeks, and you should make a same-day appointmen t if you notice any concerning symptoms, as described above, sooner Health Concerns Section Related Observation LastModified by Organization Detai ls LastModified Time None Recorded Concern Status LastModified by Organization Details LastModified Time None Recorded Advance Directives Directive None Recorded Payers Encounter Date Sequence Insurance Name Policy Number Policy Andrew Covered Member ID Andrew Member ID Guarantor Name 02/28/2024 1 [place] [employer] Basim Langston [id number] Basim Langston 02/28/2024 2 [employer] OPTIONS (MEDICARE SUPPLEMENT) Basim Langston [id number] Basim Langston 05/28/2024 1 [place] [employer] Basim Langston [id number] Basim Langston 05/28/2024 2 [employer] OPTIONS (MEDICARE SUPPLEMENT) Basim Langston [id number] Basim Langston 06/26/2024 1 [place] [employer] Basim Langston [id number] Basim Langston 06/26/2024 2 [employer] OPTIONS (MEDICARE SUPPLEMENT) Basim Langston [id number] Basim Langston 07/02/2024 1 [place] Basim Langston [id number] Basim Langston 07/02/2024 2 [facility] OPTIONS (MEDICARE SUPPLEMENT) Basim Langston [id number] Basim Langston 07/09/2024 1 [place] [facility] Basim Langston [id number] Basim Langston 07/09/2024 2 [facility] [employer] OPTIONS (MEDICARE SUPPLEMENT) Basim Langston [id number] Basim Langston Notes Date Note Type Note Provider Name and Address Organization Details Recorded Time 4 text/html Risk Assessment and Lifestyle Change Counseling (Medicare)Reported bypatient.Safety Risk Assessment:Has grab bars in bathroom; Has rails on steps;History of falls 1-3 in past 12 months; No evidence of abuse/neglect Functional Status:Patient has trouble hearing the television or radio when others do not.;Patient has to strain or struggle to hear/understand conversations.; Patient does not need help with preparing meals, transportation, shopping, taking medicine, managing finances, or other activities of daily living.; Patient does not have visual loss that interferes with daily activities; Does not live alone; Patient was not unsteady and did not take longer than 30 seconds during the timed get up and go test.;Patient reports 2 falls in the past 6 months. Diet:Counseled about decreasing carbohydrates; Discussed the value of a Mediterranean diet , and eating more fruits and vegetables Exercise counseling:Discussed the importance of daily physical activityVMG DiabetesReported bypatient.Control:usually well controlled; treated with diet only; Hemoglobin A1C has been less than 7; Hemoglobin A1C goal is less than 7 Ability to Manage Self CarePatient feels confident in ability to self manage conditionVMG HyperlipidemiaReported bypatient.Control:well controlled; LDL has been <100, goal is <100; treated with medications Compliance:compliant with medications Context:Diabetes; Nonsmoker Ability to Manage Self CarePatient feels confident in ability to self manage conditionVMG HypertensionReported bypatient.Context:No ischemic heart disease; No kidney disease; No history of CVA; No congestive heart failure; No history of transient ischemic attacks; No peripheral vascular disease;Diabetes Control:BP Goal less than (130/80); Treated with diet and exercise; Patient understands medications are to lower blood pressure Barriers to CareNo identified barriers to care 02/28/24-[facility] with AFIBHe apparently has a Rx for an anticoagulantHe feels he needs his alcohol to fall asleepHe cont to drink to excess , some desire to changeBP borderline [id number]. 5.4UA. 10Microalb 1093GFR 41LDL 150 02/21/23-PHApt felt very weak and as if his legs were going to give out as being called from the waiting room.had to sit down, staff assisted pt to sitting positionbp initially 62/44denies dizziness, sob, cpdenies having this feeling in the paststates he has not had breakfast, but claims usually does not eat breakfast routinelyhe has taken his meds this morning HTNhas not been taking his bp at homeBP in office today, 62/44, 70/44, 78/48GFR 45.2 drinks full glass vodka nightlystates helps him fall asleep 02/13/22pha His BP has been running low and will stop amlodipineHis GFR is stable in the 40sA1C is good 5.5LDL 91Ongoing weight loss, down 10 lbs in past year Nguyễn Cage MD [address] [place] [address], [phone], [facility] 03/01/2024 08:50:14 4 text/html Risk Assessment and Lifestyle Change Counseling (Medicare)Reported bypatient.Safety Risk Assessment:Has grab bars in bathroom; Has rails on steps;History of falls 1-3 in past 12 months; No evidence of abuse/neglect Functional Status:Patient has trouble hearing the television or radio when others do not.;Patient has to strain or struggle to hear/understand conversations.; Patient does not need help with preparing meals, transportation, shopping, taking medicine, managing finances, or other activities of daily living.; Patient does not have visual loss that interferes with daily activities; Does not live alone; Patient was not unsteady and did not take longer than 30 seconds during the timed get up and go test.;Patient reports 2 falls in the past 6 months. Diet:Counseled about decreasing carbohydrates; Discussed the value of a Mediterranean diet , and eating more fruits and vegetables Exercise counseling:Discussed the importance of daily physical activityVMG DiabetesReported bypatient.Control:usually well controlled; treated with diet only; Hemoglobin A1C has been less than 7; Hemoglobin A1C goal is less than 7 Ability to Manage Self CarePatient feels confident in ability to self manage conditionVMG HyperlipidemiaReported bypatient.Control:well controlled; LDL has been <100, goal is <100; treated with medications Compliance:compliant with medications Context:Diabetes; Nonsmoker Ability to Manage Self CarePatient feels confident in ability to self manage conditionVMG HypertensionReported bypatient.Context:No ischemic heart disease; No kidney disease; No history of CVA; No congestive heart failure; No history of transient ischemic attacks; No peripheral vascular disease;Diabetes Control:BP Goal less than (130/80); Treated with diet and exercise; Patient understands medications are to lower blood pressure Barriers to CareNo identified barriers to care 05/28/24-No chg in alcohol intakeBP has been elevated recentlyCont on carvedilol and eliquis , simvastatin 02/28/24-PHA He was at the [place] and was Dx with AFIBHe apparently has a Rx for an anticoagulantHe feels he needs his alcohol to fall asleepHe cont to drink to excess , some desire to changeBP borderline ylpkmadsB2M. 5.4UA. 10Microalb 1093GFR 41LDL 150 02/21/23-PHApt felt very weak and as if his legs were going to give out as being called from the waiting room.had to sit down, staff assisted pt to sitting positionbp initially 62/44denies dizziness, sob, cpdenies having this feeling in the paststates he has not had breakfast, but claims usually does not eat breakfast routinelyhe has taken his meds this morning HTNhas not been taking his bp at homeBP in office today, 62/44, 70/44, 78/48GFR 45.2 drinks full glass vodka nightlystates helps him fall asleep 02/13/22pha His BP has been running low and will stop amlodipineHis GFR is stable in the 40sA1C is good 5.5LDL 91Ongoing weight loss, down 10 lbs in past year Nguyễn Cage MD [address] [place] [address], [phone], [facility] 05/30/2024 17:19:16 5 text/html The patient presents for follow-up after a fall on June 11, resulting in a skin tear and abrasion to the dorsum of his left hand and right forearm. The patient was treated in the emergency room for approximately five hours, during which he received IV cefazolin. He was discharged on Keflex and doxycycline. The patient has been changing the dressing on his left hand at home, and reports that the wound is improving, though it remains sensitive.In addition to the hand injury, the patient's blood cultures from the emergency room visit tested positive for Salmonella. The patient reports not receiving any calls from the emergency room regarding this result. He has not seen a hand specialist for his injury. Denies diarrhea but did have diarrhea while traveling in [place]. Improved now.Denies fevers, chills. Juliana Latif DNP, [employer] [address] [place] [address], [phone], [facility] 06/26/2024 12:32:28 5 text/html 07/02/24-Here for a follow up on his hand wound, no more drainageHe is off ABs at this timeHe cont to drink vodka, although he now says he would like to stop and wants to try a week with no drinking . He told his in the office it was OK to pour out the rest of his vodka . Nguyễn Cage MD [address] [place] [address], [phone], [facility] 07/05/2024 20:45:50 5 text/html 07/09/24- Patient visits today because of a wound sustained from a fall about four weeks ago while in [place]. Initially received care in [place] and then at an urgent care facility in the , where he was treated with IV antibiotics (doxycycline and another unknown antibiotic) for a positive salmonella blood culture. The wound has shown some improvement but still has intermittent redness and swelling, especially in the mornings. Patient also brought in a picture of what it initially looked like when receiving antibiotic treatment. No fever, new rashes, or drainage from the wound, and feel it is healing overall despite some of the above changes. Denies changes to bowel/bladder. Patient informed and consents to use of AI assisted recording to improve documentation of visit. 07/02/24-Here for a follow up on his hand wound, no more drainageHe is off ABs at this timeHe cont to drink vodka, although he now says he would like to stop and wants to try a week with no drinking . He told his in the office it was OK to pour out the rest of his vodka . Juliana Latif DNP, [employer]ARY [employer] OPERATOR-[address], [phone], [facility] 07/10/2024 09:28:06
--- OUTSIDE RECORDS SUMMARY | 2024-07-11 11:09 | XMS_ITS | Encounter Summary ---
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 Name Role Phone ARLENE LOPEZ Primary Care Provider Unavaila ble Insurance [...] BREANNA PLAN MY Jun 03, 2022 PLANMY [id number] [id number] Bella KIM PATIENT AARP MED SUPP MEDICARE SUPPLEMEN BREANNA Jun 03, 2016 PLANMY [id number] [phone] Bella KIM PATIENT AARP MED SUPP MEDICARE SUPPLEMEN BREANNA Jun 03, 2016 PLANMY [id number] Bella KIM PATIENT AARP MED SUPP MEDICARE SUPPLEMEN BREANNA PLAN MY Jun 03, 2016 PLANMY [id number] Bella KIM PATIENT CIG[employer] DENTAL DENTAL INSURANCE DENTA L PPO Jun 03, 2021 [id number] [phone] Bella KIM PATIENT MEDICARE (WNR) MEDICARE (M) PART A Apr 03, 2014 PART A [id number] Bella KIM PATIENT MEDICARE (WNR) MEDICARE (M) PART B Apr 03, 2014 PART B [id number] [phone] Bella KIM PATIENT MEDICARE (WNR) MEDICARE (M) PART A Apr 03, 2014 PART A [id number] Bella KIM PATIENT MEDICARE (WNR) MEDICARE (M) PART B Apr 03, 2014 PART B [id number] Bella KIM PATIENT MEDICARE (WNR) MEDICARE (M) PART A Apr 03, 2014 PART A [id number] Bella KIM PATIENT MEDICARE (WNR) MEDICARE (M) PART B Apr 03, 2014 PART B [id number] Bella KIM PATIENT MEDICARE PART D (WNR) MEDICARE (M) PART D Jun 03, 2020 PART D [id number] Bella KIM PATIENT Selected Encounter This section includes the information on record at [place] for the Encounter. Date/Time Encounter Type Encounter Description Reason Provider Source Feb 14, 2024 03:30 PM OFFICE O/P EST HI 40 MIN PRIMARY CARE/MEDICINE ICD-10-CM R06.00 Dyspnea, unspecified CONOR LOPEZ AM Encounter Template Text not used by [place] Assessments - Encounter Diagnoses This section includes the primary and secondary diagnoses documented for the Encounter. Date/Time Primary/Secondary Diagnosis Diagnosis Name Provider Source Feb 27, 2024 02:20 PM PRIMARY Dyspnea, unspecified MAYKEL SALDE [place] [facility] [place] [facility] Feb 27, 2024 02:20 PM SECONDARY Hypertensive heart disease without heart failure WILBERT LOPEZM Dedra [place] [facility] [place] [facility] Feb 27, 2024 02:20 PM SECONDARY Spinal stenosis, site unspecified WILBERT LOPEZM Dedra [place] [facility] [place] [facility] Feb 27, 2024 02:20 PM SECONDARY Type 2 diabetes mellitus without complications WILBERT LOPEZM Dedra [place] [facility] [place] [facility] Feb 27, 2024 02:20 PM SECONDARY Unspecified atrial fibrillation WILBERT LOPEZ [place] [facility] [place] [facility] Plan of Treatment: Future Appointments (+ 6 months) and Future Tests (+/- 45 days) The Plan of Treatment section includes future care activities for the patient from all [place] treatmentfacilities. This section includes future appointments and future orders which are active, pending or scheduled. Future Appointments This section includes appointments that were scheduled to occur 6 months from the date of the Encounter, up to a maximum of 20 appointments. The data comes from all [place] treatment facilities. Appointment Date/Time Appointment Type Appointme nt Facility Name Feb 17, 2024 01:00 PM AMBULATORY [facility] MEDICINE [facility] [place] [facility] Feb 21, 2024 07:45 AM AMBULATORY - NONE [facility] [place] [facility] Mar 26, 2024 08:00 AM AMBULATORY - REHAB MEDICIN E [facility] [place] [facility] Mar 30, 2024 07:30 AM AMBULATORY - MEDICINE [facility] [place] [facility] Apr 03, 2024 09:00 AM AMBULATORY - REHAB MEDICIN E [facility] [place] [facility] Apr 15, 2024 02:00 PM AMBULATORY - REHAB MEDICIN E [facility] [place] [facility] Apr 21, 2024 08:00 AM AMBULATORY - REHAB MEDICIN E [facility] [place] [facility] Apr 29, 2024 10:00 AM AMBULATORY - REHAB MEDICIN E [facility] [place] [facility] May 06, 2024 11:00 AM AMBULATORY - REHAB MEDICIN E [facility] [place] [facility] May 14, 2024 02:00 PM AMBULATORY - MEDICINE [facility] [place] [facility] May 18, 2024 10:00 AM AMBULATORY - MEDICINE [facility] [place] [facility] May 21, 2024 01:30 PM AMBULATORY - REHAB MEDICIN E [facility] [place] [facility] May 22, 2024 11:30 AM AMBULATORY - MEDICINE [facility] [place] [facility] May 25, 2024 09:30 AM AMBULATORY - REHAB MEDICIN E [facility] [place] [facility] Jun 24, 2024 10:30 AM AMBULATORY - REHAB MEDICIN E [facility] Jul 01, 2024 10:00 AM AMBULATORY - REHAB MEDICIN E [facility] Active, Pending, and Scheduled Orders This section includes a listing of several types of active, pending, and scheduled orders, including clinic medications orders, diagnostic test orders, procedure orders and consult orders; where the start date of the order is 45 days before the date of the Encounter or 45 days after the date of theEncounter. The data comes from all [place] treatment facilities. Test Date/Time Test Type Test Details Facility Name Feb 17, 2024 12:00 AM Laboratory - Chemistry Order LIVER FUNCTION BLOOD (SST-SERUM) [facility] Feb 17, 2024 12:00 AM Laboratory - Chemistry Order CREATININE (eGFR 2020) BLOOD (SST-SERUM) [facility] Feb 17, 2024 12:00 AM Laboratory - Chemistry Order CBC BLOOD (LAV-BLOOD) [facility] Lab Results: +/- 30 days of the encounter This section includes the Chemistry and Hematology Lab Results on record with [place] for the patient. Radiology Reports and Pathology Reports are provided separately, in subsequent sections. Lab Results This section contains the Chemistry/Hematology Results that were resulted 30 days before or 30 daysafter the date of the Encounter. Date/Time Source Result Type Result - Unit Interpretation Reference Range Comment Feb 17, 2024 02:08 PM [facility] CBC Specimen Type: BLOOD No comment entered. Ordering Provider: CONOR LOPEZ AM Report Released Date/Time: Jan 21, 2024 03:16 PM Reporting Lab: [address] [address] Performing Lab: [address] [address] WBC 5.86 10*3/uL 4.50-11.00 RBC 3.71 10*6/uL L 4.23-5.66 HGB 13.0 g/dL 12.8-17 HCT 36.5 L 39.2-50.4 MCV 98.4 fL 82-99 MCHC 35.6 g/dL H 30.8-35.1 PLT 150 10*3/uL 140-360 RDW-CV 13.0 12.0-16.0 MCH 35.0 pg H 26.2-32.6 Feb 17, 2024 02:08 PM [facility] BASIC METABOLIC PANEL (non-fasting) Specimen Type: SERUM No comment entered. Ordering Provider: CONOR LOPEZ AM Report Released Date/Time: Jan 21, 2024 03:16 PM Reporting Lab: [address] [address] Performing Lab: [address] [address] UREA NITROGEN 43 mg/dL H 7-25 GLUCOSE 141 mg/dL H 65-100 SODIUM 136 mmol/L 135-145 POTASSIUM 4.3 mmol/L 3.5-5.0 CHLORIDE 106 mmol/L 100-110 CO2 18 meq/L L 20-30 CREATININE, Serum 1.85 mg/dL H 0.50-1.40 eGFR(CKD-EPI 2020) 38 mL/min L >60 Feb 17, 2024 02:08 PM [facility] LIPID PANEL, NON FASTING Specimen Type: SERUM No comment entered. Ordering Provider: CONOR LOPEZ AM Report Released Date/Time: Jan 21, 2024 03:16 PM Reporting Lab: [address] [address] Performing Lab: [address] [address] CHOLESTEROL 227 mg/dL H TRIGLYCERIDE 98 mg/dL 0-150 LDL calculated 140 mg/dL H 0-129 CHOL/HDL 3.4 HDL CHOLESTEROL 67 mg/dL H 40-60 Feb 17, 2024 02:08 PM [facility] LIVER FUNCTION Specimen Type: SERUM No comment entered. Ordering Provider: CONOR LOPEZ AM Report Released Date/Time: Jan 21, 2024 03:16 PM Reporting Lab: [address] [address] Performing Lab: [facility] [address] [facility] [address] PROTEIN,TOTAL 6.3 g/dL 6.0-8.3 ALBUMIN 3.1 g/dL L 3.5-5.0 ALKALINE PHOSPHATASE 67 U/L 40-150 AST 39 U/L H 5-34 ALT 22 U/L BILIRUBIN, TOTAL 0.8 mg/dL 0.2-1.2 Feb 17, 2024 02:08 PM [facility] HEMOGLOBIN A1C PANEL Specimen Type: BLOOD Comment: Values obtained from A1C measurements can vary. For atypical A1C assays, a reported value of 7.0 could actually be between 6.72 and 7.28 if measured by a reference method. A reported value of 9.0 could actually be between 8.73 and 9.27. Ref: http://www.ngs p.org/CAPdata. asp Ordering Provider: CONOR LOPEZ AM Report Released Date/Time: Jan 21, 2024 03:16 PM Reporting Lab: [address] [address] Performing Lab: [address] [address] HEMOGLOBIN A1C 4.9 4.0-5.6 Feb 17, 2024 02:08 PM [facility] MICROALBUMIN CREATININE RATIO PANEL Specimen Type: URINE No comment entered. Ordering Provider: CONOR LOPEZ AM Report Released Date/Time: Jan 21, 2024 03:16 PM Reporting Lab: [address] [address] Performing Lab: [address] [address] MICROALBUMIN/C REATININE RATIO 1167.0 mg/g H 0-29.9 MICROALBUMIN,Q UANTITATIVE 209.5 mg/dL RR UNAVAIL CREATININE URINE 179.52 mg/dL Feb 17, 2024 02:08 PM [facility] PT & INR (COUMADIN) Specimen Type: PLASMA No comment entered. Ordering Provider: CONOR LOPEZ AM Report Released Date/Time: Feb 17, 2024 01:26 PM Reporting [facility]: [facility] [address] Performing Lab: [facility] [address] INR 1.0 PROTIME 11.0 s 10.0-13.1 Feb 17, 2024 02:08 PM [facility] FERRITIN Specimen Type: SERUM No comment entered. Ordering Provider: CONOR LOPEZ AM Report Released Date/Time: Feb 17, 2024 03:25 PM Reporting Lab: [address] [address] Performing Lab: [facility] [address] [address] FERRITIN 761 ng/mL H 20-300 Feb 17, 2024 02:08 PM [facility] IRON & TIBC PANEL Specimen Type: SERUM No comment entered. Ordering Provider: CONOR LOPEZ AM Report Released Date/Time: Feb 17, 2024 03:25 PM Reporting Lab: [facility] [address] [address] Performing Lab: [facility] [address] TIBC 227 ug/dL 204-475 IRON 99 ug/dL 40-160 Transferrin Saturation 43.6 20.0-50.0 Transferrin (TRF) 172 mg/dL L 200-360 Vital Signs: All taken on the encounter date This section contains inpatient and outpatient Vital Signs collected on the date of the Encounter. Date/Time Temperature Pulse Blood Pressure Respiratory Rate SP02 Pain Height Weight Body Mass Index Source Feb 14, 2024 03:42 PM 98.1 78 186/110 20 99 0 67 178 28 [facility] Social History: Smoking Status (Most current) and Tobacco Use (All prior to encounter date) This section includes the most current, and the historical, smoking and tobacco- related health factors from the [place] facility where the Encounter took place. Current Smoking Status This section includes the most current smoking, or tobacco-related health factor, from the [place] facility where the Encounter took place. Date/Time Current Smoking Status Comment Michoacano ramirez Feb 14, 2024 03:30 PM VA-TOBACCO FORMER USER [facility] Tobacco Use History This section includes a history of the smoking, or tobacco-related health factors, that were collected on or before the date of the Encounter. The data comes from the [place] facility where the Encounter took place. Date/Time Smoking Status/Tobacco Use Comment F karina Feb 14, 2024 03:30 PM VA-TOBACCO QUIT 15 YRS OR MORE [place] [facility] [place] [facility] Aug 06, 2022 09:30 AM VA-TOBACCO NEVER USED [place] [facility] [place] [facility] Mar 24, 2021 03:00 PM VA-TOBACCO NEVER USED [place] [facility] [place] [facility] Mar 08, 2020 02:30 PM VA-TOBACCO NEVER USED [place] [facility] [place] [facility] Jan 27, 2018 08:05 AM VA-TOBACCO NEVER USED [place] [facility] [place] [facility] Mar 19, 2017 12:58 PM LIFET[facility] Encounter Notes: All associated encounter notes This section contains the clinical notes associated to the Encounter. Date/Time Encounter Note(s) Provider Source Mar 10, 2024 09:33 AM PRIMARY CARE NURSE PRACTITIONER OUTPATIENT NOTE: LOCAL TITLE: NURSE PRACTITIONER OUTPATIENT NOTE STANDARD TITLE: PRIMARY CARE NURSE PRACTITIONER OUTPATIENT NOTE DATE OF NOTE: MAR 10, 2024@09:33 ENTRY DATE: MAR 10, 2024@09:33:16 AUTHOR: ARLENE LOPEZ EXP COSIGNER: URGENCY: STATUS: COMPLETED rx from Dr. Benitez - nephrology furosemide 20mg daily /es/ Arlene Lopez DNP, SALESPERSON HOSIERY-BC, CNL Primary Care Nurse Practitioner Signed: 03/10/2024 09:34 ARLENE LOPEZ [place] [facility] [place] [facility] Mar 03, 2024 03:35 PM PRIMARY CARE NURSE PRACTITIONER OUTPATIENT NOTE: LOCAL TITLE: NURSE PRACTITIONER OUTPATIENT NOTE STANDARD TITLE: PRIMARY CARE NURSE PRACTITIONER OUTPATIENT NOTE DATE OF NOTE: MAR 03, 2024@15:35 ENTRY DATE: MAR 03, 2024@15:35:37 AUTHOR: ARLENE LOPEZ EXP COSIGNER: URGENCY: STATUS: COMPLETED rx from Dr. Risa FORD, trazadone 50mg qhs. /nadiya/ Arlene Lopez DNP, SALESPERSON [facility], RAD[facility] Primary Care Nurse Practitioner Signed: 03/03/2024 15:36 ARLENE LOPEZ [facility] Feb 17, 2024 01:32 PM PRIMARY CARE NURSE PRACTITIONER OUTPATIENT NOTE: LOCAL TITLE: NURSE PRACTITIONER OUTPATIENT NOTE STANDARD TITLE: PRIMARY CARE NURSE PRACTITIONER OUTPATIENT NOTE DATE OF NOTE: FEB 17, 2024@13:32 ENTRY DATE: FEB 17, 2024@13:32:09 AUTHOR: ARLENE LOPEZ EXP COSIGNER: URGENCY: STATUS: COMPLETED Repeat EKG today, still in afib. He says he has been taking meds as ordered since Saturday. BP much better, 112/82. We discussed stroke risk, he is now in agreement with anticoagulation, labs today, consult to pharmacy. ECHO is scheduled. I will place community consult for further cardiology follow up. We also discussed his alcohol use and strongly encouraged him to reduce. /nadiya/ Arlene Lopez DNP, SALESPERSON HOSIERYDAWNA, RADHA Primary Care Nurse Practitioner Signed: 02/17/2024 13:34 ARLENE LOPEZ [facility] Feb 14, 2024 04:07 PM CARDIOLOGY DIAGNOSTIC STUDY CONSULT: LOCAL TITLE: CONSULT REPORT/EKG STANDARD TITLE: CARDIOLOGY DIAGNOSTIC STUDY CONSULT DATE OF NOTE: FEB 14, 2024@16:07 ENTRY DATE: FEB 14, 2024@16:07:58 AUTHOR: MAYKEL SLADE EXP COSIGNER: URGENCY: STATUS: COMPLETED EKG tracing was performed for diagnosis of Dyspnea, unspecified ordered by ARLENE LOPEZ. /nadiya/ Maykel Slade, Health Farm Equipment Engineer ARRESTING GEAR OPERATOR,PRIMARY CARE Signed: 02/14/2024 16:09 MAYKEL SLADE [facility] Feb 14, 2024 03:35 PM PRIMARY CARE NURSE PRACTITIONER OUTPATIENT NOTE: LOCAL TITLE: NURSE PRACTITIONER OUTPATIENT NOTE STANDARD TITLE: PRIMARY CARE NURSE PRACTITIONER OUTPATIENT NOTE DATE OF NOTE: FEB 14, 2024@15:35 ENTRY DATE: FEB 14, 2024@15:35:15 AUTHOR: ARLENE LOPEZ EXP COSIGNER: URGENCY: STATUS: COMPLETED Chief complaint: Patient is a 73 year old [place]. HPI: Pleasant male [place] here with his . They have a trip to [facility] planned in March. Blood pressure noted. Repeat 164/94. He did not take his BB, reports and he confirms, not consistent with taking this. EKG today showing Afib, provides history and reports he was diagnosed with this in the past and since on BB has been in SR. We discussed the importance of taking meds as ordered EVERY DAY. He will take it when gets home. I will have him come back on Saturday or Saturday for nurse visit, repeat EKG and check BP. If SR, i will refer for 3 day zio. Allergies: Patient has answered NKA The following VA and Non-VA meds were reconciled with patient. The patient was educated on the use of the medications including indication and side effects. Active and Recently Outpatient Medications (excluding Supplies): Active Outpatient Medications Status = 1) CARVEDILOL 12.5MG TAB TAKE THREE TABLETS BY MOUTH ACTIVE ONCE DAILY FOR HIGH BLOOD PRESSURE NOTE DOSE 2) CLOTRIMAZOLE 1% TOP SOLN APPLY 1 DROP TOPICALLY ONCE ACTIVE DAILY FOR FUNGAL INFECTION APPLY ONE DROP TO EACH AFFECTED TOE NAIL ONCE DAILY. APPLY WHEN NAIL IS DRY NOT AFTER SHOWER OR BATH. USE FOR AT LEAST 9-12 MONTHS. FOR BEST CLINICAL RESULT. REGULAR NAIL CARE IS ALSO RECOMMMENDED. 3) FAMOTIDINE 40MG TAB TAKE ONE TABLET BY MOUTH AT ACTIVE BEDTIME FOR STOMACH ACID 4) SIMVASTATIN 80MG TAB TAKE ONE-HALF TABLET BY MOUTH AT ACTIVE BEDTIME FOR CHOLESTEROL Review of Systems: Constitutional: (-)for Fevers, chills, weakness, nights sweats On examination: 98.1 F [36.7 C] (02/14/2024 15:42)186/110 (02/14/2024 15:42)78 (02/14/2024 15:42)20 (02/14/2024 15:42)0 (02/14/2024 15:42)BMI: 27.9178 lb [80.74 kg] (02/14/2024 15:42) [place] is alert and oriented X3 Cardiovasc: 2plus [...] List is the source for the followin. Atrial fibrillation - see above 2. Spinal stenosis - some gait issues, a few falls, will refer to PT 3. Chronic kidney disease due to type 2 diabetes mellitus - Follows with nephrology 4. Essential hypertension - see above Health Maintenance: flu+ and covid 19 given in clinic Review of medial record = 5mins Time spent with Patient including shared decision making = 35 mins Post visit documentation = 5mins Total time = 45 mins Follow up visit in 3 mos. HTN Assess for Elevated BP>=140/90: Repeat blood pressure: 164/94 The patient's medication regimen was adjusted to improve blood pressure control. Tobacco Use Screening: The patient is a former tobacco user. The patient quit fifteen or more years ago. Alcohol Use Screen (AUDIT-C): Alcohol Screen: SCREEN FOR ALCOHOL (AUDIT-C) An alcohol screening test (AUDIT-C) was negative (score=1). 1. How often did you have a drink containing alcohol in the past year? Consider a drink to be a 12 ounce can or bottle of regular beer, 8 ounces of malt liquor, a 5 ounce glass of table wine, or a 1.5 ounce shot of liquor (like scotch, gin, or vodka). Monthly or less 2. How many drinks containing alcohol did you have on a typical day when you were drinking in the past year? One or two drinks 3. How often did you have six or more drinks on one occasion in the past year? Never Medication Reconciliation: Outpatient: Has the patient been taking medications as documented in the EMLR? YES: The patient has been taking medications as documented in the EMLR. Essential Medication List for Review used to complete this medication reconciliation. INCLUDED IN THIS LIST: Alphabetical list of active outpatient prescriptions dispensed from this [facility] (local) and dispensed from another [place] or [place] facility (remote) as well as [...] with a VA or non-VA provider. /nadiya/ Arlene Lopez DNP, SALESPERSON HOSIERY-BC, CNL Primary Care Nurse Practitioner Signed: 02/17/2024 07:29 ARLENE LOPEZ [place] [facility]
--- OUTSIDE RECORDS SUMMARY | 2024-07-11 11:09 | XMS_ITS | Encounter Summary ---
Author Name [facility] Organization [facility] Address [address] [place] [id number] Care Team Providers Care Dramatic Critic Name Role Phone SATHISH LOPEZ Primary Care [...] BREANNA PLAN MY Jun 03, 2022 PLANMY [id number] [phone] Bella KIM PATIENT AARP MED SUPP MEDICARE SUPPLEMEN BREANNA Jun 03, 2016 PLANMY [id number] Bella KIM PATIENT AARP MED SUPP MEDICARE SUPPLEMEN BREANNA Jun 03, 2016 PLANMY [id number] Bella KIM PATIENT AARP MED SUPP MEDICARE SUPPLEMEN BREANNA PLAN MY Jun 03, 2016 PLANMY [id number] Bella KIM PATIENT [employer]IG[employer] DENTAL DENTAL INSURANCE DENTA L PPO Jun 03, 2021 [id number] Bella KIM PATIENT MEDICARE (WNR) MEDICARE (M) PART A Apr 03, 2014 PART A [id number] Bella KIMIN PATIENT MEDICARE (WNR) MEDICARE (M) PART B Apr 03, 2014 PART B [id number] [phone] [id number] Bella KIM PATIENT MEDICARE (WNR) MEDICARE (M) PART A Apr 03, 2014 PART A [id number] Bella KIM PATIENT MEDICARE (WNR) MEDICARE (M) PART B Apr 03, 2014 PART B [id number] Bella KIM PATIENT MEDICARE (WNR) MEDICARE (M) PART A Apr 03, 2014 PART A [id number] Bella KIM PATIENT MEDICARE (WNR) MEDICARE (M) PART B Apr 03, 2014 PART B [id number] [phone] [id number] Bella KIM PATIENT MEDICARE PART D (WNR) MEDICARE (M) PART D Jun 03, 2020 PART D [id number] Bella KIM PATIENT Selected Encounter This section includes the information on record at [place] for the Encounter. Date/Time Encounter Type Encounter Description Reason Provider Source Jun 24, 2024 10:30 AM THERAPEUTIC EXERCISES PHYSICAL THERAPY ICD-10-CM R26.89 Other abnormalities of gait and mobility [facility] Encounter Template Text not used by [place] Assessments - Encounter Diagnoses This section includes the primary and secondary diagnoses documented for the Encounter. Date/Time Primary/Secondary Diagnosis Diagnosis Name Provider Source Jul 10, 2024 03:27 PM PRIMARY Other abnormalities of gait and mobility [facility]ANLEY FEL[facility] [place] Plan of Treatment: Future Appointments (+ 6 months) and Future Tests (+/- 45 days) The Plan of Treatment section includes future care activities for the patient from all [place] treatmentfacilities. This section includes future appointments and future orders which are active, pending or scheduled. Future Appointments This section includes appointments that were scheduled to occur 6 months from the date of the Encounter, up to a maximum of 20 appointments. The data comes from all [place] treatment facilities. Appointment Date/Time Appointment Type Appointme nt Facility Name Jul 01, 2024 10:00 AM AMBULATORY - REHAB MEDICIN E [facility] [place] [facility] Aug 17, 2024 08:00 AM AMBULATORY - MEDICINE [facility] [place] [facility] Nov 20, 2024 09:30 AM AMBULATORY - MEDICINE [facility] [place] [facility] Social History: Smoking Status (Most current) and Tobacco Use (All prior to encounter date) This section includes the most current, and the historical, smoking and tobacco- related health factors from the [place] facility where the Encounter took place. Current Smoking Status This section includes the most current smoking, or tobacco-related health factor, from the [place] facility where the Encounter took place. Date/Time Current Smoking Status Comment Facil ity Feb 14, 2024 03:30 PM VA-TOBACCO FORMER USER [facility] [place] [facility] Tobacco Use History This section includes a history of the smoking, or tobacco-related health factors, that were collected on or before the date of the Encounter. The data comes from the [place] facility where the Encounter took place. Date/Time Smoking Status/Tobacco Use Comment F acility Feb 14, 2024 03:30 PM VA-TOBACCO QUIT 15 YRS OR MORE [facility] [place] [facility] Aug 06, 2022 09:30 AM VA-TOBACCO NEVER USED [facility] [place] [facility] Mar 24, 2021 03:00 PM VA-TOBACCO NEVER USED [facility] [place] [facility] Mar 08, 2020 02:30 PM VA-TOBACCO NEVER USED [facility] [place] [facility] Jan 27, 2018 08:05 AM VA-TOBACCO NEVER USED [facility] [place] [facility] Mar 19, 2017 12:58 PM LIFETIME NON-TOBACCO USER [facility] [place] [facility] Encounter Notes: All associated encounter notes This section contains the clinical notes associated to the Encounter. Date/Time Encounter Note(s) Provider Source Jun 24, 2024 11:47 AM PHYSICAL THERAPY N OTE: LOCAL TITLE: PHYSICAL THERAPY STANDARD TITLE: PHYSICAL THERAPY NOTE DATE OF NOTE: JUN 24, 2024@11:47 ENTRY DATE: JUN 24, 2024@11:47:52 AUTHOR: DENA FELIPE COSIGNER: URGENCY: STATUS: COMPLETED Initial Evaluation date: 03/26/24 Progress Note Date: n/a Treatment #: 7 Treatment time: 35 mins Diagnosis: other abnormalities of gait and mobility Provider: John PT Treatment Precautions: hx of a-fib, on anticoag SUBJECTIVE: I fell when we were in [place] OBJECTIVE: Pt came into PT today using rollator walker, he and reported he fell on uneven terrain when walking around the pool in [place] he did not bring his rollator at all w/ him he used his cane but his stated he didn't walk a lot she thinks possibly due to being insecure. 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 and veterans R eye was bruised, they were sleeping at her father's house and he got up in the middle of the night and fell she is not sure how but he was not using any device and was in a place he didn't know so he fell, they did not seek medical attention he had a cut above his R eyebrow she stated he wouldn't let me bring him anywhere it took forever for it to stop bleeding but eventually it stopped THERAPEUTIC EXERCISE: MINUTES: 22 - nustep x10min L1-2 - anterior tap ups onto 8 box x20 B focus on slow movement - hip abd yellow band 2x10 B - hip flex yellow band 2x10 B - sit to/from stand 2x10 GAIT TRAINING: MINUTES: 8 - Pt and educated in use of 2ww for indoor/home use in the middle of the night, they stated he may be limited with ability to use it around the bed d/t smallness of their bedroom, they said he furniture walks out of bed, informed them to see if moving furniture around in room or keeping the walker at the foot of the bed would also be a viable option - encouraged pt taking larger steps for foot clearance SELF CARE/EDUCATION: MINUTES:-- - Pt and education on use of anti coag's and hitting head/face he should notify PC, since it was 3-4 weeks ago he denies any secondary symptoms at this time and no bruising evident to his face any longer (all healed), however, informed him this verse writer would tag PC on the note just so they're aware he did have a fall that resulted in facial injury, he was agreeable to this. Discussion with them on signs/symptoms to look out for to indicate further injury to head/brain Updated HEP to include yellow band informed he needs to ensure he is seated when getting the band on/off Access Code: [email or web address] URL: [email or web address] Date: 03/26/2024 Prepared by: [facility] Patient education was provided for all aspects of care during this clinical encounter. ASSESSMENT: Fatigue noted with ther ex, pt with several falls encouraged use of 2ww in the home for safety at this time, pt without reports of symptoms to suggest brain bleed given he hit his head with fall @ 3-4 weeks ago, however, tagging PC on here incase anything else needs to be done/suggested? PLAN: continue per plan of care, optimize LE strength and balance, ensure safety with gait, progress check next visit if no improvements with PT then suggest discharge with optimized HEP in place and all devices accessible for safety /nadiya/ DENA FELIPE PT PHYSICAL THERAPIST Signed: 06/24/2024 12:03 Receipt Acknowledged By: 06/24/2024 12:52 /nadiya/ Sathish Lopez DNP, PUMP STITCHER-BC, CNL Primary Care Nurse Practitioner [facility]
--- OUTSIDE RECORDS SUMMARY | 2024-07-11 11:10 | XMS_ITS | Continuity of Care Document ---
Author Organization [facility] Address [address] [place] [address]- Care Team Providers Care Combat Rifle Crewmember Name Role Phone Risa CONLEY, Jagjit Blanco Primary Care Physician [phone] Encounter 06/19/24 - 06/26/24 [facility] [address], [address] [place] [address]- Attending Physician: Tisha CONLEY, Alma Ramos Admitting Physician: Alma Giles MD Referring Physician: Alma Giles MD Encounter Type: OutPatient One Time Allergies, Adverse Reactions, Alerts No Known Allergies Immunizations Given and Recorded Vaccine Date Status Refusal Reason tetanus/diphtheria/pertussis, acel(Tdap) 1 06/19/24 Given 1Result Comment: [facility] [id number] LOT [id number] EXP 04/22/26 Medications Advil 200 mg oral tablet 1 tablet = 200 mg, By Mouth, Every 6 hours, 0 Refills, Maintenance, 12/17/18 1:13:06 PM EDT Start Date: 12/17/18 Status: Ordered Repeat number: 1 Allopurinol Refills 0, Maintenance, 11/24/18 11:07:58 AM EDT Start Date: 11/24/18 Status: Ordered Repeat number: 1 amLODIPine 5 mg oral tablet 5 mg, 1, tablet, By Mouth, Daily, Refills 0, Maintenance, 11/24/18 11:07:25 AM EDT Start Date: 11/24/18 Status: Ordered Repeat number: 1 Carvedilol By Mouth, Refills 0, Maintenance, 11/24/18 11:08:32 AM EDT Start Date: 11/24/18 Status: Ordered Repeat number: 1 cephalexin monohydrate 500 mg oral tablet 1 tablet = 500 mg, By Mouth, 3 times a day, for 7 days, # 21 tablet, 0 Refills, Acute 07/03/24 7:27:00 PM EST, 06/26/24 7:27:00 PM EST, Tablet, [id number], Partial fill upon patient request if the prescription is for a schedule II opioid drug., 175.26, cm, 06/19/24 18:32:00 EST, Height Start Date: 06/26/24 Stop Date: 07/03/24 Status: Ordered Quantity: 21.0 Unit: tablet Repeat number: 1 Indication: Disorder of the skin and subcutaneous tissue, unspecified simvastatin 40 mg oral tablet 40 mg, 1, tablet, By Mouth, Daily at bedtime, Refills 0, Maintenance, 11/24/18 11:07:46 AM EDT Start Date: 11/24/18 Status: Ordered Repeat number: 1 ZyrTEC 10 mg oral tablet 1 tablet = 10 mg, By Mouth, Daily, 0 Refills, Maintenance, 11/24/18 11:08:40 AM EDT Start Date: 11/24/18 Status: Ordered Repeat number: 1 Results Radiology Reports * Exam Date Time Procedure Performing Provider Status 06/19/24 6:59 PM Hand Min 3 Views Left Breanna Vallecillo er; Auth (Verified) Notes: (Hand Min 3 Views Left) Reason For Exam: L hand pain, fell 1 wk ago , avulsion to dorsal hand, r/o underlying fx;Pain RESULT: Hand Min 3 Views Left Hand Min 3 Views Left, 3 views Reason: Pain; L hand pain, fell 1 wk ago , avulsion to dorsal hand, r o underlying fx COMPARISON: None. FINDINGS: There is radial and volar dislocation at the first carpometacarpal joint. There is no focal soft tissue swelling at this level. Small osseous density seen at the medial aspect of this joint space on the oblique projection appears corticated. There is moderate soft tissue swelling of the dorsal hand best seen on the oblique lateral projection with laceration present at the proximal dorsal hand. Moderate osteoarthritic changes, severe at the first carpometacarpal joint and moderate to severe at the first, second, and fifth distal interphalangeal joint with small area of osseous erosion also seen at the level of the distal fifth mid phalanx to fifth interphalangeal joint. There are vascular calcifications. IMPRESSION: Radial and volar dislocation at the first carpometacarpal joint. As there is no focal soft tissue swelling at this level -- this could be a chronic finding in the setting of degenerative changes. Please examine this joint space for acute pain. There is soft tissue swelling and laceration of the dorsal hand without additional area of acute fracture. Findings communicated to Dr. Giles, urgent care, at 1919 on day of exam. WSN: [id number] Ordering Physician: Alma Giles Dictated By: Kassidy Liang MD Dictated Date/Time: 06/19/24 7:20 pm Reviewed By: Kassidy Liang MD Signed By: Kassidy Liang MD Signed Date/Time: 06/19/24 7:20 pm Transcribed By: ELINOR Transcribed Date/Time: 06/19/24 7:14 pm Patient Care team information Care Team Personnel Name: Jagjit Lord MD Position: [facility] Outreach Member Role: PCP Address: [address] [place] [address]- Telecom: Name: Forrest Benitez MD Position: [facility] Renal MD Member Role: Lifetime Consulting Physician Address: [address] [place], [place] [id number] [facility] [place] [address]- Telecom: Care Team Related Persons Name: MARIA E CHAKRABORTY Insurance Providers Guarantor name: MEGHAN Devex Information #: 1 Payer: SELF PAY INSURANCE Member Number: [id number] Policy Number: NA Group Number: NA Health Plan Information #: 2 Payer: MEDICARE PART B OUTPT Member Number: NA Policy Number: NA Group Number: NA
--- OUTSIDE RECORDS SUMMARY | 2024-07-11 11:10 | XMS_ITS | Continuity of Care Document ---
Author Organization [facility], FP, EHC, OFFICE Address [address] [place] [address] Care Team Providers Care Cloth Feeder Name Role Phone NGUYỄN CAGE Primary Care Provider JM KAUR Traffic Division Commanding Officer MARIEL TAI Curriculum Coach [facility] Pumper Gauger Apprentice [facility] Dermatologis t Assessment Encounter Date Assessment Date Assessment LastModified by Organization Details LastModified Time 07/09/2024 07/09/2024 We reviewed your chronic medical [...] meeting your goals. Please visit our website [employer] for more patient resources. As part of [...] Organization Details Last Modified Time Details Appointments Wellness Visit 30 2024 04:00P Bella Cage MD Not available Not available Not available Lab None recorded. Referral None recorded. Procedures None recorded. Surgeries None recorded. Imaging None recorded. Medication Orders None recorded. Patient TargetsNo targets recorded. Patient InstructionsNo instructions recorded. Reason for Referral None Reported. Results Created Date Observation Date Name Description Value Unit Range Abnormal Flag Note LastModifiedBy Organization Detail LastModifiedTime 06/20/19 25 06/20/2024 XR, hand No observ ation record ed. [place] [id number] [facility], [place], [address], 06/20/2024 14:39:24 Result Notes None recorded. Problems Name Problem SNOMED Code Status Onset Date Resolution Date Notes Provider Name and Address Organization Details Recorded Time Hyperlip idemia 97142130 Active Not Available [facility] 2 11:15:55 Chronic kidney disease stage 3 320607496 Completed 09/17/2016 Nguyễn Cage MD [address] [place] [address], [phone] , [facility] 0 12:54:02 [facility] hyperten isaac 47968587 Completed 03/31/2019 carvedil ol And lisinopr il 03/21/18 , keep lip at q 6 mos for now (DS aware LDL >100) per DS. 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 03/21/18 , keep lip at q 6 mos for now (DS aware LDL >100) per DS. Not Available [facility] 2 11:15:55 Diabetes mellitus 29147175 Active 201703/21/18 , keep lip at q 6 mos for now (DS aware LDL >100) per DS. Not Available [facility] 2 11:15:55 Chronic back pain 038050833 Active 2017 L4-5 herniati on , rec fusion , neurosur g, does not want surgery at this time Not Available [facility] 2 11:15:55 Chronic kidney disease stage 3 814836816 Active 2017 GFR 41 Not Available [facility] 2 11:15:55 Diabetic peripher al neuropat hy 440669547 Active 2018 Not Available [facility] 2 11:15:55 Anemia 815874796 Completed 201811/10/2020 Nl colo 2017, pos stool test 2016, not interest ed in ENDO at this time Nguyễn Cage MD [address] [place] [address], [phone] , [facility] 1 14:59:49 [facility] hyperten isaac 61182887 Active 2020 Not Available [facility] 2 11:15:55 Atrial fibrilla tion 44559913 Active 2021 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 recorder , 2021 , wants to hold off Nguyễn Cage MD [address] [place] [address], [phone] , [facility] 4 13:33:00 Alcohol intake above recommen ded sensible limits 819521107 Active 2021 Nguyễn Cage MD [address] [place] [address], [phone] , [facility] 2 19:51:53 Proteinu isidro 50703276 Active 2023 discuss FARXIGA / dapaglif lozin SGLT2 Nguyễn Cage MD [address] [place] [address], [phone] , [facility] 4 20:50:18 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 Procedures Surgical History Date Name Laterality Status Provider Name and Address Organization Details Recorded Time 06/26/19 Wound Care completed Lucy Raya LPN [facility] 06/26/2024 12:12:16 02/28/20 24 Medicare Wellness Visit completed Liliya sinclair, [facility] 02/27/2024 16:42:20 02/28/20 24 Alcohol overuse counseling completed Nguyễn Cage MD [address] [place] [address], [phone], [facility] 03/01/2024 08:47:25 02/28/20 24 Cardiovascular disease risk reduction counseling completed Nguyễn Cage MD [address] [place] [address], [phone], [facility] 03/01/2024 08:47:11 02/28/20 24 Advanced Care Planning completed Liliya sinclair, [facility] 02/27/2024 16:44:58 08/27/19 24 G2211 completed Nguyễn Cage MD [address] [place] [address], [phone], [facility] 08/28/2023 17:33:15 02/22/20 23 Medicare Wellness Visit completed Liliya sinclair [facility] 02/20/2023 15:07:50 02/22/20 23 Advanced Care Planning completed Liliya sinclair [facility] 02/20/2023 15:08:47 02/14/20 22 Medicare Wellness Visit completed Liliya Lovetttgenhteresa sinclair [facility] 02/13/2022 15:48:52 02/14/20 22 Alcohol use screening completed Liliya sinclair [facility] 02/13/2022 15:48:52 02/14/20 22 Cardiovascular disease risk reduction counseling completed Liliya sinclair [facility] 02/13/2022 15:48:52 11/11/19 21 Medicare Wellness Visit completed Liliya sinclair [facility] 11/09/2020 12:01:37 11/11/19 21 prevention-cardiov ascular risk reduction counseling completed Liliya sinclair [facility] 11/09/2020 12:01:37 11/11/19 21 prevention-annual alcohol misuse screening completed Liliya sinclair [facility] 11/09/2020 12:01:37 02/10/20 20 01364: Therapeutic Exercise completed Taylor Benitez, PT [address] [place], [address], [facility] 02/10/2020 11:56:46 02/10/20 20 Treatment and Advice completed Taylor Benitez, PT [address] [place], [phone], [facility] 02/10/2020 11:52:01 02/03/20 20 41176: Therapeutic Exercise completed Taylor Benitez, PT [address] [place], [address], [facility] 02/03/2020 18:46:42 02/03/20 20 Treatment and Advice completed Taylor Benitez, PT [address] [place], [phone], [facility] 02/03/2020 18:46:53 01/27/20 20 71992: PT Eval Low Complexity completed Taylor Benitez, PT [address] [place], [address], [facility] 01/27/2020 11:22:16 01/27/20 20 Treatment and Advice completed Taylor Benitez, PT [address] [place], [address], [facility] 01/27/2020 14:36:24 10/02/19 20 Medicare Wellness Visit completed Melinda Jean-Baptiste MA [facility] 10/02/2019 09:16:03 10/02/19 20 prevention-cardiov ascular risk reduction counseling completed Melinda Jean-Baptiste MA [facility] 10/02/2019 09:16:03 10/02/19 20 prevention-annual alcohol misuse screening completed [facility] 10/02/2019 09:16:03 09/24/19 19 Medicare Wellness Visit completed Liliya sinclair [facility] 09/23/2018 11:03:44 09/20/19 18 Medicare Wellness Visit completed Autumn Mike CMA [facility] 09/19/2017 11:40:05 09/18/19 17 Medicare Wellness Visit completed Joelle Barros [facility] 09/17/2016 14:33:19 09/13/19 16 Medicare Wellness Visit completed Valerie Wheatley [facility] 09/13/2015 14:39:45 Appendectomy completed Nguyễn Cage MD [address] [place] [address], [phone], [facility] 08/19/2012 12:03:47 Imaging Results None recorded. Procedure Notes None recorded. Medical Equipment None Reported. Allergies Allergen ID Allergen Name Allergen Category Reaction Reaction Severity Criticality Documentation Date Start Date Code Code System Note Provider Name and Address Organization Details Recorded Time 384059 cat dander environme nt Not available Not available Not available 01/11/2023 70615 UNK Iza Cerrato DONOVAN [facility] 3 08:29:06 384521 Canis lupus familiari s extract environme nt Not available Not available Not available 01/11/2023 63021 4 RxNorm Iza Cerrato MA [facility] 3 08:29:14 509135 house dust allergeni c extract environme nt,medica tion Not available Not available Not available 01/11/2023 14122 9 RxNo Iza Cerrato MA [facility] 3 08:29:19 Medications Name Sig Start Date [...] by oral route. 02/01 completed per 10/27 [facility] med dc list- PRN 10/10/22 SM Not [...] every day by oral route. 01/01 completed 01/02/20- Not taking, per pt TR/RMA Not Available [...] MOUTH ONCE DAILY active does not take 2/6/25 KRB Not Available Not Available Not Available [...] 5% patch. qd 02/13 completed per 10/24 [facility] med dc list Not Available Not Available Not Available Metamucil 10/10 completed not taking 10/10/22 SM Not Available Not Available Not Available Baby Aspirin 81 mg one daily 08/26 completed [facility] D/C, per pt, does not take 08/27/23 [...] capsule Take by oral route. 01/01 completed 01/02/20 23- Not taking per pt TR/RMA Not Available Not Available Not Available Vitals Date Recorded Body height Body mass index (BMI) Body weight Heart rate Systolic blood pressure Diastolic blood pressure Provider Name and Address Organization Details Last Updated DateTime 5 166.37 cm 29.8 kg/m2 09536.8 1 g 68 /min 140 mm[Hg] 90 mm[Hg] Liliya Aidana user, RMA [facility] 5 08:11:18 Date Recorded Systolic blood pressure Diastolic blood pressure Provider Name and Address Organization Details Last Updated DateTime 07/09/2024 136 mm[Hg] 90 mm[Hg] FREDO SHEAP-[address], [address], [facility] 07/09/2024 08:15:25 Social History Question Answer Notes LastModified by Organizat ion Details LastModified Time Tobacco Smoking Status Never Smoker Meli Govea MA null, [facility] 06/18/2011 15:42:23 What Is Your Level Of [...] 08/19/2012 Does The Patient Have Difficulty Speaking Scottish? No Information not available 09/13/2015 Does The Patient Have Difficulty Reading Scottish? No Information not available 09/13/2015 Patient Has [...] Not available 09/13/2015 15:03:09 Brother Problem Ha peters, - 4 yrs, COUNT INCLUDES THE [facility] Not available 09/13/2015 15:03:09 Father Problem 92 CVA, prosta te [place], did not from prosta te [place] Not available 09/17/2016 15:13:21 Medical History Condition Response RENAL / GENITOURINARY Y Hyperlipidemia Y Diabetes Type II Y Hypertension Y Immunizations Vaccine Type Date Status Note Provider Nam e and Address Organization Details Recorded Time influenza, seasonal, intradermal, preservative free 2 completed Not Available [facility] 06/20/2019 02:18:38 zoster live 3 completed Not Available [facility] 06/20/2019 02:16:34 Tdap 3 completed Not Available [facility] 06/20/2019 02:30:29 pneumococcal polysaccharide PPV23 3 completed Not Available [facility] 06/20/2019 02:14:36 Influenza, split virus, trivalent, PF 3 completed Not Available [facility] 06/20/2019 02:27:40 Influenza, split virus, trivalent, preservative 4 completed Not Available [facility] 06/20/2019 02:19:21 Hep A, unspecified formulation 9 completed Not Available [facility] 02/02/2022 12:06:54 influenza, unspecified formulation 1 completed Not Available [facility] 02/02/2022 12:06:53 Influenza, split virus, quadrivalent, PF 5 completed Not Available [facility] 06/20/2019 02:39:34 Pneumococcal conjugate PCV 13 5 completed Not Available [facility] 06/20/2019 02:36:27 Influenza, high-dose, trivalent, PF 6 completed Not Available [facility] 06/20/2019 02:27:12 Influenza, high-dose, trivalent, PF 7 completed Not Available [facility] 06/20/2019 02:22:04 pneumococcal polysaccharide PPV23 8 completed Not Available [facility] 06/20/2019 02:23:04 Influenza, high-dose, quadrivalent, PF 0 completed Daniela Roth RN null, [facility] 03/28/2020 14:52:26 Influenza, split virus, quadrivalent, preservative 9 completed Not Available [facility] 02/02/2022 12:06:54 Influenza, high-dose, quadrivalent, PF 1 completed DIMITRIOS Marinelli null, [facility] 03/07/2021 16:45:09 Influenza, high-dose, quadrivalent, PF 2 completed Nguyễn Cage MD [address] [place] [address], [phone], [facility] 02/14/2022 20:12:21 Td (adult), 2 Lf tetanus toxoid, preservative free, adsorbed 3 completed Migdalia Moura NP [address] [place] [address], [phone], [facility] 10/10/2022 13:36:33 COVID-19, mRNA, LNP-S, PF, 30 mcg/0.3 mL dose 1 completed Not Available [facility] 02/02/2022 12:06:54 COVID-19, mRNA, LNP-S, PF, 30 mcg/0.3 mL dose 1 completed DIMITRIOS Marinelli null, [facility] 02/28/2024 09:27:07 Influenza, high-dose, quadrivalent, PF 3 completed Nguyễn Cage MD [address] [place] [address], [address], [facility] 02/23/2023 17:05:14 zoster recombinant 9 completed Not Available [facility] 02/02/2022 12:06:54 zoster recombinant 9 completed Not Available [facility] 02/02/2022 12:06:54 Pneumococcal conjugate PCV20, polysaccharide [id number] conjugate, adjuvant, PF 4 completed Liliya Saravia RMGarrett eze [facility] 02/28/2024 09:27:07 COVID-19, mRNA, LNP-S, PF, 30 mcg/0.3 mL dose, júnior-sucrose 2 completed Liliya Saravia RMA saadia [facility] 02/28/2024 09:27:07 RSV, recombinant, protein subunit RSVpreF, adjuvant reconstituted, 0.5 mL, PF 4 completed Liliya Saravia RMA saadia, [facility] 02/28/2024 09:27:07 COVID-19, mRNA, LNP-S, PF, 50 mcg/0.5 mL 4 completed Liliya Saravia RMA saadia, [facility] 02/28/2024 09:27:07 pneumococcal polysaccharide PPV23 9 completed Liliya Saravia RMA null, [facility] 02/28/2024 09:27:07 Influenza, high-dose, trivalent, PF 4 completed Liliya Saravia RMA saadia, [facility] 02/28/2024 09:27:07 Influenza, split virus, trivalent, PF 8 completed Liliya Saravia RMA saadia [facility] 02/28/2024 09:27:07 Past Encounters Encounter ID Performer Location Encounter Start Date Encounter Closed Date Diagnosis/Indication Diagnosis SNOMED-CT Code Diagnosis ICD10 Code Diagnosis Note [id number] Juliana Latif DNP, [employer] FP, [facility], OFFICE [address] [place] [address] 06/26/2024 11:09:29 06/26/2024 12:16:38 Organism isolated in blood by culture [id number] 127769 R78.81 + salmonella - ER was unable to reachSalmo ladi bacteremia Positive blood cultures for Salmonella . Initial treatment with IV cefazolin, followed by oral Keflex and doxycyclin e. Further management plan requires consultati on.- Consult with Dr. Cage regarding management .- No symptoms-I f new or worsening return for follow up Abrasion o f skin of left hand 5318870343 6891048 S60.512A Left hand injury with skin tear [...] Abrasion o f skin of right forearm 8865559045 6805546 S50.811A Right forearm abrasion Abrasion healing well without complicati ons. - Monitor for infection. [id number] Nguyễn Cage MD , [facility], OFFICE [address] [place] [address] 07/02/2024 15:42:52 07/02/2024 16:24:28 Open wound of hand 824132830 S61.401D Renal diso rder due to type 2 diabetes mellitus 548334664 E11.29 GFR 32 Atrial fibrillation 4943 6004 I48.91 On ELiquis Chronic ki dney disease stage 3 270553545 N18.30 Alcohol in take above recommended sensible limits 202046710 F10.10 reports 07/02/24 he wants to trial stopping drinking Diabetes mellitus 838521 09 E11.9 well controlled , A1C. 5.5 [id number] Juliana Latif DNP, [employer] , [facility], OFFICE [address] [place] [address] 07/09/2024 07:35:38 07/10/2024 10:23:13 Wound of skin 134610229 T14.8XXD -Clinical exam consistent with wound that [...] Concerns Section Related Observation LastModified by Organization Ramin gerardo LastModified Time None Recorded Concern Status LastModified by Organization Details LastModified Time None Recorded Payers Encounter Date Sequence Insurance Name Policy Number Policy Andrew Covered Member ID Andrew Member ID Guarantor Name 07/09/2024 1 MEDICARE B-[place]: [employer] Basim Langston [id number] Basim Langston 07/09/2024 2 [facility] OPTIONS (MEDICARE SUPPLEMENT) Basim Langston [id number] Basim Langston Notes Date Note Type Note Provider Name and Address Organization Details Recorded Time 07/09/2024 text/html 07/09/24- Patient visits today because of a wound sustained from a fall about four weeks ago while in [place]. Initially received care in [place] and then at an urgent care facility [...] the rest of his vodka . Juliana Latif, RENNY, [employer] [address] [place] [address], [phone], [facility] 07/10/2024 09:28:06
--- OUTSIDE RECORDS SUMMARY | 2024-07-11 11:10 | XMS_ITS ---
Author Name [facility] [place] Organization [facility] [place] [place] Address [address] [place] [id number] Care Team Providers Care Associate Artistic Director Name Role Phone ARLENE ROMERO Primary Care [...] BREANNA PLAN MY Jun 03, 2022 PLANMY [id number] [id number] Bella KIM PATIENT AARP MED SUPP MEDICARE SUPPLEMEN BREANNA Jun 03, 2016 PLANMY [id number] Bella KIM PATIENT AARP MED SUPP MEDICARE SUPPLEMEN BREANNA Jun 03, 2016 PLANMY [id number] Bella KIM PATIENT AARP MED SUPP MEDICARE SUPPLEMEN BREANNA PLAN MY Jun 03, 2016 PLANMY [id number] Bella KIM PATIENT CIGNA DENTAL DENTAL INSURANCE DENTA L PPO Jun 03, 2021 [id number] Bella KIM PATIENT MEDICARE (WNR) MEDICARE (M) PART A Apr 03, 2014 PART A [id number] Bella KIMIN PATIENT MEDICARE (WNR) MEDICARE (M) PART B Apr 03, 2014 PART B [id number] Bella KIM PATIENT MEDICARE (WNR) MEDICARE (M) PART A Apr 03, 2014 PART A [id number] [phone] [id number] Bella KIM PATIENT MEDICARE (WNR) MEDICARE (M) PART B Apr 03, 2014 PART B [id number] Bella KIM PATIENT MEDICARE (WNR) MEDICARE (M) PART A Apr 03, 2014 PART A [id number] [phone] Bella KIM PATIENT MEDICARE (WNR) MEDICARE (M) PART B Apr 03, 2014 PART B [id number] [phone] Bella KIM PATIENT MEDICARE PART D (WNR) MEDICARE (M) PART D Jun 03, 2020 PART D [id number] Bella KIM PATIENT Selected Encounter This section includes the information on record at [place] for the Encounter. Date/Time Encounter Type Encounter Description Reason Provider Source Apr 15, 2024 02:00 PM THERAPEUTIC EXERCISES PHYSICAL THERAPY ICD-10-CM R26.89 Other abnormalities of gait and mobility MARLENA WINN IN [facility] Encounter Template Text not used by [place] Assessments - Encounter Diagnoses This section includes the primary and secondary diagnoses documented for the Encounter. Date/Time Primary/Secondary Diagnosis Diagnosis Name Provider Source Apr 25, 2024 07:15 AM PRIMARY Other abnormalities of gait and mobility MARLENA WINN [place] [facility] [place] [facility] Plan of Treatment: Future Appointments (+ 6 months) and Future Tests (+/- 45 days) The Plan of Treatment section includes future care activities for the patient from all [place] treatmentfacilities. This section includes future appointments and future orders which are active, pending or scheduled. Future Appointments This section includes appointments that were scheduled to occur 6 months from the date of the Encounter, up to a maximum of 20 appointments. The data comes from all [place] treatment facilities. Appointment Date/Time Appointment Type Appointme nt Facility Name Apr 21, 2024 08:00 AM AMBUL[facility] [place] [facility] Apr 29, 2024 10:00 AM AMBULATORY - [facility] MEDICIN E [facility] [place] [facility] May 06, 2024 11:00 AM AMBULATORY - REHAB MEDICIN E [facility] [place] [facility] May 14, 2024 02:00 PM AMBULATORY - MEDICINE [facility] [place] [facility] May 18, 2024 10:00 AM AMBULATORY - MEDICINE [place] [facility] [place] [facility] May 21, 2024 01:30 PM AMBULATORY - REHAB MEDICIN E [facility] [place] [facility] May 22, 2024 11:30 AM AMBULATORY - MEDICINE [place] [facility] [place] [facility] May 25, 2024 09:30 AM AMBULATORY - REHAB MEDICIN E [facility] [place] [facility] Jun 24, 2024 10:30 AM AMBULATORY - REHAB MEDICIN E [facility] [place] [facility] Jul 01, 2024 10:00 AM AMBULATORY - REHAB MEDICIN E [facility] [place] [facility] Aug 17, 2024 08:00 AM AMBULATORY - MEDICINE [place] [facility] [place] [facility] Social History: Smoking Status (Most current) and Tobacco Use (All prior to encounter date) This section includes the most current, and the historical, smoking and tobacco- related health factors from the [place] facility where the Encounter took place. Current Smoking Status This section includes the most current smoking, or tobacco-related health factor, from the [place] facility where the Encounter took place. Date/Time Current Smoking Status Comment Facil ity Feb 14, 2024 03:30 PM [facility]CO [facility] [place] [facility] Tobacco Use History This section includes a history of the smoking, or tobacco-related health factors, that were collected on or before the date of the Encounter. The data comes from the [place] facility where the Encounter took place. Date/Time Smoking Status/Tobacco Use Comment F acbarney Feb 14, 2024 03:30 PM VA-TOBACCO QUIT 15 YRS OR MORE [place] [facility] [place] [facility] Aug 06, 2022 09:30 AM VA-TOBACCO NEVER USED [place] [facility] [place] [facility] Mar 24, 2021 03:00 PM VA-TOBACCO NEVER USED [facility] [place] [facility] Mar 08, 2020 02:30 PM VA-TOBACCO NEVER USED [facility] [place] [facility] Jan 27, 2018 08:05 AM VA-TOBACCO NEVER USED [facility] [place] [facility] Mar 19, 2017 12:58 PM LIFETIME NON-TOBACCO USER [facility] [place] [facility] Encounter Notes: All associated encounter notes This section contains the clinical notes associated to the Encounter. Date/Time Encounter Note(s) Provider Source Apr 15, 2024 03:13 PM PHYSICAL THERAPY NOTE: LOCAL TITLE: PHYSICAL THERAPY STANDARD TITLE: PHYSICAL THERAPY NOTE DATE OF NOTE: APR 15, 2024@15:13 ENTRY DATE: APR 15, 2024@15:13:29 AUTHOR: MEGHAN WINN COSIGNER: URGENCY: STATUS: COMPLETED Initial Evaluation date: 03/26/24 Progress Note Date: n/a Treatment #: 2 Treatment time: 25 mins Diagnosis: other abnormalities of gait and mobility Provider: John PT Treatment Precautions: hx of a-fib, on anticoag SUBJECTIVE: States that he's doing ok, only went for a walk 1-2 times since previous appt, spouse states that she providing constant cueing for stride length and posture while ambulating using the rollator. OBJECTIVE: THERAPEUTIC EXERCISE: MINUTES: 25 mins Nu-step 10 mins L3 standing hip abd in pbars standing hip extension in pbar standing hip abd with bent knee in pbars alternating forward step in pbars MANUAL THERAPY: MINUTES: GAIT TRAINING: MINUTES: NEUROMUSCULAR EDUCATION: MINUTES: OTHER: MINUTES: MODALITIES: MINUTES: [] Contraindication screen completed prior to modality [] Skin intact pre/post SELF CARE/EDUCATION: MINUTES: encourage to wear his LB brace while active to reduce LB px Access Code: [email or web address] URL: [email or web address] Date: 04/15/2024 Prepared by: [facility] Exercises - Seated Hamstring Stretch - 1 x daily - 7 x weekly - 3 sets - 5 reps - 30sec hold - Gastroc Stretch on Wall - 1 x daily - 7 x weekly - 3 sets - 5 reps - 30sec hold - Standing Hip Abduction - 1 x daily - 7 x weekly - 3 sets - 10 reps - Standing Hip Extension - 1 x daily - 7 x weekly - 3 sets - 10 reps - Standing Hip Abduction with Bent Knee - 1 x daily - 7 x weekly - 3 sets - 10 reps - Alternating Step Forward with Support - 1 x daily - 7 x weekly - 3 sets - 10 reps Patient education was provided for all aspects of care during this clinical encounter. ASSESSMENT: Tolerated session well, no c/o increase discomfort, needed cueing for posture PLAN: 1x/week for 4 weeks, included in POC will be use of cardio equipment, gait training as needed, B LE functional strengthening, LE stretching and balance training static/dynamic balance activities step up/overs, SLS, side stepping, ankle strategies, HEP assignment, stair training, encourage walking program at home /es/ JUDY ESPINO LICENSE DEMAND EQUIPMENT REPAIRER Signed: 04/15/2024 15:18 MEGHAN WINN [facility]
--- OUTSIDE RECORDS SUMMARY | 2024-07-11 11:10 | XMS_ITS | Clinical Summary ---
Author Organization [facility] Address [address] [place] [id number] Phone Care Team Providers Care Irish Moss Gatherer Name Role Phone Unavailable Primary Care Provider Unavailabl e Allergies Active Allergy Reactions Criticality Noted Date Comments Cat Dander 03/21/2023 rash Dust Mite Extract Other (see comments) 08/16/19 18 Allergy to cats and dogs Medications allopurinol (ZYLOPRIM) 300 MG tablet Take 300 mg by mouth in the morning. Active carvedilol (COREG) 25 MG tablet Take 25 mg by mouth Active lisinopril-hydr oCHLOROthiazide (PRINZIDE,ZESTO RETIC) 10-12.5 MG per tablet Take 1 tablet by mouth in the morning and 1 tablet in the evening. Active simvastatin (ZOCOR) 40 MG tablet Take 40 mg by mouth 11/24/2018 Active furosemide (Lasix) 20 MG tablet Take 1 tablet (20 mg total) by mouth 1 (one) time each day 90 tablet 03/05/2024 Active Active Problems Problem Noted Date Diagnosed Date Renal osteodystrophy 03/05/2024 First degree atrioventricular block 09/02/2023 Encounter for screening for respiratory disorder 09/02/2023 Encounter for screening for cardiovascular disor sudhakar 09/02/2023 Bilateral impacted cerumen 09/02/2023 Atrial fibrillation 09/02/2023 Other persistent atrial fibrillation 09/02/2023 Paroxysmal atrial fibrillation 09/02/2023 Atrial fibrillation 09/02/2023 Acute kidney failure 09/02/2023 Type 2 diabetes mellitus 09/02/2023 Tachycardia 09/02/2023 Spinal stenosis 09/02/2023 Obstructive sleep apnea 09/02/2023 Left anterior fascicular block 09/02/2023 Hypertensive heart disease without heart failure 09/02/2023 Hypertensive chronic kidney disease with stage 1 through stage 4 chronic kidney disease, or unspecified chronic kidney disease 09/02/2023 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 09/02/2023 Overview (09/02/2023): May 12, 2018 Entered By: HOWARD LI Comment: Reports baseline 2.0--will get records Stage 3b chronic kidney disease 09/02/2023 Type 2 diabetes mellitus wit h diabetic chronic kidney disease 09/02/2023 Palpitations 11/02/2021 Essential hypertension 06/03/2016 Hypercholesterolemia 06/03/2016 Hearing disorder 06/03/2016 Gout 06/03/2016 Immunizations Name Administration Dates Next Due Influenza, Unspecified 02/21/2023,2020,03/03/2020,03/17/2018 ,03/19/2017 [employer] SARS-COV-2 08/27/2020 Pfizer SARS-COV-2 08/27/2020 Pneumococcal Conjugate 13-Valent 03/11/2015 Pneumococcal Polysaccharide 05/12/2019, 3 Shingrix 07/14/2019,05/12/2019 Tdap 08/06/2022,08/20/2012 Zoster 08/19/2016 Social History Tobacco Use Types Packs/Day Years Used Date Smoking Tobacco: Never Smokeless Tobacco: Never Tobacco Cessation:Counseling Given: Not Answered Alcohol Use Standard Drinks/Week Comments Not Currently 0 (1 standard drink = 0.6 oz pur e alcohol) Sex and Gender Information Value Date Recorded Sex Assigned at Not on file Legal Sex Male 12:16 PM EST Gender Identity Not on file Sexual Orientation Not on file Last Filed Vital Signs Vital Sign Reading Time Taken Comments Blood Pressure 134/90 03/05/2024 1:12 PM EDT Pulse 88 09/02/2023 1:09 PM EDT Temperature - - Respiratory Rate - - Oxygen Saturation 100% 03/05/2024 1:12 PM EDT Inhaled Oxygen Concentration - - Weight 83.3 kg (183 lb 9.6 oz) 03/05/2024 1:12 P M EDT Height - - Body Mass Index - - Plan of Treatment Upcoming Encounters Date Type Department Care Team (Late st Contact Info) Description 12/07/2024 1:45 PM EDT Office Visit [facility] [address] [place] [address] Forrest Benitez MD [address] [facility] [address] [place] [id number] Health Maintenance Due Date Last Done Comments Colorectal Cancer Screening: Annual FOBT 1998 Colorectal Cancer Screening: Colonoscopy 1998 Colorectal Cancer Screening: Sigmoidoscopy 1998 Hepatitis B Vaccine (1 of 3 - Risk 3-dose series) 2009 Diabetes: Hemoglobin A1C 02/25/2023 Diabetes: Ophthalmology Exam 02/25/2023 Diabetes: Pedal Pulse Checked 02/25/2023 Diabetes: Sensory Foot Exam 02/25/2023 Diabetes: Visual Foot Exam 02/25/2023 Pneumococcal Vaccine: 65+ Years Completed 05/12/2019, 03/21/2018, 03/11/2015, Additional history exists Influenza Vaccine Completed 02/11/2024, , 03/07/2021, Additional history exists Insurance [place]ICARE [place] 1,2,3 (VACCN) [facility] MEDICARE [facility] REG[place] 1,2,3 (VACCN) [facility]
--- OUTSIDE RECORDS SUMMARY | 2024-07-11 11:10 | XMS_ITS | Encounter Summary ---
Author Name [facility] [place] [place] Organization [facility] [place] Address [address] [place] [address] Care Team Providers Care Client Support Consultant Name Role Phone ARLENE ROMERO Primary Care [...] BREANNA PLAN MY Jun 03, 2022 PLANMY [id number] Bella KIM PATIENT AARP MED SUPP MEDICARE SUPPLEMEN BREANNA Jun 03, 2016 PLANMY [id number] Bella KIM PATIENT AARP MED SUPP MEDICARE SUPPLEMEN BREANNA Jun 03, 2016 PLANMY [id number] [phone] Bella KIM PATIENT AARP MED SUPP MEDICARE SUPPLEMEN BREANNA PLAN MY Jun 03, 2016 PLANMY [id number] [phone] Bella KIM PATIENT CIGNA DENTAL DENTAL INSURANCE DENTA L PPO Jun 03, 2021 [id number] Bella KIM PATIENT MEDICARE (WNR) MEDICARE (M) PART A Apr 03, 2014 PART A [id number] Bella KIMIN PATIENT MEDICARE (WNR) MEDICARE (M) PART B Apr 03, 2014 PART B [id number] Bella KIM PATIENT MEDICARE (WNR) MEDICARE (M) PART A Apr 03, 2014 PART A [id number] [phone] [id number] Bella KIM PATIENT MEDICARE (WNR) MEDICARE (M) PART B Apr 03, 2014 PART B [id number] Bella KIM PATIENT MEDICARE (WNR) MEDICARE (M) PART A Apr 03, 2014 PART A [id number] Bella KIM PATIENT MEDICARE (WNR) MEDICARE (M) PART B Apr 03, 2014 PART B [id number] Bella KIM PATIENT MEDICARE PART D (WNR) MEDICARE (M) PART D Jun 03, 2020 PART D [id number] [id number] Bella KIM PATIENT Selected Encounter This section includes the information on record at [place] for the Encounter. Date/Time Encounter Type Encounter Description Reason Provider Source Apr 21, 2024 08:00 AM THERAPEUTIC EXERCISES PHYSICAL THERAPY ICD-10-CM R26.89 Other abnormalities of gait and mobility MARLENA WINN IN [place] Encounter Template Text not used by [place] Assessments - Encounter Diagnoses This section includes the primary and secondary diagnoses documented for the Encounter. Date/Time Primary/Secondary Diagnosis Diagnosis Name Provider Source May 08, 2024 03:24 PM PRIMARY Other abnormalities of gait and mobility MARLENA WINN [place] [facility] [place] [facility] Plan of Treatment: Future Appointments (+ 6 months) and Future Tests (+/- 45 days) The Plan of Treatment section includes future care activities for the patient from all [place] treatmentfacilities. This section includes future appointments and future orders which are active, pending or scheduled. Future Appointments This section includes appointments that were scheduled to occur 6 months from the date of the Encounter, up to a maximum of 20 appointments. The data comes from all [place] treatment facilities. Appointment Date/Time Appointment Type Appointme nt Facility Name Apr 29, 2024 10:00 AM AMBULATORY - RE[facility] MEDICIN [facility] [place] [facility] May 06, 2024 11:00 AM AMBULATORY - REHAB MEDICIN E [facility] [place] [facility] May 14, 2024 02:00 PM AMBULATORY - MEDICINE [facility] [place] [facility] May 18, 2024 10:00 AM AMBULATORY - MEDICINE [facility] [place] [facility] May 21, 2024 01:30 PM AMBULATORY - REHAB MEDICIN E [facility] [place] [facility] May 22, 2024 11:30 AM AMBULATORY - MEDICINE [facility] [place] [facility] May 25, 2024 09:30 AM AMBULATORY - REHAB MEDICIN E [facility] [place] [facility] Jun 24, 2024 10:30 AM AMBULATORY - REHAB MEDICIN E [facility] [place] [facility] Jul 01, 2024 10:00 AM AMBULATORY - REHAB MEDICIN E [facility] [place] [facility] Aug 17, 2024 08:00 AM AMBULATORY - MEDICINE [place] [facility] [place] [facility] Social History: Smoking Status (Most current) and Tobacco Use (All prior to encounter date) This section includes the most current, and the historical, smoking and tobacco- related health factors from the [place] facility where the Encounter took place. Current Smoking Status This section includes the most current smoking, or tobacco-related health factor, from the [place] facility where the Encounter took place. Date/Time Current Smoking Status Comment Facil ity Feb 14, 2024 03:30 PM VA-TOBACCO QUIT 15 YRS OR MORE [place] [facility] Tobacco Use History This section includes a history of the smoking, or tobacco-related health factors, that were collected on or before the date of the Encounter. The data comes from the [place] facility where the Encounter took place. Date/Time Smoking Status/Tobacco Use Comment F acility Feb 14, 2024 03:30 PM VA-TOBACCO QUIT 15 YRS OR MORE [facility] [place] [facility] Aug 06, 2022 09:30 AM VA-TOBACCO NEVER USED [facility] [place] [facility] Mar 24, 2021 03:00 PM VA-TOBACCO NEVER USED [facility] [place] [facility] Mar 08, 2020 02:30 PM VA-TOBACCO NEVER USED [place] [facility] [place] [facility] Jan 27, 2018 08:05 AM VA-TOBACCO NEVER USED [place] [facility] [place] [facility] Mar 19, 2017 12:58 PM LIFETIME NON-TOBACCO USER [place] [facility] Encounter Notes: All associated encounter notes This section contains the clinical notes associated to the Encounter. Date/Time Encounter Note(s) Provider Source Apr 21, 2024 08:41 AM PHYSICAL THERAPY NOTE: LOCAL TITLE: PHYSICAL THERAPY STANDARD TITLE: PHYSICAL THERAPY NOTE DATE OF NOTE: APR 21, 2024@08:41 ENTRY DATE: APR 21, 2024@08:41:49 AUTHOR: MEGHAN WINN EXP COSIGNER: URGENCY: STATUS: COMPLETED Initial Evaluation date: 03/26/24 Progress Note Date: n/a Treatment #: 3 Treatment time: 30 mins Diagnosis: other abnormalities of gait and mobility Provider: John PT Treatment Precautions: hx of a-fib, on anticoag SUBJECTIVE: Arrived using his rollator festinating gait, shorten stride, looking down OBJECTIVE: THERAPEUTIC EXERCISE: MINUTES: 30 mins standing forward step over the line and back in pbars side stepping in pbars forward step with B shld flex in pbars forward step with a step too foot stomp Nu-step 10 mins L3 MANUAL THERAPY: MINUTES: GAIT TRAINING: MINUTES: NEUROMUSCULAR EDUCATION: MINUTES: OTHER: MINUTES: MODALITIES: MINUTES: [] Contraindication screen completed prior to modality [] Skin intact pre/post SELF CARE/EDUCATION: MINUTES: Patient education was provided for all aspects of care during this clinical encounter. ASSESSMENT: Tolerated session well, continues to require cueing for proper posture during gait and longer stride length, PLAN: 1x/week for 4 weeks, included in POC will be use of cardio equipment, gait training as needed, B LE functional strengthening, LE stretching and balance training static/dynamic balance activities step up/overs, SLS, side stepping, ankle strategies, HEP assignment, stair training, encourage walking program at home /nadiya/ JUDY ESPINO LICENSE COMPUTER NETWORK SUPPORT SPECIALIST Signed: 04/21/2024 08:52 MEGHAN WINN [facility]
--- OUTSIDE RECORDS SUMMARY | 2024-07-11 11:10 | XMS_ITS ---
Author Name [facility] [place] Address [address] [place] [id number] Care Team Providers Care Utility Driver Name Role Phone ARLENE ROMERO Primary Care Provider [facility] Insurance Providers: All historical and current Section [...] BREANNA PLAN MY Jun 03, 2022 PLANMY [id number] [phone] Bella KIM PATIENT AARP MED SUPP MEDICARE SUPPLEMEN BREANNA Jun 03, 2016 PLANMY [id number] Bella KIM PATIENT AARP MED SUPP MEDICARE SUPPLEMEN BREANNA Jun 03, 2016 PLANMY [id number] Bella KIM PATIENT AARP MED SUPP MEDICARE SUPPLEMEN BREANNA PLAN MY Jun 03, 2016 PLANMY [id number] [phone] Bella KIM PATIENT [employer] DENTAL DENTAL INSURANCE DENTA L PPO Jun 03, 2021 [id number] [phone] Bella KIM PATIENT MEDICARE (WNR) MEDICARE (M) PART A Apr 03, 2014 PART A [id number] Bella KIM PATIENT MEDICARE (WNR) MEDICARE (M) PART B Apr 03, 2014 PART B [id number] Bella KIM PATIENT MEDICARE (WNR) MEDICARE (M) PART A Apr 03, 2014 PART A [id number] Bella KIM PATIENT MEDICARE (WNR) MEDICARE (M) PART B Apr 03, 2014 PART B [id number] [phone] Bella KIM PATIENT MEDICARE (WNR) MEDICARE (M) PART A Apr 03, 2014 PART A [id number] Bella KIM PATIENT MEDICARE (WNR) MEDICARE (M) PART B Apr 03, 2014 PART B [id number] Bella KIM PATIENT MEDICARE PART D (WNR) MEDICARE (M) PART D Jun 03, 2020 PART D [id number] [phone] Bella KIM PATIENT Selected Encounter This section includes the information on record at NH for the Encounter. Date/Time Encounter Type Encounter Description Reason Provider Source Feb 17, 2024 01:00 PM OFF/OP EST OCTOBER X REQ PHY/QHP PRIMARY CARE/MEDICINE ICD-10-CM I48.91 Unspecified atrial fibrillation YISSEL WYATT Cristino Encounter Template Text not used by [place] Assessments - Encounter Diagnoses This section includes the primary and secondary diagnoses documented for the Encounter. Date/Time Primary/Secondary Diagnosis Diagnosis Name Provider Source Mar 05, 2024 11:09 AM PRIMARY Unspecified atrial fibrillation JESS BRENNAN [facility] [place] [facility] Plan of Treatment: Future Appointments (+ [...] Appointment Type Appointme nt Facility Name Feb 21, 2024 07:45 AM AMBULATORY - NONE [facility] [place] [facility] Mar 26, 2024 08:00 AM AMBULATORY - REHAB MEDICIN E [facility] [place] [facility] Mar 30, 2024 07:30 AM AMBULATORY - MEDICINE [facility] [place] [facility] Apr 03, 2024 09:00 AM AMBULATORY - REHAB MEDICIN E [facility] [place] [facility] Apr 15, 2024 02:00 PM AMBULATORY - REHAB MEDICIN E [facility] [place] [facility] Apr 21, 2024 08:00 AM AMBULATORY - REHAB MEDICIN E [facility] [place] [facility] Apr 29, 2024 10:00 AM AMBULATORY - REHAB MEDICIN E [facility] [place] [facility] May 06, 2024 11:00 AM AMBULATORY - REHAB MEDICIN E [facility] [place] [facility] May 14, 2024 02:00 PM AMBULATORY - MEDICINE [facility] [place] [facility] May 18, 2024 10:00 AM AMBULATORY - MEDICINE [facility] [place] [facility] May 21, 2024 01:30 PM AMBULATORY - REHAB MEDICIN E [facility] [place] [facility] May 22, 2024 11:30 AM AMBULATORY - MEDICINE [facility] [place] [facility] May 25, 2024 09:30 AM AMBULATORY - REHAB MEDICIN E [facility] [place] [facility] Jun 24, 2024 10:30 AM AMBULATORY - REHAB MEDICIN E [facility] [place] [facility] Jul 01, 2024 10:00 AM AMBULATORY - REHAB MEDICIN E [facility] [place] [facility] Active, Pending, and Scheduled Orders This section includes a listing of several types of active, pending, and scheduled orders, including clinic medications orders, diagnostic test orders, procedure orders and consult orders; where the start date of the order is 45 days before the date of the Encounter or 45 days after the date of theEncounter. The data comes from all [place] treatment facilities. Test Date/Time Test Type Test Details Facility Name Feb 17, 2024 12:00 AM Laboratory - Chemistry Order CREATININE (eGFR 2020) BLOOD (SST-SERUM) [facility] Feb 17, 2024 12:00 AM Laboratory - Chemistry Order LIVER FUNCTION BLOOD (SST-SERUM) [facility] Feb 17, 2024 12:00 AM Laboratory - Chemistry Order CBC BLOOD (LAV-BLOOD) [facility] Lab Results: +/- 30 days of the encounter This section includes the Chemistry and Hematology Lab Results on record with NH for the patient. Radiology Reports and Pathology Reports are provided separately, in subsequent sections. Lab Results This section contains the Chemistry/Hematology Results that were resulted 30 days before or 30 daysafter the date of the Encounter. Date/Time Source Result Type Result - Unit Interpretation Reference Range Comment Feb 17, 2024 02:08 PM [facility] HEMOGLOBIN A1C PANEL Specimen Type: BLOOD Comment: Values obtained from A1C measurements can vary. For atypical A1C assays, a reported value of 7.0 could actually be between 6.72 and 7.28 if measured by a reference method. A reported value of 9.0 could actually be between 8.73 and 9.27. Ref: http://www.ngs p.org/CAPdata. asp Ordering Provider: CONOR ROMERO AM Report Released Date/Time: Jan 21, 2024 03:16 PM Reporting Lab: [address] [address] Performing Lab: [address] [address] HEMOGLOBIN A1C 4.9 4.0-5.6 Feb 17, 2024 02:08 PM [facility] BASIC METABOLIC PANEL (non-fasting) Specimen Type: SERUM No comment entered. Ordering Provider: CONOR ROMERO AM Report Released Date/Time: Jan 21, 2024 03:16 PM Reporting Lab: [facility] [address] [facility] [address] Performing Lab: [address] [address] UREA NITROGEN 43 mg/dL H 7-25 GLUCOSE 141 mg/dL H 65-100 SODIUM 136 mmol/L 135-145 POTASSIUM 4.3 mmol/L 3.5-5.0 CHLORIDE 106 mmol/L 100-110 CO2 18 meq/L L 20-30 CREATININE, Serum 1.85 mg/dL H 0.50-1.40 eGFR(CKD-EPI 2020) 38 mL/min L >60 Feb 17, 2024 02:08 PM [facility] CBC Specimen Type: BLOOD No comment entered. Ordering Provider: CONOR ROMERO AM Report Released Date/Time: Jan 21, 2024 03:16 PM Reporting Lab: [address] [address] Performing Lab: [address] [address] WBC 5.86 10*3/uL 4.50-11.00 RBC 3.71 10*6/uL L 4.23-5.66 HGB 13.0 g/dL 12.8-17 HCT 36.5 L 39.2-50.4 MCV 98.4 fL 82-99 MCHC 35.6 g/dL H 30.8-35.1 PLT 150 10*3/uL 140-360 RDW-CV 13.0 12.0-16.0 MCH 35.0 pg H 26.2-32.6 Feb 17, 2024 02:08 PM [facility] LIPID PANEL, NON FASTING Specimen Type: SERUM No comment entered. Ordering Provider: CONOR ROMERO AM Report Released Date/Time: Jan 21, 2024 03:16 PM Reporting Lab: [address] [address] Performing Lab: [address] [address] CHOLESTEROL 227 mg/dL H TRIGLYCERIDE 98 mg/dL 0-150 LDL calculated 140 mg/dL H 0-129 CHOL/HDL 3.4 HDL CHOLESTEROL 67 mg/dL H 40-60 Feb 17, 2024 02:08 PM [facility] LIVER FUNCTION Specimen Type: SERUM No comment entered. Ordering Provider: CONOR ROMERO AM Report Released Date/Time: Jan 21, 2024 03:16 PM Reporting Lab: [facility] [address] [facility] [address] Performing Lab: [address] [address] PROTEIN,TOTAL 6.3 g/dL 6.0-8.3 ALBUMIN 3.1 g/dL L 3.5-5.0 ALKALINE PHOSPHATASE 67 U/L 40-150 AST 39 U/L H 5-34 ALT 22 U/L BILIRUBIN, TOTAL 0.8 mg/dL 0.2-1.2 Feb 17, 2024 02:08 PM [facility] MICROALBUMIN CREATININE RATIO PANEL Specimen Type: URINE No comment entered. Ordering Provider: CONOR ROMERO AM Report Released Date/Time: Jan 21, 2024 03:16 PM Reporting Lab: [address] [address] Performing Lab: [address] [address] MICROALBUMIN/C REATININE RATIO 1167.0 mg/g H 0-29.9 MICROALBUMIN,Q UANTITATIVE 209.5 mg/dL RR UNAVAIL CREATININE URINE 179.52 mg/dL Feb 17, 2024 02:08 PM [facility] PT & INR (COUMADIN) Specimen Type: PLASMA No comment entered. Ordering Provider: CONOR ROMERO AM Report Released Date/Time: Feb 17, 2024 01:26 PM Reporting Lab: [address] [address] Performing Lab: [address] [address] INR 1.0 PROTIME 11.0 s 10.0-13.1 Feb 17, 2024 02:08 PM [facility] FERRITIN Specimen Type: SERUM No comment entered. Ordering Provider: CONOR ROMERO AM Report Released Date/Time: Feb 17, 2024 03:25 PM Reporting Lab: [place] [address] [facility] [address] Performing Lab: [facility] [address] [facility] [address] FERRITIN 761 ng/mL H 20-300 Feb 17, 2024 02:08 PM [facility] IRON & TIBC PANEL Specimen Type: SERUM No comment entered. Ordering Provider: CONOR ROMERO AM Report Released Date/Time: Feb 17, 2024 03:25 PM Reporting Lab: [facility] [address] [facility] [address] Performing Lab: [facility] [address] [facility] [address] TIBC 227 ug/dL 204-475 IRON 99 ug/dL 40-160 Transferrin Saturation 43.6 20.0-50.0 Transferrin (TRF) 172 mg/dL L 200-360 Vital Signs: All taken on the encounter date This section contains inpatient and outpatient Vital Signs collected on the date of the Encounter. Date/Time Temperature Pulse Blood Pressure Respiratory Rate SP02 Pain Height Weight Body Mass Index Source Feb 17, 2024 01:10 PM 112/82 [facility] Feb 17, 2024 07:28 AM 164/[facility] Social History: Smoking Status (Most current) [...] 14, 2024 03:30 PM VA-TOBACCO FORMER USER [facility] Tobacco Use History This section includes a history of the smoking, or tobacco-related health factors, that were collected on or before the date of the Encounter. The data comes from the [place] facility where the Encounter took place. Date/Time Smoking Status/Tobacco Use Comment F acility Feb 14, 2024 03:30 PM VA-TOBACCO QUIT 15 YRS OR MORE [facility] Aug 06, 2022 09:30 AM VA-TOBACCO NEVER USED [facility] [place] [facility] Mar 24, 2021 03:00 PM VA-TOBACCO NEVER USED [facility] [place] [facility] Mar 08, 2020 02:30 PM VA-TOBACCO NEVER USED [facility] [place] [facility] Jan 27, 2018 08:05 AM VA-TOBACCO NEVER USED [facility] [place] [facility] Mar 19, 2017 12:58 PM LIFETIME NON-TOBACCO USER [facility] [place] [facility] Encounter Notes: All associated encounter notes This section contains the clinical notes associated to the Encounter. Date/Time Encounter Note(s) Provider Source Feb 18, 2024 10:25 AM LETTERS: LOCAL TITLE: PATIENT LETTER (T) STANDARD TITLE: LETTERS DATE OF NOTE: FEB 18, 2024@10:25 ENTRY DATE: FEB 18, 2024@10:25:41 AUTHOR: GILMA GONZALES EXP COSIGNER: URGENCY: STATUS: COMPLETED DEPARTMENT OF [facility] Toll Free Number Primary Care Telephone Assistance can be reached at extension [phone] [facility] scheduling can be reached at extension [phone] [facility] scheduling can be reached at ext [phone], [address] [place], The Referral Coordination Team at [facility] has attempted to contact you on 02/18/24 to discuss a Cardiology referral that was requested by your healthcare provider. We would appreciate hearing from you so that we can assist in coordinating this care. Please call Gilma Gonzales RN at [phone] Ext [phone] at your earliest convenience. It's important that we process this request as soon as possible to make sure you receive the care your provider requested. Unfortunately if you do not hear from you by 03/03/24 your healthcare provider will be informed and the request may be discontinued. We look forward to your call and thank you for the opportunity to serve you. If we have connected by telephone in the meantime please disregard this letter! Sincerely, Your Primary Care Team [facility] [address] [address] [place] [address] [phone] [facility] [address] [place] [address] [place] [address] [phone] [facility] [address] [facility] [place] [address] [place] [address] [phone] [facility] [place] [facility] Feb 17, 2024 01:43 PM CARDIOLOGY DIAGNOS TIC STUDY CONSULT: LOCAL TITLE: CONSULT REPORT/EKG STANDARD TITLE: CARDIOLOGY DIAGNOSTIC STUDY CONSULT DATE OF NOTE: FEB 17, 2024@13:43 ENTRY DATE: FEB 17, 2024@13:43:34 AUTHOR: MARCUS WYATT EXP COSIGNER: URGENCY: STATUS: COMPLETED EKG tracing was performed for diagnosis of AFIB ordered by ARLENE ROMERO /nadiya/ MARCUS WYATT LPN LPN Signed: 02/17/2024 13:44 MARCUS WYATT [facility]
--- OUTSIDE RECORDS SUMMARY | 2024-07-11 11:10 | XMS_ITS ---
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 Apprentice Name Role Phone ARLENE ROMERO Primary Care [...] BREANNA PLAN MY Jun 03, 2022 PLAN [id number] Bella KIM PATIENT AARP MED SUPP MEDICARE SUPPLEMEN BREANNA Jun 03, 2016 PLANMY [id number] Bella KIM PATIENT AARP MED SUPP MEDICARE SUPPLEMEN BREANNA Jun 03, 2016 PLANMY [id number] Bella KIM PATIENT AARP MED SUPP MEDICARE SUPPLEMEN BREANNA PLAN MY Jun 03, 2016 PLANMY [id number] Bella KIM PATIENT CIGNA DENTAL DENTAL INSURANCE DENTA L PPO Jun 03, 2021 [id number] Bella KIM PATIENT MEDICARE (WNR) MEDICARE (M) PART A Apr 03, 2014 PART A [id number] [phone] [id number] Bella KIM PATIENT MEDICARE (WNR) MEDICARE (M) PART B Apr 03, 2014 PART B [id number] Bella KIM PATIENT MEDICARE (WNR) MEDICARE (M) PART A Apr 03, 2014 PART A [id number] Bella KIM PATIENT MEDICARE (WNR) MEDICARE (M) PART B Apr 03, 2014 PART B [id number] [phone] Bella KIM PATIENT MEDICARE (WNR) MEDICARE (M) PART A Apr 03, 2014 PART A [id number] Bella KIM PATIENT MEDICARE (WNR) MEDICARE (M) PART B Apr 03, 2014 PART B [id number] Bella KIM PATIENT MEDICARE PART D (WNR) MEDICARE (M) PART D Jun 03, 2020 PART D [id number] Bella KIM PATIENT Selected Encounter This section includes the information on record at [place] for the Encounter. Date/Time Encounter Type Encounter Description Reason Provider Source October 10, 2023 03:00 PM Outpatient Encounter GENERAL INTERNAL MEDICINE ICD-10-CM Z02.89 Encounter for other administrative examinations ALEXANDRO WISEMAN [facility] Encounter Template Text not used by [place] Assessments - Encounter Diagnoses This section includes the primary and secondary diagnoses documented for the Encounter. Date/Time Primary/Secondary Diagnosis Diagnosis Name Provider Source October 10, 2023 04:13 PM PRIMARY Encounter for other administrative examinations ALEXANDRO WISEMAN [place] [facility] [place] [facility] Plan of Treatment: Future Appointments (+ 6 months) and Future Tests (+/- 45 days) The Plan of Treatment section includes future care activities for the patient from all [place] treatmentfacilities. This section includes future appointments and future orders which are active, pending or scheduled. Future Appointments This section includes appointments that were scheduled to occur 6 months from the date of the Encounter, up to a maximum of 20 appointments. The data comes from all [place] treatment facilities. Appointment Date/Time Appointment Type Appointme nt Facility Name Nov 28, 2023 02:00 PM AMBULATORY [facility] MEDICINE [facility] [place] [facility] Jan 09, 2024 02:30 PM AMBULATORY - MEDICINE [facility] [place] [facility] Feb 14, 2024 11:00 AM AMBULATORY - MEDICINE [facility] [place] [facility] Feb 14, 2024 03:30 PM AMBULATORY - MEDICINE [facility] [place] [facility] Feb 17, 2024 01:00 PM AMBULATORY - MEDICINE [facility] [place] [facility] Feb 21, 2024 07:45 AM AMBULATORY - NONE [facility] [place] [facility] Mar 26, 2024 08:00 AM AMBULATORY - REHAB MEDICIN E [facility] [place] [facility] Mar 30, 2024 07:30 AM AMBULATORY - MEDICINE [facility] [place] [facility] Apr 03, 2024 09:00 AM AMBULATORY - REHAB MEDICIN E [facility] [place] [facility] Social History: Smoking Status (Most [...] Date/Time Current Smoking Status Comment [place] [facility] Aug 06, 2022 09:30 AM [facility] Tobacco Use History This section includes a history of the smoking, or tobacco-related health factors, that were collected on or before the date of the Encounter. The data comes from the [place] facility where the Encounter took place. Date/Time Smoking Status/Tobacco Use Comment F acility Mar 24, 2021 03:00 PM VA-TOBACCO NEVER USED [facility] [place] [facility] Mar 08, 2020 02:30 PM VA-TOBACCO NEVER USED [facility] [place] [facility] Jan 27, 2018 08:05 AM VA-TOBACCO NEVER USED [facility] [place] [facility] Mar 19, 2017 12:58 PM LIFETIME NON-TOBACCO USER [facility] [place] [facility] Encounter Notes: All associated encounter notes This section contains the clinical notes associated to the Encounter. Date/Time Encounter Note(s) Provider Source October 10, 2023 03:00 PM C & P EXAMINATION NOTE: LOCAL TITLE: COMPENSATION AND PENSION EXAM STANDARD TITLE: C & P EXAMINATION NOTE DATE OF NOTE: OCTOBER 10, 2023@15:00 ENTRY DATE: OCTOBER 10, 2023@16:09:53 AUTHOR: KARLA WISEMAN COSIGNER: URGENCY: STATUS: COMPLETED Sleep Apnea Disability Benefits Questionnaire Name of patient/: MEGHAN KIM ([id number]) Is this DBQ being completed in conjunction with a VA [id number], C&P Examination Request? [X] Yes [ ] No How was the examination completed? (check all that apply) [ ] In-person examination [X] Records reviewed [ ] Examination via approved video telehealth [ ] Other, please specify in comments box Comments: * 07/11/2023 'S CLAIM: - SLEEP APNEA SECONDARY TO TINNITUS EJ and Evidence Review Indicate method used to obtain medical information to complete this document: [X] Review of available records (without in-person or video telehealth examination) using the Acceptable Clinical Evidence (EJ) process because the existing medical evidence provided sufficient information on which to prepare the questionnaire and such an examination will likely provide no additional relevant evidence. Evidence Review Evidence reviewed (check all that apply): [X] VA e-folder [X] [place] electronic health record [X] Other, please identify other evidence reviewed. DORA, JAN, MIRLANDE, CPRS Evidence Comments: no additional comments 1. Diagnosis Does the Hondo have or has he/she ever had sleep apnea? [X] Yes [ ] No [X] Obstructive Date of diagnosis: 11/14/2021 per ambulatory polysomnogram 2. Medical history a. Describe the history (including onset and course) of the Hondo's sleep disorder condition (brief summary): REVIEW OF AVAILABLE MEDICAL EVIDENCE: * 08/09/2023 PRIMARY CARE NOTE: WEIGHT 185 LBS. * 08/07/2022 CARDIOLOGY NOTE: Mild obstructive sleep apnea 2021, untreated by choice. * 01/29/2022 Primary Care Note: did have a sleep study showing mild sleep apnea, suggestion for PAP, offered consult, he declines. * 11/14/2021 SLEEP STUDY: [place] sleepiness scale 11/24 Co-morbidities atrial fibrillation, hypertension, chronic kidney disease. Symptoms, loud snores, restless sleeper. Impression: Mild Obstructive Sleep Apnea * 06/17/2018 WEIGHT = 200 LBS. * 03/17/2018 WEIGHT = 198 LBS. * 03/19/2017 PRIMARY CARE NOTE: WEIGHT 202 LBS. * 06/19/1973 DATE ACTIVE DUTY PER DD214 * 05/06/1973 [facility] SEPARATION MEDICAL EXAM: Medical: height 69 inches, weight 155 lbs. Self Assessment NO frequent trouble sleeping. * 06/27/1970 DATE ENTERED ACTIVE DUTY PER DD214 * 05/12/1970 [facility] ENLISTMENT MEDICAL EXAM: MEDICAL: weight = 138 lbs. height 69 inches. Self Assessment: NO frequent trouble sleeping b. Is continuous medication required for control of a sleep disorder condition? [ ] Yes [X] No c. Does the Hondo require the use of a breathing assistance device? [ ] Yes [X] No d. Does the require the use of a continuous positive airway pressure (CPAP) machine? [ ] Yes [X] No 3. Findings, signs and symptoms ------ Does the Hondo currently have any findings, signs or symptoms attributable to sleep apnea? [ ] Yes [X] No 4. Other pertinent physical findings, complications, conditions, signs, symptoms and scars a. Does the have any other pertinent physical findings, complications, conditions, signs or symptoms related to any conditions listed in the Diagnosis Section above? [X] Yes [ ] No If yes, describe (brief summary): Increased BMI b. Does the Hondo have any scars (surgical or otherwise) related to any conditions or to the treatment of any conditions listed in the Diagnosis Section above? [ ] Yes [X] No c. Comments, if any: N/A 5. Diagnostic testing a. Has a sleep study been performed? [X] Yes [ ] No If yes, does the Hondo have documented sleep disorder breathing? [X] Yes [ ] No Date of sleep study: 11/14/2021 Facility where sleep study performed, if known: AMBULATORY POLYSOMNOGRAM Results: Mild obstructive Sleep Apnea. b. Are there any other significant diagnostic test findings and/or results? [ ] Yes [X] No 6. Functional impact Does the Hondo's sleep apnea impact his or her ability to work? [ ] Yes [X] No 7. Remarks, if any: NO ADDITIONAL COMMENTS * Medical Opinion Disability Benefits Questionnaire Name of patient/Hondo: MEGHAN KIM ([id number]) EJ and Evidence Review Indicate method used to obtain medical information to complete this document: [X] Review of available records (without in-person or video telehealth examination) using the Acceptable Clinical Evidence (EJ) process because the existing medical evidence provided sufficient information on which to prepare the questionnaire and such an examination will likely provide no additional relevant evidence. Evidence Review Evidence reviewed (check all that apply): [X] VA e-folder [X] VA electronic health record [X] Other (please identify other evidence reviewed): VBMS, JLV, VISTAIMATING, CPRS Evidence Comments: no additional comments MEDICAL OPINION SUMMARY RESTATEMENT OF REQUESTED OPINION: a. Opinion from general remarks: THE 2507 DATED OCTOBER 02, 2023 REQUESTS A SECONDARY SERVICE CONNECTION MEDICAL OPINION: IS THE 'S SLEEP APNEA AT LEAST LIKELY NOT (LIKLIHOOD IS AT LEAST APPROXIMATELY BALANCED OR NEARLY EQUAL, IF NOT HIGHER) PROXIMATELY DUE TO OR RELATED TO BILATERAL TINNITUS? b. Indicate type of exam for which opinion has been requested: OBSTRUCTIVE SLEEP APNEA TYPE OF MEDICAL OPINION PROVIDED: [ SECONDARY SERVICE CONNECTION ] The claimed condition is less likely than not (likelihood is less than approximately balanced or nearly equal) proximately due to or the result of the Hondo's service connected condition. c. Rationale: REVIEW OF AVAILABLE MEDICAL EVIDENCE: * 08/09/2023 PRIMARY CARE NOTE: WEIGHT 185 LBS. * 08/07/2022 CARDIOLOGY NOTE: Mild obstructive sleep apnea 2021, untreated by choice. * 01/29/2022 Primary Care Note: did have a sleep study showing mild sleep apnea, suggestion for PAP, offered consult, he declines. * 11/14/2021 SLEEP STUDY: [place] sleepiness scale 11/24 Co-morbidities atrial fibrillation, hypertension, chronic kidney disease. Symptoms, loud snores, restless sleeper. Impression: Mild Obstructive Sleep Apnea * 06/17/2018 WEIGHT = 200 LBS. * 03/17/2018 WEIGHT = 198 LBS. * 03/19/2017 PRIMARY CARE NOTE: WEIGHT 202 LBS. * 06/19/1973 DATE ACTIVE DUTY PER DD214 * 05/06/1973 [facility] SEPARATION MEDICAL EXAM: Medical: height 69 inches, weight 155 lbs. Self Assessment NO frequent trouble sleeping. * 06/27/1970 DATE ENTERED ACTIVE DUTY PER DD214 * 05/12/1970 [facility] ENLISTMENT MEDICAL EXAM: MEDICAL: weight = 138 lbs. height 69 inches. Self Assessment: NO frequent trouble sleeping REVIEW OF MEDICAL LITERATURE: [employer] website accessed October 2023 * JOSE R is the most common sleep-related breathing disorder and is frequently found among older males. RISK FACTORS AND ASSOCIATED CONDITIONS Several clinical risk factors are associated with JOSE R and include the following: ?Older age The prevalence of JOSE R increases from young adulthood through the sixth to seventh decade, then appears to plateau. ?Male sex JOSE R is approximately two to three times more common in males than females, although the risk appears to be similar once females are gail- and postmenopausal . ?Obesity The risk of JOSE R correlates with increasing body mass index (BMI). The Hondo's available STRS are silent for sleeping issues. 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 There is a 45+ lb. 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 The peer-reviewed medical literature notes that increased BMI along with male gender and advancing age are some of the strongest risk factors for the development of Obstructive Sleep Apnea. 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 Peer-reviewed medical literature does not list tinnitus as a risk factor for the development of obstructive sleep apnea. It is my medical opinion that the 's current diagnosis of Obstructive Sleep Apnea is less likely as not (likelihood is less than approximately or nearly equal) proximately due to or related to his [place] tinnitus. /nadiya/ ALEXANDRO WISEMAN NURSE PRACTITIONER Signed: 10/10/2023 16:09 KARLA WISEMAN [facility]
--- OUTSIDE RECORDS SUMMARY | 2024-07-11 11:10 | XMS_ITS ---
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 Name Role Phone ARLENE ROMERO Primary Care [...] BREANNA PLAN MY Jun 03, 2022 PLANMY [id number] [id number] Bella KIM PATIENT AARP MED SUPP MEDICARE SUPPLEMEN BREANNA Jun 03, 2016 PLANMY [id number] Bella KIM PATIENT AARP MED SUPP MEDICARE SUPPLEMEN BREANNA Jun 03, 2016 PLANMY [id number] Bella KIM PATIENT AARP MED SUPP MEDICARE SUPPLEMEN BREANNA PLAN MY Jun 03, 2016 PLANMY [id number] Bella KIM PATIENT CIGNA DENTAL DENTAL INSURANCE DENTA L PPO Jun 03, 2021 [id number] Bella KIM PATIENT MEDICARE (WNR) MEDICARE (M) PART A Apr 03, 2014 PART A [id number] [id number] [phone] [id number] Bella KIMIN PATIENT MEDICARE (WNR) MEDICARE (M) PART B Apr 03, 2014 PART B [id number] [phone] [id number] Bella KIM PATIENT MEDICARE (WNR) MEDICARE (M) PART A Apr 03, 2014 PART A [id number] [phone] Bella KIM PATIENT MEDICARE (WNR) MEDICARE (M) PART B Apr 03, 2014 PART B [id number] [phone] Bella KIM PATIENT MEDICARE (WNR) MEDICARE (M) PART A Apr 03, 2014 PART A [id number] Bella KIM PATIENT MEDICARE (WNR) MEDICARE (M) PART B Apr 03, 2014 PART B [id number] Bella KIM PATIENT MEDICARE PART D (WNR) MEDICARE (M) PART D Jun 03, 2020 PART D [id number] Bella KIM PATIENT Selected Encounter This section includes the information on record at [place] for the Encounter. Date/Time Encounter Type Encounter Description Reason Provider Source May 06, 2024 11:00 AM THERAPEUTIC EXERCISES PHYSICAL THERAPY ICD-10-CM R26.89 Other abnormalities of gait and mobility STANLEY FELIPE [facility] Encounter Template Text not used by [place] Assessments - Encounter Diagnoses This section includes the primary and secondary diagnoses documented for the Encounter. Date/Time Primary/Secondary Diagnosis Diagnosis Name Provider Source May 06, 2024 02:50 PM PRIMARY Other abnormalities of gait and mobility STANLEY FELIPE [place] [facility] [place] [facility] Plan of Treatment: Future Appointments (+ 6 months) and Future Tests (+/- 45 days) The Plan of Treatment section includes future care activities for the patient from all [place] treatmentfacilities. This section includes future appointments and future orders which are active, pending or scheduled. Future Appointments This section includes appointments that were scheduled to occur 6 months from the date of the Encounter, up to a maximum of 20 appointments. The data comes from all [place] treatment facilities. Appointment Date/Time Appointment Type Appointme nt Facility Name May 14, 2024 02:00 PM AMBULATORY - MEDICINE [facility] [place] [facility] May 18, 2024 10:00 AM AMBULATORY - MEDICINE [facility] [place] [facility] May 21, 2024 01:30 PM AMBULATORY - REHAB MEDICIN E [facility] [place] [facility] May 22, 2024 11:30 AM AMBULATORY - MEDICINE [facility] [place] [facility] May 25, 2024 09:30 AM AMBULATORY - REHAB MEDICIN E [facility] [place] [facility] Jun 24, 2024 10:30 AM AMBULATORY - REHAB MEDICIN E [facility] [place] [facility] Jul 01, 2024 10:00 AM AMBULATORY - REHAB MEDICIN E [facility] [place] [facility] Aug 17, 2024 08:00 AM AMBULATORY - MEDICINE [place] [facility] [place] [facility] Social History: Smoking Status (Most current) and Tobacco Use (All prior to encounter date) This section includes the most current, and the historical, smoking and tobacco- related health factors from the [place] facility where the Encounter took place. Current Smoking Status This section includes the most current smoking, or tobacco-related health factor, from the [place] facility where the Encounter took place. Date/Time Current Smoking Status Comment Facil ity Feb 14, 2024 03:30 PM VA-TOBACCO FORMER USER [place] [facility] [place] [facility] Tobacco Use History This section includes a history of the smoking, or tobacco-related health factors, that were collected on or before the date of the Encounter. The data comes from the [place] facility where the Encounter took place. Date/Time Smoking Status/Tobacco Use Comment F acility Feb 14, 2024 03:30 PM VA-TOBACCO QUIT 15 YRS OR MORE [facility] [place] [facility] Aug 06, 2022 09:30 AM VA-TOBACCO NEVER USED [facility] [place] [facility] Mar 24, 2021 03:00 PM VA-TOBACCO NEVER USED [facility] [place] [facility] Mar 08, 2020 02:30 PM VA-TOBACCO NEVER USED [facility] [place] [facility] Jan 27, 2018 08:05 AM VA-TOBACCO NEVER USED [facility] [place] [facility] Mar 19, 2017 12:58 PM LIFETIME NON-TOBACCO USER [facility] Encounter Notes: All associated encounter notes This section contains the clinical notes associated to the Encounter. Date/Time Encounter Note(s) Provider Source May 06, 2024 11:36 AM PHYSICAL THERAPY N OTE: LOCAL TITLE: PHYSICAL THERAPY STANDARD TITLE: PHYSICAL THERAPY NOTE DATE OF NOTE: MAY 06, 2024@11:36 ENTRY DATE: MAY 06, 2024@11:36:28 AUTHOR: DENA FELIPE EXP COSIGNER: URGENCY: STATUS: COMPLETED Initial Evaluation date: 03/26/24 Progress Note Date: n/a Treatment #: 4 Treatment time: 32 mins Diagnosis: other abnormalities of gait and mobility Provider: John PT Treatment Precautions: hx of a-fib, on anticoag SUBJECTIVE: It's going okay, I haven't had any falls I'm surprised at that because of the neuropathy I have in my feet it's hard to feel things OBJECTIVE: Pt walked into clinic using rollator walker today THERAPEUTIC EXERCISE: MINUTES: 32 - nustep x10min L1-2 - hip abd red band in // bars 2x10 B - hip ext red band 2x10 in // bars - sit to/from hoist cylinder loader chair focus on 3-4sec descent 2x5 - anterior tap ups focus on slow control of tap up for SLS one UE 2x10 B on 8 step - anterior step up/down 4 2x10 B several sitting rests in between exercise bouts SELF CARE/EDUCATION: MINUTES:-- pt provided with red band for home progression of standing ther ex [employer]bridge [facility] assigned Access Code: [email or web address] URL: [email or web address] Date: 03/26/2024 Prepared by: [facility] Patient education was provided for all aspects of care during this clinical encounter. ASSESSMENT: Fatigue with ther ex/balance activities requiring several seated rests, difficulty with eccentric control activities like eccentric hip flex during tap downs and eccentric lowering for sit to stand d/t muscle weakness PLAN: continue per plan of care, optimize LE strength and balance /es/ DENA FELIPE PT PHYSICAL THERAPIST Signed: 05/06/2024 14:50 DENA FELIPE [facility]
--- OUTSIDE RECORDS SUMMARY | 2024-07-11 11:10 | XMS_ITS ---
Author Name [facility] (MD) Organization [facility]) Address [address] [place] [address] Care Team Providers Care Accounts Receivable Associate Name Role Phone ARLENE ROMERO Primary Care [...] BREANNA PLAN MY Jun 03, 2022 PLANMY [id number] [id number] Bella KIM PATIENT AARP MED SUPP MEDICARE SUPPLEMEN BREANNA Jun 03, 2016 PLANMY [id number] Bella KIM PATIENT AARP MED SUPP MEDICARE SUPPLEMEN BREANNA Jun 03, 2016 PLANMY [id number] Bella KIM PATIENT AARP MED SUPP MEDICARE SUPPLEMEN BREANNA PLAN MY Jun 03, 2016 PLANMY [id number] Bella KIM PATIENT CIGNA DENTAL DENTAL INSURANCE DENTA L PPO Jun 03, 2021 [id number] Bella KIM PATIENT MEDICARE (WNR) MEDICARE (M) PART A Apr 03, 2014 PART A [id number] [phone] [id number] Bella KIM PATIENT MEDICARE (WNR) MEDICARE (M) PART B Apr 03, 2014 PART B [id number] [phone] Bella KIM PATIENT MEDICARE (WNR) MEDICARE (M) PART A Apr 03, 2014 PART A [id number] [phone] Bella KIM PATIENT MEDICARE (WNR) MEDICARE (M) PART B Apr 03, 2014 PART B [id number] Bella KIM PATIENT MEDICARE (WNR) MEDICARE (M) PART A Apr 03, 2014 PART A [id number] Bella KIM PATIENT MEDICARE (WNR) MEDICARE (M) PART B Apr 03, 2014 PART B [id number] [phone] Bella KIM PATIENT MEDICARE PART D (WNR) MEDICARE (M) PART D Jun 03, 2020 PART D [id number] [phone] Bella KIM PATIENT Selected Encounter This section includes the information on record at MD for the Encounter. Date/Time Encounter Type Encounter Description Reason Pro vider Source Jul 01, 2024 10:00 AM Outpatient Encounter PHYSICAL THERAPY IHE Encounter Template Text not used by MD Plan of Treatment: Future Appointments (+ 6 months) and Future Tests (+/- 45 days) The Plan of Treatment section includes future care activities for the patient from all MD treatmentfacilities. This section includes future appointments and future orders which are active, pending or scheduled. Future Appointments This section includes appointments that were scheduled to occur 6 months from the date of the Encounter, up to a maximum of 20 appointments. The data comes from all MD treatment facilities. Appointment Date/Time Appointment Type Appointme nt Facility Name Aug 17, 2024 08:00 AM AMBULATORY - MEDICINE MD [facility] [place] [facility] Nov 20, 2024 09:30 AM AMBULATORY - MEDICINE MD [facility] [place] [facility] Social History: Smoking Status (Most current) and Tobacco Use (All prior to encounter date) This section includes the most current, and the historical, smoking and tobacco- related health factors from the [facility] facility where the Encounter took place. Current Smoking Status This section includes the most current smoking, or tobacco-related health factor, from the MD facility where the Encounter took place. Date/Time Current Smoking Status Comment [place] Feb 14, 2024 03:30 PM VA-TOBACCO QUIT 15 YRS OR MORE [facility] Tobacco Use History This section includes a history of the smoking, or tobacco-related health factors, that were collected on or before the date of the Encounter. The data comes from the MD facility where the Encounter took place. Date/Time Smoking Status/Tobacco Use Comment F acbarney Feb 14, 2024 03:30 PM VA-TOBACCO QUIT 15 YRS OR MORE [place] [facility] [place] [facility] Aug 06, 2022 09:30 AM VA-TOBACCO NEVER USED MD [facility] [place] [facility] Mar 24, 2021 03:00 PM VA-TOBACCO NEVER USED MD [facility] [place] [facility] Mar 08, 2020 02:30 PM VA-TOBACCO NEVER USED MD [facility] [place] [facility] Jan 27, 2018 08:05 AM VA-TOBACCO NEVER USED MD [facility] [place] [facility] Mar 19, 2017 12:58 PM LIF[facility] [place] [facility] Encounter Notes: All associated encounter notes This section contains the clinical notes associated to the Encounter. Date/Time Encounter Note(s) Provider Source Jul 01, 2024 03:20 PM ADMINISTRATIVE NOTE: LOCAL TITLE: ADMINISTRATIVE NOTE STANDARD TITLE: ADMINISTRATIVE NOTE DATE OF NOTE: JUL 01, 2024@15:20 ENTRY DATE: JUL 01, 2024@15:20:15 AUTHOR: DENA FELIPE EXP COSIGNER: URGENCY: STATUS: COMPLETED ADMINISTRATIVE NOTE Has ADDENDA Patient in need of adaptive equipment for the shower due to risk of falls. He currently only has a grab bar. Please review options available to reduce risk of falls for him Leanna please see PT discharge note dated 07/01/24 for more information mesha junior MSA on here Stefan please call [phone] per (his cell phone) for scheduling, 60minute slot sandi /nadiya/ DENA FELIPE, PT PHYSICAL THERAPIST Signed: 07/01/2024 15:22 Receipt Acknowledged By: 07/01/2024 15:29 /nadiya/ ALVINA MELCHOR ADVANCED LEAD PRESS OPERATOR 07/01/2024 15:27 /nadiya/ AUTUMN ALMENDAREZ/Blaise OCCUPATIONAL THERAPIST 07/01/2024 ADDENDUM STATUS: COMPLETED left voice mail on phone to have call back to schedule with OT /nadiya/ ALVINA MELCHOR ADVANCED LEAD PRESS OPERATOR Signed: 07/01/2024 15:28 [facility]ELIPE [facility]
--- OUTSIDE RECORDS SUMMARY | 2024-07-11 11:10 | XMS_ITS | Continuity of Care Document ---
Author Organization [facility], FP, EHC, OFFICE Address [address] [place] [address] Care Team Providers Care Hvac Instructor Name Role Phone NGUYỄN CAGE Primary Care Provider JM KAUR Funeral Director/Embalmer MARIEL TAI Dress Cutter [facility] Light Fixture Servicer [facility] Dermatologis t Assessment No assessment recorded. Plan of Treatment Reminders Order Date Submit Date Provider Last Modified By Organization Details Last Modified Time Details Appointments Wellness Visit 30 2024 04:00P Bella Cage MD Not available Not available Not available Lab None recorded. Referral None recorded. Procedures None recorded. Surgeries None recorded. Imaging None recorded. Medication Orders None recorded. Patient Targets Encounter Date Encounter Id Patient Goals Patient Target Last Modified By Organization Details Last Modified Time He is slowly getting better, he is off ABs at this timeWill return in 1 week for follow up with Elver that a 3m follow up with or Mariam will give a trial of stopping drinking for the next week , not sure how that will goPHA 02/25 Not available 07/05/2024 20:45:25 Patient InstructionsNo instructions recorded. Reason for Referral None Reported. Results Created Date Observation Date Name Description Value Unit Range Abnormal Flag Note LastModifiedBy Organization Detail LastModifiedTime 06/20/1906/20/2024 XR, hand No observ ation record ed. [facility] [address] [place] [address], [place], [address], 06/20/2024 14:39:24 Result Notes None recorded. Problems Name Problem SNOMED Code Status Onset Date Resolution Date Notes Provider Name and Address Organization Details Recorded Time Hyperlip idemia 38001007 Active Not Available [facility] 2 11:15:55 Chronic kidney disease stage 3 252336707 Completed 09/17/2016 Nguyễn Cage MD [address] [place] [address], [phone] , [facility] 0 12:54:02 [facility] hyperten isaac 78656875 Completed 03/31/2019 carvedil ol And lisinopr il 03/21/18 , keep lip at q 6 mos for now (DS aware LDL >100) per DS. Nguyễn Cage MD [address] [place] [address], [phone] , [facility] 1 20:39:22 Diabetes mellitus 84153846 Completed 09/08/2013 diet controll ed Sommer Pelayo [facility] 8 13:46:06 Gout 86990299 Active off allopuri nol , no gut issues Nguyễn Cage MD [address] [place] [address], [phone] , [facility] 4 09:59:23 Steatosi s of liver 083424799 Active 03/17 Not Available [facility] 2 11:15:55 Allergic rhinitis 55108495 Active 2015 Not Available [facility] 2 11:15:55 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 03/21/18 , keep lip at q 6 mos for now (DS aware LDL >100) per DS. Not Available [facility] 2 11:15:55 Diabetes mellitus 18804440 Active 201703/21/18 , keep lip at q 6 mos for now (DS aware LDL >100) per DS. Not Available [facility] 2 11:15:55 Chronic back pain 016402215 Active 2017 L4-5 herniati on , rec fusion , neurosur g, does not want surgery at this time Not Available [facility] 2 11:15:55 Chronic kidney disease stage 3 907015311 Active 2017 GFR 41 Not Available [facility] 2 11:15:55 Diabetic peripher al neuropat hy 584730393 Active 2018 Not Available [facility] 2 11:15:55 Anemia 172413097 Completed 201811/10/2020 Nl colo 2017, pos stool test 2016, not interest ed in ENDO at this time Nguyễn Cage MD [address] [place] [address], [phone] , [facility] 1 14:59:49 [facility] hyperten isaac 51283019 Active 2020 Not Available [facility] 2 11:15:55 Atrial fibrilla tion 12023034 Active 2021 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 recorder , 2021 , wants to hold off Nguyễn Cage MD [address] [place] [address], [phone] , [facility] 4 13:33:00 Alcohol intake above recommen ded sensible limits 307367529 Active 2021 Nguyễn Cage MD [address] [place] [address], [phone] , [facility] 2 19:51:53 Proteinu isidro 13869381 Active 2023 discuss FARXIGA / dapaglif lozin SGLT2 Nguyễn Cage MD [address] [place] [address], [phone] , [facility] 4 20:50:18 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 Procedures Surgical History Date Name Laterality Status Provider Name and Address Organization Details Recorded Time 06/26/19 Wound Care completed Lucy Raya LPN [facility] 06/26/2024 12:12:16 02/28/20 24 Medicare Wellness Visit completed Liliya Lovetttgenhause r, [facility] 02/27/2024 16:42:20 02/28/20 24 Alcohol overuse counseling completed Nguyễn Cage MD [address] [place] [address], [phone], [facility] 03/01/2024 08:47:25 02/28/20 24 Cardiovascular disease risk reduction counseling completed Nguyễn Cage MD [address] [place] [address], [phone], [facility] 03/01/2024 08:47:11 02/28/20 24 Advanced Care Planning completed Liliya Lovetttgenhteresa r, [facility] 02/27/2024 16:44:58 08/27/19 24 G2211 completed Nguyễn Cage MD [address] [place] [address], [phone], [facility] 08/28/2023 17:33:15 02/22/20 23 Medicare Wellness Visit completed Liliya Bettgenhause r, [facility] 02/20/2023 15:07:50 02/22/20 23 Advanced Care Planning completed Liliya Lovetttgenhause r, [facility] 02/20/2023 15:08:47 02/14/20 22 Medicare Wellness Visit completed Liliya Bettgenhause r, [facility] 02/13/2022 15:48:52 02/14/20 22 Alcohol use screening completed Liliya Bettgenhause r, [facility] 02/13/2022 15:48:52 02/14/20 22 Cardiovascular disease risk reduction counseling completed Liliya Bettgenhause r, [facility] 02/13/2022 15:48:52 11/11/19 21 Medicare Wellness Visit completed Liliya Bettgenhause r, [facility] 11/09/2020 12:01:37 11/11/19 21 prevention-cardiov ascular risk reduction counseling completed Liliya Bettgenhause r, [facility] 11/09/2020 12:01:37 11/11/19 21 prevention-annual alcohol misuse screening completed DIMITRIOS Flores [facility] 11/09/2020 12:01:37 02/10/20 20 25988: Therapeutic Exercise completed Taylor Benitez, PT [address] [place], [phone], [facility] 02/10/2020 11:56:46 02/10/20 20 Treatment and Advice completed Taylor Benitez, PT [address] [place], [phone], [facility] 02/10/2020 11:52:01 02/03/20 20 32626: Therapeutic Exercise completed Taylor Benitez, PT [address] [place], [phone], [facility] 02/03/2020 18:46:42 02/03/20 20 Treatment and Advice completed Taylor Benitez, PT [address] [place], [address], [facility] 02/03/2020 18:46:53 01/27/20 20 36765: PT Eval Low Complexity completed Taylor Benitez, PT [address] [place], [address], [facility] 01/27/2020 11:22:16 01/27/20 20 Treatment and Advice completed Taylor Benitez, PT [address] [place], [phone], [facility] 01/27/2020 14:36:24 10/02/19 20 Medicare Wellness Visit completed Melinda Jean-Baptiste MA [facility] 10/02/2019 09:16:03 10/02/19 20 prevention-cardiov ascular risk reduction counseling completed Melinda Jean-Baptiste MA [facility] 10/02/2019 09:16:03 10/02/19 20 prevention-annual alcohol misuse screening completed Melinda Jean-Baptiste MA [facility] 10/02/2019 09:16:03 09/24/19 19 Medicare Wellness Visit completed DIMITRIOS Flores [facility] 09/23/2018 11:03:44 09/20/19 18 Medicare Wellness Visit completed Autumn Mike SIMONE [facility] 09/19/2017 11:40:05 09/18/19 17 Medicare Wellness Visit completed Joelle Arnolddilcia [facility] 09/17/2016 14:33:19 09/13/19 16 Medicare Wellness Visit completed DIMITRIOS Vaughan [facility] 09/13/2015 14:39:45 Appendectomy completed Nguyễn Cage MD [address] [place] [address], [phone], [facility] 08/19/2012 12:03:47 Imaging Results None recorded. Procedure Notes None recorded. Medical Equipment None Reported. Allergies Allergen ID Allergen Name Allergen Category Reaction Reaction Severity Criticality Documentation Date Start Date Code Code System Note Provider Name and Address Organization Details Recorded Time 746791 cat dander environme nt Not available Not available Not available 01/11/2023 10794 UNK Iza Cerrato DONOVAN [facility] 3 08:29:06 663676 Canis lupus familiari s extract environme nt Not available Not available Not available 01/11/2023 54433 4 RxNorm Iza Cerrato DONOVAN [facility] 3 08:29:14 841759 house dust allergeni c extract environme nt,medica tion Not available Not available Not available 01/11/2023 27312 9 RxNorm Iza Cerrato [facility] 08:29:19 Medications Name Sig Start Date [...] by oral route. 02/01 completed per 10/27 [facility] [place]- PRN 10/10/22 SM Not [...] 5% patch. qd 02/13 completed per 10/24 [facility] [place] Not Available Not Available Not Available Metamucil 10/10 completed not taking 10/10/22 SM Not Available Not Available Not Available Baby Aspirin 81 mg one daily 08/26 completed [facility] [place], per pt, does not take 08/27/23 [...] Details Last Updated DateTime 5 166.37 cm 30 kg/m2 51818.4 g 64 /min 126 mm[Hg] 76 mm[Hg] Liliya Felix user, RMA [facility] 5 16:01:23 Social History Question Answer Notes LastModified by Organizat ion Details LastModified Time Tobacco Smoking Status Never Smoker Meli Govea [place] null, [facility] 06/18/2011 15:42:23 What Is Your Level [...] 08/19/2012 Does The Patient Have Difficulty Speaking Czech? No Information not available 09/13/2015 Does The Patient Have Difficulty Reading Czech? No Information not available 09/13/2015 Patient Has [...] Brother Problem Ha k, - 4 yrs, [facility] Not available 09/13/2015 15:03:09 Father Problem 92 CVA, prosta te [place], did not from prosta te [place] Not available 09/17/2016 15:13:21 Medical History Condition Response Diabetes Type II Y RENAL / GENITOURINARY Y Hyperlipidemia Y Hypertension Y Immunizations Vaccine Type Date Status Note Provider Nam e and Address Organization Details Recorded Time influenza, seasonal, intradermal, preservative free 2 completed Not Available [facility] 06/20/2019 02:18:38 zoster live 3 completed Not Available [facility] 06/20/2019 02:16:34 Tdap 3 completed Not Available [facility] 06/20/2019 02:30:29 pneumococcal polysaccharide PPV23 3 completed Not Available [facility] 06/20/2019 02:14:36 Influenza, split virus, trivalent, PF 3 completed Not Available [facility] 06/20/2019 02:27:40 Influenza, split virus, trivalent, preservative 4 completed Not Available [facility] 06/20/2019 02:19:21 Hep A, unspecified formulation 9 completed Not Available [facility] 02/02/2022 12:06:54 influenza, unspecified formulation 1 completed Not Available [facility] 02/02/2022 12:06:53 Influenza, split virus, quadrivalent, PF 5 completed Not Available [facility] 06/20/2019 02:39:34 Pneumococcal conjugate PCV 13 5 completed Not Available [facility] 06/20/2019 02:36:27 Influenza, high-dose, trivalent, PF 6 completed Not Available [facility] 06/20/2019 02:27:12 Influenza, high-dose, trivalent, PF 7 completed Not Available [facility] 06/20/2019 02:22:04 pneumococcal polysaccharide PPV23 8 completed Not Available [facility] 06/20/2019 02:23:04 Influenza, high-dose, quadrivalent, PF 0 completed Daniela Roth RN [facility] 03/28/2020 14:52:26 Influenza, split virus, quadrivalent, preservative 9 completed Not Available [facility] 02/02/2022 12:06:54 Influenza, high-dose, quadrivalent, PF 1 completed DIMITRIOS Marinelli, [facility] 03/07/2021 16:45:09 Influenza, high-dose, quadrivalent, PF 2 completed Nguyễn Cage MD [address] [place] [address], [phone], [facility] 02/14/2022 20:12:21 Td (adult), 2 Lf tetanus toxoid, preservative free, adsorbed 3 completed Migdalia Moura NP [address] [place] [address], [address], [facility] 10/10/2022 13:36:33 COVID-19, mRNA, LNP-S, PF, 30 mcg/0.3 mL dose 1 completed Not Available [facility] 02/02/2022 12:06:54 COVID-19, mRNA, LNP-S, PF, 30 mcg/0.3 mL dose 1 completed DIMITRIOS Marinelli, [facility] 02/28/2024 09:27:07 Influenza, high-dose, quadrivalent, PF 3 completed Nguyễn Cage MD [address] [place] [address], [phone], [facility] 02/23/2023 17:05:14 zoster recombinant 9 completed Not Available [facility] 02/02/2022 12:06:54 zoster recombinant 9 completed Not Available [facility] 02/02/2022 12:06:54 Pneumococcal conjugate PCV20, polysaccharide EDM271 conjugate, adjuvant, PF 4 completed DIMITRIOS Marinelli, [facility] 02/28/2024 09:27:07 COVID-19, mRNA, LNP-S, PF, 30 mcg/0.3 mL dose, júnior-sucrose 2 [facility] 09:27:07 RSV, recombinant, protein subunit RSVpreF, adjuvant reconstituted, 0.5 mL, PF 4 completed DIMITRIOS Marinelli, [facility] 02/28/2024 09:27:07 COVID-19, mRNA, LNP-S, PF, 50 mcg/0.5 mL 4 completed Liliya Saravia RMA saadia, [facility] 02/28/2024 09:27:07 pneumococcal polysaccharide PPV23 9 completed Liliya Saravia RMA null, [facility] 02/28/2024 09:27:07 Influenza, high-dose, trivalent, PF 4 completed Liliya Saravia RMA null, [facility] 02/28/2024 09:27:07 Influenza, split virus, trivalent, PF 8 completed Liliya Saravia RMA saadia, [facility] 02/28/2024 09:27:07 Past Encounters Encounter ID Performer Location Encounter Start Date Encounter Closed Date Diagnosis/Indication Diagnosis SNOMED-CT Code Diagnosis ICD10 Code Diagnosis Note [id number] Juliana Latif, DNP, HEMATOLOGY TECHNOLOGIST-BC FP, [facility], OFFICE [address] [place] [address] 06/26/2024 11:09:29 06/26/2024 12:16:38 Organism isolated in blood by culture 5700560308 437355 R78.81 + salmonella [facility] Positive blood cultures for Salmonella . Initial treatment with IV cefazolin, followed by oral Keflex and doxycyclin e. Further management plan requires consultati on.- Consult with Dr. Cage regarding management .- No symptoms-I f new or worsening return for follow up Abrasion o f skin of left hand 4701643463 2725604 S60.512A Left hand injury with skin tear [...] Abrasion o f skin of right forearm 0764673130 4596081 S50.811A Right forearm abrasion Abrasion healing well without complicati ons. - Monitor for infection. [id number] Nguyễn Cage MD , [facility], OFFICE [address] [place] [address] 07/02/2024 15:42:52 07/02/2024 16:24:28 Open wound of hand 862496624 S61.401D Renal diso rder due to type 2 diabetes mellitus 268569047 E11.29 GFR 32 Atrial fibrillation 4943 6004 I48.91 On ELiquis Chronic ki dney disease stage 3 441688356 N18.30 Alcohol in take above recommended sensible limits 480011050 F10.10 reports 07/02/24 he wants to trial stopping drinking Diabetes mellitus 600740 09 E11.9 well controlled , A1C. 5.5 Health Concerns Section Related Observation LastModified by Organization Detai ls LastModified Time None Recorded Concern Status LastModified by Organization Details LastModified Time None Recorded Payers Encounter Date Sequence Insurance Name Policy Number Policy Andrew Covered Member ID Andrew Member ID Guarantor Name 07/02/2024 1 [place]: [employer] Basim Langston [id number] Basim Langston 07/02/2024 2 [facility] (MEDICARE SUPPLEMENT) Basim Langston [id number] Basim Langston Notes Date Note Type Note Provider Name and Address Organization Details Recorded Time 07/02/2024 text/html 07/02/24-Here for a follow up on his hand wound, no more drainageHe is off ABs at this timeHe cont to drink vodka, although he now says he would like to stop and wants to try a week with no drinking . He told his in the office it was OK to pour out the rest of his vodka . Nguyễn Cage MD [address] [place] [address], [phone], [facility] 07/05/2024 20:45:50
--- OUTSIDE RECORDS SUMMARY | 2024-07-11 11:10 | XMS_ITS | Continuity of Care Document ---
Author Organization [facility] Address [address] [place] [address]- Care Team Providers Care Fire Services Plumber Name Role Phone Jagjit Lord MD Primary Care Physician [phone] [id number] Date(s): 06/19/24 - 06/26/24 [facility] [address] [place] [address]- Encounter Diagnosis Hand lesion(Discharge Diagnosis) - 06/19/24 Attending Physician: Alma Giles MD Referring Physician: Jagjit Lord MD Encounter Type: Office Visit Allergies, Adverse Reactions, Alerts No Known Allergies Immunizations Given and Recorded Vaccine Date Status Refusal Reason tetanus/diphtheria/pertussis, acel(Tdap) 1 06/19/24 Given 1Result Comment: [facility] [id number] LOT [id number] EXP 04/22/26 Medications Advil 200 [...] PM EST, 06/26/24 7:27:00 PM EST, Tablet, [facility], Partial fill upon patient request [...] Date: 11/24/18 Status: Ordered Repeat number: 1 Problem List Diagnosis Diagnosis Type Effective Dates Health Status Clini дмитрий Service Informant Hand lesion Discharge Diagnosis 06/19/24 Vital Signs Most recent to oldest [Reference Range]: 1 2 Height 175.26 cm (06/19/24 6:32 PM) 175.26 cm (06/19/24 6:09 PM) Oxygen Saturation [94-100 %] 98 % (06/19/24 6:09 PM) Pulse Rate [55-90 bpm] 63 bpm (06/19/24 6:09 PM) Blood Pressure [90-138/55-84 mm Hg] 183/ 95mm Hg *H* (06/19/24 6:32 PM) 183/111mm Hg *H* (06/19/24 6:09 PM) Respiratory Rate [16-30 br/min] 18 br/mi n (06/19/24 6:09 PM) Temperature [96.8-100.4 DegF] 98.4 DegF (06/19/24 6:09 PM) Mode of Delivery (Oxygen) Room air (06/19/24 6:09 PM) Blood pressure sites Arm, left (06/19/24 6:32 PM) Arm, left (06/19/24 6:09 PM) Temperature Route Temporal (06/19/24 6:09 PM) Patient Care team information Care Team Personnel Name: Jagjit Lord MD Position: [facility] Outreach Member Role: PCP Address: [address] [place] [address]- Telecom: Name: Forrest Benitez MD Position: [facility] Renal MD Member Role: Lifetime Consulting Physician Address: [address] [address] [facility] [place] [address] [facility] [place] [address]- Telecom: Care Team Related Persons Name: MARIA E CHAKRABORTY Insurance Providers Guarantor name: MEGHAN KIM Health Plan Information #: 1 Payer: MEDICARE PART B OUTPT Member Number: [id number] Policy Number: NA Group Number: NA Health Plan Information #: 2 Payer: SELF PAY INSURANCE Member Number: NA Policy Number: NA Group Number: NA
--- OUTSIDE RECORDS SUMMARY | 2024-07-11 11:10 | XMS_ITS | Continuity of Care Document ---
Author Organization [facility], [facility], [facility], OFFICE Address [address] [place] [address] Care Team Providers Care Shrimper Name Role Phone NGUỄYN CAGE Primary Care Provider JM KAUR Cubing Machine Tender MARIEL TAI Color Control Operator [facility] Aws Architect [facility] Dermatologis t Assessment No assessment recorded. Plan of Treatment Reminders Order Date Submit Date Provider Last Modified By Organization Details Last Modified Time Details Appointments Wellness Visit 30 2024 04:00P M Nguyễn Cage MD Not available Not available Not [...] XR, hand No observ ation record ed. [address], [address], 06/20/2024 14:39:24 Result Notes None recorded. Problems Name Problem SNOMED Code Status Onset Date Resolution Date Notes Provider Name and Address Organization Details Recorded Time Hyperlip idemia 36335494 Active Not Available [facility] 2 11:15:55 Chronic kidney disease stage 3 055153865 Completed 09/17/2016 Nguyễn Cage MD [address] [place] [address], [phone] , [facility] 0 12:54:02 [facility] hyperten isaac 98180064 Completed 03/31/2019 carvedil ol And lisinopr il 03/21/18 , keep lip at q 6 mos for now (DS aware LDL >100) per DS. Nguyễn Cage MD [address] [place] [address], [phone] , [facility] 1 20:39:22 Diabetes mellitus 97095247 Completed 09/08/2013 diet controll ed Sommer Pierce [facility], 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 03/21/18 , keep lip at q 6 mos for now (DS aware LDL >100) per DS. Not Available [facility] 2 11:15:55 Diabetes mellitus 50034251 Active 201703/21/18 , keep lip at q 6 mos for now (DS aware LDL >100) per DS. Not Available [facility] 2 11:15:55 Chronic back pain 095965089 Active 2017 L4-5 herniati on , rec fusion , neurosur g, does not want surgery at this time Not Available [facility] 2 11:15:55 Chronic kidney disease stage 3 320748101 Active 2017 GFR 41 Not Available [facility] 2 11:15:55 Diabetic peripher al neuropat hy 200738907 Active 2018 Not Available [facility] 2 11:15:55 Anemia 443417862 Completed 201811/10/2020 Nl colo 2017, pos stool test 2016, not interest ed in ENDO at this time Nguyễn Cage MD [address] [place] [address], [phone] , [facility] 1 14:59:49 [facility] hyperten isaac 90096494 Active 2020 Not Available [facility] 2 11:15:55 Atrial fibrilla tion 55221595 Active 2021 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 recorder , 2021 , wants to hold off Nguyễn Cage MD [address] [place] [address], [phone] , [facility] 4 13:33:00 Alcohol intake above recommen ded sensible limits 472941064 Active 2021 Nguyễn Cage MD [address] [place] [address], [phone] , [facility] 2 19:51:53 Proteinu isidro 75289604 Active 2023 discuss FARXIGA / dapaglif lozin SGLT2 Nguyễn Cage MD [address] [place] [address], [phone] , [facility] 4 20:50:18 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 Procedures Surgical History Date Name Laterality Status Provider Name and Address Organization Details Recorded Time 06/26/19 Wound Care completed Lucy Raya LPN [facility] 06/26/2024 12:12:16 02/28/20 Medicare Wellness Visit completed DIMITRIOS Flores [facility] 02/27/2024 16:42:20 02/28/20 24 Alcohol overuse counseling completed Nguyễn Cage MD [address] [place] [address], [phone], [facility] 03/01/2024 08:47:25 02/28/20 24 Cardiovascular disease risk reduction counseling completed Nguyễn Cage MD [address] [place], [address], [facility] 03/01/2024 08:47:11 02/28/20 24 Advanced Care Planning completed Liliya De Lunaenhteresa r, [facility] 02/27/2024 16:44:58 08/27/19 24 G2211 completed Nguyễn Cage MD [address] [place], [address], [facility] 08/28/2023 17:33:15 02/22/20 23 Medicare Wellness Visit completed Liliya Bettgenhause r, [facility] 02/20/2023 15:07:50 02/22/20 23 Advanced Care Planning completed Liliya Bettgenhause r, [facility] 02/20/2023 15:08:47 02/14/20 22 Medicare Wellness Visit completed Liliya Bettgenhause r, [facility] 02/13/2022 15:48:52 02/14/20 22 Alcohol use screening completed Liliya Bettgenhause r, [facility] 02/13/2022 15:48:52 02/14/20 22 Cardiovascular disease risk reduction counseling completed Liliya Bettgenhause r, [facility] 02/13/2022 15:48:52 11/11/19 21 Medicare Wellness Visit completed Liliya Bettgenhause r, [facility] 11/09/2020 12:01:37 11/11/19 21 prevention-cardiov ascular risk reduction counseling completed Liliya Bettgenhause r, [facility] 11/09/2020 12:01:37 11/11/19 21 prevention-annual alcohol misuse screening completed Liliya Bettgenhause r, [facility] 11/09/2020 12:01:37 02/10/20 20 91712: Therapeutic Exercise completed Taylor Benitez, PT [address] [place], [address], [facility] 02/10/2020 11:56:46 02/10/20 20 Treatment and Advice completed Taylor Benitez, PT [address] [place], [address], [facility] 02/10/2020 11:52:01 02/03/20 20 62656: Therapeutic Exercise completed Taylor Benitez, PT [address] [place], [address], [facility] 02/03/2020 18:46:42 02/03/20 20 Treatment and Advice completed Taylor Benitez, PT [address] [place], [address], [facility] 02/03/2020 18:46:53 01/27/20 20 62520: PT Eval Low Complexity completed Taylor Benitez, PT [address] [place], [address], [facility] 01/27/2020 11:22:16 01/27/20 20 Treatment and Advice completed Taylor Benitez, PT [address] [place], [address], [facility] 01/27/2020 14:36:24 10/02/19 20 Medicare Wellness Visit completed Melinda Jean-Baptiste MA [facility] 10/02/2019 09:16:03 10/02/19 20 prevention-cardiov ascular risk reduction counseling completed Melinda Jean-Baptiste MA [facility] 10/02/2019 09:16:03 10/02/19 20 prevention-annual alcohol misuse screening completed Melinda Jean-Baptiste MA [facility] 10/02/2019 09:16:03 09/24/19 19 Medicare Wellness Visit completed Liliya sinclair Garrett [facility] 09/23/2018 11:03:44 09/20/19 18 Medicare Wellness Visit completed Autumn Mike CMA [facility] 09/19/2017 11:40:05 09/18/19 17 Medicare Wellness Visit completed Joelle Barros [facility] 09/17/2016 14:33:19 09/13/19 16 Medicare Wellness Visit completed DIMITRIOS Vaughan [facility] 09/13/2015 14:39:45 Appendectomy completed Nguyễn Cage MD [address] [place] [address], [phone], [facility] 08/19/2012 12:03:47 Imaging Results None recorded. Procedure Notes None recorded. Medical Equipment None Reported. Allergies Allergen ID Allergen Name Allergen Category Reaction Reaction Severity Criticality Documentation Date Start Date Code Code System Note Provider Name and Address Organization Details Recorded Time 089262 cat dander environme nt Not available Not available Not available 01/11/2023 79524 UNK [facility] 3 08:29:06 759772 Canis lupus familiari s extract environme nt Not available Not available Not available 01/11/2023 78930 4 RxNorm Iza [facility] 3 08:29:14 665757 house dust allergeni c extract environme nt,medica tion Not available Not available Not available 01/11/2023 41605 9 RxNorm [facility]za [facility] 08:29:19 Medications Name Sig [...] by oral route. 02/01 completed per 10/27 [facility] med dc list- PRN 10/10/22 SM Not [...] 5% patch. qd 02/13 completed per 10/24 [facility] med dc list Not Available Not Available Not Available Metamucil 10/10 completed not taking 10/10/22 SM Not Available Not Available Not Available Baby Aspirin 81 mg one daily 08/26 completed [facility] D/C, per pt, does not take 08/27/23 [...] Updated DateTime 5 166.37 cm 30 kg/m2 62676.4 g 77 /min 137 mm[Hg] 75 mm[Hg] Viktoria Frost MA [facility] 5 11:21:53 Social History Question Answer Notes LastModified by Organizat ion Details LastModified Time Tobacco Smoking Status Never Smoker DONOVAN Castellanos [facility] 06/18/2011 15:42:23 What Is Your Level [...] 08/19/2012 Does The Patient Have Difficulty Speaking Malian? No Information not available 09/13/2015 Does The Patient Have Difficulty Reading Malian? No Information not available 09/13/2015 Patient Has [...] Brother Problem Ha k, - 4 yrs, [facility] Not available 09/13/2015 15:03:09 Father Problem 92 CVA, prosta te [place], did not from prosta te [place] Not available 09/17/2016 15:13:21 Medical History Condition Response Diabetes Type II Y Hyperlipidemia Y Hypertension Y RENAL / GENITOURINARY Y Immunizations Vaccine Type Date Status Note Provider Nam e and Address Organization Details Recorded Time influenza, seasonal, intradermal, preservative free 2 completed Not Available [facility] 06/20/2019 02:18:38 zoster live 3 completed Not Available [facility] 06/20/2019 02:16:34 Tdap 3 completed Not Available [facility] 06/20/2019 02:30:29 pneumococcal polysaccharide PPV23 3 completed Not Available [facility] 06/20/2019 02:14:36 Influenza, split virus, trivalent, PF 3 completed Not Available [facility] 06/20/2019 02:27:40 Influenza, split virus, trivalent, preservative 4 completed Not Available [facility] 06/20/2019 02:19:21 Hep A, unspecified formulation 9 completed Not Available [facility] 02/02/2022 12:06:54 influenza, unspecified formulation 1 completed Not Available [facility] 02/02/2022 12:06:53 Influenza, split virus, quadrivalent, PF 5 completed Not Available [facility] 06/20/2019 02:39:34 Pneumococcal conjugate PCV 13 5 completed Not Available [facility] 06/20/2019 02:36:27 Influenza, high-dose, trivalent, PF 6 completed Not Available [facility] 06/20/2019 02:27:12 Influenza, high-dose, trivalent, PF 7 completed Not Available [facility] 06/20/2019 02:22:04 pneumococcal polysaccharide PPV23 8 completed Not Available [facility] 06/20/2019 02:23:04 Influenza, high-dose, quadrivalent, PF 0 completed Daniela Roth RN [facility], [facility] 03/28/2020 14:52:26 Influenza, split virus, quadrivalent, preservative 9 completed Not Available [facility] 02/02/2022 12:06:54 Influenza, high-dose, quadrivalent, PF 1 completed DIMITRIOS Marinelli null, [facility] 03/07/2021 16:45:09 Influenza, high-dose, quadrivalent, PF 2 completed Nguyễn Cage MD [address] [place] [address], [phone], [facility] 02/14/2022 20:12:21 Td (adult), 2 Lf tetanus toxoid, preservative free, adsorbed 3 completed Migdalia Moura NP [address] [place] [address], [phone], [facility] 10/10/2022 13:36:33 COVID-19, mRNA, LNP-S, PF, 30 mcg/0.3 mL dose 1 completed Not Available [facility] 02/02/2022 12:06:54 COVID-19, mRNA, LNP-S, PF, 30 mcg/0.3 mL dose 1 completed Liliya Saravia RMA saadia, [facility] 02/28/2024 09:27:07 Influenza, high-dose, quadrivalent, PF 3 completed Nguyễn Cage MD [address] [place] [address], [address], [facility] 02/23/2023 17:05:14 zoster recombinant 9 completed Not Available [facility] 02/02/2022 12:06:54 zoster recombinant 9 completed Not Available [facility] 02/02/2022 12:06:54 Pneumococcal conjugate PCV20, polysaccharide ETQ490 conjugate, adjuvant, PF 4 completed Liliya Saravia RMA saadia, [facility] 02/28/2024 09:27:07 COVID-19, mRNA, LNP-S, PF, 30 mcg/0.3 mL dose, júnior-sucrose 2 completed Liliya Saravia RMA saadia, [facility] 02/28/2024 09:27:07 RSV, recombinant, protein subunit RSVpreF, adjuvant reconstituted, 0.5 mL, PF 4 completed Liliya Saravia RMA null, [facility] 02/28/2024 09:27:07 COVID-19, mRNA, LNP-S, PF, 50 mcg/0.5 mL 4 completed Liliya Saravia RMA null, [facility] 02/28/2024 09:27:07 pneumococcal polysaccharide PPV23 9 completed Liliya Saravia RMA null, [facility] 02/28/2024 09:27:07 Influenza, high-dose, trivalent, PF 4 completed Liliyaedilma Saravia DIMITRIOS zee, [facility] 02/28/2024 09:27:07 Influenza, split virus, trivalent, PF 8 completed Liliya Saravia DIMITRIOS zee [facility] 02/28/2024 09:27:07 Past Encounters Encounter ID Performer Location Encounter Start Date Encounter Closed Date Diagnosis/Indication Diagnosis SNOMED-CT Code Diagnosis ICD10 Code Diagnosis Note [id number] Nguyễn Cage MD , [facility], OFFICE [address] [place] [phone] 05/28/2024 15:58:10 05/28/2024 16:53:43 Essential hypertension 67378083 I10 not well controlled , will add amlodipine , start 5mg, can inc to 10 mg Hypertensive disorder 38 843990 I10 Alcohol in take above recommended sensible limits 914874871 F10.10 still drinking to excess Atrial fibrillation 4943 6004 I48.91 On ELiquis Diabetes mellitus 585066 09 E11.9 well controlled , A1C. 5.5 Hyperlipidemia 61285379 E78.5 LDL. 97 , not on chol meds [id number] Juliana Latif, DNP, [employer] , [facility], OFFICE [address] [place] [address] 06/26/2024 11:09:29 06/26/2024 12:16:38 Organism isolated in blood by culture 0514457787 137081 R78.81 + salmonella [facility] Positive blood cultures for Salmonella . Initial treatment with IV cefazolin, followed by oral Keflex and doxycyclin e. Further management plan requires consultati on.- Consult with Dr. Cage regarding management .- No symptoms-I f new or worsening return for follow up Abrasion o f skin of left hand 1001572199 6912234 S60.512A Left hand injury with skin tear [...] Abrasion o f skin of right forearm 1457561601 2516849 S50.811A Right forearm abrasion Abrasion healing well without complicati ons. - Monitor for infection. Health Concerns Section Related Observation LastModified by Organization Detai ls LastModified Time None Recorded Concern Status LastModified by Organization Details LastModified Time None Recorded Payers Encounter Date Sequence Insurance Name Policy Number Policy Andrew Covered Member ID Andrew Member ID Guarantor Name 06/26/2024 1 MEDICARE B-[place]: [employer] Basim Lama Kian [id number] Basim Langston 06/26/2024 2 [facility] [employer] (MEDICARE SUPPLEMENT) Basim Langston [id number] Basim Langston Notes Date Note Type Note Provider Name and Address Organization Details Recorded Time 06/26/2024 text/html The patient presents for follow-up after [...] but did have diarrhea while traveling in [place]. Improved now.Denies fevers, chills. Juliana Latif DNP, [employer]-[address], [address], [facility] 06/26/2024 12:32:28
--- OUTSIDE RECORDS SUMMARY | 2024-07-11 11:10 | XMS_ITS | Encounter Summary ---
Author Name [facility] [place] Organization [facility] [place] Address [address] [place] [id number] Care Team Providers Care Teaseler Name Role Phone ARLENE ROMERO [facility] Providers: All historical and [...] BREANNA PLAN MY Jun 03, 2022 PLANMY [id number] [phone] Bella KIM PATIENT AARP MED SUPP MEDICARE SUPPLEMEN BREANNA Jun 03, 2016 PLANMY [id number] [phone] Bella KIM PATIENT AARP MED SUPP MEDICARE SUPPLEMEN BREANNA Jun 03, 2016 PLANMY [id number] Bella KIM PATIENT AARP MED SUPP MEDICARE SUPPLEMEN BREANNA PLAN MY Jun 03, 2016 PLANMY [id number] [phone] Blela KIM PATIENT [employer] D[employer] DENTAL [employer]URANCE DENTA L PPO Jun 03, 2021 [id number] [phone] Bella KIM PATIENT MEDICARE (WNR) MEDICARE (M) PART A Apr 03, 2014 PART A [id number] [phone] Bella KIM PATIENT MEDICARE (WNR) MEDICARE (M) PART B Apr 03, 2014 PART B [id number] Bella KIM PATIENT MEDICARE (WNR) MEDICARE (M) PART A Apr 03, 2014 PART A [id number] [phone] Bella KIM PATIENT MEDICARE (WNR) MEDICARE (M) PART B Apr 03, 2014 PART B [id number] Bella KIM PATIENT MEDICARE (WNR) MEDICARE (M) PART A Apr 03, 2014 PART A [id number] Bella KIM PATIENT MEDICARE (WNR) MEDICARE (M) PART B Apr 03, 2014 PART B [id number] [phone] Bella KIM PATIENT MEDICARE PART D (WNR) MEDICARE (M) PART D Jun 03, 2020 PART D [id number] Bella KIM PATIENT Selected Encounter This section includes the information on record at [place] for the Encounter. Date/Time Encounter Type Encounter Description Reason Provider Source Jul 08, 2024 03:02 PM PH1 ASSMT&MGMT NQHP 11-20 TELEPHONE/GERIATRI CS ICD-10-CM Z72.3 Lack of physical exercise SHANELLE PHAN Cristino Encounter Template Text not used by [place] Assessments - Encounter Diagnoses This section includes the primary and secondary diagnoses documented for the Encounter. Date/Time Primary/Secondary Diagnosis Diagnosis Name Provider Source Jul 08, 2024 03:02 PM PRIMARY Lack of physical exercise SHANELLE PHAN [facility] Plan of Treatment: Future Appointments (+ 6 months) and Future Tests (+/- 45 days) The Plan of Treatment section includes future care activities for the patient from all [place] treatmentfacilities. This section includes future appointments and future orders which are active, pending or scheduled. Future Appointments This section includes appointments that were scheduled to occur 6 months from the date of the Encounter, up to a maximum of 20 appointments. The data comes from all [place] treatment facilities. Appointment Date/Time Appointment Type Appointme nt Facility Name Aug 17, 2024 08:00 AM AMBULATORY - MEDICINE [facility] [place] [facility] Nov 20, 2024 09:30 AM AMBULATORY - MEDICINE [facility] [place] [facility] Social History: Smoking Status (Most current) and Tobacco Use (All prior to encounter date) This section includes the most current, and the historical, smoking and tobacco- related health factors from the [place] facility where the Encounter took place. Current Smoking Status This section includes the most current smoking, or tobacco-related health factor, from the [place] facility where the Encounter took place. Date/Time Current Smoking Status Comment Facil ity Feb 14, 2024 03:30 PM [facility] [facility] Tobacco Use History This section includes a history of the smoking, or tobacco-related health factors, that were collected on or before the date of the Encounter. The data comes from the [place] facility where the Encounter took place. Date/Time Smoking Status/Tobacco Use Comment F acility Feb 14, 2024 03:30 PM VA-TOBACCO QUIT 15 YRS OR MORE [facility] [place] [facility] Aug 06, 2022 09:30 AM VA-TOBACCO NEVER USED [facility] [place] [facility] Mar 24, 2021 03:00 PM VA-TOBACCO NEVER USED [facility] [place] [facility] Mar 08, 2020 02:30 PM VA-TOBACCO NEVER USED [facility] [place] [facility] Jan 27, 2018 08:05 AM VA-TOBACCO NEVER USED [facility] [place] [facility] Mar 19, 2017 12:58 PM LIFETIME NON-TOBACCO USER [facility] [place] [facility] Encounter Notes: All associated encounter notes This section contains the clinical notes associated to the Encounter. Date/Time Encounter Note(s) Provider Source Jul 08, 2024 03:02 PM GERIATRIC MEDICINE CONSULT: LOCAL TITLE: GEROFIT/NHM OUTPT STANDARD TITLE: GERIATRIC MEDICINE CONSULT DATE OF NOTE: JUL 08, 2024@15:02 ENTRY DATE: JUL 08, 2024@15:02:53 AUTHOR: SHANELLE PHAN EXP COSIGNER: URGENCY: STATUS: COMPLETED GEROFIT INTAKE CONSULT NOTE WEIGHT: Over weight Yes BMI: 29.2186 lb [84.37 kg] (05/22/2024 11:29) 67 in [170.2 cm] (05/22/2024 11:29) PROBLEM LIST: Active Problem Long-term current use of anticoagul 02/18/2024 CECILLEEDU LANDRY JOSE Atrial fibrillation I48.91 10/05/2021 EDUARDOLAM Shen Spinal stenosis M48.00 10/14/2018 ARLENE ROMERO Chronic kidney disease due to type 06/17/2018 ARLENE ROMERO Hearing disorder H91.8X3, Onset 03/17/2018 ARLENE ROMERO Essential hypertension I11.9, Onset 03/17/2018 ARLENE ROMERO Hypercholesterolemia E78.5, Onset 0 03/17/2018 ARLENE ROMERO Gout M1A.9XX0, Onset 03/17/2018 ARLENE ROMERO MEDICATIONS: Active Outpatient Medications (including Supplies): Active Outpatient Medications Status 1) AMLODIPINE BESYLATE 5MG TAB TAKE ONE TABLET BY MOUTH ONCE ACTIVE DAILY FOR BLOOD PRESSURE/HEART, DO NOT TAKE WITH GRAPEFRUIT JUICE Indication: FOR HIGH BLOOD PRESSURE 2) APIXABAN 5MG TAB TAKE ONE TABLET BY MOUTH EVERY 12 HOURS ACTIVE Indication: FOR PREVENTION OF BLOOD CLOTS 3) CARVEDILOL 12.5MG TAB TAKE THREE TABLETS BY MOUTH ONCE DAILY ACTIVE NOTE DOSE Indication: FOR HIGH BLOOD PRESSURE 4) FUROSEMIDE 20MG TAB TAKE ONE TABLET BY MOUTH ONCE DAILY TO ACTIVE REMOVE FLUID/CONTROL BLOOD PRESSURE Indication: FOR HIGH BLOOD PRESSURE 5) OMEPRAZOLE 20MG EC CAP TAKE ONE CAPSULE BY MOUTH EVERY ACTIVE MORNING 30 MINUTES BEFORE BREAKFAST Indication: FOR GASTROESOPHAGEAL REFLUX DISEASE 6) SIMVASTATIN 80MG TAB TAKE ONE-HALF TABLET BY MOUTH AT ACTIVE BEDTIME FOR CHOLESTEROL 7) TRAZODONE HCL 100MG TAB TAKE ONE-HALF TABLET BY MOUTH AT ACTIVE BEDTIME Indication: FOR INSOMNIA ASSOCIATED WITH DEPRESSION Active Non-VA Medications Status 1) Non-VA CHOLECALCIF 25MCG (D3-1,000UNIT) TAB 25MCG BY MOUTH ACTIVE ONCE DAILY Indication: FOR VITAMIN D DEFICIENCY 8 Total Medications EXERCISE: Current Exercise: 1) On average, how many days/week do you engage in at least moderate cardio exercise (brisk walk, riding a stationary bike, or using treadmill)? 0 number of days 1a) On average, how many minutes/day do you engage in exercise at this level? 0 minutes 2) Are you currently doing any strengthening exercises (using weight machines, lifting free weights or doing push-ups or participating in strength-focused exercise classes)? No 2a) If yes, on average, how many days/week do you engage in strengthening exercises? number of days 2b) On average, how many minutes/day do you engage in exercise at this level? minutes Preferred exercise: Home Equipment: band Exercise History: ASSISTIVE DEVICES (check all that apply): Cane PATIENT-IDENTIFIED EXERCISE GOALS: 1) stay in shape 2) be able to walk around [place] 3) BARRIERS TO EXERCISE (check all that apply): Sedentary lifestyle, Not motivated EXERCISE INCENTIVES (check all that apply: Spouse/Friend will participate, Health care provider recommendation, Maintain independence SUMMARY OF CONSULT: Thank you for recommending this patient for the [employer] program, and encouraging exercise to improve his health. This patient is: a GOOD CANDIDATE for [employer] participation, and will start [employer] after he and his spouse have completed intake paperwork and returned it. This has previously started with [employer], however never returned after initially joining and completing PFA. As such this will be considered to be rejoining [employer] at this time. /nadiya/ SHANELLE PHAN PT, DPT PHYSICAL THERAPIST Signed: 07/08/2024 15:43 SHANELLE PHAN [facility]
--- OUTSIDE RECORDS SUMMARY | 2024-07-11 11:10 | XMS_ITS | Continuity of Care Document ---
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 It does not include entries that were removed or entered in error. 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 (841[facility]) Spinal stenosis Active Condition [facility] Diagnosis: ICD-10-CM Z72.3 Lack of physical exercise Active Diagnosis [facility] Diagnosis: ICD-10-CM R26.89 Other abnormalities of gait and mobility Active Diagnosis [facility] Diagnosis: ICD-10-CM I48.91 Unspecified atrial fibrillation Active Diagnosis [facility] Diagnosis: ICD-10-CM M48.00 Spinal stenosis, site unspecified Active Diagnosis [facility] Diagnosis: ICD-10-CM Z79.01 long term acute care registered nurse (current) use of anticoagulants Active Diagnosis [facility] (631GE) Diagnosis: ICD-10-CM R06.00 Dyspnea, unspecified Active Diagnosis [facility] Diagnosis: ICD-10-CM Z13.6 Encounter for screening for cardiovascular disorders Active Diagnosis [facility] Diagnosis: ICD-10-CM 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 Diagnosis [facility] Diagnosis: ICD-10-CM Z02.89 Encounter for other administrative examinations Active Diagnosis [facility] Diagnosis: ICD-10-CM I10 Essential (primary) hypertension Active Diagnosis [facility] Diagnosis: ICD-10-CM H61.23 Impacted cerumen, bilateral Active Diagnosis [facility] Diagnosis: ICD-10-CM K21.9 Gastro-esophageal reflux disease without esophagitis Active Diagnosis [facility] Medications Combined list of outpatient medications from Department of Defense and Veterans Affairs facilities.Medications provided include 1) outpatient medications from the last 15 months, and 2) patient-reported medications. Medication Details Route Status Patient Instructions Prescription Expires Prescription Number Last Dispense Date Ordering Provider Order Date Order Qty Source AMLODIPINE BESYLATE 5MG TAB TAKE ONE TABLET BY MOUTH ONCE DAILY FOR BLOOD PRESSURE /HEART, DO NOT TAKE WITH GRAPEFRU IT JUICE ORAL ACTIVE 06/06/2025 [id number] ARLENE ROMERO 2024 90 [facility] APIXABAN 5MG TAB TAKE ONE TABLET BY MOUTH EVERY 12 HOURS FOR PREVENTI ON OF BLOOD CLOTS ORAL ACTIVE 02/19/2025 [id number] ARLENE ROMERO 2023 180 [facility] CARBAMIDE PEROXIDE 6.5%/GLYCER IN SOLN,OTIC INSTILL 5 DROPS INTO EACH EAR ONCE DAILY FOR EAR WAX BLOCKAGE AURICU LAR (OTIC) 09/08/2023 [id number] ARLENE ROMERO 2023 15 [facility] CARVEDILOL 12.5MG TAB TAKE THREE TABLETS BY MOUTH ONCE DAILY FOR HIGH BLOOD PRESSURE NOTE DOSE ORAL ACTIVE 08/09/2024 [id number] 4 ARLENE ROMERO 2023 270 [facility] CHOLECALCIF LUANN 25MCG (1,000UNIT) TAB TAKE ONE TABLET BY MOUTH ONCE DAILY ORAL ACTIVE ARLENE ROMERO 2023 [facility] CLOTRIMAZOL E 1% SOLN,TOP APPLY 1 DROP TOPICALL Y ONCE DAILY FOR FUNGAL INFECTIO N APPLY ONE DROP TO EACH AFFECTED TOE NAIL ONCE DAILY. APPLY WHEN NAIL IS DRY NOT AFTER SHOWER OR BATH. USE FOR AT LEAST 9-12 MONTHS. FOR BEST CLINICAL RESULT. REGULAR NAIL CARE IS ALSO RECOMMME NDED. FOR FUNGAL INFECTIO N APPLY ONE DROP TO EACH AFFECTED TOE NAIL ONCE DAILY. APPLY WHEN NAIL IS DRY NOT AFTER SHOWER OR BATH. USE FOR AT LEAST 9-12 MONTHS. FOR BEST CLINICAL RESULT. REGULAR NAIL CARE IS ALSO RECOMMME NDED. TOPICA L 06/11/2024 [id number] CATHERINE CASTRO 2023 30 [facility] FAMOTIDINE 40MG TAB TAKE ONE TABLET BY MOUTH AT BEDTIME FOR STOMACH ACID ORAL 05/06/2024 [id number] VIVIANA VANCE 2022 90 [facility] FUROSEMIDE 20MG TAB TAKE ONE TABLET BY MOUTH ONCE DAILY TO REMOVE FLUID/CO NTROL BLOOD PRESSURE ORAL ACTIVE 03/11/2025 [id number] ARLENE ROMERO 2023 90 [facility] OMEPRAZOLE 20MG CAP,EC TAKE ONE CAPSULE BY MOUTH EVERY MORNING 30 MINUTES BEFORE BREAKFAS T FOR GASTROES OPHAGEAL REFLUX DISEASE ORAL ACTIVE 05/23/2025 [id number] ARLENE ROMERO 2023 90 [facility] SIMVASTATIN 80MG TAB TAKE ONE-HALF TABLET BY MOUTH AT BEDTIME FOR CHOLESTE ROL ORAL ACTIVE 08/09/2024 [id number] ARLENE ROMERO 2023 45 [facility] TRAZODONE HCL 100MG TAB TAKE ONE-HALF TABLET BY MOUTH AT BEDTIME FOR INSOMNIA ASSOCIAT ED WITH DEPRESSI ON ORAL ACTIVE 03/04/2025 [id number] ARLENE ROMERO 2023 45 [facility] Immunizations Combined list of available immunizations from the Department of Defense and Veterans Affairs facilities. Immunization Series Date Given Administered By Site Reaction Lot Number CVX Code Drug Rubber Compounder Status Comments Source INFLUENZA, UNSPECIFIED FORMULATION 2022 88 complet ed High Dose [facility] TDAP 2022 JESS BRENNAN LEFT DELTO ID [id number] 115 complet ed [facility] INFLUENZA, UNSPECIFIED FORMULATION 2020 88 complet ed [facility] COVID-19 ([employer]), VECTOR-NR, [id number], PF, 0.5 ML 1 2020 212 complet ed [facility] COVID-19 ([employer]), MRNA, LNP-S, PF, 30 MCG/0.3 ML DOSE 1 2020 208 complet ed [facility] INFLUENZA, UNSPECIFIED FORMULATION 2019 88 complet ed [facility] ZOSTER RECOMBINANT 2 2019 187 complet ed [facility] PNEUMOCOCCAL POLYSACCHARID E PPV23 2018 33 complet ed [facility] ZOSTER RECOMBINANT 1 2018 187 complet ed [facility] INFLUENZA, SEASONAL, INJECTABLE 2017 141 complet ed Site: Left Deltoid [facility] INFLUENZA, SEASONAL, INJECTABLE 2016 141 complet ed [facility] ZOSTER (HISTORICAL) 2016 121 complet ed [facility] PNEUMOCOCCAL CONJUGATE PCV 13 2014 133 complet ed yes [facility] PNEUMOCOCCAL POLYSACCHARID E PPV23 2012 33 complet ed [facility] TDAP 2012 115 complet ed [facility] Results Combined list of recent chemistry, hematology and other laboratory results from Department of Defense and Veterans Affairs, ranging from 15 months to all on record, depending upon the facility. Order Name Results Value Reference Range Date Interpretation Specimen Comments Source LIPID PANEL, NON FASTING CHOLESTEROL [MASS/VOLUM E] IN SERUM OR PLASMA 227 mg/dL 02/16 H Specimen Type: SERUM No comment entered. Ordering Provider: SHAKEEL ROMERO Report Released Date/Time: Jan 21, 2024 03:16 PM Reporting Lab: [facility] [address] [facility] [address] Performing Lab: [facility]ENTERUSE[address] [address] [facility]ENTERUSE [facility] LIPID PANEL, NON FASTING TRIGLYCERID E [MASS/VOLUM E] IN SERUM OR PLASMA 98 mg/dL 0 - 150 02/16 Specimen Type: SERUM No comment entered. Ordering Provider: SHAKEEL ROMERO Report Released Date/Time: Jan 21, 2024 03:16 PM Reporting Lab: [facility]ENTERUSETS [address] [address] Performing Lab: [facility]ENTERUSER[facility] [address] [facility] [address] [facility] LIPID PANEL, NON FASTING CHOLESTEROL IN LDL [MASS/VOLUM E] IN SERUM OR PLASMA BY CALCULATION 140 mg/dL 0 - 129 02/16 H Specimen Type: SERUM No comment entered. Ordering Provider: SHAKEEL ROMERO Report Released Date/Time: Jan 21, 2024 03:16 PM Reporting Lab: [facility]ENTERUSETS [address] [address] Performing Lab: [facility]ENTERUSE[address] [address] [facility] LIPID PANEL, NON FASTING CHOLESTEROL .TOTAL/CHOL ESTEROL IN HDL [MASS RATIO] IN SERUM OR PLASMA 3.4 02/16 Specimen Type: SERUM No comment entered. Ordering Provider: SHAKEEL ROMERO Report Released Date/Time: Jan 21, 2024 03:16 PM Reporting Lab: [facility] [address] [facility] [address] Performing Lab: [facility] [facility] [address] [facility] [address] [facility] [facility] LIPID PANEL, NON FASTING CHOLESTEROL IN HDL [MASS/VOLUM E] IN SERUM OR PLASMA 67 mg/dL 40 - 60 02/16 H Specimen Type: SERUM No comment entered. Ordering Provider: SHAKEEL ROMERO Report Released Date/Time: Jan 21, 2024 03:16 PM Reporting Lab: [facility] [facility] [address] [facility] [address] Performing Lab: [facility] [place] [address] [address] [facility] [place] [facility] CBC LEUKOCYTES [#/VOLUME] IN BLOOD BY AUTOMATED COUNT 5.86 10*3/u L 4.50 - 11.00 02/16 Specimen Type: BLOOD No comment entered. Ordering Provider: SHAKEEL ROMEOR Report Released Date/Time: Jan 21, 2024 03:16 PM Reporting Lab: [facility] [place] [facility] [address] [facility] [address] Performing Lab: [facility] [place] [facility] [address] [facility] [address] [facility] [facility] CBC ERYTHROCYTE S [#/VOLUME] IN BLOOD BY AUTOMATED COUNT 3.71 10*6/u L 4.23 - 5.66 02/16 L Specimen Type: BLOOD No comment entered. Ordering Provider: SHAKEEL ROMERO Report Released Date/Time: Jan 21, 2024 03:16 PM Reporting Lab: [facility] [facility] [address] [facility] [address] Performing Lab: [facility] [address] [address] [facility] CBC HEMOGLOBIN [MASS/VOLUM E] IN BLOOD 13.0 g/dL 12.8 - 17 02/16 Specimen Type: BLOOD No comment entered. Ordering Provider: SHAKEEL ROMERO Report Released Date/Time: Jan 21, 2024 03:16 PM Reporting Lab: [facility] [facility] [address] [facility] [address] Performing Lab: [facility] [place] [facility] [address] [facility] [address] [facility] [facility] CBC HEMATOCRIT [VOLUME FRACTION] OF BLOOD BY AUTOMATED COUNT 36.5 39.2 - 50.4 02/16 L Specimen Type: BLOOD No comment entered. Ordering Provider: SHAKEEL ROMERO Report Released Date/Time: Jan 21, 2024 03:16 PM Reporting Lab: [facility] [place] [address] [address] Performing Lab: [facility] [place] [address] [address] [facility] CBC MCV [ENTITIC VOLUME] BY AUTOMATED COUNT 98.4 fL 82 - 99 02/16 Specimen Type: BLOOD No comment entered. Ordering Provider: SHAKEEL ROMERO Report Released Date/Time: Jan 21, 2024 03:16 PM Reporting Lab: [facility] [address] [address] Performing Lab: [facility] [place] [facility] [address] [facility] [address] [facility] [place] [facility] CBC MCHC [MASS/VOLUM E] BY AUTOMATED COUNT 35.6 g/dL 30.8 - 35.1 02/16 H Specimen Type: BLOOD No comment entered. Ordering Provider: SHAKEEL ROMERO Report Released Date/Time: Jan 21, 2024 03:16 PM Reporting Lab: [facility] [address] [address] Performing Lab: [facility] [place] [address] [address] [facility] [place] [facility] CBC PLATELETS [#/VOLUME] IN BLOOD BY AUTOMATED COUNT 150 10*3/u L 140 - 360 02/16 Specimen Type: BLOOD No comment entered. Ordering Provider: SHAKEEL ROMERO Report Released Date/Time: Jan 21, 2024 03:16 PM Reporting Lab: [facility] [place] [address] [address] Performing Lab: [facility] [place] [facility] [address] [facility] [address] [facility] [place] [facility] CBC ERYTHROCYTE DISTRIBUTIO N WIDTH [RATIO] BY AUTOMATED COUNT 13.0 12.0 - 16.0 02/16 Specimen Type: BLOOD No comment entered. Ordering Provider: SHAKEEL ROMERO Report Released Date/Time: Jan 21, 2024 03:16 PM Reporting Lab: [facility] [place] [address] [address] Performing Lab: [facility] [place] [address] [address] [facility] [place] [facility] CBC MCH [ENTITIC MASS] BY AUTOMATED COUNT 35.0 pg 26.2 - 32.6 02/16 H Specimen Type: BLOOD No comment entered. Ordering Provider: SHAKEEL ROMERO Report Released Date/Time: Jan 21, 2024 03:16 PM Reporting Lab: [facility] [place] [address] [address] Performing Lab: [facility] [place] [address] [address] [facility] [place] [facility] BASIC METABOLIC PANEL (non-fast ing) UREA NITROGEN [MASS/VOLUM E] IN SERUM OR PLASMA 43 mg/dL 7 - 25 02/16 H Specimen Type: SERUM No comment entered. Ordering Provider: SHAKEEL ROMERO Report Released Date/Time: Jan 21, 2024 03:16 PM Reporting Lab: [facility] [place] [address] [address] Performing Lab: [facility] [address] [facility] [address] [facility] BASIC METABOLIC PANEL (non-fast ing) GLUCOSE [MASS/VOLUM E] IN SERUM OR PLASMA 141 mg/dL 65 - 100 02/16 H Specimen Type: SERUM No comment entered. Ordering Provider: SHAKEEL ROMERO Report Released Date/Time: Jan 21, 2024 03:16 PM Reporting Lab: [facility] [address] [facility] [address] Performing Lab: [address] [address] [facility] BASIC METABOLIC PANEL (non-fast ing) SODIUM [MOLES/VOLU ME] IN SERUM OR PLASMA 136 mmol/L 135 - 145 02/16 Specimen Type: SERUM No comment entered. Ordering Provider: SHAKEEL ROMERO Report Released Date/Time: Jan 21, 2024 03:16 PM Reporting Lab: [facility] [address] [facility] [address] Performing Lab: [facility] [address] [facility] [address] [facility] BASIC METABOLIC PANEL (non-fast ing) POTASSIUM [MOLES/VOLU ME] IN SERUM OR PLASMA 4.3 mmol/L 3.5 - 5.0 02/16 Specimen Type: SERUM No comment entered. Ordering Provider: SHAKEEL ROMREO Report Released Date/Time: Jan 21, 2024 03:16 PM Reporting Lab: [facility] [address] [facility] [address] Performing Lab: [address] [address] [facility] BASIC METABOLIC PANEL (non-fast ing) CHLORIDE [MOLES/VOLU ME] IN SERUM OR PLASMA 106 mmol/L 100 - 110 02/16 Specimen Type: SERUM No comment entered. Ordering Provider: SHAKEEL ROMERO Report Released Date/Time: Jan 21, 2024 03:16 PM Reporting Lab: [facility] TRN [facility]ENTERUSE[address] [address] Performing Lab: [facility]RL [facility]ENTERUSE[address] [address] [facility]ITALRCHOCTAW GENERAL HOS[facility]ITALN [facility]USE [facility] BASIC METABOLIC PANEL (non-fast ing) CARBON DIOXIDE, TOTAL [MOLES/VOLU ME] IN SERUM OR PLASMA 18 meq/L 20 - 30 02/16 L Specimen Type: SERUM No comment entered. Ordering Provider: SHAKEEL ROMERO Report Released Date/Time: Jan 21, 2024 03:16 PM Reporting Lab: [facility]ITALRCHOCTAW [facility]AL [facility]OSPITALN [address] [address] Performing Lab: [facility]ITALRCHOCTAW [facility] HOSPITALN [facility]ENTERUSE[address] [address] [facility] BASIC METABOLIC PANEL (non-fast ing) CREATININE [MASS/VOLUM E] IN SERUM OR PLASMA 1.85 mg/dL 0.50 - 1.40 02/16 H Specimen Type: SERUM No comment entered. Ordering Provider: SHAKEEL ROMERO Report Released Date/Time: Jan 21, 2024 03:16 PM Reporting Lab: [facility] [address] [address] Performing Lab: [facility]ITALRCHOCTAW [facility]AL [facility]OSPITALN [address] [address] [facility]ITALRCHO[facility]OSPITALN [facility]ENTERUSE [facility] BASIC METABOLIC PANEL (non-fast ing) GLOMERULAR FILTRATION RATE/1.73 SQ M.PREDICTED [VOLUME RATE/AREA] IN SERUM, PLASMA OR BLOOD BY CREATININE- BASED FORMULA (CKD-EPI 2020) 38 mL/min 60 02/16 L Specimen Type: SERUM No comment entered. Ordering Provider: SHAKEEL ROMERO Report Released Date/Time: Jan 21, 2024 03:16 PM Reporting Lab: [facility]ITALRCHO[facility]PITALN [address] [address] Performing Lab: [facility]ITALRL [facility] [place] [address] [place] [address] [facility] [place] [facility] HEMOGLOBI N A1C PANEL HEMOGLOBIN A1C/HEMOGLO BIN.TOTAL IN BLOOD BY HPLC 4.9 4.0 - 5.6 02/16 Specimen Type: BLOOD Comment: Values obtained from A1C measurement s can vary. For atypical A1C assays, a reported value of 7.0 could actually be between 6.72 and 7.28 if measured by a reference method. A reported value of 9.0 could actually be between 8.73 and 9.27. Ref: http://www. ngsp.org/[place] Pdata.asp Ordering Provider: SHAKEEL ROMERO Report Released Date/Time: Jan 21, 2024 03:16 PM Reporting Lab: [facility] [address] Performing Lab: [facility]RL WSTRN [facility]ENTERUSE[address] [address] [facility] [place] [facility] MICROALBU MIN CREATININ E RATIO PANEL MICROALBUMI N/CREATININ E [MASS RATIO] IN URINE 1167.0 mg/g 0 - 29.9 02/16 H Specimen Type: URINE No comment entered. Ordering Provider: SHAKEEL ROMERO Report Released Date/Time: Jan 21, 2024 03:16 PM Reporting Lab: [facility] [place] [address] [address] Performing Lab: [facility] [place] [address] [address] [facility] [place] [facility] MICROALBU MIN CREATININ E RATIO PANEL MICROALBUMI N [MASS/VOLUM E] IN URINE 209.5 mg/dL 02/16 Specimen Type: URINE No comment entered. Ordering Provider: SHAKEEL ROMERO Report Released Date/Time: Jan 21, 2024 03:16 PM Reporting Lab: [facility] [place] [address] Performing Lab: [facility]ENTER[facility] [address] [facility] [place] [facility] MICROALBU MIN CREATININ E RATIO PANEL CREATININE [MASS/VOLUM E] IN URINE 179.52 mg/dL 02/16 Specimen Type: URINE No comment entered. Ordering Provider: SHAKEEL ROMERO Report Released Date/Time: Jan 21, 2024 03:16 PM Reporting Lab: [facility]PITALRPRINCETON BAPTIST MEDICAL CENTERTRN [facility]ENTERUSE[address] [address] Performing Lab: [facility]ITALRL [place] [facility] [address] [facility] [address] [facility]ITALRCHOCTAW GENERAL HOSPITALN [place] [facility] LIVER FUNCTION PROTEIN [MASS/VOLUM E] IN SERUM OR PLASMA 6.3 g/dL 6.0 - 8.3 02/16 Specimen Type: SERUM No comment entered. Ordering Provider: SHAKEEL ROMERO Report Released Date/Time: Jan 21, 2024 03:16 PM Reporting Lab: [facility]ITALRPRINCETON BAP[facility] CENTERTRN [place] [address] [address] Performing Lab: [facility]RL [place] [address] [address] [facility] [place] [facility] LIVER FUNCTION ALBUMIN [MASS/VOLUM E] IN SERUM OR PLASMA 3.1 g/dL 3.5 - 5.0 02/16 L Specimen Type: SERUM No comment entered. Ordering Provider: SHAKEEL ROMERO Report Released Date/Time: Jan 21, 2024 03:16 PM Reporting Lab: [facility]ITALRPRINCETON BAP[facility] CENTERTRN [place] [address] [address] Performing Lab: [facility]RL [place] [address] [address] [facility]ITALRCHOCTAW [facility]AL [facility]OSPITALN [place] [facility] LIVER FUNCTION ALKALINE PHOSPHATASE [ENZYMATIC ACTIVITY/VO LUME] IN SERUM OR PLASMA 67 U/L 40 - 150 02/16 Specimen Type: SERUM No comment entered. Ordering Provider: SHAKEEL ROMERO Report Released Date/Time: Jan 21, 2024 03:16 PM Reporting Lab: [facility]ITALRPRINCETON BAPTIST [facility]ICAL CENTERTRN [place] [address] Performing Lab: [facility] [place] [facility] [address] [facility] [address] [facility] [place] [facility] LIVER FUNCTION ASPARTATE AMINOTRANSF ERASE [ENZYMATIC ACTIVITY/VO LUME] IN SERUM OR PLASMA 39 U/L 5 - 34 02/16 H Specimen Type: SERUM No comment entered. Ordering Provider: SHAKEEL ROMERO Report Released Date/Time: Jan 21, 2024 03:16 PM Reporting Lab: [facility] [place] [facility] [address] [facility] [address] Performing Lab: [facility] [place] [facility] [address] [facility] [address] [facility] [place] [facility] LIVER FUNCTION ALANINE AMINOTRANSF ERASE [ENZYMATIC ACTIVITY/VO LUME] IN SERUM OR PLASMA 22 U/L 02/16 Specimen Type: SERUM No comment entered. Ordering Provider: SHAKEEL ROMERO Report Released Date/Time: Jan 21, 2024 03:16 PM Reporting Lab: [facility] [place] [facility] [address] [facility] [address] Performing Lab: [facility] [place] [facility] [address] [facility] [address] [facility] [place] [facility] LIVER FUNCTION BILIRUBIN.T OTAL [MASS/VOLUM E] IN SERUM OR PLASMA 0.8 mg/dL 0.2 - 1.2 02/16 Specimen Type: SERUM No comment entered. Ordering Provider: SHAKEEL ROMERO Report Released Date/Time: Jan 21, 2024 03:16 PM Reporting Lab: [facility] [place] [address] [address] Performing Lab: [facility] [place] [address] [address] [facility] [facility] PT & INR (COUMADIN ) INR IN PLATELET POOR PLASMA BY COAGULATION ASSAY 1.0 02/16 Specimen Type: PLASMA No comment entered. Ordering Provider: SHAKEEL ROMERO Report Released Date/Time: Feb 17, 2024 01:26 PM Reporting Lab: [facility] [place] [facility] [address] [facility] [address] Performing Lab: [facility] [place] [facility] [address] [facility] [address] [facility] [place] [facility] PT & INR (COUMADIN ) PROTHROMBIN TIME (PT) 11.0 s 10.0 - 13.1 02/16 Specimen Type: PLASMA No comment entered. Ordering Provider: SHAKEEL ROMERO Report Released Date/Time: Feb 17, 2024 01:26 PM Reporting Lab: [facility] [place] [facility] [address] [facility] [address] Performing Lab: [facility] [place] [facility] [address] [facility] [address] [facility] FERRITIN FERRITIN [MASS/VOLUM E] IN SERUM OR PLASMA 761 ng/mL 20 - 300 02/16 H Specimen Type: SERUM No comment entered. Ordering Provider: SHAKEEL ROMERO Report Released Date/Time: Feb 17, 2024 03:25 PM Reporting Lab: [facility] [place] [facility] [address] [facility] [address] Performing Lab: [facility] [place] [facility] [address] [facility] [address] [facility] IRON & TIBC PANEL IRON BINDING CAPACITY [MASS/VOLUM E] IN SERUM OR PLASMA 227 ug/dL 204 - 475 02/16 Specimen Type: SERUM No comment entered. Ordering Provider: SHAKEEL ROMERO Report Released Date/Time: Feb 17, 2024 03:25 PM Reporting Lab: [facility] [place] [facility] [address] [facility] [address] Performing Lab: [facility] [place] [facility] [address] [facility] [address] [facility] IRON & TIBC PANEL IRON [MASS/VOLUM E] IN SERUM OR PLASMA 99 ug/dL 40 - 160 02/16 Specimen Type: SERUM No comment entered. Ordering Provider: SHAKEEL ROMERO Report Released Date/Time: Feb 17, 2024 03:25 PM Reporting Lab: [facility] [place] [facility] [address] [facility] [address] Performing Lab: [facility] [place] [facility] [address] [facility] [address] [facility] [place] [facility] IRON & TIBC PANEL IRON/IRON BINDING CAPACITY.TO BREANNA [MASS RATIO] IN SERUM OR PLASMA 43.6 20.0 - 50.0 02/16 Specimen Type: SERUM No comment entered. Ordering Provider: SHAKEEL ROMERO Report Released Date/Time: Feb 17, 2024 03:25 PM Reporting Lab: [facility] [place] [facility] [address] [facility] [address] Performing Lab: [facility] [place] [address] [address] [facility] [place] [facility] IRON & TIBC PANEL TRANSFERRIN [MASS/VOLUM E] IN SERUM OR PLASMA 172 mg/dL 200 - 360 02/16 L Specimen Type: SERUM No comment entered. Ordering Provider: SHAKEEL ROMERO Report Released Date/Time: Feb 17, 2024 03:25 PM Reporting Lab: [facility] [place] [facility] [address] [facility] [address] Performing Lab: [facility] [place] [address] [address] [facility] [place] [facility] THYROID T4 FREE(FT4) THYROXINE (T4) FREE [MASS/VOLUM E] IN SERUM OR PLASMA 1.05 ng/dL 0.6 - 1.6 08/04 Specimen Type: SERUM No comment entered. Ordering Provider: SHAKEEL ROMERO Report Released Date/Time: Jul 25, 2023 02:13 PM Reporting Lab: [facility] [place] [facility] [address] [facility] [address] Performing Lab: [facility] [place] [facility] [address] [facility] [address] [facility] [place] [facility] Vital Signs Combined list of inpatient and outpatient Vital Signs from Department of Defense and Veterans Affairs, ranging from 12 months to all on record, depending upon the facility. Vital Sign Value Date Comments Source SYSTOLIC BLOOD PRESSURE 163 05/22/20 24 11:29:32 [facility] DIASTOLIC BLOOD PRESSURE 96 024 11:29:32 [facility] PULSE OXIMETRY 98 05/22/2024 11:29:32 [facility] WEIGHT 186 05/22/2024 11:29:32 [facility] BMI 29 kg/m2 05/22/2024 11:29:32 [facility] PAIN 2 05/22/2024 11:29:32 [facility] HEIGHT 67 05/22/2024 11:29:32 [facility] TEMPERATURE 98.4 05/22/2024 11:29:32 [facility] [place] PULSE 77 05/22/2024 11:29:32 [facility] [place] RESPIRATION 20 05/22/2024 11:29:32 [facility] [place] [facility] SYSTOLIC BLOOD PRESSURE 164 02/17/20 24 07:28:00 [facility] [place] [facility] DIASTOLIC BLOOD PRESSURE 94 024 07:28:00 [facility] [place] [facility] SYSTOLIC BLOOD PRESSURE 186 02/14/20 24 15:42:32 [facility] [place] [facility] DIASTOLIC BLOOD PRESSURE 110 024 15:42:32 [facility] [place] [facility] PULSE OXIMETRY 99 02/14/2024 15:42:32 [facility] WEIGHT 178 02/14/2024 15:42:32 [facility] BMI 28 kg/m2 02/14/2024 15:42:32 [facility] PAIN 0 02/14/2024 15:42:32 [facility] HEIGHT 67 02/14/2024 15:42:32 [facility] TEMPERATURE 98.1 02/14/2024 15:42:32 [facility] [place] [facility] PULSE 78 02/14/2024 15:42:32 [facility] [place] [facility] RESPIRATION 20 02/14/2024 15:42:32 [facility] [place] [facility] SYSTOLIC BLOOD PRESSURE 192 08/09/19 24 10:14:07 [facility] [place] [facility] DIASTOLIC BLOOD PRESSURE 99 024 10:14:07 [facility] [place] [facility] PULSE OXIMETRY 97 08/09/2023 10:14:07 [facility] [place] [facility] WEIGHT 185 08/09/2023 10:14:07 [facility] [place] [facility] BMI 29 kg/m2 08/09/2023 10:14:07 [facility] [place] PAIN 0 08/09/2023 10:14:07 [facility] [place] HEIGHT 67 08/09/2023 10:14:07 [facility] [place] TEMPERATURE 98.3 08/09/2023 10:14:07 [facility] [place] PULSE 78 08/09/2023 10:14:07 [facility] RESPIRATION 18 08/09/2023 10:14:07 [facility] [place] Encounters Combined list of: 1) Encounters from Department of Veterans Affairs facilities going backup to the last 18 months, not all VA inpatient encounters are included; 2) Encounters from the Department of Defense facilities going backup to 280 months. Location Location Details Encounter Type Encounter Number Reason For Visit Attending Provider ADM Date DC Date Status Disposition Source [facility] En[facility] [id number] 01/18 [facility] En[facility] [id number] 01/24 [facility] Encounter [id number] 01/29 [facility] Encounter [id number] 02/01 [facility] Encounter [id number] 02/01 [facility] OFFICE O/P EST MOD 30-39 MIN [id number] Diagnos is: ICD-10- CM K21.9 Gastro- esophag eal reflux disease without esophag itOlya Briones 02/08 [facility] Encounter [id number] 02/15 [facility] OFF/OP EST MAY X REQ PHY/QHP [id number] Diagnos is: ICD-10- CM H61.23 Impacte d mindy joy al ART BRENNAN 02/18 [facility] En[facility] [id number] 02/21 [facility] Encounter [id number] 02/21 [facility] OFF/OP EST MAY X REQ PHY/QHP [id number] Diagnos is: ICD-10- CM I10 Essenti al (primar y) hyperte ART Gibson 02/21 [facility] En[facility] [id number] 03/12 [facility] Encounter [id number] 03/25 [facility] Encounter [id number] 05/06 [facility] OFFICE O/P EST SF 10 MIN [id number] Diagnos is: ICD-10- CM L60.3 Nail dystrop hy GLORIA,TOÑITO RLES D 06/11 [facility] En[facility] [id number] 07/18 [facility] Encounter [id number] 07/26 [facility] Encounter [id number] [facility] OFFICE O/P EST MOD 30 MIN [id number] Diagnos is: ICD-10- CM I48.91 Unspeci fied atrial fibrill ation Olya ROMERO 08/08 [facility] En[facility] [id number] 08/29 [facility] Encounter [id number] 09/04 [facility] Encounter [id number] Olya ROMERO 09/05 [facility] Encounter [id number] 09/19 [facility] Out[facility] Encounter [id number] Diagnos is: ICD-10- CM Z02.89 Encount er for other adminis trative examina AGUSTINA Sánchez 10/09 [facility] OFF/OP EST MAY X REQ PHY/QHP [id number] Diagnos is: ICD-10- CM L60.3 Nail dystrop hy INNA HARTMANN 11/27 [facility] Encounter [id number] 02/06 [facility] Out[facility] Encounter [id number] 02/09 [facility] TRIM NAIL(S) [id number] Diagnos is: ICD-10- CM M48.00 Spinal stenosi s, site unspeci fied SHAHBAZINNA JESSICA 02/13 [facility] OFFICE O/P EST HI 40 MIN [id number] Diagnos is: ICD-10- CM R06.00 Dyspnea , unspeci fied ROMEROOlya J 02/13 [facility] [place] [facility] ELECTROCAR DIOGRAM REPORT [id number] Diagnos is: ICD-10- CM Z13.6 Encount er for screeni ng for cardiov ascular disorde rs RO BAL J 02/13 [facility] [place] [facility] OFF/OP EST MAY X REQ PHY/QHP [id number] Diagnos is: ICD-10- CM I48.91 Unspeci fied atrial fibrill atABIGAIL Gomez M 02/16 [facility] [place] [facility] ELECTROCAR DIOGRAM REPORT [id number] Diagnos is: ICD-10- CM Z13.6 Encount er for screeni ng for cardiov ascular disorde rs RO BAL J 02/16 [facility] [place] [facility] Outpatient Encounter [id number] 1.02/16 [facility] [place] [facility] (631GE) MTMS 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 15 MIN [id number] Diagnos is: ICD-10- CM Z79.01 [facility] (curren t) use of anticoa gulants NEIDA ODEN 02/17 [facility] (631GE) [place] TTE W/DOPPLER COMPLETE [id number] Diagnos is: ICD-10- CM R06.00 Dyspnea , unspeci fied JULIO RODRIGUEZ 02/20 [place] [facility] [place] [facility] Outpatient Encounter [id number] 1.02/20 [facility] [place] [facility] OFFICE O/P EST LOW 20 MIN [id number] Diagnos is: ICD-10- CM R06.00 Dyspnea , unspeci fied TAD WEAVER 02/20 [facility] [place] [facility] Outpatient Encounter [id number] 03/19 [facility] [place] [facility] (631GE) MTMS BY PHARM EST 15 MIN [id number] Diagnos is: ICD-10- CM Z79.01 [facility] (curren t) use of anticoa gulants NEIDA ODEN 03/20 [facility] (631GE) [facility] [place] [facility] Outpatient Encounter [id number] 03/25 [facility] [place] [facility] [place] [facility] THERAPEUTI C EXERCISES [id number] Diagnos is: ICD-10- CM R26.89 Other abnorma lities of gait and mobilit y PEEWEE FELIPE 03/26 [facility] [place] [facility] [place] [facility] Outpatient Encounter [id number] 1.03/30 [facility] [place] [place] [facility] THERAPEUTI C EXERCISES [id number] Diagnos is: ICD-10- CM R26.89 Other abnorma lities of gait and mobilit y Bella WINN 04/03 [facility] [place] [facility] Outpatient Encounter [id number] 04/09 [facility] [place] [place] [facility] THERAPEUTI C EXERCISES [id number] Diagnos is: ICD-10- CM R26.89 Other abnorma lities of gait and mobilit y Bella WINN KATIE 04/15 [facility] [place] THERAPEUTI C EXERCISES [id number] Diagnos is: ICD-10- CM R26.89 Other abnorma lities of gait and mobilit y Bella WINN KATIE 04/21 [facility] SELF CARE MNGMENT TRAINING [id number] 1. Diagnos is: ICD-10- CM R26.89 Other abnorma lities of gait and mobilit y PEEWEE FELIPE TNEY KRISTAN 04/29 [facility] THERAPEUTI C EXERCISES [id number] Diagnos is: ICD-10- CM R26.89 Other abnorma lities of gait and mobilit y PEEWEE FELIPE TNEY KRISTAN 05/06 [facility] [place] Out[facility]counter [id number] 1.05/06 [facility] [place] Out[facility] Encounter [id number] [facility] [place] TRIM NAIL(S) [id number] 1. Diagnos is: ICD-10- CM M48.00 Spinal stenosi s, site unspeci INNA Wiley 05/18 [facility] [place] Out[facility] Encounter [id number] 05/21 [facility] [place] [place] [facility] OFFICE O/P EST HI 40 MIN [id number] Diagnos is: ICD-10- CM I48.91 Unspeci fied atrial fibrill ation ROMEROOlya J 05/22 [facility] [place] [place] [facility] THERAPEUTI C EXERCISES [id number] Diagnos is: ICD-10- CM R26.89 Other abnorma lities of gait and mobilit y PEEWEE FELIPE TNEY KRISTAN 05/25 [facility] [place] [facility] THERAPEUTI C EXERCISES [id number] Diagnos is: ICD-10- CM R26.89 Other abnorma lities of gait and mobilit y DESTINEE,PEEWEE TNEY KRISTAN 06/24 [facility] [place] [facility] [place] [facility] Outpatient Encounter [id number] [facility] [place] [facility] [place] [facility] SELF CARE MNGMENT TRAINING [id number] Diagnos is: ICD-10- CM R26.89 Other abnorma lities of gait and mobilit y PEEWEE FELIPE TNEY KRISTAN 07/01 [facility] [place] [facility] [place] [facility] PH1 ASSMT&MGMT NQHP 11-20 [id number] Diagnos is: ICD-10- CM Z72.3 Lack of physica l CARLOS Cintron 07/08 [facility] [place] [facility] Social History Combined list of available smoking, tobacco, and other social history from Department of Defense and Veterans Affairs facilities. Social History Type Response Date Comment Sourc e Tobacco smoking status TNIS VA-TOBACCO QUIT 15 YRS OR MORE 02/14/2024 [facility] [place] [facility] History of tobacco use VA-TOBACCO FORMER USER 02/14/2024 [facility] [place] [facility] History of tobacco use HI-TOBACCO NEVER USED 08/06/2022 [facility] [place] [facility] History of tobacco use HI-TOBACCO NEVER USED 03/24/2021 [facility] [place] [facility] History of tobacco use HI-TOBACCO NEVER USED 03/08/2020 [facility] [place] [facility] History of tobacco use HI-TOBACCO NEVER USED 01/27/2018 [facility] [place] [facility] History of tobacco use LIFETIME NON-TOBACCO USER [facility] [place] [facility] Plan of Care List of future care activities from Department of Veterans [facility] facilities. Additional future care activities may be listed in the Assessment and Plan section. Date/Time Care Activity Care Activity Detail Facili ty 08/17/2024 [facility] [place] [facility] 11/20/2024 AMBULATORY - MEDICINE [facility] [place] [facility]
--- OUTSIDE RECORDS SUMMARY | 2024-07-11 11:10 | XMS_ITS ---
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 Name Role Phone ARLENE ROMERO Primary Care [...] BREANNA PLAN MY Jun 03, 2022 PLANMY [id number] [phone] Bella KIM PATIENT AARP MED SUPP MEDICARE SUPPLEMEN BERANNA Jun 03, 2016 PLANMY [id number] Bella KIM PATIENT AARP MED SUPP MEDICARE SUPPLEMEN BREANNA Jun 03, 2016 PLANMY [id number] [phone] Bella KIM PATIENT AARP MED SUPP MEDICARE SUPPLEMEN BREANNA PLAN MY Jun 03, 2016 PLANMY [id number] Bella KIM PATIENT [employer] DENTAL DENTAL INSURANCE DENTA L PPO Jun 03, 2021 [id number] Bella KIM PATIENT MEDICARE (WNR) MEDICARE (M) PART A Apr 03, 2014 PART A [id number] Bella KIMIN PATIENT MEDICARE (WNR) MEDICARE (M) PART B Apr 03, 2014 PART B [id number] [phone] Bella KIM PATIENT MEDICARE (WNR) MEDICARE (M) PART A Apr 03, 2014 PART A [id number] Bella KIM PATIENT MEDICARE (WNR) MEDICARE (M) PART B Apr 03, 2014 PART B [id number] [phone] Bella KIM PATIENT MEDICARE (WNR) MEDICARE (M) PART A Apr 03, 2014 PART A [id number] [phone] Bella KIM PATIENT MEDICARE (WNR) MEDICARE (M) PART B Apr 03, 2014 PART B [id number] Bella KIM PATIENT MEDICARE PART D (WNR) MEDICARE (M) PART D Jun 03, 2020 PART D [id number] Bella KIM PATIENT Selected Encounter This section includes the information on record at [place] for the Encounter. Date/Time Encounter Type Encounter Description Reason Provider Source May 25, 2024 09:30 AM THERAPEUTIC EXERCISES PHYSICAL THERAPY ICD-10-CM R26.89 Other abnormalities of gait and mobility STANLEY FELIPE [facility] Encounter Template Text not used by [place] Assessments - Encounter Diagnoses This section includes the primary and secondary diagnoses documented for the Encounter. Date/Time Primary/Secondary Diagnosis Diagnosis Name Provider Source Jun 16, 2024 03:41 PM PRIMARY Other abnormalities of gait and mobility STANLEY FELIPE [place] [facility] [place] [facility] Plan of Treatment: Future Appointments (+ 6 months) and Future Tests (+/- 45 days) The Plan of Treatment section includes future care activities for the patient from all [place] treatmentfacilities. This section includes future appointments and future orders which are active, pending or scheduled. Future Appointments This section includes appointments that were scheduled to occur 6 months from the date of the Encounter, up to a maximum of 20 appointments. The data comes from all [place] treatment facilities. Appointment Date/Time Appointment Type Appointme nt Facility Name Jun 24, 2024 10:30 AM AMBULATORY - REHAB MEDICIN E [facility] [place] [facility] Jul 01, 2024 10:00 AM AMBULATORY - REHAB MEDICIN E [facility] [place] [facility] Aug 17, 2024 08:00 AM AMBULATORY - MEDICINE [facility] [place] [facility] Nov 20, 2024 09:30 AM AMBULATORY - MEDICINE [facility] [place] [facility] Social History: Smoking Status (Most current) and Tobacco Use (All prior to encounter date) This section includes the most current, and the historical, smoking and tobacco- related health factors from the [place] facility where the Encounter took place. Current Smoking Status This section includes the most current smoking, or tobacco-related health factor, from the [place] facility where the Encounter took place. Date/Time Current Smoking Status Comment Facil ity Feb 14, 2024 03:30 PM VA-TOBACCO QUIT 15 YRS OR MORE [facility] Tobacco Use History This section includes a history of the smoking, or tobacco-related health factors, that were collected on or before the date of the Encounter. The data comes from the [place] facility where the Encounter took place. Date/Time Smoking Status/Tobacco Use Comment F acility Feb 14, 2024 03:30 PM VA-TOBACCO QUIT 15 YRS OR MORE [facility] [place] [facility] Aug 06, 2022 09:30 AM VA-TOBACCO NEVER USED [facility] [place] [facility] Mar 24, 2021 03:00 PM VA-TOBACCO NEVER USED [facility] [place] [facility] Mar 08, 2020 02:30 PM VA-TOBACCO NEVER USED [facility] [place] [facility] Jan 27, 2018 08:05 AM VA-TOBACCO NEVER USED [facility] [place] [facility] Mar 19, 2017 12:58 PM LIFETIME NON-TOBACCO USER [facility] [place] [facility] Encounter Notes: All associated encounter notes This section contains the clinical notes associated to the Encounter. Date/Time Encounter Note(s) Provider Source May 25, 2024 01:13 PM PHYSICAL THERAPY N OTE: LOCAL TITLE: PHYSICAL THERAPY STANDARD TITLE: PHYSICAL THERAPY NOTE DATE OF NOTE: MAY 25, 2024@13:13 ENTRY DATE: MAY 25, 2024@13:13:15 AUTHOR: DENA FELIPE EXP COSIGNER: URGENCY: STATUS: COMPLETED Initial Evaluation date: 03/26/24 Progress Note Date: n/a Treatment #: 6 Treatment time: 30 mins Diagnosis: other abnormalities of gait and mobility Provider: John PT Treatment Precautions: hx of a-fib, on anticoag SUBJECTIVE: I have no pain today, I haven't had pain for a couple days, I think I'm getting stronger OBJECTIVE: Pt denies falls, walks in with rollator walker continues to need cues on standing closer to the walker and taking larger steps which he corrects but quickly resorts back to this shuffling type gait THERAPEUTIC EXERCISE: MINUTES: 30 - nustep x10min L1-2 - anterior tap ups on 8 box 2x20 B, B UE support focus on slow movement - anterior step up/downs on 8 box 2x10 B - side stepping in parallel bars with red band above knees 10'x5 performed X2 - SLS in bars one UE progressing to no UE tolerated @ 1-3sec no UE support min ankle strategies present - heel raises 2x15 focus on NOT using UE's SELF CARE/EDUCATION: MINUTES:-- Access Code: [email or web address] URL: [email or web address] Date: 03/26/2024 Prepared by: [facility] Patient education was provided for all aspects of care during this clinical encounter. ASSESSMENT: Fatigue with ther ex/balance activities requiring one seated rest in between bouts of activity, tolerating more ther ex continues to have fatigue but tolerating more activity without as many rests. Frequent reminders for proper gait continue to be necessary PLAN: continue per plan of care, optimize LE strength and balance /es/ DENA FELIPE PT PHYSICAL THERAPIST Signed: 05/25/2024 13:25 [facility]
--- OUTSIDE RECORDS SUMMARY | 2024-07-11 11:10 | XMS_ITS | Encounter Summary ---
Author Name [facility] [place] [place] Organization [facility] [place] [place] Address [address] [place] [address] Care Team Providers Care Textiles Printer Name Role Phone SATHISH LOPEZ Primary Care [...] BREANNA PLAN MY Jun 03, 2022 PLANMY [id number] [phone] Bella KIM PATIENT AARP MED SUPP MEDICARE SUPPLEMEN BREANNA Jun 03, 2016 PLANMY [id number] Bella KIM PATIENT AARP MED SUPP MEDICARE SUPPLEMEN BREANNA Jun 03, 2016 PLANMY [id number] Bella KIM PATIENT AARP MED SUPP MEDICARE SUPPLEMEN BREANNA PLAN MY Jun 03, 2016 PLANMY [id number] Bella KIM PATIENT CIGNA DENTAL DENTAL INSURANCE DENTA L PPO Jun 03, 2021 [id number] [phone] Bella KIM PATIENT MEDICARE (WNR) MEDICARE (M) PART A Apr 03, 2014 PART A [id number] Bella KIM PATIENT MEDICARE (WNR) MEDICARE (M) PART B Apr 03, 2014 PART B [id number] Bella KIM PATIENT MEDICARE (WNR) MEDICARE (M) PART A Apr 03, 2014 PART A [id number] Bella KIM PATIENT MEDICARE (WNR) MEDICARE (M) PART B Apr 03, 2014 PART B [id number] [phone] Bella KIM PATIENT MEDICARE (WNR) MEDICARE (M) PART A Apr 03, 2014 PART A [id number] Bella KIM PATIENT MEDICARE (WNR) MEDICARE (M) PART B Apr 03, 2014 PART B [id number] [phone] Bella KIM PATIENT MEDICARE PART D (WNR) MEDICARE (M) PART D Jun 03, 2020 PART D [id number] Bella KIM PATIENT Selected Encounter This section includes the information on record at [place] for the Encounter. Date/Time Encounter Type Encounter Description Reason Provider Source Aug 09, 2023 10:00 AM OFFICE O/P EST MOD 30 MIN PRIMARY CARE/MEDICINE ICD-10-CM I48.91 Unspecified atrial fibrillation LOPEZ,WILL JOSE ALBERTO Colmenares [facility] Encounter Template Text not used by [place] Assessments - Encounter Diagnoses This section includes the primary and secondary diagnoses documented for the Encounter. Date/Time Primary/Secondary Diagnosis Diagnosis Name Provider Source Aug 22, 2023 11:10 AM PRIMARY Unspecified atrial fibrillation LOPEZ,WILL JOSE ALBERTO J [place] [facility] [place] [facility] Aug 22, 2023 11:10 AM SECONDARY Chronic gout, unspecified, without tophus (tophi) LOPEZ,WILL JOSE ALBERTO [place] [facility] [place] [facility] Aug 22, 2023 11:10 AM SECONDARY Hyperlipidemia, unspecified LOPEZ,WILL JOSE ALBERTO [place] [facility] [place] [facility] Aug 22, 2023 11:10 AM SECONDARY Hypertensive heart disease without heart failure LOPEZ,WILL JOSE ALBERTO [facility] Aug 22, 2023 11:10 AM SECONDARY Impacted cerumen, bilateral [facility]IL[facility]Z [facility] Aug 22, 2023 11:10 AM SECONDARY Type 2 diabetes mellitus without complications LOPEZWILBERT JOSE ALBERTO [facility] Plan of Treatment: Future Appointments (+ 6 months) and Future Tests (+/- 45 days) The Plan of Treatment section includes future care activities for the patient [facility] [place] [facility] This section includes future appointments and future orders which are active, pending or scheduled. Future Appointments This section includes appointments that were scheduled to occur 6 months from the date of the Encounter, up to a maximum of 20 appointments. The data comes from all [place] treatment facilities. Appointment Date/Time Appointment Type Appointme nt Facility Name Aug 23, 2023 10:00 AM [facility] October 10, 2023 03:00 PM [facility]UL[facility]ORY [facility] Nov 28, 2023 02:00 PM [facility] Jan 09, 2024 02:30 PM [facility] Lab Results: +/- 30 days of the encounter This section includes the Chemistry and Hematology Lab Results on record with [place] for the patient. Radiology Reports and Pathology Reports are provided separately, in subsequent sections. Lab Results This section contains the Chemistry/Hematology Results that were resulted 30 days before or 30 daysafter the date of the Encounter. Date/Time Source Result Type Result - Unit Interpretation Reference Range Comment Aug 05, 2023 09:50 AM [facility] THYROID T4 FREE(FT4) Specimen Type: SERUM No comment entered. Ordering Provider: CONOR LOPEZ AM Report Released Date/Time: Jul 25, 2023 02:13 PM Reporting Lab: [facility] [address] [facility] [address] Performing Lab: [facility] [address] [facility] [address] THYROID T4 FREE(FT4) 1.05 ng/dL 0.6-1.6 Aug 05, 2023 09:50 AM [facility] CBC Specimen Type: BLOOD No comment entered. Ordering Provider: CONOR LOPEZ AM Report Released Date/Time: Jul 25, 2023 02:13 PM Reporting Lab: [facility] [address] [facility] [address] Performing Lab: [facility] [address] [facility] [address] WBC 5.05 10*3/uL 4.50-11.00 RBC 3.59 10*6/uL L 4.23-5.66 HGB 12.7 g/dL L 12.8-17 HCT 36.6 L 39.2-50.4 MCV 101.9 fL H 82-99 MCHC 34.7 g/dL 30.8-35.1 PLT 188 10*3/uL 140-360 RDW-CV 12.4 12.0-16.0 MCH 35.4 pg H 26.2-32.6 Aug 05, 2023 09:50 AM [facility] BASIC METABOLIC PANEL (non-fasting) Specimen Type: SERUM No comment entered. Ordering Provider: CONOR LOPEZ AM Report Released Date/Time: Jul 25, 2023 02:13 PM Reporting Lab: [facility] [address] [facility] [address] Performing Lab: [address] [address] UREA NITROGEN 39 mg/dL H 7-25 GLUCOSE 92 mg/dL 65-100 SODIUM 140 mmol/L 135-145 POTASSIUM 4.6 mmol/L 3.5-5.0 CHLORIDE 108 mmol/L 100-110 CO2 21 meq/L 20-30 CREATININE, Serum 1.81 mg/dL H 0.50-1.40 eGFR(CKD-EPI 2020) 39 mL/min L >60 Aug 05, 2023 09:50 AM [facility] TSH Specimen Type: SERUM No comment entered. Ordering Provider: CONOR LOPEZ AM Report Released Date/Time: Jul 25, 2023 02:13 PM Reporting Lab: [facility] [address] [facility] [address] Performing Lab: [facility] [address] [facility] [address] TSH 2.31 u[IU]/mL 0.35-5.00 Aug 05, 2023 09:50 AM [facility] LIPID PANEL, NON FASTING Specimen Type: SERUM No comment entered. Ordering Provider: CONOR LOPEZ AM Report Released Date/Time: Jul 25, 2023 02:13 PM Reporting Lab: [facility] [address] [facility] [address] Performing Lab: [address] [address] CHOLESTEROL 235 mg/dL H TRIGLYCERIDE 144 mg/dL 0-150 LDL calculated 152 mg/dL H 0-129 CHOL/HDL 4.4 HDL CHOLESTEROL 54 mg/dL 40-60 Aug 05, 2023 09:50 AM [facility] LIVER FUNCTION Specimen Type: SERUM No comment entered. Ordering Provider: CONOR LOPEZ AM Report Released Date/Time: Jul 25, 2023 02:13 PM Reporting Lab: [address] [address] Performing Lab: [address] [address] PROTEIN,TOTAL 6.5 g/dL 6.0-8.3 ALBUMIN 3.5 g/dL 3.5-5.0 ALKALINE PHOSPHATASE 56 U/L 40-150 AST 23 U/L 5-34 ALT 15 U/L BILIRUBIN, TOTAL 0.4 mg/dL 0.2-1.2 Aug 05, 2023 09:50 AM [facility] HEMOGLOBIN A1C PANEL Specimen Type: BLOOD Comment: Values obtained from A1C measurements can vary. For atypical A1C assays, a reported value of 7.0 could actually be between 6.72 and 7.28 if measured by a reference method. A reported value of 9.0 could actually be between 8.73 and 9.27. Ref: http://www.ngs p.org/CAPdata. asp Ordering Provider: CONOR LOPEZ AM Report Released Date/Time: Jul 25, 2023 02:13 PM Reporting Lab: [facility] [address] [facility] [address] Performing Lab: [facility] [address] [facility] [address] HEMOGLOBIN A1C 5.2 4.0-5.6 Aug 05, 2023 09:50 AM [facility] MICROALBUMIN CREATININE RATIO PANEL Specimen Type: URINE No comment entered. Ordering Provider: CONOR LOPEZ AM Report Released Date/Time: Jul 25, 2023 02:13 PM Reporting Lab: [facility] [address] [facility] [address] Performing Lab: [facility] [address] [facility] [address] MICROALBUMIN/C REATININE RATIO 699.3 mg/g H 0-29.9 MICROALBUMIN,Q UANTITATIVE 88.5 mg/dL RR UNAVAIL CREATININE URINE 126.55 mg/dL Vital Signs: All taken on the encounter date This section contains inpatient and outpatient Vital Signs collected on the date of the Encounter. Date/Time Temperature Pulse Blood Pressure Respiratory Rate SP02 Pain Height Weight Body Mass Index Source Aug 09, 2023 10:59 AM 152/[facility] Aug 09, 2023 10:14 AM 98.3 78 192/99 18 97 0 67 185 29 [facility] Social History: Smoking Status (Most current) and Tobacco Use (All prior to encounter date) This section includes the most current, and the historical, smoking and tobacco- related health factors from the [place] facility where the Encounter took place. Current Smoking Status This section includes the most current smoking, or tobacco-related health factor, from the [place] facility where the Encounter took place. Date/Time Current Smoking Status Comment [place] [facility] Aug 06, 2022 09:30 AM VA-TOBACCO NEVER USED [facility] Tobacco Use History This section includes a history of the smoking, or tobacco-related health factors, that were collected on or before the date of the Encounter. The data comes from the [place] facility where the Encounter took place. Date/Time Smoking Status/Tobacco Use Comment F acility Mar 24, 2021 03:00 PM VA-TOBACCO NEVER USED [place] [facility] [place] [facility] Mar 08, 2020 02:30 PM VA-TOBACCO NEVER USED [facility] [place] [facility] Jan 27, 2018 08:05 AM VA-TOBACCO NEVER USED [place] [facility] [place] [facility] Mar 19, 2017 12:58 PM LIFETIME NON-TOBACCO USER [place] [facility] [place] [facility] Encounter Notes: All associated encounter notes This section contains the clinical notes associated to the Encounter. Date/Time Encounter Note(s) Provider Source Aug 09, 2023 10:24 AM PRIMARY CARE NURSE PRACTITIONER OUTPATIENT NOTE: LOCAL TITLE: NURSE PRACTITIONER OUTPATIENT NOTE STANDARD TITLE: PRIMARY CARE NURSE PRACTITIONER OUTPATIENT NOTE DATE OF NOTE: AUG 09, 2023@10:24 ENTRY DATE: AUG 09, 2023@10:24:11 AUTHOR: SATHISH LOPEZ COSIGNER: URGENCY: STATUS: COMPLETED Chief complaint: Patient is a 73 year old . HPI: Pleasant male [place] here with his . No new concerns. Continues to follow [facility], Dr. Lord. Allergies: Patient has answered NKA The following VA and Non-VA meds were reconciled with patient. The patient was educated on the use of the medications including indication and side effects. Active and Recently Outpatient Medications (excluding Supplies): Active Outpatient Medications Status 1) CLOTRIMAZOLE 1% TOP SOLN APPLY 1 DROP TOPICALLY ONCE ACTIVE DAILY FOR FUNGAL INFECTION APPLY ONE DROP TO EACH AFFECTED TOE NAIL ONCE DAILY. APPLY WHEN NAIL IS DRY NOT AFTER SHOWER OR BATH. USE FOR AT LEAST 9-12 MONTHS. FOR BEST CLINICAL RESULT. REGULAR NAIL CARE IS ALSO RECOMMMENDED. 2) FAMOTIDINE 40MG TAB TAKE ONE TABLET BY MOUTH AT ACTIVE BEDTIME FOR STOMACH ACID Pending Outpatient Medications Status 1) CARVEDILOL 12.5MG TAB TAKE THREE TABLETS BY MOUTH PENDING ONCE DAILY 2) SIMVASTATIN 80MG TAB TAKE ONE-HALF TABLET BY MOUTH AT PENDING BEDTIME FOR CHOLESTEROL Inactive Outpatient Medications Status 1) SIMVASTATIN 80MG TAB TAKE ONE-HALF TABLET BY MOUTH AT BEDTIME FOR CHOLESTEROL 5 Total Medications Review of Systems: Constitutional: (-)for Fevers, chills, weakness, nights sweats On examination: 98.3 F [36.8 C] (08/09/2023 10:14)192/99 (08/09/2023 10:14)78 (08/09/2023 10:14) 18 (08/09/2023 10:14)0 (08/09/2023 10:14)BMI: 29.0185 lb [83.91 kg] (08/09/2023 10:14) [place] is alert and oriented X3 HEENT: External without scars, lesions or masses, TM's without erythema or perforations, Oropharynx without erythema or exudates or worrisome lesions. +cerumen bilat. Neck: supple without masses, trachea midline, ln not palpable, no thyromegaly Cardiovasc: 2plus carotids without bruits, no JVD [...] source for the followin. Atrial fibrillation - rate controlled on BB, managed by Dr. Lord. 2. Chronic kidney disease due to type 2 diabetes mellitus - decline noted, encouraged hydration, he is followed here by nephrology, they will call to schedule follow up. 3. Hearing disorder - bilat cerumen, debrox ordered, educated on use. Refer for lavage. 4. Essential hypertension - repeat 152/96, this is being managed by Dr. Lord, recent increase in BB, he has follow up scheduled. 5. Hypercholesterolemia - up from previous, he notes some missed doses of statin, encouraged more consistency. 6. Gout - he stopped allopurinal, remains free of flares. Review of medial record = 5mins Time spent with Patient including shared decision making = 20 mins Post visit documentation = 5mins Total time = 30 mins Follow up visit in mos. Alert to PACT RN - Labs as necessary to address clinical status. Active Outpatient Medications Status 1) CLOTRIMAZOLE 1% TOP SOLN APPLY 1 DROP TOPICALLY ONCE ACTIVE DAILY FOR FUNGAL INFECTION APPLY ONE DROP TO EACH AFFECTED TOE NAIL ONCE DAILY. APPLY WHEN NAIL IS DRY NOT AFTER SHOWER OR BATH. USE FOR AT LEAST 9-12 MONTHS. FOR BEST CLINICAL RESULT. REGULAR NAIL CARE IS ALSO RECOMMMENDED. 2) FAMOTIDINE 40MG TAB TAKE ONE TABLET BY MOUTH AT ACTIVE BEDTIME FOR STOMACH ACID Pending Outpatient Medications Status 1) CARVEDILOL 12.5MG TAB TAKE THREE TABLETS BY MOUTH PENDING ONCE DAILY 2) SIMVASTATIN 80MG TAB TAKE ONE-HALF TABLET BY MOUTH AT PENDING BEDTIME FOR CHOLESTEROL Inactive Outpatient Medications Status 1) SIMVASTATIN 80MG TAB TAKE ONE-HALF TABLET BY MOUTH AT BEDTIME FOR CHOLESTEROL 5 Total Medications Assess Statin Use - Lipids (CVD/DM): The patient is already on a statin. The patients prescription for a statin was reviewed and updated. Sexual Orientation: The patient thinks of their sexual orientation as: Straight or Heterosexual PAVE Foot Check: A complete foot check was completed at this encounter. VISUAL INSPECTION: Includes inspection for skin breaks, deformity, erythema, trauma, pallor on elevation, dependent rubor, nail deformities, extensive callus and pitting edema. Visual exam results: Normal PEDAL PULSES: Includes palpation of dorsalis and posterior tibial pulses and signs/symptoms of vascular compromise like pain, pallor, parasthesia or paralysis. Present (even if diminished) SENSORY CHECK: Includes 10 gram Monofilament ([place]) test of sensation. Intact (Greater than or equal to 80% of sites checked) Abnormal (Less than 80% of sites checked): Intact LOW-RISK LOW RISK FOOT EDUCATION: 1. Advised patient not to walk barefoot. Instructed the patient to pay close attention to the style and fit of shoes. 2. Explained the importance of daily foot checks. Explained that loss of sensation leads to callouses. Callouses break down, which result in ulcers that may lead to gangrene and amputation. 3. Stressed the importance of daily foot hygiene. Warm (not hot) bathing of the feet, complete drying and thorough inspection for changes in the condition of the skin constitute daily foot care. Demonstrated how to do a thorough foot check. 4. Emphasized the use of clean, non-restrictive socks/stockings and well fitting shoes. 5. Stressed the importance of immediate follow-up of any foot injuries or ulcers. Explained that he/she should be non-weight bearing whenever there are lesions on the foot, to prevent cellular damage. Level of Understanding: Good HTN Assess for Elevated BP>=140/90: Repeat blood pressure: 152/96 Other Reason: non va provider addressing Medication Reconciliation: Outpatient: Has the patient been [...] whether with a VA or non-VA provider. Depression Screening: Perform PHQ-2 A PHQ-2 screen was performed. The score was 0 which is a negative screen for depression. Over the past two weeks, how often have you been bothered by the following problems? 1. Little interest or pleasure in doing things Not at all 2. Feeling down, depressed, or hopeless Not at all Suicide Screen: C-SSRS Screening [place] Suicide Severity Rating Scale (C-SSRS) screener 1. Over the past month, have you wished you were or wished you could go to sleep and not wake up? No 2. Over the past month, have you had any actual thoughts of killing yourself? No 3. Over the past month, have you been thinking about how you might do this? Response not required due to responses to other questions. 4. Over the past month, have you had these thoughts and had some intention of acting on them? Response not required due to responses to other questions. 5. Over the past month, have you started to work out or worked out the details of how to kill yourself? Response not required due to responses to other questions. 6. If yes, at any time in the past month did you intend to carry out this plan? Response not required due to responses to other questions. 7. In your lifetime, have you ever done anything, started to do anything, or prepared to do anything to end your life (for example, collected pills, obtained a gun, gave away valuables, went to the roof but didn't jump)? No 8. If YES, was this within the past 3 months? Response not required due to responses to other questions. Toxic Exposure Screening: The /caregiver was asked if they believe the experienced any toxic exposure(s), such as Airborne Hazards and Open Burn [place], [place] War related exposures, Agent [place], Radiation, contaminated water at [place] or other such exposures, while serving in the Armed Forces. [place] has no concerns about toxic exposure(s) while serving in the Armed Forces. The [place]/caregiver was informed that we will continue to ask this screening question every 5 years. They can contact their provider/healthcare team if they have concerns about exposures and would like to be screened sooner. Printed information was offered and provided if desired. /nadiya/ Sathish Lopez DNP, [employer]SM[employer]IC-[employer], CNL Primary Care Nurse Practitioner Signed: 08/09/2023 11:01 SATHISH LOPEZ [place] [facility]
--- OUTSIDE RECORDS SUMMARY | 2024-07-11 11:10 | XMS_ITS | Encounter Summary ---
Author Name [facility] [place] [place] Organization [facility] [place] Address [address] [place] [address] Care Team Providers Care Display Fabrication Supervisor Name Role Phone ARLENE ROMERO Primary [...] BREANNA PLAN MY Jun 03, 2022 PLANMY [id number] Bella KIM PATIENT AARP MED SUPP MEDICARE SUPPLEMEN BREANNA Jun 03, 2016 PLANMY [id number] Bella KIM PATIENT AARP MED SUPP MEDICARE SUPPLEMEN BREANNA Jun 03, 2016 PLANMY [id number] [phone] Bella KIM PATIENT AARP MED SUPP MEDICARE SUPPLEMEN BREANNA PLAN MY Jun 03, 2016 PLANMY [id number] Bella KIM PATIENT CIGNA DENTAL DENTAL INSURANCE DENTA L PPO Jun 03, 2021 [id number] [phone] Bella KIM PATIENT MEDICARE (WNR) MEDICARE (M) PART A Apr 03, 2014 PART A [id number] [phone] Bella KIM PATIENT MEDICARE (WNR) MEDICARE (M) PART B Apr 03, 2014 PART B [id number] Bella KIM PATIENT MEDICARE (WNR) MEDICARE (M) PART A Apr 03, 2014 PART A [id number] Bella KIM PATIENT MEDICARE (WNR) MEDICARE (M) PART B Apr 03, 2014 PART B [id number] Bella KIM PATIENT MEDICARE (WNR) MEDICARE (M) PART A Apr 03, 2014 PART A [id number] Bella KIM PATIENT MEDICARE (WNR) MEDICARE (M) PART B Apr 03, 2014 PART B [id number] [id number] [id number] Bella KIM PATIENT MEDICARE PART D (WNR) MEDICARE (M) PART D Jun 03, 2020 PART D [id number] Bella KIM PATIENT Selected Encounter This section includes the information on record at [place] for the Encounter. Date/Time Encounter Type Encounter Description Reason Pro vider Source Aug 30, 2023 10:08 AM Outpatient Encounter ADMIN PAT ACTIVTIES (MASNONCT) IHE Encounter Template Text not used by [place] Plan of Treatment: Future Appointments (+ 6 months) and Future Tests (+/- 45 days) The Plan of Treatment section includes future care activities for the patient from all [place] treatmentfacilities. This section includes future appointments and future orders which are active, pending or scheduled. Future Appointments This section includes appointments that were scheduled to occur 6 months from the date of the Encounter, up to a maximum of 20 appointments. The data comes from all [place] treatment facilities. Appointment Date/Time Appointment Type Appointme nt Facility Name October 10, 2023 03:00 PM AMBULATORY - MEDICINE [place] [facility] [facility] Nov 28, 2023 02:00 PM AMBULATORY - MEDICINE [place] [facility] [facility] [place] Jan 09, 2024 02:30 PM AMBULATORY - MEDICINE [place] [facility] [place] [facility] [place] Feb 14, 2024 11:00 AM AMBULATORY - MEDICINE [place] [facility] [facility] [place] Feb 14, 2024 03:30 PM AMBULATORY - MEDICINE [place] [facility] [place] [facility] [place] Feb 17, 2024 01:00 PM AMBULATORY - MEDICINE [place] [facility] [facility] [place] Feb 21, 2024 07:45 AM [facility] - NONE [facility] [place] Lab Results: +/- 30 days of the encounter This section includes the Chemistry and Hematology Lab Results on record with [place] for the patient. Radiology Reports and Pathology Reports are provided separately, in subsequent sections. Lab Results This section contains the Chemistry/Hematology Results that were resulted 30 days before or 30 daysafter the date of the Encounter. Date/Time Source Result Type Result - Unit Interpretation Reference Range Comment Aug 05, 2023 09:50 AM [facility] [place] THYROID T4 FREE(FT4) Specimen Type: SERUM No comment entered. Ordering Provider: CONOR ROMERO AM Report Released Date/Time: Jul 25, 2023 02:13 PM Reporting Lab: [facility] [place] [facility] [place] [address] [facility] [address] Performing Lab: [facility] [place] [address] [facility] [address] THYROID T4 FREE(FT4) 1.05 ng/dL 0.6-1.6 Aug 05, 2023 09:50 AM [facility] [place] TSH Specimen Type: SERUM No comment entered. Ordering Provider: CONOR ROMERO AM Report Released Date/Time: Jul 25, 2023 02:13 PM Reporting Lab: [facility] [place] [facility] [place] [address] [facility] [address] Performing Lab: [facility] [place] [facility] [place] [address] [facility] [address] TSH 2.31 u[IU]/mL 0.35-5.00 Aug 05, 2023 09:50 AM [facility]ITALRLAUREL [facility] [place] LIPID PANEL, NON FASTING Specimen Type: SERUM No comment entered. Ordering Provider: CONOR ROMERO AM Report Released Date/Time: Jul 25, 2023 02:13 PM Reporting Lab: [facility] [address] [facility] [address] Performing Lab: [facility] [address] [facility] [address] CHOLESTEROL 235 mg/dL H TRIGLYCERIDE 144 mg/dL 0-150 LDL calculated 152 mg/dL H 0-129 CHOL/HDL 4.4 HDL CHOLESTEROL 54 mg/dL 40-60 Aug 05, 2023 09:50 AM [facility] BASIC METABOLIC PANEL (non-fasting) Specimen Type: SERUM No comment entered. Ordering Provider: CONOR ROMERO AM Report Released Date/Time: Jul 25, 2023 02:13 PM Reporting Lab: [facility] [address] [facility] [address] Performing Lab: [address] [address] UREA NITROGEN 39 mg/dL H 7-25 GLUCOSE 92 mg/dL 65-100 SODIUM 140 mmol/L 135-145 POTASSIUM 4.6 mmol/L 3.5-5.0 CHLORIDE 108 mmol/L 100-110 CO2 21 meq/L 20-30 CREATININE, Serum 1.81 mg/dL H 0.50-1.40 eGFR(CKD-EPI 2020) 39 mL/min L >60 Aug 05, 2023 09:50 AM [facility] LIVER FUNCTION Specimen Type: SERUM No comment entered. Ordering Provider: CONOR ROMERO AM Report Released Date/Time: Jul 25, 2023 02:13 PM Reporting Lab: [facility] [address] [facility] [address] Performing Lab: [address] [address] PROTEIN,TOTAL 6.5 g/dL 6.0-8.3 ALBUMIN 3.5 g/dL 3.5-5.0 ALKALINE PHOSPHATASE 56 U/L 40-150 AST 23 U/L 5-34 ALT 15 U/L BILIRUBIN, TOTAL 0.4 mg/dL 0.2-1.2 Aug 05, 2023 09:50 AM [facility] HEMOGLOBIN A1C PANEL Specimen Type: BLOOD Comment: Values obtained from A1C measurements can vary. For atypical A1C assays, a reported value of 7.0 could actually be between 6.72 and 7.28 if measured by a reference method. A reported value of 9.0 could actually be between 8.73 and 9.27. Ref: http://www.ngs p.org/CAPdata. asp Ordering Provider: CONOR ROMERO AM Report Released Date/Time: Jul 25, 2023 02:13 PM Reporting Lab: [facility] [place] [facility] [place] [address] [facility] [address] Performing Lab: [facility] [address] HEMOGLOBIN A1C 5.2 4.0-5.6 Aug 05, 2023 09:50 AM [facility] [place] CBC Specimen Type: BLOOD No comment entered. Ordering Provider: CONOR ROMERO AM Report Released Date/Time: Jul 25, 2023 02:13 PM Reporting Lab: [facility] [place] [facility] [place] [address] [facility] [address] Performing Lab: [facility]ITAL[facility]ETS [address] [address] WBC 5.05 10*3/uL 4.50-11.00 RBC 3.59 10*6/uL L 4.23-5.66 HGB 12.7 g/dL L 12.8-17 HCT 36.6 L 39.2-50.4 MCV 101.9 fL H 82-99 MCHC 34.7 g/dL 30.8-35.1 PLT 188 10*3/uL 140-360 RDW-CV 12.4 12.0-16.0 MCH 35.4 pg H 26.2-32.6 Aug 05, 2023 09:50 AM [facility] [place] MICROALBUMIN CREATININE RATIO PANEL Specimen Type: URINE No comment entered. Ordering Provider: CONOR ROMERO AM Report Released Date/Time: Jul 25, 2023 02:13 PM Reporting Lab: [facility] [address] Performing Lab: [facility] [address] [address] MICROALBUMIN/C REATININE RATIO 699.3 mg/g H 0-29.9 MICROALBUMIN,Q UANTITATIVE 88.5 mg/dL RR UNAVAIL CREATININE URINE 126.55 mg/dL Social History: Smoking Status (Most current) and Tobacco Use (All prior to encounter date) This section includes the most current, and the historical, smoking and tobacco- related health factors from the [place] facility where the Encounter took place. Current Smoking Status This section includes the most current smoking, or tobacco-related health factor, from the [place] facility where the Encounter took place. Date/Time Current Smoking Status Comment Facil ity Aug 06, 2022 09:30 AM VA-TOBACCO NEVER USED [facility] Tobacco Use History This section includes a history of the smoking, or tobacco-related health factors, that were collected on or before the date of the Encounter. The data comes from the [place] facility where the Encounter took place. Date/Time Smoking Status/Tobacco Use Comment F acility Mar 24, 2021 03:00 PM VA-TOBACCO NEVER USED AR [facility] [place] Mar 08, 2020 02:30 PM VA-TOBACCO NEVER USED AR [facility] [place] [facility] [place] Jan 27, 2018 08:05 AM VA-TOBACCO NEVER USED AR [facility] [place] Mar 19, 2017 12:58 PM LIFETIME NON-TOBACCO USER [facility]TR[facility] [place] Encounter Notes: All associated encounter notes This section contains the clinical notes associated to the Encounter. Date/Time Encounter Note(s) Provider Source Aug 30, 2023 10:08 AM ADMINISTRATIVE NOT E: LOCAL TITLE: CCC: SCHEDULING ADMINISTRATION STANDARD TITLE: ADMINISTRATIVE NOTE DATE OF NOTE: AUG 30, 2023@10:08 ENTRY DATE: AUG 30, 2023@10:08:28 AUTHOR: NIKI HUYNH EXP COSIGNER: URGENCY: STATUS: COMPLETED CCC: SCHEDULING ADMINISTRATION Has ADDENDA bruna rodarte spouse called with [phone] requesting to discuss [facility] care options, future testing for delicia /nadiya/ NIKI ANTUNEZN 1 CCC AMSA Signed: 08/30/2023 10:09 Receipt Acknowledged By: 08/30/2023 11:25 /nadiya/ OLGA LIDIA STARKEY, RN REGISTERED NURSE for ART BRENNAN 08/30/2023 ADDENDUM STATUS: COMPLETED Attempted to call Maria Eparvez voice mail with direct phone number and extension for call back. /nadiya/ OLGA LIDIA STARKEY RN REGISTERED NURSE Signed: 08/30/2023 11:24 NIKI HUYNH [facility]
--- OUTSIDE RECORDS SUMMARY | 2024-07-11 11:10 | XMS_ITS ---
Author Name [facility] [place] [facility] [place] Organization [facility] [place] Address [address] [place] [address] Care Team Providers Care Line Servicer Name Role Phone ARLENE ROMERO Primary Care [...] BREANNA PLAN MY Jun 03, 2022 PLANMY [id number] Bella KIM PATIENT AARP MED SUPP MEDICARE SUPPLEMEN BREANNA Jun 03, 2016 PLANMY [id number] [phone] Bella KIM PATIENT AARP MED SUPP MEDICARE SUPPLEMEN BREANNA Jun 03, 2016 PLANMY [id number] Belal KIM PATIENT AARP MED SUPP MEDICARE SUPPLEMEN BREANNA PLAN MY Jun 03, 2016 PLANMY [id number] Bella KIM PATIENT CIGNA DENTAL DENTAL INSURANCE DENTA L PPO Jun 03, 2021 [id number] Bella KIM PATIENT MEDICARE (WNR) MEDICARE (M) PART A Apr 03, 2014 PART A [id number] Bella KIM PATIENT MEDICARE (WNR) MEDICARE (M) PART B Apr 03, 2014 PART B [id number] Bella KIM PATIENT MEDICARE (WNR) MEDICARE (M) PART A Apr 03, 2014 PART A [id number] Bella KIM PATIENT MEDICARE (WNR) MEDICARE (M) PART B Apr 03, 2014 PART B [id number] [phone] Bella KIM PATIENT MEDICARE (WNR) MEDICARE (M) PART A Apr 03, 2014 PART A [id number] Bella KIM PATIENT MEDICARE (WNR) MEDICARE (M) PART B Apr 03, 2014 PART B [id number] Bella KIM PATIENT MEDICARE PART D (WNR) MEDICARE (M) PART D Jun 03, 2020 PART D [id number] Bella KIM PATIENT Selected Encounter This section includes the information on record at [place] for the Encounter. Date/Time Encounter Type Encounter Description Reason Pro vider Source May 21, 2024 01:30 PM Outpatient Encounter PHYSICAL THERAPY IHE Encounter Template Text not used by [place] Plan of Treatment: Future Appointments (+ 6 [...] Appointment Type Appointme nt Facility Name May 22, 2024 11:30 AM AMBULATORY - MEDICINE [place] [facility] May 25, 2024 09:30 AM AMBULATORY - REHAB MEDICIN E [place] [facility] [facility] Jun 24, 2024 10:30 AM AMBULATORY - REHAB MEDICIN E [facility] [facility] Jul 01, 2024 10:00 AM AMBULATORY - REHAB MEDICIN E [facility] [place] [facility] Aug 17, 2024 08:00 AM [facility]UL[facility] Social History: Smoking Status (Most [...] PM VA-TOBACCO QUIT 15 YRS OR MORE [facility] Tobacco Use History This section includes a history of the smoking, or tobacco-related health factors, that were collected on or before the date of the Encounter. The data comes from the [place] facility where the Encounter took place. Date/Time Smoking Status/Tobacco Use Comment F acility Feb 14, 2024 03:30 PM VA-TOBACCO QUIT 15 YRS OR MORE IN [facility] [facility] Aug 06, 2022 09:30 AM VA-TOBACCO NEVER USED IN [place] [place] [place] [facility] Mar 24, 2021 03:00 PM VA-TOBACCO NEVER USED IN [facility] [place] [facility] Mar 08, 2020 02:30 PM VA-TOBACCO NEVER USED IN [facility] [place] [place] [facility] Jan 27, 2018 08:05 AM VA-TOBACCO NEVER USED IN [place] [facility] Mar 19, 2017 12:58 PM LIFETIME NON-TOBACCO USER IN [facility] Encounter Notes: All associated encounter notes This section contains the clinical notes associated to the Encounter. Date/Time Encounter Note(s) Provider Source May 21, 2024 04:15 PM CLERICAL NOTE: LOCAL TITLE: APPOINTMENT NO SHOW STANDARD TITLE: CLERICAL NOTE DATE OF NOTE: MAY 21, 2024@16:15 ENTRY DATE: MAY 21, 2024@16:15:34 AUTHOR: DENA FELIPE COSIGNER: URGENCY: STATUS: COMPLETED APPOINTMENT NO SHOW Has ADDENDA Patient Name: MEGHAN KIM Patient SSN: [id number] Date and time of Appointment No show : 05/21/24 13:30 PATIENT PHONE - PHONE NUMBER [CELLULAR] - Patient's medical record was reviewed. Follow-up actions were determined and initiated: Please check/complete as applies: [ ]Telephoned Directly [ ]Re-scheduled for next available appt [ ]Sent a N0-show letter ( must call for appointment) [ ]Other (Emergent/Overbook, etc.): Additional Comments: No further PT apptsStefan please contact pt to reschedule this is first no show Future Clinic Visits 05/22/2024 11:30 CWM/NO/PACT 7 08/17/2024 08:00 CWM/NO/PODIATRY/NAIL /nadiya/ DENA FELIPE PT PHYSICAL THERAPIST Signed: 05/21/2024 16:15 Receipt Acknowledged By: 05/22/2024 15:03 /nadiya/ ALVINA MELCHOR ADVANCED INCUBATOR TENDER 05/22/2024 ADDENDUM STATUS: COMPLETED scheduled for 05/25/2024 /jacques MELCHOR ADVANCED INCUBATOR TENDER Signed: 05/22/2024 15:03 DENA FELIPE [facility]
--- OUTSIDE RECORDS SUMMARY | 2024-07-11 11:10 | XMS_ITS | Encounter Summary ---
Author Organization [facility] Address [address] [address] Phone Care Team Providers Care Sweet Potato Disintegrator Name Role Phone Unavailable Primary Care Provider Unavailabl e Encounter Details Date Type Department Care Team (Latest Contact Info) Description 03/08/2024 Office Communication [facility] [address] [phone] Forrest Benitez MD [facility] [address] Stage 3b chronic kidney disease (HCC) (Primary Dx) Social History Tobacco Use Types Packs/Day Years Used Date Smoking Tobacco: Never Smokeless Tobacco: Never Alcohol Use Standard Drinks/Week Comments Not Currently 0 (1 standard drink = 0.6 oz pur e alcohol) Sex and Gender Information Value Date Recorded Sex Assigned at Not on file Legal Sex Male 12:16 PM EST Gender Identity Not on file Sexual Orientation Not on file documented as of this encounter Miscellaneous Notes * Telephone Encounter - Forrest Benitez MD - 03/08/2024 8:41 AM EDT Needs labs in 3-4 weeks documented in this encounter Plan of Treatment Upcoming Encounters Date Type Department Care Team (Late st Contact Info) Description 12/07/2024 1:45 PM EDT Office Visit [facility] [address] [place] [address] Forrest Benitez MD [address] [place] [id number] Scheduled Orders Name Type Priority Associated Diagnoses Orde r Schedule Hepatitis B core antibody, IgM Lab Routine Stage 3b chronic kidney disease (HCC) Expected: 04/05/2024, Expires: 04/08/2025 FELI Panel Lab Routine Stage 3b chronic kidney disease (HCC) Expected: 04/05/2024, Expires: 04/08/2025 PTH, Intact Lab Routine Stage 3b chronic kidney disease (HCC) Expected: 04/05/2024, Expires: 04/08/2025 Renal Function Panel Lab Routine Stage 3b chronic kidney disease (HCC) Expected: 04/05/2024, Expires: 04/08/2025 Urine Albumin / Creatinine Ratio Lab Routine Stage 3b chronic kidney disease (HCC) Expected: 04/05/2024, Expires: 04/08/2025 Protein, Total, Random Urine w/Creatinine (Protein/Creat Ratio) Lab Routine Stage 3b chronic kidney disease (HCC) Expected: 04/05/2024, Expires: 04/08/2025 CBC Lab Routine Stage 3b chronic kidney disease (HCC) Expected: 04/05/2024, Expires: 04/08/2025 documented as of this encounter Results * (ABNORMAL) Urinalysis with microscopic (03/19/2024 5:10 PM EDT) Color Urine Yellow See orde r comments Appearance Urine Clear See order comments pH Urine 5.5 5.0 - 9.0 See order comments Glucose Urine Negative Negative mg/dL See order comments Blood, Urine Negative Negative See ord er comments Specific [place] Urine 1.015 1.005 - 1.025 See order comments Protein Urine 300 (3+)(A) Neg-Trace mg/dL See order comments Ketones, Urine Negative Negative mg/dL See order comments Nitrite, Urine Negative Negative See o rder comments Leukocyte Esterase Urine Negative Negative See order comments RBC, Urine 0-2 0 - 2 /HPF See orde r comments WBC 0-5 0 - 5 /HPF See order comments Squamous Epithelial, Urine 0-2 0 - 2 /HPF See order comments Bacteria, Urine None Seen None Seen See order comments Hyaline Casts, Urine 6-10 0 - 2 /LPF See order comments Granular Casts, Urine Present See order comments Urine (Urine, Clean Catch) 03/19/2024 5:10 PM EDT 03/19/2024 5:10 PM EDT us Forrest Benitez MD LAB URINE ORDERABLES Final Re sult Performing Organization Address [facility] Phone Number [place] See order comments [place] [address] * Calcium (03/19/2024 3:53 PM EDT) Calcium 9.8 8.4 - 10.2 mg/dL See order comments Blood (Blood, Venous) 03/19/2024 3:53 PM EDT 03/19/2024 3:53 PM EDT us Forrest Benitez MD LAB BLOOD ORDERABLES Final Re sult Performing Organization Address [facility] Phone Number [place] See order comments [place] [address] * Albumin (03/19/2024 3:53 PM EDT) Albumin 3.9 3.5 - 5.0 g/dL See order comments Blood (Blood, Venous) 03/19/2024 3:53 PM EDT 03/19/2024 3:53 PM EDT us Forrest Benitez MD LAB BLOOD ORDERABLES Final Re sult Performing Organization Address [facility] de Phone Number [place] See order comments [place] [address] * Magnesium (03/19/2024 3:53 PM EDT) Magnesium 1.6 1.6 - 2.6 mg/dL See order comments Blood (Blood, Venous) 03/19/2024 3:53 PM EDT 03/19/2024 3:53 PM EDT us Forrest Benitez MD LAB BLOOD ORDERABLES Final Re sult Performing Organization Address [facility]/ZIP Co de Phone Number [place] See order comments [place] [address] * Phosphorus (03/19/2024 3:53 PM EDT) Pathologist [facility] Phosphorus, Serum 3.4 2.7 - 4.5 mg/dL See order comments Blood (Blood, Venous) 03/19/2024 3:53 PM EDT 03/19/2024 3:53 PM EDT Forrest Benitez MD LAB BLOOD ORDERABLES Final Re sult Performing Organization Address [facility] Phone Number [place] See order comments [place] [address] * (ABNORMAL) Vitamin D 25 Hydroxy (03/19/2024 3:53 PM EDT) Pathologist [facility] Vitamin D, 25-Hydroxy 16.5(L) >30 ng/mL See order comments Comment: Health Based Reference Values* < 20 ??ng/mL ??Deficient 20-30 ng/mL ??Insufficient > 30 ??ng/mL ??Sufficient *Mau WAGGONER. N Engl J Med. 2007;357:266-280 Care must be taken in interpreting Vitamin D results from different laboratories and methodologies. ??Published data demonstrated that results from patients undergoing hemodialysis may show a negative bias when tested with various automated 25-OH vitamin D assays when compared to LC-MS/MS. When testing samples from patients whose predominant form of Vitamin D is Vitamin D2, such as patients receiving Vitamin D2 supplementation, results that are subtherapeutic should be confirmed with another method such as LC-MS/MS. Blood (Blood, Venous) 03/19/2024 3:53 PM EDT 03/19/2024 3:53 PM EDT Forrest Benitez MD LAB BLOOD ORDERABLES Final Re sult Performing Organization Address [facility] Phone Number [place] See order comments [place] [address] * C4 Complement (03/19/2024 3:53 PM EDT) Pathologist [facility] C4 Complement 23 15 - 53 mg/dL See order comments Comment: THIS TEST WAS PERFORMED AT: [facility] [address] [place] [address] ??[phone] NEETA PELLETIER MD Blood (Blood, Venous) 03/19/2024 3:53 PM EDT 03/19/2024 3:53 PM EDT us Forrest Benitez MD LAB BLOOD ORDERABLES Final Re sult Performing Organization Address [facility] Phone Number [place] See order comments [place] [address] * C3 Complement (03/19/2024 3:53 PM EDT) Pathologist [facility] C3 Complement 141 82 - 185 mg/dL See order comments Comment: THIS TEST WAS PERFORMED AT: [facility] [address] [place] [address] ??[phone] NEETA PELLETIER MD Blood (Blood, Venous) 03/19/2024 3:53 PM EDT 03/19/2024 3:53 PM EDT us Forrest Benitez MD LAB BLOOD ORDERABLES Final Re sult Performing Organization Address [facility] Phone Number [place] See order comments [place] [address] * Hepatitis C antibody (03/19/2024 3:53 PM EDT) Pathologist [facility] Hepatitis C Antibody Nonreactive Nonreactive See order comments Comment: Antibodies to HCV not detected; does not exclude early acute HCV infection. Blood (Blood, Venous) 03/19/2024 3:53 PM EDT 03/19/2024 3:53 PM EDT us Forrest Benitez MD LAB BLOOD ORDERABLES Final Re sult Performing Organization Address [facility] Phone Number [place] See order comments [place] [address] * Hepatitis B Surface Antigen (03/19/2024 3:53 PM EDT) Pathologist [facility] Hep B Surface Antigen Negative Negative See order comments Blood (Blood, Venous) 03/19/2024 3:53 PM EDT 03/19/2024 3:53 PM EDT Forrest Benitez MD LAB BLOOD ORDERABLES Final Re sult Performing Organization Address [facility]/State/ZIP Co de Phone Number [place] See order comments [place] [address] * Hepatitis B Surface Antibody (03/19/2024 3:53 PM EDT) Hep B Surface Antibody NONREACTIVE Nonreactive See order comments Comment:Nonreactive: < 8.00 mIU/mL Blood (Blood, Venous) 03/19/2024 3:53 PM EDT 03/19/2024 3:53 PM EDT Forrest Benitez MD LAB BLOOD ORDERABLES Final Re sult Performing Organization Address [facility] Co de Phone Number [place] See order comments [place] [address] * (ABNORMAL) Sedan/Lambda free LT chains w/ratio, Serum (03/19/2024 3:53 PM EDT) [place]an Free Light Chain 67.3(A) 3.3 - 19.4 mg/L See order comments Lambda Free Light Chain 52.3(A) 5.7 - 26.3 mg/L See order comments Sedan/Lambda LC Ratio 1.29 0.26 - 1.65 See order comments Comment: Free kappa/lambda ratio in serum of normal individuals is 0.26-1.65. Excess production of free kappa or lambda chains can alter this ratio. Monoclonal free light chains are found in serum of patients with multiple myeloma, Waldenstrom's macroglobulinemia, mu-heavy chain disease, primary amyloidosis, light chain deposition disease, monoclonal gammopathy of undetermined significance, and lymphoproliferative disorders. Measurement of free light chain concentration in serum is useful for diagnosis, prognosis, monitoring disease activity and following response to therapy of these disorders. THIS TEST WAS PERFORMED AT: [facility] [address] [place] [address] ??[phone] NEETA PELLETIER MD Blood (Blood, Venous) 03/19/2024 3:53 PM EDT 03/19/2024 3:53 PM EDT Forrest Benitez MD LAB BLOOD ORDERABLES Final Re sult Performing Organization Address [facility] Co de Phone Number [place] See order comments [place] [address] * (ABNORMAL) Protein electrophoresis, serum (03/19/2024 3:53 PM EDT) Total Protein Electrophoresis 6.7 6.1 - 8.1 g/dL See order comments Albumin 3.5(A) 3.8 - 4.8 g/dL See order comments A-1 Antitrypsin 0.3 0.2 - 0.3 g/dL See order comments Alpha 2 0.9 0.5 - 0.9 g/dL See order comments Beta-1 0.4 0.4 - 0.6 g/dL See order comments Beta-2 0.4 0.2 - 0.5 g/dL See order comments Gamma Globulin % 1.1 0.8 - 1.7 g/dL See order comments Abnormal Protein Band 1 TNP See order comments Abnormal Protein Band 2 TNP See order comments Abnormal Protein Band 3 TNP See order comments Protein Electrophoresis Interpretation, Serum SEE NOTE See order comments Comment: Evaluation reveals an isolated decrease in albumin. This pattern is suggestive of decreased protein synthesis or protein loss. Consider ordering pre- albumin quantitation. THIS TEST WAS PERFORMED AT: [facility] [address] ??[phone] NEETA PELLETIER MD Blood (Blood, Venous) 03/19/2024 3:53 PM EDT 03/19/2024 3:53 PM EDT Forrest Benitez MD LAB BLOOD ORDERABLES Final Re sult [place] See order comments [place] [address] documented in this encounter Visit Diagnoses Diagnosis Stage 3b chronic kidney disease (HCC)- Primary documented in this encounter
[2024-07-11 11:33] VITALS: BP 105/61; PULSE 48; RESP 11; TEMP 36.7; O2SAT 95
[2024-07-11 11:54] LABS: MANUAL DIFF FLAG NO
[2024-07-11 11:55] LABS: Basophils Percent Auto 0.6 % (0-2); Eosinophils Absolute Auto 0.1 X10*3/uL (0.0-0.4); Eosinophils Percent Auto 1.8 % (0-4); Hemoglobin 12.3 g/dl (14.0-18.0); Imm Gran Abs Auto 0.01 X10*3/uL (0.00-0.03); Imm Gran Pct Auto 0.2 % (0.0-0.4); Lymphocytes Absolute Auto 1.9 X10*3/uL (1.2-4.9); Lymphocytes Percent Auto 28.8 % (20-40); Mean Corpuscular HGB Conc 35.1 g/dl (31.0-36.0); Mean Corpuscular Hemoglobin 33.7 pg (27.0-33.0); Mean Corpuscular Volume 95.9 fL (80.0-98.0); Mean Platelet Volume 10.5 fL (9.4-12.4); Monocytes Percent Auto 14.8 % (2-11); Neutrophils Absolute Auto 3.6 x10*3/uL (2.0-8.3); Neutrophils Percent Auto 53.8 % (45-73); Platelet Count 185 X10*3/uL (160-400); Red Blood Count 3.65 X10*6/uL (4.60-5.80); White Blood Count 6.6 X10*3/uL (4.8-10.8)
[2024-07-11 12:00] VITALS: BP 105/61; PULSE 48; RESP 11; TEMP 36.7; O2SAT 95
[2024-07-11 12:18] LABS: Alanine Aminotransferase 9 U/L (0-40); Albumin Level 3.5 g/dL (3.5-5.0); Anion Gap 14 (12-20); Aspartate Amino Transferase 24 U/L (5-37); Bilirubin Direct 0.2 mg/dL (0.0-0.5); Bilirubin Total 0.6 mg/dL (0.0-1.0); Blood Urea Nitrogen 35 mg/dL (9-16); C Reactive Protein < 0.10 mg/dL (< or = 0.50); Calcium 9.2 mg/dL (8.4-10.2); Carbon Dioxide 19 mmol/L (22-29); Chloride 112 mmol/L (96-108); Creatinine Clr Calc Pharmacy 37.1; Estimated Glomerular Filt Rate 39; Glucose Random 99 mg/dL (60-115); Potassium 4.8 mmol/L (3.3-5.1); Sodium 140 mmol/L (135-145)
[2024-07-11 12:30] LABS: Alkaline Phosphatase 54 U/L (39-117)
[2024-07-11 12:31] VITALS: BP 131/72; PULSE 52; RESP 14; O2SAT 97
[2024-07-11 12:36] VITALS: BP 131/72; PULSE 52; RESP 14; TEMP -17.7; TEMP 0; O2SAT 97
== END 2024-07-11 12:37 | disposition home or self-care (01) ==
PROVIDERS: Emergency Provider Emergency Medicine; PCP Nurse Practitioner Family
DX: R78.81 Bacteremia (principal); I12.9 Hypertensive chronic kidney disease with stage 1 through stage 4 chronic kidney disease, or unspecified chronic kidney disease; N18.9 Chronic kidney disease, unspecified; E78.00 Pure hypercholesterolemia, unspecified
CPT/HCPCS: 36415; 80048; 80076; 85025; 86140; 99283; 99284